=== PATIENT | female | born 1960 | race Caucasian/White ===

== ENCOUNTER 2019-03-21 10:07 | Inpatient (IN) ==
[2019-03-21] MEDS ORDERED: OPTIRAY 320 125ml IV PRN (10:22)
[2019-03-21] MEDS ORDERED: SODIUM CHLORIDE 0.9% 1000ML 1,000 ML IV SCH (10:30)
[2019-03-21 10:32] LABS: Basophils # (auto) 0.01 K/uL (0-0.2); Basophils % (auto) 0.1 %; Eosinophils # (auto) 0.02 K/uL (0-0.5); Eosinophils % (auto) 0.1 %; Hematocrit (blood only) 34.8 % (37-47); Immature Granulocytes % (auto) 0.7 %; Lymphocytes # (auto) 1.16 K/uL (1.2-3.4); Lymphocytes % (auto) 7.7 %; Mean Corpuscular Hemoglobin 28.9 pg (25-34); Mean Corpuscular Hgb Conc 31.6 g/dL (32-36); Mean Corpuscular Volume 91.6 fL (80-100); Mean Platelet Volume 9.3 fL (7.4-10.4); Monocytes # (auto) 0.78 K/uL (0.11-0.59); Monocytes % (auto) 5.2 %; Neutrophils # (auto) 12.95 K/uL (1.4-6.5); Neutrophils % (auto) 86.2 %; Platelet Count 521 K/uL (130-400); RDW Coefficient of Variation 17.8 % (11.5-14.5); White Blood Count 15.02 K/uL (4.8-10.8)
--- NOTE | 2019-03-21 10:39 | Emergency Department Note ---
Entered by Margareth Chandler acting as a scribe for Maykel Aden DO History of Present Illness General Chief complaint: Stroke/CVA Symptoms Stated complaint: NEW ONSET STROKE SYMPTOMS Time Seen by Provider: 03/21/19 10:14 Source: patient, family (brother in law) and EMS Limitations: altered mental status History of Present Illness Onset (ago): unknown Location: head Pain Consistency: + other (episode) Quality: + other (confusion) Associated symptoms: no headaches The patient is a 59 year old female, with past medical history of diabetes, bipolar depression, and hypertension, who presents to the Emergency Room with complaints of an episode of confusion that was first noticed at the patients fine grader, according to the RN. The RN states the patient was confused and not making sense at the pulmonary office. The RN states that it is unknown when symptoms began or when the patient was last known well, due to the patients leaving in the middle of the night at 0300 for [place] for work. The patient denies a headache or new medications. The patient states she has been eating and drinking fine recently. The brother in law of the patient reports the patient is a heavy smoker. The HPI and ROS are limited due to the patient's altered mental status. Home Medications Home Medications Medication Instructions Recorded Confirmed Type amlodipine 5 mg tablet 5 mg PO DAILY #90 tab 01/06/19 03/21/19 Rx baclofen 10 mg tablet 10 mg PO TID #270 tab 01/06/19 03/21/19 Rx bupropion HCl XL 300 mg 24 hr 300 mg PO QAM #90 tab 01/06/19 03/21/19 Rx tablet, extended release duloxetine 60 mg capsule,delayed 60 mg PO DAILY #90 cap 01/06/19 03/21/19 Rx release metformin ER 500 mg 1,000 mg PO DAILY #180 tab 01/06/19 03/21/19 Rx tablet,extended release 24 hr metoclopramide 5 mg tablet 5 mg PO DAILY #90 tab 01/06/19 03/21/19 Rx omeprazole 40 mg capsule,delayed 40 mg PO DAILY #90 cap 01/06/19 03/21/19 Rx release quetiapine 300 mg tablet 300 mg PO DAILY #90 tab 01/06/19 03/21/19 Rx ferrous sulfate 325 mg (65 mg 325 mg PO DAILY tab 01/08/19 03/21/19 History iron) tablet folic acid 1 mg tablet 1 mg PO DAILY #90 tab 01/08/19 03/21/19 Rx rosuvastatin 20 mg tablet 20 mg PO DAILY #90 tab 01/09/19 03/21/19 Rx oxycodone-acetaminophen 5 mg-325 1 tab PO TID PRN #90 tab 03/13/19 03/21/19 Rx mg tablet atorvastatin 40 mg PO DAILY 03/21/19 03/21/19 History benzonatate 100 mg PO TID 03/21/19 03/21/19 History doxycycline hyclate 100 mg PO BID 03/21/19 03/21/19 History levothyroxine [Synthroid] 75 mcg PO DAILY 03/21/19 03/21/19 History prednisone 0 mg PO .TAPER DOSE 03/21/19 03/21/19 History Allergies Allergy/AdvReac Type Severity Reaction Status Date / Time No Known Allergies Allergy Verified 03/21/19 08:59 Past Med/Surg History Medical History Pyloric stenosis (Resolved) Stomach ulcer (Resolved) Depression with anxiety (Resolved) Diabetes mellitus (Resolved) Surgical History History of repair of pyloric stenosis (Resolved) History of D&C Family History Mother Breast cancer Hypertension Anxiety Gallbladder disease Brother Cancer Hypertension Kidney disease Alcohol abuse Renal cell cancer Family/Other No problems noted. Father Heart disease Hypertension Lung disease Social History Preferred Language: Tongan Communication Ability: Effective Communication Ability Comment: s/s intermittent communication impairment. Telephone Worker Required: No Beliefs That Will Affect Care: None marital status: Current Living Situation: Spouse Current Living Situation Comment: Patient's mother also lives with them. current occupational status: retired Other Information That Helps Us Care for You: No Feels Safe at Home: Yes Safety Concerns: Feels Safe At This Time Smoking Status: Current every day smoker Tobacco Type: cigarettes ; Age Started Using Tobacco: 26 ; packs per day: 1 ; Cigarettes Per Day: 1PPD ; Do You Dip or Chew Tobacco: No ; Second Hand Exposure: Yes ; Tobacco Cessation Education Requ ested by Patient: No Hx Alcohol Use: Yes Alcohol type: other Hx Substance Use: No Dental Care, Regularly: Yes Physical Activity Frequency: 5-6 Times per Week Review of Systems See HPI for pertinent positives & negatives. Unobtainable due to cognitive status Physical Exam Vital Signs Vital Signs - 24 hr 03/21/19 10:16 03/21/19 10:20 03/21/19 10:35 Temperature 36.8 C Temperature Source Oral Sepsis Recent Fever Within 48 Hours No Sepsis New/Unexplained Change in Mental Status No Sepsis Action Taken by Nursing No Action Required Pulse Rate 92 H 91 H Pulse Rate [Apical] Pulse Rate from SpO2 Sensor 93 H 92 H Respiratory Rate 25 H 19 Respiratory Effort / Characteristics Respiratory Depth Blood Pressure 131/88 129/79 Blood Pressure [Right Arm] Blood Pressure Mean 102 95 Blood Pressure Mean [Right Arm] Pulse Oximetry 97 96 Oxygen Delivery Method Room Air Room Air 03/21/19 10:45 03/21/19 10:59 03/21/19 11:00 Temperature 37.2 C Temperature Source Oral Sepsis Recent Fever Within 48 Hours Sepsis New/Unexplained Change in Mental Status Sepsis Action Taken by Nursing Pulse Rate 91 H 92 H Pulse Rate [Apical] Pulse Rate from SpO2 Sensor 92 H 93 H Respiratory Rate 20 20 Respiratory Effort / Characteristics Respiratory Depth Blood Pressure 131/95 150/85 H Blood Pressure [Right Arm] Blood Pressure Mean 107 106 Blood Pressure Mean [Right Arm] Pulse Oximetry 96 95 Oxygen Delivery Method Room Air 03/21/19 11:36 03/21/19 12:57 03/21/19 13:00 Temperature Temperature Source Sepsis Recent Fever Within 48 Hours Sepsis New/Unexplained Change in Mental Status Sepsis Action Taken by Nursing Pulse Rate 88 Pulse Rate [Apical] 90 90 Pulse Rate from SpO2 Sensor 88 Respiratory Rate 16 20 22 Respiratory Effort / Characteristics Non-Labored Spontaneous Respiratory Depth Normal Blood Pressure 119/71 Blood Pressure [Right Arm] 144/95 H 112/66 Blood Pressure Mean 87 Blood Pressure Mean [Right Arm] 111 81 Pulse Oximetry 94 91 93 Oxygen Delivery Method Room Air Room Air GENERAL: The patient is awake and alert but very anxious appearing. She is slow to answer questions. EYES: The conjunctivae are clear. The pupils are round and reactive. EARS, NOSE, MOUTH AND THROAT: The nose is without any evidence of any deformity. Mucous membranes are moist tongue is midline NECK: The neck is nontender and supple. RESPIRATORY: Diminished breath sounds are noted throughout. There is scattered wheezing throughout. CARDIOVASCULAR: Regular rate and rhythm noted there no murmurs rubs or gallops normal S1 normal S2 GASTROINTESTINAL: The abdomen is soft. Abdomen is nontender. MUSCULOSKELETAL/EXTREMITIES: There is no evidence of gross deformity full range of motion is noted in the hips and shoulders SKIN: There is no obvious evidence of any rash. Trace pedal edema was noted bilaterally. NEUROLOGIC: Patient has expressive aphasia. Her words are inappropriate at times. There slurred but understandable. Strength is symmetric in both upper and lower examinee. No facial droop or drift was noted. Course 1014: Past medical records reviewed. The patient was evaluated in room B1. A complete history and physical exam was performed. 1030: I discussed the patient's case with Dr. Slater. 1115: I discussed the patient's case with Dr. Slater. 1120: I reviewed the patient's case with Dr. Smallwood [facility]. Dr. Conteh will evaluate the patient for further management. 1123: I discussed the patient's case with Pulmonary. Pulmonary wants an MRA stat to confirm if the patient needs to be admitted or not. 1200: I updated the patient's on the patient's case. 1302: I discussed the patient's case with Dr. Smallwood [facility]. Dr. Conteh is going to run some orders and further evaluate the patient. 1320: I discussed the imaging findings with Pulmonary. Consultations Consultation #1: I discussed the patient's case with Dr. Slater. Time: 10:30 Consultation #2: I discussed the patient's case with Dr. Slater. Time: 11:15 Consultation #3: I reviewed the patient's case with Dr. Smallwood [facility]. Dr. Conteh will evaluate the patient for further management. Time: 11:20 Additional Consultation(s): 1123: I discussed the patient's case with Pulmonary. Pulmonary wants an MRA stat to confirm if the patient needs to be admitted or not. 1302: I discussed the patient's case with Dr. Smallwood [facility]. Dr. Zoraida mendoza is going to run some orders and further evaluate the patient. 1320: I discussed the imaging findings with Pulmonary. Administered Medications Potassium Chloride (K Naman / Wtr) 10 meq in 100 mls @ 100 mls/hr IV Q1H KVNG Stop: 03/21/19 18:29 Last Admin: 03/21/19 16:03 Dose: 100 mls/hr Documented by: [id number] Discontinued Medications Gadobutrol (Gadavist 65ml) 6 ml IV ONCE PRN PRN Reason: Interaction Checking Stop: 03/25/19 12:41 Last Admin: 03/21/19 12:42 Dose: 6 ml Documented by: [id number] Sodium Chloride (Nss 1000ml) 1,000 mls @ 50 mls/hr IV .Q20H KVNG Stop: 04/20/19 10:29 Last Infusion: 03/21/19 14:21 Dose: 0 mls/hr Documented by: [id number] Admin: 03/21/19 10:34 Dose: 50 mls/hr Documented by: [id number] Potassium Chloride (K Naman / Wtr) 10 meq in 100 mls @ 100 mls/hr IV Q1H KVNG Stop: 03/21/19 13:29 Last Infusion: 03/21/19 14:00 Dose: 0 mls/hr Documented by: [id number] Admin: 03/21/19 12:59 Dose: 100 mls/hr Documented by: [id number] Infusion: 03/21/19 12:58 Dose: 0 mls/hr Documented by: [id number] Admin: 03/21/19 11:33 Dose: 100 mls/hr Documented by: [id number] Levetiracetam 1,000 mg/ (Dextrose) 110 mls @ 440 mls/hr IV NOW STA Stop: 03/21/19 11:30 Last Infusion: 03/21/19 12:01 Dose: 0 mls/hr Documented by: [id number] Admin: 03/21/19 11:45 Dose: 440 mls/hr Documented by: [id number] Piperacillin Sod/Tazobactam Sod (Zosyn) 4.5 gm in 120 mls @ 240 mls/hr IV NOW ONE Stop: 03/21/19 13:50 Last Infusion: 03/21/19 14:01 Dose: 0 mls/hr Documented by: [id number] Admin: 03/21/19 13:31 Dose: 240 mls/hr Documented by: [id number] Vancomycin HCl 1,250 mg/ (Sodium Chloride) 525 mls @ 200 mls/hr IV NOW ONE Stop: 03/21/19 15:58 Last Admin: 03/21/19 14:14 Dose: 200 mls/hr Documented by: [id number] Ioversol (Optiray 320 125ml) 120 ml IV ONCE PRN PRN Reason: Interaction Checking Stop: 03/25/19 10:21 Last Admin: 03/21/19 10:23 Dose: 120 ml Documented by: [id number] Medical Decision Making Differential Diagnosis Differential diagnosis: Etiologies such as metabolic, infection, hypoglycemia, electrolyte abnormalities, cardiac sources, intracerebral event, toxicologic, neurologic, as well as others were entertained. Medical Records Attestation: I reviewed the patient's medical records. Home Medications Current Medication List: was personally reviewed by me Laboratory Data Attestation: I reviewed the patient's lab results. Result diagrams: 03/21/19 10:16 03/21/19 15:10 Lab Results 03/21/19 03/21/19 03/21/19 Range/Units 10:15 10:16 10:16 WBC 15.02 H (4.8-10.8) K/uL RBC 3.80 L (4.2-5.4) M/uL Hgb 11.0 L (12.0-16.0) g/dL POC Hgb (12.0-16.0) g/dl Hct 34.8 L (37-47) % POC Hct (37-47) % MCV 91.6 (80-100) fL MCH 28.9 (25-34) pg MCHC 31.6 L (32-36) g/dL RDW Std Deviation 60.0 H (36.4-46.3) fL RDW Coeff of Liz 17.8 H (11.5-14.5) % Plt Count 521 H (130-400) K/uL MPV 9.3 (7.4-10.4) fL Immature Gran % (Auto) 0.7 % Neut % (Auto) 86.2 % Lymph % (Auto) 7.7 % [place] % (Auto) 5.2 % Eos % (Auto) 0.1 % Baso % (Auto) 0.1 % Immature Gran # (Auto) 0.10 H (0.00-0.02) K/uL Neut # (Auto) 12.95 H (1.4-6.5) K/uL Lymph # (Auto) 1.16 L (1.2-3.4) K/uL [place] # (Auto) 0.78 H (0.11-0.59) K/uL Eos # (Auto) 0.02 (0-0.5) K/uL Baso # (Auto) 0.01 (0-0.2) K/uL PT 10.8 (9.0-12.0) Seconds INR 1.1 (0.9-1.1) APTT 31.3 H (21.0-31.0) Seconds PTT Ratio 1.2 VBG pH (7.36-7.41) VBG pCO2 (38-50) mmHg VBG pO2 mmHg VBG HCO3 mmol/L VBG O2 Saturation % VBG Base Excess mEq/L Barometric Pressure mm/Hg POC Sodium (135-144) mEq/L Sodium (136-145) mmol/L POC Potassium (3.3-5.0) mEq/L Potassium (3.5-5.1) mmol/L POC Chloride (101-112) mEq/L Chloride (98-107) mmol/L Carbon Dioxide (21-32) mmol/L POC Total CO2 (24-31) mEq/l Anion Gap (3-11) POC Anion Gap (16-25) mmol/L POC BUN (7-18) mg/dl BUN (7-18) mg/dl Creatinine (0.6-1.2) mg/dl POC Creatinine (0.6-1.3) mg/dl Est Cr Clr Drug Dosing ml/min Est GFR ( Amer) Est GFR (Non-Af Amer) BUN/Creatinine Ratio (10-20) Glucose (70-99) mg/dl POC Glucose 97 (70-99) POC Glucose (other) (70-99) mg/dl Calcium (8.5-10.1) mg/dl POC Ioniz Calcium Kei (1.12-1.32) mmol/l Magnesium (1.8-2.4) mg/dl Total Bilirubin (0.2-1) mg/dl AST (15-37) U/L ALT (12-78) U/L Alkaline Phosphatase (45-117) U/L Troponin I (0-0.045) ng/ml Total Protein (6.4-8.2) gm/dl Albumin (3.4-5.0) gm/dl Globulin (2.5-4.0) gm/dl Albumin/Globulin Ratio (0.9-2) HCG, Qual (Negative) Urine Color Urine Appearance (Clear) Urine pH (4.5-7.5) Ur Specific [place] (1.000-1.030) Urine Protein (Negative) Urine Glucose (UA) (Negative) Urine Ketones (Negative) Urine Blood (Negative) Urine Nitrite (Negative) Urine Bilirubin (Negative) Urine Urobilinogen (Negative) Ur Leukocyte Esterase (Negative) Urine Opiates Screen (Neg) Ur Methadone, Qual (Neg) Urine Barbiturates (Neg) Ur Phencyclidine (PCP) (Neg) U Amphetamin/Meth Scrn (Neg) MDMA (Ecstasy) Screen (Neg) U Benzodiazepines Scrn (Neg) Ur Cocaine Metabolite (Neg) U Marijuana (THC) Screen (Neg) 03/21/19 03/21/19 03/21/19 Range/Units 10:16 10:16 10:31 WBC (4.8-10.8) K/uL RBC (4.2-5.4) M/uL Hgb (12.0-16.0) g/dL POC Hgb (12.0-16.0) g/dl Hct (37-47) % POC Hct (37-47) % MCV (80-100) fL MCH (25-34) pg MCHC (32-36) g/dL RDW Std Deviation (36.4-46.3) fL RDW Coeff of Liz (11.5-14.5) % Plt Count (130-400) K/uL MPV (7.4-10.4) fL Immature Gran % (Auto) % Neut % (Auto) % Lymph % (Auto) % [place] % (Auto) % Eos % (Auto) % Baso % (Auto) % Immature Gran # (Auto) (0.00-0.02) K/uL Neut # (Auto) (1.4-6.5) K/uL Lymph # (Auto) (1.2-3.4) K/uL [place] # (Auto) (0.11-0.59) K/uL Eos # (Auto) (0-0.5) K/uL Baso # (Auto) (0-0.2) K/uL PT (9.0-12.0) Seconds INR (0.9-1.1) APTT (21.0-31.0) Seconds PTT Ratio VBG pH 7.38 (7.36-7.41) VBG pCO2 45 (38-50) mmHg VBG pO2 39 mmHg VBG HCO3 26 mmol/L VBG O2 Saturation 75.0 % VBG Base Excess 0.8 mEq/L Barometric Pressure 737.2 mm/Hg POC Sodium (135-144) mEq/L Sodium 139 (136-145) mmol/L POC Potassium (3.3-5.0) mEq/L Potassium 3.0 L (3.5-5.1) mmol/L POC Chloride (101-112) mEq/L Chloride 101 (98-107) mmol/L Carbon Dioxide 28 (21-32) mmol/L POC Total CO2 (24-31) mEq/l Anion Gap 10.0 (3-11) POC Anion Gap (16-25) mmol/L POC BUN (7-18) mg/dl BUN 9 (7-18) mg/dl Creatinine 0.73 (0.6-1.2) mg/dl POC Creatinine (0.6-1.3) mg/dl Est Cr Clr Drug Dosing 71.7 ml/min Est GFR ( Amer) 104.5 Est GFR (Non-Af Amer) 90.1 BUN/Creatinine Ratio 11.7 (10-20) Glucose 95 (70-99) mg/dl POC Glucose (70-99) POC Glucose (other) (70-99) mg/dl Calcium 8.7 (8.5-10.1) mg/dl POC Ioniz Calcium Kei (1.12-1.32) mmol/l Magnesium 1.6 L (1.8-2.4) mg/dl Total Bilirubin 0.3 (0.2-1) mg/dl AST 9 L (15-37) U/L ALT 11 L (12-78) U/L Alkaline Phosphatase 223 H (45-117) U/L Troponin I < 0.015 (0-0.045) ng/ml Total Protein 7.0 (6.4-8.2) gm/dl Albumin 2.3 L (3.4-5.0) gm/dl Globulin 4.7 H (2.5-4.0) gm/dl Albumin/Globulin Ratio 0.5 L (0.9-2) HCG, Qual Negative (Negative) Urine Color Urine Appearance (Clear) Urine pH (4.5-7.5) Ur Specific [place] (1.000-1.030) Urine Protein (Negative) Urine Glucose (UA) (Negative) Urine Ketones (Negative) Urine Blood (Negative) Urine Nitrite (Negative) Urine Bilirubin (Negative) Urine Urobilinogen (Negative) Ur Leukocyte Esterase (Negative) Urine Opiates Screen (Neg) Ur Methadone, Qual (Neg) Urine Barbiturates (Neg) Ur Phencyclidine (PCP) (Neg) U Amphetamin/Meth Scrn (Neg) MDMA (Ecstasy) Screen (Neg) U Benzodiazepines Scrn (Neg) Ur Cocaine Metabolite (Neg) U Marijuana (THC) Screen (Neg) 03/21/19 03/21/19 03/21/19 Range/Units 10:43 13:25 13:25 WBC (4.8-10.8) K/uL RBC (4.2-5.4) M/uL Hgb (12.0-16.0) g/dL POC Hgb 9.9 L (12.0-16.0) g/dl Hct (37-47) % POC Hct 29 L (37-47) % MCV (80-100) fL MCH (25-34) pg MCHC (32-36) g/dL RDW Std Deviation (36.4-46.3) fL RDW Coeff of Liz (11.5-14.5) % Plt Count (130-400) K/uL MPV (7.4-10.4) fL Immature Gran % (Auto) % Neut % (Auto) % Lymph % (Auto) % [place] % (Auto) % Eos % (Auto) % Baso % (Auto) % Immature Gran # (Auto) (0.00-0.02) K/uL Neut # (Auto) (1.4-6.5) K/uL Lymph # (Auto) (1.2-3.4) K/uL [place] # (Auto) (0.11-0.59) K/uL Eos # (Auto) (0-0.5) K/uL Baso # (Auto) (0-0.2) K/uL PT (9.0-12.0) Seconds INR (0.9-1.1) APTT (21.0-31.0) Seconds PTT Ratio VBG pH (7.36-7.41) VBG pCO2 (38-50) mmHg VBG pO2 mmHg VBG HCO3 mmol/L VBG O2 Saturation % VBG Base Excess mEq/L Barometric Pressure mm/Hg POC Sodium 137 (135-144) mEq/L Sodium (136-145) mmol/L POC Potassium 2.6 L (3.3-5.0) mEq/L Potassium (3.5-5.1) mmol/L POC Chloride 95 L (101-112) mEq/L Chloride (98-107) mmol/L Carbon Dioxide (21-32) mmol/L POC Total CO2 29 (24-31) mEq/l Anion Gap (3-11) POC Anion Gap 17.0 (16-25) mmol/L POC BUN 6 L (7-18) mg/dl BUN (7-18) mg/dl Creatinine (0.6-1.2) mg/dl POC Creatinine 0.7 (0.6-1.3) mg/dl Est Cr Clr Drug Dosing ml/min Est GFR ( Amer) Est GFR (Non-Af Amer) BUN/Creatinine Ratio (10-20) Glucose (70-99) mg/dl POC Glucose (70-99) POC Glucose (other) 92 (70-99) mg/dl Calcium (8.5-10.1) mg/dl POC Ioniz Calcium Kei 1.03 L (1.12-1.32) mmol/l Magnesium (1.8-2.4) mg/dl Total Bilirubin (0.2-1) mg/dl AST (15-37) U/L ALT (12-78) U/L Alkaline Phosphatase (45-117) U/L Troponin I (0-0.045) ng/ml Total Protein (6.4-8.2) gm/dl Albumin (3.4-5.0) gm/dl Globulin (2.5-4.0) gm/dl Albumin/Globulin Ratio (0.9-2) HCG, Qual (Negative) Urine Color Yellow Urine Appearance Clear (Clear) Urine pH 7.5 (4.5-7.5) Ur Specific [place] > 1.045 H (1.000-1.030) Urine Protein Negative (Negative) Urine Glucose (UA) Negative (Negative) Urine Ketones Negative (Negative) Urine Blood Negative (Negative) Urine Nitrite Negative (Negative) Urine Bilirubin Negative (Negative) Urine Urobilinogen Negative (Negative) Ur Leukocyte Esterase Negative (Negative) Urine Opiates Screen Neg (Neg) Ur Methadone, Qual Neg (Neg) Urine Barbiturates Neg (Neg) Ur Phencyclidine (PCP) Neg (Neg) U Amphetamin/Meth Scrn Neg (Neg) MDMA (Ecstasy) Screen Pos H (Neg) U Benzodiazepines Scrn Neg (Neg) Ur Cocaine Metabolite Neg (Neg) U Marijuana (THC) Screen Neg (Neg) Imaging Data Radiologist's Impression: Radiology results as stated below per my review and the radiologist's interpretation: CT angio head w con HISTORY: Mental status change weak TECHNIQUE: Multiaxial CT angiography of the head was performed IV contrast: 100 cc Maximum intensity projection images were also obtained. A dose lowering technique was utilized adhering to the principles of ALARA. COMPARISON: None. FINDINGS: There is no mass, hematoma, midline shift, or acute infarct. Visualized intracranial internal carotid arteries, distal vertebral arteries, and basilar artery are widely patent. There is no significant stenosis, occlusion, or aneurysm seen within the bilateral ACAs, MCAs, or data processing clerk. IMPRESSION: No significant stenosis, occlusion, or aneurysm within the [place]. The above report was generated using voice recognition software. It may contain grammatical, syntax or spelling errors. Electronically signed by: Edgar Leahy M.D. 03/21/2019 10:[address] angio neck with con HISTORY: Mental status change weak TECHNIQUE: Multiaxial CT angiography of the neck was performed IV contrast: 100 cc All measurements were calculated based on NASCET criteria. Maximum intensity projection images were also obtained. A dose lowering technique was utilized adhering to the principles of ALARA. COMPARISON STUDY: None. FINDINGS: The aortic arch and proximal great vessels are widely patent. There is no significant stenosis, occlusion, or dissection identified within the bilateral common carotid, internal carotid, or vertebral arteries. Mild plaque formation is noted at the carotid bifurcations bilaterally IMPRESSION: No significant stenosis, occlusion, or dissection identified within the carotid or vertebral arteries. Mild scattered plaque formation The above report was generated using voice recognition software. It may contain grammatical, syntax or spelling errors. Electronically signed by: Edgar Leahy M.D. 03/21/2019 10:[address] head/brain wo con CLINICAL HISTORY: 59 years-old Female with Stroke evaluation . Acute strokelike symptoms TECHNIQUE: Multiple axial CT images of the head were obtained without contrast. A dose lowering technique was utilized adhering to the principles of ALARA. COMPARISON: CTA head neck of same day. FINDINGS: No acute intracranial hemorrhage, midline shift, intracranial mass, hydrocephalus, or abnormal extra-axial collection. Ill-defined decreased attenuation with blurring of the graves-white interface involves the left frontal lobe, insula and operculum (for example please see images 13 through 16 of series 2). The calvarium is intact. The paranasal sinuses, mastoid air cells, and middle ear cavities are clear. IMPRESSION: 1. No acute intracranial hemorrhage, midline shift or abnormal extra-axial collection. 2. Ill-defined decreased attenuation with blurring of the graves-white interface within the left frontal lobe, insula and operculum is suspicious for cytotoxic edema related to acute ischemic infarct. Correlate clinically. The above report was generated using voice recognition software. It may contain grammatical, syntax or spelling errors. Electronically signed by: Eric Garcia M.D. 03/21/2019 10:37 AM XR chest 1V portable CLINICAL HISTORY: cva stroke COMPARISON STUDY: Chest CT 03/18/2019 FINDINGS: Several left sided parenchymal masses. Largest measures 3.8 cm peripheral aspect left mid lung. Left perihilar and left basilar interstitial changes. Right lung remains clear. IMPRESSION: 1. Several left lung masses which have been described previously. 2. Potential superimposed interstitial left perihilar and left basilar infiltrative change. The above report was generated using voice recognition software. It may contain grammatical, syntax or spelling errors. Electronically signed by: Edgar Leahy M.D. 03/21/2019 10:46 AM MRI OF THE BRAIN WITHOUT AND WITH IV CONTRAST CLINICAL HISTORY: Altered mental status, memory loss. Confusion. Pulmonary masses. COMPARISON STUDY: Noncontrast head CT dated 03/21/2019 TECHNIQUE: MRI of the brain was performed from the vertex to the skull base utilizing various T1 and T2 weighted sequences. Following the IV administration of 6 mL of Gadavist contrast, additional enhanced images were obtained. FINDINGS: Sagittal T1, axial diffusion, proton density and T2 weighted axial, coronal FLAIR, and pre and post axial T1-weighted images were acquired. These were supplemented with post gadolinium coronal T1 weighted images. No intra or extra-axial mass lesions are visualized. There is a 3 cm focus of restricted water diffusion within the left posterior fr ontal lobe consistent with an acute infarct. There is no evidence of ventricular dilatation. Proton density T2-weighted and FLAIR images reveal scattered foci of increased T2 signal within the white matter, likely on a small vessel basis. There are no abnormal flow voids. There is no evidence of pathologic enhancement. IMPRESSION: 1. 3 cm focus of restricted water diffusion within the left posterior frontal lobe, indicative of an acute infarct. Electronically signed by: Robert Hayward M.D. 03/21/2019 12:49 PM ECG Data Attestation: I personally reviewed and interpreted this ECG as follows: Indication: + altered mental status Rate (beats per minute): 93 Rhythm: + normal sinus ECG ST segments: no Normal ST segments (diffused ST and T wave abnormalities ) ECG Findings: no PACs and no PVCs Comparison ECG Date: no prior available Blood Pressure Blood Pressure Findings: Elevated blood pressure Blood Pressure Disposition: further management by hospitalist BUBBA Radford The patient is a 59-year-old female who presented to the emergency department with altered mental status. I received a call prior to the patient's arrival because she was recently diagnosed with an abnormal chest x-ray which was followed up with an abnormal chest CT. She was at an appointment with her fine grader when she was noticed to have significant changes in her mental status. I was called by the fine grader. At this time they were unsure if this finding on chest CT represented a neoplastic process. There was significant concern that her change in mental status could be the result of metastatic disease. The patient was made a stroke alert immediately upon ar rival. The patient arrived with her [id number]. We were unable to establish the patient's last known well time. The patient's did come to the emergency department. He works out of town and last saw his significant other at 3:00 this morning. He does feel that at that time she was at her baseline however he did not have an extensive conversation with her. The patient does have a significant expressive aphasia. She does follow commands but slowly. I discussed the patient's laboratory and radiographic studies with her. I also discussed her case with the [facility] stroke neurologist. She was not given TPA at this time because of the last known well time being unclear. She did not appear to have any large vessel occlusion. The admitting team as well as the pulmonary group recommended an MRI prior to admission to ensure the patient's presentation was not due to a metastatic lesion. MRI showed instead an area of diffusion which was consistent more with an acute ischemic stroke. The patient was reevaluated multiple times. I discussed the patient's laboratory and radiographic studies with her as well as her significant other. I also discussed her case with the on-call [facility] hospitalist group as well as the pulmonary group. Likely the patient will require further work-up to ensure there is no embolic phenomena as well as further work-up on the CT findin gs of the chest. She was given IV antibiotics. Impression & Plan Stroke, AMS (altered mental status), Expressive aphasia, Acute hypokalemia, Lung mass Critical Care Time Critical Care Time: Yes Total Critical Care Time: 65 I have personally spent greater than 65 minutes of critical care time in the direct management of this patient. This includes bedside care, interpretation of diagnostic studies, and testing, discussion with consultants, patient, and family members, and other required patient management activities. This 65 minutes is in excess of all separately billable procedures. Discharge Plan Visit Data *Final* Discharge Date/Time: 03/21/19 14:11 Chief Complaint: Stroke/CVA Symptoms Stated Complaint: NEW ONSET STROKE SYMPTOMS ED Provider: Maykel Aden Discharge Problem: Stroke, AMS (altered mental status), Expressive aphasia, Acute hypokalemia, Lung mass Patient Disposition: Being Evaluated by Hospitalist Discharge Instructions Interventions: ED Discharge Assessment Last Done: 03/21/19 14:11 Discharge Problem: Stroke Qualifiers: CVA mechanism: unspecified Qualified Code(s): I63.9 - Cerebral infarction, unspecified AMS (altered mental status) Qualifiers: Altered mental status type: unspecified Qualified Code(s): R41.82 - Altered mental status, unspecified The scribe's documentation has been prepared under my direction and personally reviewed by me in its entirety. I confirm that the note above accurately reflects all work, treatment, procedures, and medical decision making performed by me.
--- NOTE | 2019-03-21 10:39 | CT Scan Report ---
CT head/brain wo con CLINICAL HISTORY: 59 years-old Female with Stroke evaluation . Acute strokelike symptoms TECHNIQUE: Multiple axial CT images of the head were obtained without contrast. A dose lowering tech nique was utilized adhering to the principles of ALARA. COMPARISON: CTA head neck of same day. FINDINGS: No acute intracranial hemorrhage, midline shift, intracranial mass, hydrocephalus, or abnormal extra- axial collection. Ill-defined decreased attenuation with blurring of the graves-white interface involve s the left frontal lobe, insula and operculum (for example please see images 13 through 16 of series 2). The calvarium is intact. The paranasal sinuses, mastoid air cells, and middle ear cavities are clear . IMPRESSION: 1. No acute intracranial hemorrhage, midline shift or abnormal extra-axial collection. 2. Ill-defined decreased attenuation with blurring of the graves-white interface within the left fronta l lobe, insula and operculum is suspicious for cytotoxic edema related to acute ischemic infarct. Cor relate clinically. The above report was generated using voice recognition software. It may contain grammatical, syntax o r spelling errors. Electronically signed by: Eric Garcia M.D. 03/21/2019 10:37 AM
[2019-03-21 10:41] LABS: INR 1.1 (0.9-1.1); Partial Thromboplastin Ratio 1.2; Partial Thromboplastin Time 31.3 Seconds (21.0-31.0); Prothrombin Time 10.8 Seconds (9.0-12.0)
--- NOTE | 2019-03-21 10:41 | CT Scan Report ---
CT angio head w con HISTORY: Mental status change weak TECHNIQUE: Multiaxial CT angiography of the head was performed IV contrast: 100 cc Maximum intensi ty projection images were also obtained. A dose lowering technique was utilized adhering to the prin ciples of [place]. COMPARISON: None. FINDINGS: There is no mass, hematoma, midline shift, or acute infarct. Visualized intracranial chemist internship al carotid arteries, distal vertebral arteries, and basilar artery are widely patent. There is no sig nificant stenosis, occlusion, or aneurysm seen within the bilateral ACAs, MCAs, or ventilating engineer. IMPRESSION: No significant stenosis, occlusion, or aneurysm within the [place]. The above report was generated using voice recognition software. It may contain grammatical, syntax or spelling errors. Electronically signed by: Edgar Leahy M.D. 03/21/2019 10:39 AM
[2019-03-21 10:47] LABS: Alanine Aminotransferase 11 U/L (12-78); Albumin Level 2.3 gm/dl (3.4-5.0); Aspartate Aminotransferase 9 U/L (15-37); BUN Creatinine Ratio 11.7 (10-20); Blood Urea Nitrogen 9 mg/dl (7-18); Calcium 8.7 mg/dl (8.5-10.1); Carbon Dioxide 28 mmol/L (21-32); Chloride 101 mmol/L (98-107); Creatinine Clr Calc Pharmacy 71.7 ml/min; Est GFR (African American) 104.5; Est GFR (Non-African American) 90.1; Glucose 95 mg/dl (70-99); Magnesium 1.6 mg/dl (1.8-2.4); Sodium 139 mmol/L (136-145)
--- NOTE | 2019-03-21 10:48 | XRay Report ---
XR chest 1V portable CLINICAL HISTORY: cva stroke COMPARISON STUDY: Chest CT 03/18/2019 FINDINGS: Several left sided parenchymal masses. Largest measures 3.8 cm peripheral aspect left mid l gucci. Left perihilar and left basilar interstitial changes. Right lung remains clear. IMPRESSION: 1. Several left lung masses which have been described previously. 2. Potential superimposed interstitial left perihilar and left basilar infiltrative change. The above report was generated using voice recognition software. It may contain grammatical, syntax or spelling errors. Electronically signed by: Edgar Leahy M.D. 03/21/2019 10:46 AM
[2019-03-21 10:50] LABS: Base Excess VBG 0.8 mEq/L; pH VBG 7.38 (7.36-7.41)
[2019-03-21 10:52] LABS: Albumin Globulin Ratio 0.5 (0.9-2); Alkaline Phosphatase 223 U/L (45-117); Bilirubin,Total 0.3 mg/dl (0.2-1); Globulin 4.7 gm/dl (2.5-4.0); Troponin I < 0.015 ng/ml (0-0.045)
--- NOTE | 2019-03-21 10:53 | CT Scan Report ---
CT angio neck with con HISTORY: Mental status change weak TECHNIQUE: Multiaxial CT angiography of the neck was performed IV contrast: 100 cc All measurements were calculated based on NASCET criteria. Maximum intensity projection images were also obtained. A dose lowering technique was utilized adhering to the principles of ALARA. COMPARISON STUDY: None. FINDINGS: The aortic arch and proximal great vessels are widely patent. There is no significant sten osis, occlusion, or dissection identified within the bilateral common carotid, internal carotid, or v ertebral arteries. Mild plaque formation is noted at the carotid bifurcations bilaterally IMPRESSION: No significant stenosis, occlusion, or dissection identified within the carotid or vertebral arteries . Mild scattered plaque formation The above report was generated using voice recognition software. It may contain grammatical, syntax or spelling errors. Electronically signed by: Edgar Leahy M.D. 03/21/2019 10:52 AM
[2019-03-21 11:04] LABS: Pregnancy Test, Serum Negative (Negative)
--- NOTE | 2019-03-21 11:21 | History & Physical Report ---
Date of Service March 21, 2019 Assessment & Plan (1) Stroke: - Admit to PCU - Neuro consult while here for aphasia and difficulty word finding. It was considered that the pt may have needed higher care in the ER for neurosurgery, however MRI showed acute stroke which is consistent with sx and no abnormal flow voids, or pathologic enhancement. Discussed with ER attending, Dr. Aden and with Dr. Conteh that the pt is stable for admission here presently. Discussed with family these results. - Stroke order set completed - Speech consult for swallow eval - Keep NPO until eval - Allow permissive HTN - Check A1C and lipids with am labs (2) Dysarthria: Secondary to acute stroke- neuro as above (3) Cavitating mass in left lower lung lobe: (4) Cavitating mass in left upper lung lobe: - CT angio head and neck reviewed as above - WBC elevated at 15.02, much increased compared to baseline. Noted that she has been on prednisone for recent pneumonia and tapering off. Also note that was on doxycycline 100 mg BID, will hold for now and start IV zosyn and vanc. - Sputum culture if expectorate produced - Consider consulting Pulmonology for continuation of care and possibly biopsy vs bronch, or close outpt follow up (5) Type II diabetes mellitus: - Hold metformin with contrast given - ISS with accuchecks achs - Unknown last A1C, check morning labs (6) Anemia: - Hgb stable, trend with am labs - Cont ferrous sulfate supplementation daily (7) Bipolar depression: - Stable on Cymbalta 60 mg daily, Wellbutrin XL 300 mg daily, Seroquel 300 mg tab (8) Hypertension: - Allow permissive htn - HOLD amlodipine (9) Hyperlipemia: - Cont atorvastatin 40 mg daily (10) Hypothyroidism: - Cont levothyroxine 75 mcg daily (11) Congenital esophageal stenosis: - Noted (12) Pyloric stenosis: - Cont metoclopramide 5 mg tab daily (13) Hypokalemia: - Replace with IV, on admission was 2.6, replaced with 20 meq x 2 in ER, continue with start with another 20 meq IV Q12H x 2 doses. Hold on PO until speech (14) Elevated alkaline phosphatase level: - Noted elevation of alk phos, follow up with am LFTs to ensure improves - Possibly medication induced? -- was previously 92 in end of December. (15) Sarcopenia: - Albumin 2.3 on admission, likely decreased secondary to potential neoplastic involvement - Consider initiation of boost Code: FULL - discussed with pt and family at bedside Dispo: From home, likely to remain in the hospital x 2 days History of Present Illness Primary Care Provider: MALINI Parisi This is a 59-year-old female with PMHx of HTN, HLD, DM type II, congenital esophageal stenosis, anemia, bipolar depression, who presents from the pulmonary office for acute onset of dysphasia. Pt and her are present at bedside. She reports being fine yesterday. Her travels to and from work, he notes that he had gone home last evening and every seen everything seemed normal. He notes that she awoke at approximately 3:30 AM and walked out to the couch to go to sleep, he reports this is typical for the patient. He left for work at that point in time and they exchange goodbyes, where everything seemed normal. She drove herself to the pulmonary office this morning without difficulty. She does not remember walking into the office or how she got to the ER. She has difficulty articulating what she wants to say however when she does speak her words are clear. She follows all commands without difficulty. No focal points of weakness. CT chest reveals LLL pulm mass measuring 7.4 cm with areas of cavitation, CRISTÓBLA pulmonary mass, measuring 3.9 cm with tiny areas of cavitation, scattered groundglass opacities within the upper lobes and evidence of pulmonary emphysema. CT of the head and neck are negative for acute ischemic event. Discussion was held with the ER attending, Dr. Aden and we will obtain a stat MR of the brain w/wo contrast and determine if the patient is requiring higher level of care. Allergies Allergy/AdvReac Type Severity Reaction Status Date / Time No Known Allergies Allergy Verified 03/21/19 08:59 Home Medications Home Medications Medication Instructions Recorded Confirmed Type amlodipine 5 mg tablet 5 mg PO DAILY #90 tab 01/06/19 03/21/19 Rx baclofen 10 mg tablet 10 mg PO TID #270 tab 01/06/19 03/21/19 Rx bupropion HCl XL 300 mg 24 hr 300 mg PO QAM #90 tab 01/06/19 03/21/19 Rx tablet, extended release duloxetine 60 mg capsule,delayed 60 mg PO DAILY #90 cap 01/06/19 03/21/19 Rx release metformin ER 500 mg 1,000 mg PO DAILY #180 tab 01/06/19 03/21/19 Rx tablet,extended release 24 hr metoclopramide 5 mg tablet 5 mg PO DAILY #90 tab 01/06/19 03/21/19 Rx omeprazole 40 mg capsule,delayed 40 mg PO DAILY #90 cap 01/06/19 03/21/19 Rx release quetiapine 300 mg tablet 300 mg PO DAILY #90 tab 01/06/19 03/21/19 Rx ferrous sulfate 325 mg (65 mg 325 mg PO DAILY tab 01/08/19 03/21/19 History iron) tablet folic acid 1 mg tablet 1 mg PO DAILY #90 tab 01/08/19 03/21/19 Rx rosuvastatin 20 mg tablet 20 mg PO DAILY #90 tab 01/09/19 03/21/19 Rx oxycodone-acetaminophen 5 mg-325 1 tab PO TID PRN #90 tab 03/13/19 03/21/19 Rx mg tablet atorvastatin 40 mg PO DAILY 03/21/19 03/21/19 History benzonatate 100 mg PO TID 03/21/19 03/21/19 History doxycycline hyclate 100 mg PO BID 03/21/19 03/21/19 History levothyroxine [Synthroid] 75 mcg PO DAILY 03/21/19 03/21/19 History prednisone 0 mg PO .TAPER DOSE 03/21/19 03/21/19 History Past Med/Surg History Medical History Pyloric stenosis (Resolved) Stomach ulcer (Resolved) Depression with anxiety (Resolved) Diabetes mellitus (Resolved) Surgical History History of repair of pyloric stenosis (Resolved) History of D&C Family History Mother Breast cancer Hypertension Anxiety Gallbladder disease Brother Cancer Hypertension Kidney disease Alcohol abuse Renal cell cancer Family/Other No problems noted. Father Heart disease Hypertension Lung disease Social History Preferred Language: Sudanese Communication Ability: Effective Communication Ability Comment: s/s intermittent communication impairment. 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 current occupational status: retired Other Information That Helps Us Care for You: No Feels Safe at Home: Yes Safety Concerns: Feels Safe At This Time Smoking Status: Current every day smoker Tobacco Type: cigarettes ; Age Started Using Tobacco: 26 ; packs per day: 1 ; Cigarettes Per Day: 1PPD ; Do You Dip or Chew Tobacco: No ; Second Hand Exposure: Yes ; Tobacco Cessation Education Requested by Patient: No Hx Alcohol Use: Yes Alcohol type: other Hx Substance Use: No Dental Care, Regularly: Yes Physical Activity Frequency: 5-6 Times per Week Review of Systems Review of Systems: Constitutional: No fever, sweats or chills Eyes: No diplopia, no worsening or blurred vision ENT: normal hearing, no trouble swallowing Respiratory: No cough, sputum, dyspnea at rest or on exertion Cardiovascular: No chest pain, tightness or palpitations Abdomen: No pain, nausea, vomiting, diarrhea or constipation Musculoskeletal: No joint pain, calf pain, swelling Neurologic:+ difficulty articulating what she wants to say, No weakness, numbness/tingling, or balance problems Psychiatric: No anxiety or depression Skin: No rash or itch Physical Exam Physical Exam: General: awake, alert, no apparent distress Head: Normocephalic, atraumatic ENT: PERRL, EOMI, no pharyngeal exudate, mucous membranes moist Chest: Clear to auscultation, on room air, no adventitious breath sounds Cardiac: Regular rate and rhythm, no murmur, no JVD, normal peripheral pulses, good capillary refill Abdominal: NABS x 4 quadrants, soft, nontender to palpation, no rebound, guarding or tenderness Extremities: Normal inspection, no peripheral edema or erythema, calfs nontender to palpation Psych: Normal mood and affect Neuro: AAO x 3, strength intact bilaterally and related 5/5, no motor deficits, + difficulty with free flowing speech and conversation, she can answer one word questions, speech is clear, no peripheral sensory deficits Constitutional: WD/WN, vitals as above Eyes: normal visual espinoza by confrontation and + anicteric sclerae Neck: normal visual inspection and trachea midline Respiratory: normal respiratory effort, lungs clear to auscultation Cardiovascular: Rate/Rhythm: regular rate and regular rhythm Gastrointestinal (Abdomen): Inspection/Auscultation: abdomen not distended Percussion/Palpation: abdomen soft; abdomen nontender Musculoskeletal: Head/Neck/Chest: normocephalic and head atraumatic Neg for peripheral LE edema, + pedal pulses Skin: no rashes, warm and dry Neurologic: CN's II-XI intact bilaterally, moves all extremities and awake; not confused Speech / Cognition: + abnormal speech and + expressive aphasia Pt is able to understand what is said to her and can shake her head yes/no a ppropriately, but attempts to speak are not successful. She is now able to get out a few words like "ok, yes, no" but she cannot say the word hospital when asked where she is or tell me how she is feeling in her own words. She has mild slurring to the words she does get out. states that she is much better than prior, but still not herself. Psychiatric: A+Ox3, euthymic affect Lymphatic: Exam as done by Kristen Conteh DO Results & Data Vital Signs (Past 12 Hours) Vital Signs Temp Pulse Resp BP Pulse Ox 03/21/19 11:00 92 H 20 150/85 H 95 03/21/19 10:59 37.2 C 03/21/19 10:45 91 H 20 131/95 96 03/21/19 10:35 91 H 19 129/79 96 03/21/19 10:20 36.8 C 03/21/19 10:16 92 H 25 H 131/[address] head/brain wo con CLINICAL HISTORY: 59 years-old Female with Stroke evaluation . Acute strokelike symptoms TECHNIQUE: Multiple axial CT images of the head were obtained without contrast. A dose lowering technique was utilized adhering to the principles of ALARA. COMPARISON: CTA head neck of same day. FINDINGS: No acute intracranial hemorrhage, midline shift, intracranial mass, hydrocephalus, or abnormal extra-axial collection. Ill-defined decreased attenuation with blurring of the graves-white interface involves the left frontal lobe, insula and operculum (for example please see images 13 through 16 of series 2). The calvarium is intact. The paranasal sinuses, mastoid air cells, and middle ear cavities are clear. IMPRESSION: 1. No acute intracranial hemorrhage, midline shift or abnormal extra-axial collection. 2. Ill-defined decreased attenuation with blurring of the graves-white interface within the left frontal lobe, insula and operculum is suspicious for cytotoxic edema related to acute ischemic infarct. Correlate clinically. The above report was generated using voice recognition software. It may contain grammatical, syntax or spelling errors. CT chest wo con CLINICAL HISTORY: Pulmonary mass COMPARISON STUDY: None CT DOSE: 306.75 mGycm TECHNIQUE: CT of the thorax was performed from the thoracic inlet to the lung bases. Images are reviewed in the axial, sagittal, and coronal planes. IV contrast was not administered for this examination. A dose lowering technique was utilized adhering to the principles of ALARA. FINDINGS: Thyroid: Imaged portions of the thyroid gland are normal in appearance. Thoracic aorta: The thoracic aorta is normal in course and caliber, noting standard 3 vessel arch anatomy. Heart: The heart is normal in size and configuration, without pericardial effusion. Lungs and pleural spaces: There is a 7.4 cm pleural-based left lower lobe pulmonary mass with areas of cavitation. There is surrounding airspace opacities. There is a 3.9 cm pleural-based left upper lobe pulmonary mass with tiny areas of cavitation. There is a 38 mm paramediastinal left upper lobe pulmonary mass. There are scattered groundglass opacities within the upper lobes. There is evidence for pulmonary emphysema. There are no pleural effusions. Mediastinum: There is no evidence of pathologic mediastinal lymphadenopathy by size criteria. Rissa: There is no evidence of pathologic hilar adenopathy given the limitations of a noncontrast study Axilla: There is no evidence of pathologic axillary lymphadenopathy Upper abdomen: Unremarkable Skeletal structures: There are no lytic or blastic osseous lesions. IMPRESSION: 1. There are 3 dominant left lung pulmonary masses tube which demonstrate areas of cavitation. In addition there are scattered upper lobe groundglass opacities, and evidence for underlying pulmonary emphysema. There is no evidence of pathologic adenopathy. 2. The etiology of the left lung lesions is unclear. These could be infe ctious/inflammatory, related to embolic phenomena, or be neoplastic. Clinical correlation and follow-up will be necessary. Each of the lesions demonstrates a bronchus sign and would be amenable to bronchoscopic sampling. CT angio neck with con HISTORY: Mental status change weak TECHNIQUE: Multiaxial CT angiography of the neck was performed IV contrast: 100 cc All measurements were calculated based on NASCET criteria. Maximum intensity projection images were also obtained. A dose lowering technique was utilized adhering to the principles of ALARA. COMPARISON STUDY: None. FINDINGS: The aortic arch and proximal great vessels are widely patent. There is no significant stenosis, occlusion, or dissection identified within the bilateral common carotid, internal carotid, or vertebral arteries. Mild plaque formation is noted at the carotid bifurcations bilaterally IMPRESSION: No significant stenosis, occlusion, or dissection identified within the carotid or vertebral arteries. Mild scattered plaque formation CT angio head w con HISTORY: Mental status change weak TECHNIQUE: Multiaxial CT angiography of the head was performed IV contrast: 100 cc Maximum intensity projection images were also obtained. A dose lowering technique was utilized adhering to the principles of ALARA. COMPARISON: None. FINDINGS: There is no mass, hematoma, midline shift, or acute infarct. Visualized intracranial internal carotid arteries, distal vertebral arteries, and basilar artery are widely patent. There is no significant stenosis, occlusion, or aneurysm seen within the bilateral ACAs, MCAs, or barrel rifler. IMPRESSION: No significant stenosis, occlusion, or aneurysm within the s[place]ogon of Garcia. XR chest 1V portable CLINICAL HISTORY: cva stroke COMPARISON STUDY: Chest CT 03/18/2019 FINDINGS: Several left sided parenchymal masses. Largest measures 3.8 cm peripheral aspect left mid lung. Left perihilar and left basilar interstitial changes. Right lung remains clear. IMPRESSION: 1. Several left lung masses which have been described previously. 2. Potential superimposed interstitial left perihilar and left basilar infiltrative change. MRI OF THE BRAIN WITHOUT AND WITH IV CONTRAST CLINICAL HISTORY: Altered mental status, memory loss. Confusion. Pulmonary masses. COMPARISON STUDY: Noncontrast head CT dated 03/21/2019 TECHNIQUE: MRI of the brain was performed from the vertex to the skull base utilizing various T1 and T2 weighted sequences. Following the IV administration of 6 mL of Gadavist contrast, additional enhanced images were obtained. FINDINGS: Sagittal T1, axial diffusion, proton density and T2 weighted axial, coronal FLAIR, and pre and post axial T1-weighted images were acquired. These were supplemented with post gadolinium coronal T1 weighted images. No intra or extra-axial mass lesions are visualized. There is a 3 cm focus of restricted water diffusion within the left posterior frontal lobe consistent with an acute infarct. There is no evidence of ventricular dilatation. Proton density T2-weighted and FLAIR images reveal scattered foci of increased T2 signal within the white matter, likely on a small vessel basis. There are no abnormal flow voids. There is no evidence of pathologic enhancement. IMPRESSION: 1. 3 cm focus of restricted water diffusion within the left posterior frontal lobe, indicative of an acute infarct. ECG Additional Comments: 21-MAR-2019 10:14:14 [facility]-EDSTAT ROUTINE RETRIEVAL Normal sinus rhythm Possible Inferior infarct , age undetermined ST & T wave abnormality, consider anterolateral ischemia Abnormal ECG No previous ECGs available 25mm/s 10mm/mV 150Hz 9.0.9 12SL 241 BILL: 10 Referred by: REFERRED SELF Unconfirmed Vent. rate 93 BPM WV interval 170 ms QRS duration 102 ms QT/QTc 358/445 ms P-R-T axes 61 39 -38 Code Status & VTE Plan Code Status Full code- discussed with pt and family at bedside Critical Care Time Prolonged Care Time Prolonged Care Time: Yes Total Prolonged Care Time: 30 Supervising Physician Co-Signing Physician Notes Pt seen and examined by me. Denies chest pain or SOB. Tolerating PO without issue prior to this. states that she is much better than prior, but still not herself. No prior hx of same. Was fine when he left their home around 3a for work. Pt is very clear that she understands what is being said to her but cannot form words to respond outside of basic answers. Agree with HPI/ROS as noted by PA See above for my exam in PE section Agree with plan as outlined above MRI noted for CVA, I did personally discuss these results with pt and Neuro c/s Stroke work up Pt was being seen today by pulcandy as a new pt for new findings on CT chest Advised that this will need addressed, but will likely not occur until CVA issues are resolved or stable PG Care Time/CCT Total # of Minutes Spent Total Time Spent with Patient: Total time spent is greater than 50% in coordination of care (as documented) at patient's floor/unit and/or counseling patient: Prolonged Care Time Prolonged Care Time: Yes Total Prolonged Care Time: 30
[2019-03-21 11:29] LABS: iSTAT Creatinine 0.7 mg/dl (0.6-1.3); iSTAT Hemoglobin 9.9 g/dl (12.0-16.0); iSTAT Ionized Calcium 1.03 mmol/l (1.12-1.32); iSTAT Potassium 2.6 mEq/L (3.3-5.0)
[2019-03-21] MEDS: POTASSIUM CHLORIDE / WTR 10 MEQ/100 ML PLCT IV SCH ×6 (11:33→19:14)
[2019-03-21] MEDS ORDERED: GADOBUTROL 65ML VIAL IV PRN (12:42)
--- NOTE | 2019-03-21 12:50 | Magnetic Resonance Report ---
MRI OF THE BRAIN WITHOUT AND WITH IV CONTRAST CLINICAL HISTORY: Altered mental status, memory loss. Confusion. Pulmonary masses. COMPARISON STUDY: Noncontrast head CT dated 03/21/2019 TECHNIQUE: MRI of the brain was performed from the vertex to the skull base utilizing various T1 and T2 weighted sequences. Following the IV administration of 6 mL of Gadavist contrast, additional enhan johanna images were obtained. FINDINGS: Sagittal T1, axial diffusion, proton density and T2 weighted axial, coronal FLAIR, and pre and post a xial T1-weighted images were acquired. These were supplemented with post gadolinium coronal T1 weight ed images. No intra or extra-axial mass lesions are visualized. There is a 3 cm focus of restricted water diffusion within the left posterior frontal lobe consistent with an acute infarct. There is no evidence of ventricular dilatation. Proton density T2-weighted and FLAIR images reveal scattered foci of increased T2 signal within the w sandy matter, likely on a small vessel basis. There are no abnormal flow voids. There is no evidence of pathologic enhancement. IMPRESSION: 1. 3 cm focus of restricted water diffusion within the left posterior frontal lobe, indicative of an acute infarct. Electronically signed by: Robert Hayward M.D. 03/21/2019 12:49 PM
[2019-03-21] MEDS ORDERED: VANCOMYCIN HCL 1,250 MG in SODIUM CHLORIDE 0.9% 500 ML IV ONE (13:21)
[2019-03-21] MEDS ORDERED: VANCOMYCIN CONSULT ACTIVE PRN ×2 (13:21→15:24)
[2019-03-21] MEDS ORDERED: PIPERACILL/TAZOBAC CONSULT ACTIVE PRN ×2 (13:21→15:24)
[2019-03-21] MEDS ORDERED: PIPERACILLIN/TAZOBACTAM 4.5 GM/120 ML BAG IV ONE (13:21)
[2019-03-21 13:39] LABS: Appearance Urine Clear (Clear); Bilirubin Urine Negative (Negative); Blood Urine Negative (Negative); Color Urine Yellow; Glucose Urine UA Negative (Negative); Ketones Urine Negative (Negative); Leukocyte Esterase Urine Negative (Negative); Nitrite Urine Negative (Negative); Protein Urine Negative (Negative); Specific Gravity Urine > 1.045 (1.000-1.030); Urobilinogen Urine Negative (Negative); pH Urine 7.5 (4.5-7.5)
[2019-03-21] MEDS ORDERED: POTASSIUM ACETATE 20 MEQ in 0.9 % SODIUM CHLORIDE 100 ML IV ONE (13:50)
[2019-03-21 14:19] LABS: Amphetamines+Metham, Urine Neg (Neg); Barbiturates, Urine Neg (Neg); Benzodiazepine, Urine Neg (Neg); Cocaine, Urine Neg (Neg); MDMA (Ecstacy), Urine Pos (Neg); Methadone, Urine Neg (Neg); Opiate, Urine Neg (Neg); Phencyclidine, Urine Neg (Neg)
[2019-03-21] MEDS ORDERED: PHARMACIST DISCHARGE MED REC CONSULT PRN (14:45)
[2019-03-21 15:42] LABS: INR 1.1 (0.9-1.1); Prothrombin Time 11.1 Seconds (9.0-12.0)
[2019-03-21 15:46] LABS: Albumin Level 1.9 gm/dl (3.4-5.0); BUN Creatinine Ratio 9.3 (10-20); Creatinine Clr Calc Pharmacy 80.4 ml/min; Est GFR (African American) 111.5; Est GFR (Non-African American) 96.2; Potassium 2.9 mmol/L (3.5-5.1)
[2019-03-21 15:49] LABS: Albumin Globulin Ratio 0.5 (0.9-2); Bilirubin,Total 0.3 mg/dl (0.2-1); Globulin 4.2 gm/dl (2.5-4.0); Total Protein 6.1 gm/dl (6.4-8.2)
--- NOTE | 2019-03-21 15:57 | CT Scan Report ---
CT head/brain wo con CLINICAL HISTORY: Aphasia. Suspected acute stroke. COMPARISON STUDY: Earlier in the day. TECHNIQUE: Axial CT of the brain is performed from the vertex to the skull base. IV contrast was not administered for this examination. A dose lowering technique was utilized adhering to the principles of ALARA. CT DOSE: 537.48 mGy.cm FINDINGS: No intra or extra-axial mass lesions are visualized. There is a subtle left posterior frontal hypoden sity with loss of graves-white differentiation. The findings are consistent with acute/subacute infarct . There is no midline shift. There is no acute hemorrhage. There are patchy white matter hypodensities likely on a small vessel basis. There is no evidence of pathologic ventricular dilatation. There is no evidence of acute sinusitis IMPRESSION: Acute/subacute left posterior frontal lobe infarct Electronically signed by: Robert Hayward M.D. 03/21/2019 3:56 PM
[2019-03-21] MEDS: BENZONATATE 100 MG CAPSULE PO SCH ×2 (16:56→20:19)
--- NOTE | 2019-03-21 17:55 | Neurology Consultation ---
Date of Consultation March 21, 2019 Assessment & Plan (1) Stroke: Charmaine Tompkins is a 59 yo woman with past medical history of diabetes, hypertension, hyperlipidemia, pyloric stenosis status post repair, bipolar recently diagnosed cavitary lesions in the upper and lower left lung who presents to [facility] after being noted to be confused and not speaking correctly in pulmonary clinic. Symptom localization: left frontal lobe Stroke mechanism: most likely hypercoagulable, less likely cardioembolic Stroke WorkUp: - CT head: no hemorrhage and loss of graves-white differentiation in the left frontal lobe per my read - CTA head/neck:no large vessel occlusion, high-grade stenosis or aneurysm - MRI brain: acute infarct in the left frontal lobe - TTE: pending, will consider JAQUI - Telemetry: pending - A1c: pending - FLP: pending - UDS: Positive for ecstasy - Troponin, TSH: negative, pending Stroke Management: - Acute treatment: Out of window for TPA - Continuous cardiac monitoring, will consider Holter monitor as outpatient if telemetry here unrevealing - Vitals, Neurochecks, NIHSS per unit routine - BP parameters: SBP CAP 220, IV Labetalol/Hydralazine PRN - Complete ischemic stroke workup with TTE without bubble, A1c, fasting lipid panel, TSH, Tn - Consult speech, PT, OT for supportive management - Will veterans rehabilitation counselor concerning stroke education, smoking cessation, healthy diet, physical activity, weight loss - Follow up with PCP for assistance with outpatient goals (BP <135/85, LDL <70, A1c <7) - Follow up in neurology clinic in 6-8 weeks - Recommend confirming if lung masses infection versus malignancy as this would change the potential treatment of her stroke Secondary Stroke Prevention: - Antiplatelet: ASA 81mg po daily/plavix 75mg daily - Anticoagulation: If cancer confirmed, would change from aspirin/plavix to therapeutic dose lovenox for likely hypercoagulability 2/2 malignancy - Statin: Atorvastatin 80mg daily HTN: - BP parameters, as above FEN/GI: - Diet: NPO until cleared by Speech evaluation - Monitor lytes and replete PRN Glucose Control: - Sliding scale insulin and accuchecks per primary team to avoid hyperglycemia Thank you for this interesting consult. Please call or text with any questions. Present on Admission?: Yes (2) Expressive aphasia: (3) Lung mass: History of Present Illness Attending Physician: Kristen Conteh DO Charmaine Tompkins is a 59 yo woman with past medical history of diabetes, hypertension, hyperlipidemia, pyloric stenosis status post repair, bipolar recently diagnosed cavitary lesions in the upper and lower left lung who presents to [facility] after being noted to be confused and not speaking correctly in pulmonary clinic. She was last seen well around 330 this morning by her . History is notable for recently identified cavitating mass in the upper and lower lobes of the left long concerning for either infection versus malignancy. In the ED, CT head obtained which showed no hemorrhage and loss of graves-white differentiation in the left frontal lobe per my read. CTA showed no large vessel occlusion, high-grade stenosis or aneurysm. MRI brain showed an acute infarct in the left frontal lobe. Vitals notable for BP 145/84, patient is afebrile. Labs notable for white count of 15.02, hemoglobin 11, platelets 521, INR 1.1, potassium 2.9, creatinine 0.67, glucose 83, calcium 8.0, magnesium 1.6, elevated alkaline phosphatase 195, troponin negative, UA no infection, and UDS positive for ecstasy (could be secondary to her Seroquel). On examination this afternoon, she was unable to give any history and was aphasic with retained comprehension and partial ability to repeat. She did have a cough but otherwise was unable to answer review of systems secondary to her stroke. Allergies Allergy/AdvReac Type Severity Reaction Status Date / Time No Known Allergies Allergy Verified 03/21/19 08:59 Home Medications Home Medications Medication Instructions Recorded Confirmed Type amlodipine 5 mg tablet 5 mg PO DAILY #90 tab 01/06/19 03/21/19 Rx baclofen 10 mg tablet 10 mg PO TID #270 tab 01/06/19 03/21/19 Rx bupropion HCl XL 300 mg 24 hr 300 mg PO QAM #90 tab 01/06/19 03/21/19 Rx tablet, extended release duloxetine 60 mg capsule,delayed 60 mg PO DAILY #90 cap 01/06/19 03/21/19 Rx release metformin ER 500 mg 1,000 mg PO DAILY #180 tab 01/06/19 03/21/19 Rx tablet,extended release 24 hr metoclopramide 5 mg tablet 5 mg PO DAILY #90 tab 01/06/19 03/21/19 Rx omeprazole 40 mg capsule,delayed 40 mg PO DAILY #90 cap 01/06/19 03/21/19 Rx release quetiapine 300 mg tablet 300 mg PO DAILY #90 tab 01/06/19 03/21/19 Rx ferrous sulfate 325 mg (65 mg 325 mg PO DAILY tab 01/08/19 03/21/19 History iron) tablet folic acid 1 mg tablet 1 mg PO DAILY #90 tab 01/08/19 03/21/19 Rx rosuvastatin 20 mg tablet 20 mg PO DAILY #90 tab 01/09/19 03/21/19 Rx oxycodone-acetaminophen 5 mg-325 1 tab PO TID PRN #90 tab 03/13/19 03/21/19 Rx mg tablet atorvastatin 40 mg PO DAILY 03/21/19 03/21/19 History benzonatate 100 mg PO TID 03/21/19 03/21/19 History doxycycline hyclate 100 mg PO BID 03/21/19 03/21/19 History levothyroxine [Synthroid] 75 mcg PO DAILY 03/21/19 03/21/19 History prednisone 0 mg PO .TAPER DOSE 03/21/19 03/21/19 History Patient History Medical History Pyloric stenosis (Resolved) Stomach ulcer (Resolved) Depression with anxiety (Resolved) Diabetes mellitus (Resolved) Surgical History History of repair of pyloric stenosis (Resolved) History of D&C Family History Mother Breast cancer Hypertension Anxiety Gallbladder disease Brother Cancer Hypertension Kidney disease Alcohol abuse Renal cell cancer Family/Other No problems noted. Father Heart disease Hypertension Lung disease Social History Preferred Language: Nauruan Communication Ability: Effective Communication Ability Comment: s/s intermittent communication impairment. Physical Education Department Chair Required: No Beliefs That Will Affect Care: None marital status: Current Living Situation: Spouse Current Living Situation Comment: Patient's mother also lives with them. current occupational status: retired Other Information That Helps Us Care for You: No Feels Safe at Home: Yes Safety Concerns: Feels Safe At This Time Smoking Status: Current every day smoker Tobacco Type: cigarettes ; Age Started Using Tobacco: 26 ; packs per day: 1 ; Cigarettes Per Day: 1PPD ; Do You Dip or Chew Tobacco: No ; Second Hand Exposure: Yes ; Tobacco Cessation Education Requested by Patient: No Hx Alcohol Use: Yes Alcohol type: other Hx Substance Use: No Dental Care, Regularly: Yes Physical Activity Frequency: 5-6 Times per Week Review of Systems Review of Systems: Unable to obtain secondary to aphasia Physical Exam Physical Exam: General Exam: GEN: NAD, lying down in examination bed. HEENT: No conjunctival injection, no rhinorrhea. CV: RRR on monitor, no significant edema. PULM: Nonlabored respirations on room air. Neuro Exam: MS: Awake and Alert. Unable to answer orientation questions or assess memory/cognition secondary to aphasia. She says a few brief sentences and yes/no, but otherwise cannot answer questions further. Comprehension is intact mild difficulty on repetition. No neglect. CN: + blink to threat bilaterally. No clear extinction to double simultaneous stimuli. Normal fundoscopic exam. PERRLA OU. EOMI without nystagmus. Facial sensation intact to LT. Facial muscles full and symmetric. Hearing intact to conversation. Uvula midline with symmetric palatal elevation. Shoulder shrug normal. Tongue midline. MOTOR: Normal bulk and tone. Slight pronator drift in the right upper extremity. BUE strength 5/5 at deltoids, biceps, triceps, and hand grasp. BLE strength 5/5 at iliopsoas, hamstrings, quadriceps, tibialis anterior, and gastrocnemius bilaterally. REFLEXES: 1+ at biceps, triceps, brachioradialis, patella, and absent Achilles bilaterally. Flexor plantar responses bilaterally. SENSORY: Intact to LT throughout, no extinction to double simultaneous stimuli. Reported that she could feel both vibration and temperature equally. COORDINATION: No dysmetria or ataxia on [id number] bilaterally. Normal Fawad bilaterally. GAIT: Deferred due to physical status. NIH STROKE SCALE 1A. Level of Consciousness (0-3) = 0 1B. LOC Questions (0-2) = 2 1C. LOC Commands (0-2) = 0 2. Best Horizontal Gaze (0-2) = 0 3. Visual Gore (0-3) = 0 4. Facial Palsy (0-3) = 0 5. Motor Arm Right (0-4) = 0 Left (0-4) = 0 6. Motor Leg Right (0-4) = 0 Left (0-4) = 0 7. Limb Ataxia (0-2) = 0 8. Sensory (0-2) = 0 9. Best Language (0-3) = 2 10. Dysarthria (0-2) = 1 11. Extinction and Inattention (0-2) = 0 NIHSS TOTAL = 5 Results & Data Vital Signs (Past 12 Hours) Vital Signs Temp Pulse Pulse Resp BP BP Pulse Ox 03/21/19 14:35 36.8 C 87 19 145/84 H 94 03/21/19 14:00 87 18 105/65 97 03/21/19 13:31 88 26 H 90 03/21/19 13:30 88 29 H 123/80 90 03/21/19 13:00 88 22 119/71 93 03/21/19 12:57 90 20 112/66 91 03/21/19 11:36 90 16 144/95 H 94 03/21/19 11:00 92 H 20 150/85 H 95 03/21/19 10:59 37.2 C 03/21/19 10:45 91 H 20 131/95 96 03/21/19 10:35 91 H 19 129/79 96 03/21/19 10:20 36.8 C 03/21/19 10:16 92 H 25 H 131/88 97 PG Care Time/CCT Total # of Minutes Spent Total Time Spent with Patient: Total time spent is greater than 50% in coordination of care (as documented) at patient's floor/unit and/or counseling patient: (1) Stroke CVA mechanism: unspecified Qualified Code(s): I63.9 - Cerebral infarction, unspecified
[2019-03-21] MEDS: PIPERACILLIN/TAZOBACTAM 3.375 GM in DEXTROSE 5% 100 ML IV SCH (18:15)
[2019-03-21] MEDS: DOXYCYCLINE HYCLATE 100 MG in DEXTROSE 5% 100 ML IV SCH (20:18)
[2019-03-22] MEDS: VANCOMYCIN HCL 1,000 MG in SODIUM CHLORIDE 0.9% 250 ML IV SCH ×2 (00:57→14:27)
[2019-03-22] MEDS: PIPERACILLIN/TAZOBACTAM 3.375 GM in DEXTROSE 5% 100 ML IV SCH ×3 (00:58→17:17)
[2019-03-22] MEDS: LEVOTHYROXINE SODIUM 75 MCG TABLET PO SCH (05:06)
[2019-03-22 06:38] LABS: Estimated Average Glucose 163 mg/dl; Hemoglobin A1C 7.3 % (4.5-5.6)
[2019-03-22 06:53] LABS: Basophils # (auto) 0.01 K/uL (0-0.2); Basophils % (auto) 0.1 %; Eosinophils # (auto) 0.04 K/uL (0-0.5); Eosinophils % (auto) 0.4 %; Hematocrit (blood only) 31.5 % (37-47); Immature Granulocytes # (auto) 0.09 K/uL (0.00-0.02); Immature Granulocytes % (auto) 0.9 %; Lymphocytes # (auto) 1.27 K/uL (1.2-3.4); Lymphocytes % (auto) 12.6 %; Mean Corpuscular Hemoglobin 29.2 pg (25-34); Mean Corpuscular Hgb Conc 31.7 g/dL (32-36); Mean Corpuscular Volume 91.8 fL (80-100); Monocytes # (auto) 0.63 K/uL (0.11-0.59); Monocytes % (auto) 6.2 %; Neutrophils # (auto) 8.07 K/uL (1.4-6.5); Neutrophils % (auto) 79.8 %; Platelet Count 439 K/uL (130-400); RDW Coefficient of Variation 17.5 % (11.5-14.5); RDW Standard Deviation 58.7 fL (36.4-46.3); Red Blood Count 3.43 M/uL (4.2-5.4); White Blood Count 10.11 K/uL (4.8-10.8)
[2019-03-22 07:24] LABS: Calcium 8.7 mg/dl (8.5-10.1); Creatinine Clr Calc Pharmacy 72.6 ml/min; Est GFR (African American) 112.1; Est GFR (Non-African American) 96.7; Potassium 2.9 mmol/L (3.5-5.1)
[2019-03-22] MEDS: METOCLOPRAMIDE HCL 5 MG TABLET PO SCH (08:59)
[2019-03-22] MEDS: ASPIRIN 81 MG ECTAB PO SCH (09:00)
[2019-03-22] MEDS ORDERED: ROSUVASTATIN CALCIUM 20 MG TAB PO SCH (09:00)
[2019-03-22] MEDS: QUETIAPINE FUMARATE 300 MG TABLET PO SCH (09:00)
[2019-03-22] MEDS: ATORVASTATIN 40 MG TAB PO SCH (09:01)
[2019-03-22] MEDS: FOLIC ACID 1 MG TAB PO SCH (09:01)
[2019-03-22] MEDS: BuPROPion XL 300 MG TABCR PO SCH (09:01)
[2019-03-22] MEDS: PANTOprazole 40 MG TAB PO SCH (09:02)
[2019-03-22] MEDS: BENZONATATE 100 MG CAPSULE PO SCH ×3 (09:02→19:59)
[2019-03-22] MEDS: FERROUS SULFATE 325 MG TAB PO SCH (09:02)
[2019-03-22] MEDS: DULOXETINE HCL 60 MG CAP PO SCH (09:02)
[2019-03-22] MEDS: DOXYCYCLINE HYCLATE 100 MG in DEXTROSE 5% 100 ML IV SCH ×2 (09:05→20:01)
--- NOTE | 2019-03-22 10:09 | Neurology Progress Note ---
Date of Service March 22, 2019 Assessment & Plan (1) Stroke: Charmaine Tompkins is a 59 yo woman with past medical history of diabetes, hypertension, hyperlipidemia, pyloric stenosis status post repair, bipolar recently diagnosed cavitary lesions in the upper and lower left lung who presents to [facility] after being noted to be confused and not speaking correctly in pulmonary clinic. Symptom localization: left frontal lobe Stroke mechanism: most likely hypercoagulable, less likely cardioembolic Stroke WorkUp: - CT head: no hemorrhage and loss of graves-white differentiation in the left frontal lobe per my read - CTA head/neck: no large vessel occlusion, high-grade stenosis or aneurysm - MRI brain: acute infarct in the left frontal lobe - TTE: pending, will consider JAQUI (if PFO noted on TTE, would obtain LE Dopplers ) - Telemetry: pending - A1c: 7.3 - FLP: 27 - UDS: Positive for ecstasy (2/2 seroquel?) - Troponin, TSH: negative, pending Stroke Management: - Continuous cardiac monitoring, will consider Holter monitor as outpatient if telemetry here unrevealing - Vitals, Neurochecks, NIHSS per unit routine - BP parameters: SBP CAP 180, ok to restart home BP meds with goal to achieve normotension slowly over next 3-4 days - Complete ischemic stroke workup with TTE with bubble, TSH - Consult speech, PT, OT for supportive management - Will certified credit counselor concerning stroke education, smoking cessation, healthy diet, physical activity, weight loss - Follow up with PCP for assistance with outpatient goals (BP <135/85, LDL <70, A1c <7) - Follow up in neurology clinic in 6-8 weeks - Recommend confirming if lung masses are infection versus malignancy as this would change the potential treatment of her stroke Secondary Stroke Prevention: - Antiplatelet: ASA 81mg po daily/plavix 75mg daily - Anticoagulation: If cancer confirmed, would change from aspirin/plavix to therapeutic dose lovenox for likely hypercoagulability 2/2 malignancy. Would plan to start lovenox 7 days post-stroke (03/27/19) - Statin: Atorvastatin 80mg daily HTN: - BP parameters, as above FEN/GI: - Diet: NPO until cleared by Speech evaluation - Monitor lytes and replete PRN Glucose Control: - Sliding scale insulin and accuchecks per primary team to avoid hyperglycemia Thank you for this interesting consult. We will follow peripherally until pathology of lung lesions determined. My colleague, Dr Dunn, will be taking over the service on Sunday, 03/24. Please call or text with any questions in the interim. Subjective NAEs overnight. Still having difficulty speaking this morning but slightly improved over yesterday afternoon. Family at bedside; discussed that she is able to repeat and can sing as that area should not have been affected by this stroke. She denied any other complaints at this time, though has an ongoing cough. Review of Systems Review of Systems: Unable to obtain full review secondary to aphasia Physical Exam Physical Exam: General Exam: GEN: NAD, lying down in examination bed. HEENT: No conjunctival injection, no rhinorrhea. CV: RRR on monitor, no significant edema. PULM: Nonlabored respirations on room air. Frequent coughing. Neuro Exam: MS: Awake and Alert. Unable to answer orientation questions or assess memory/cognition secondary to aphasia. She says a few brief words and yes/no, but otherwise cannot answer questions further. Comprehension is intact, mild difficulty on repetition. She can sing with examiner. No neglect. CN: + blink to threat bilaterally. No clear extinction to double simultaneous stimuli. Normal fundoscopic exam. PERRLA OU. EOMI without nystagmus. Facial sensation intact to LT. Facial muscles full and symmetric. Hearing intact to conversation. Uvula midline with symmetric palatal elevation. Shoulder shrug normal. Tongue midline. MOTOR: Normal bulk and tone. Slight pronator drift in the right upper extremity. BUE strength 5/5 at deltoids, biceps, triceps, and hand grasp. BLE strength 5/5 at iliopsoas, hamstrings, quadriceps, tibialis anterior, and gastrocnemius bilaterally. REFLEXES: 1+ at biceps, triceps, brachioradialis, trace patella, and absent Ach illes bilaterally. Flexor plantar responses bilaterally. SENSORY: Intact to LT throughout, no extinction to double simultaneous stimuli. Reported that she could feel both vibration and temperature equally. COORDINATION: No dysmetria or ataxia on [id number] bilaterally. Normal Fawad bilaterally. GAIT: Deferred due to physical status. NIH STROKE SCALE 1A. Level of Consciousness (0-3) = 0 1B. LOC Questions (0-2) = 2 1C. LOC Commands (0-2) = 1 2. Best Horizontal Gaze (0-2) = 0 3. Visual Gore (0-3) = 0 4. Facial Palsy (0-3) = 0 5. Motor Arm Right (0-4) = 0 Left (0-4) = 0 6. Motor Leg Right (0-4) = 0 Left (0-4) = 0 7. Limb Ataxia (0-2) = 0 8. Sensory (0-2) = 0 9. Best Language (0-3) = 2 10. Dysarthria (0-2) = 1 11. Extinction and Inattention (0-2) = 0 NIHSS TOTAL = 6 Results & Data Vital Signs (Past 12 Hours) Vital Signs Temp Pulse Pulse Resp BP Pulse Ox Pulse Ox 03/22/19 09:36 94 03/22/19 07:40 37.2 C 87 18 134/72 94 03/22/19 03:46 37.6 C H 94 H 19 129/73 93 03/22/19 02:14 92 H 03/21/19 23:28 36.8 C 95 H 18 127/78 92 Laboratory Results 03/22/19 03/22/19 03/21/19 Range/Units 06:40 06:40 17:00 WBC 10.11 (4.8-10.8) K/uL RBC 3.43 L (4.2-5.4) M/uL Hgb 10.0 L (12.0-16.0) g/dL POC Hgb (12.0-16.0) g/dl Hct 31.5 L (37-47) % POC Hct (37-47) % MCV 91.8 (80-100) fL MCH 29.2 (25-34) pg MCHC 31.7 L (32-36) g/dL RDW Std Deviation 58.7 H (36.4-46.3) fL RDW Coeff of Liz 17.5 H (11.5-14.5) % Plt Count 439 H (130-400) K/uL MPV 9.0 (7.4-10.4) fL Immature Gran % (Auto) 0.9 % Neut % (Auto) 79.8 % Lymph % (Auto) 12.6 % Coos % (Auto) 6.2 % Eos % (Auto) 0.4 % Baso % (Auto) 0.1 % Immature Gran # (Auto) 0.09 H (0.00-0.02) K/uL Neut # (Auto) 8.07 H (1.4-6.5) K/uL Lymph # (Auto) 1.27 (1.2-3.4) K/uL Coos # (Auto) 0.63 H (0.11-0.59) K/uL Eos # (Auto) 0.04 (0-0.5) K/uL Baso # (Auto) 0.01 (0-0.2) K/uL PT (9.0-12.0) Seconds INR (0.9-1.1) APTT (21.0-31.0) Seconds PTT Ratio VBG pH (7.36-7.41) VBG pCO2 (38-50) mmHg VBG pO2 mmHg VBG HCO3 mmol/L VBG O2 Saturation % VBG Base Excess mEq/L Barometric Pressure mm/Hg POC Sodium (135-144) mEq/L Sodium 139 (136-145) mmol/L POC Potassium (3.3-5.0) mEq/L Potassium 2.9 L (3.5-5.1) mmol/L POC Chloride (101-112) mEq/L Chloride 104 (98-107) mmol/L Carbon Dioxide 26 (21-32) mmol/L POC Total CO2 (24-31) mEq/l Anion Gap 8.0 (3-11) POC Anion Gap (16-25) mmol/L POC BUN (7-18) mg/dl BUN 5 L (7-18) mg/dl Creatinine 0.66 (0.6-1.2) mg/dl POC Creatinine (0.6-1.3) mg/dl Est Cr Clr Drug Dosing 72.6 ml/min Est GFR ( Amer) 112.1 Est GFR (Non-Af Amer) 96.7 BUN/Creatinine Ratio 7.0 L (10-20) Glucose 82 (70-99) mg/dl POC Glucose (70-99) POC Glucose (other) (70-99) mg/dl Estimat Average Glucose mg/dl Hemoglobin A1c (4.5-5.6) % Calcium 8.7 (8.5-10.1) mg/dl POC Ioniz Calcium Kei (1.12-1.32) mmol/l Magnesium (1.8-2.4) mg/dl Total Bilirubin (0.2-1) mg/dl AST (15-37) U/L ALT (12-78) U/L Alkaline Phosphatase (45-117) U/L Troponin I (0-0.045) ng/ml Total Protein (6.4-8.2) gm/dl Albumin (3.4-5.0) gm/dl Globulin (2.5-4.0) gm/dl Albumin/Globulin Ratio (0.9-2) Triglycerides 78 (0-150) mg/dl Cholesterol 89 (0-200) mg/dl LDL Cholesterol, Calc 27 mg/dl VLDL Cholesterol, Calc 16 mg/dl HDL Cholesterol 46 mg/dl Cholesterol/HDL Ratio 2 HCG, Qual (Negative) Urine Color Urine Appearance (Clear) Urine pH (4.5-7.5) Ur Specific Jackson (1.000-1.030) Urine Protein (Negative) Urine Glucose (UA) (Negative) Urine Ketones (Negative) Urine Blood (Negative) Urine Nitrite (Negative) Urine Bilirubin (Negative) Urine Urobilinogen (Negative) Ur Leukocyte Esterase (Negative) Nasal Screen MRSA (PCR) Negative (Negative) Urine Opiates Screen (Neg) Ur Methadone, Qual (Neg) Urine Barbiturates (Neg) Ur Phencyclidine (PCP) (Neg) U Amphetamin/Meth Scrn (Neg) MDMA (Ecstasy) Screen (Neg) U MDMA (Ecstasy), Quant U Benzodiazepines Scrn (Neg) Ur Cocaine Metabolite (Neg) U Marijuana (THC) Screen (Neg) 03/21/19 03/21/19 03/21/19 Range/Units 15:10 15:10 15:10 WBC (4.8-10.8) K/uL RBC (4.2-5.4) M/uL Hgb (12.0-16.0) g/dL POC Hgb (12.0-16.0) g/dl Hct (37-47) % POC Hct (37-47) % MCV (80-100) fL MCH (25-34) pg MCHC (32-36) g/dL RDW Std Deviation (36.4-46.3) fL RDW Coeff of Liz (11.5-14.5) % Plt Count (130-400) K/uL MPV (7.4-10.4) fL Immature Gran % (Auto) % Neut % (Auto) % Lymph % (Auto) % Coos % (Auto) % Eos % (Auto) % Baso % (Auto) % Immature Gran # (Auto) (0.00-0.02) K/uL Neut # (Auto) (1.4-6.5) K/uL Lymph # (Auto) (1.2-3.4) K/uL Coos # (Auto) (0.11-0.59) K/uL Eos # (Auto) (0-0.5) K/uL Baso # (Auto) (0-0.2) K/uL PT 11.1 (9.0-12.0) Seconds INR 1.1 (0.9-1.1) APTT (21.0-31.0) Seconds PTT Ratio VBG pH (7.36-7.41) VBG pCO2 (38-50) mmHg VBG pO2 mmHg VBG HCO3 mmol/L VBG O2 Saturation % VBG Base Excess mEq/L Barometric Pressure mm/Hg POC Sodium (135-144) mEq/L Sodium 139 (136-145) mmol/L POC Potassium (3.3-5.0) mEq/L Potassium 2.9 L (3.5-5.1) mmol/L POC Chloride (101-112) mEq/L Chloride 103 (98-107) mmol/L Carbon Dioxide 28 (21-32) mmol/L POC Total CO2 (24-31) mEq/l Anion Gap 8.0 (3-11) POC Anion Gap (16-25) mmol/L POC BUN (7-18) mg/dl BUN 6 L (7-18) mg/dl Creatinine 0.67 (0.6-1.2) mg/dl POC Creatinine (0.6-1.3) mg/dl Est Cr Clr Drug Dosing 80.4 ml/min Est GFR ( Amer) 111.5 Est GFR (Non-Af Amer) 96.2 BUN/Creatinine Ratio 9.3 L (10-20) Glucose 83 (70-99) mg/dl POC Glucose (70-99) POC Glucose (other) (70-99) mg/dl Estimat Average Glucose 163 mg/dl Hemoglobin A1c 7.3 H (4.5-5.6) % Calcium 8.0 L (8.5-10.1) mg/dl POC Ioniz Calcium Kei (1.12-1.32) mmol/l Magnesium (1.8-2.4) mg/dl Total Bilirubin 0.3 (0.2-1) mg/dl AST 8 L (15-37) U/L ALT 8 L (12-78) U/L Alkaline Phosphatase 195 H (45-117) U/L Troponin I (0-0.045) ng/ml Total Protein 6.1 L (6.4-8.2) gm/dl Albumin 1.9 L (3.4-5.0) gm/dl Globulin 4.2 H (2.5-4.0) gm/dl Albumin/Globulin Ratio 0.5 L (0.9-2) Triglycerides (0-150) mg/dl Cholesterol (0-200) mg/dl LDL Cholesterol, Calc mg/dl VLDL Cholesterol, Calc mg/dl HDL Cholesterol mg/dl Cholesterol/HDL Ratio HCG, Qual (Negative) Urine Color Urine Appearance (Clear) Urine pH (4.5-7.5) Ur Specific Jackson (1.000-1.030) Urine Protein (Negative) Urine Glucose (UA) (Negative) Urine Ketones (Negative) Urine Blood (Negative) Urine Nitrite (Negative) Urine Bilirubin (Negative) Urine Urobilinogen (Negative) Ur Leukocyte Esterase (Negative) Nasal Screen MRSA (PCR) (Negative) Urine Opiates Screen (Neg) Ur Methadone, Qual (Neg) Urine Barbiturates (Neg) Ur Phencyclidine (PCP) (Neg) U Amphetamin/Meth Scrn (Neg) MDMA (Ecstasy) Screen (Neg) U MDMA (Ecstasy), Quant U Benzodiazepines Scrn (Neg) Ur Cocaine Metabolite (Neg) U Marijuana (THC) Screen (Neg) 03/21/19 03/21/19 03/21/19 Range/Units 13:25 13:25 13:25 WBC (4.8-10.8) K/uL RBC (4.2-5.4) M/uL Hgb (12.0-16.0) g/dL POC Hgb (12.0-16.0) g/dl Hct (37-47) % POC Hct (37-47) % MCV (80-100) fL MCH (25-34) pg MCHC (32-36) g/dL RDW Std Deviation (36.4-46.3) fL RDW Coeff of Liz (11.5-14.5) % Plt Count (130-400) K/uL MPV (7.4-10.4) fL Immature Gran % (Auto) % Neut % (Auto) % Lymph % (Auto) % Coos % (Auto) % Eos % (Auto) % Baso % (Auto) % Immature Gran # (Auto) (0.00-0.02) K/uL Neut # (Auto) (1.4-6.5) K/uL Lymph # (Auto) (1.2-3.4) K/uL Coos # (Auto) (0.11-0.59) K/uL Eos # (Auto) (0-0.5) K/uL Baso # (Auto) (0-0.2) K/uL PT (9.0-12.0) Seconds INR (0.9-1.1) APTT (21.0-31.0) Seconds PTT Ratio VBG pH (7.36-7.41) VBG pCO2 (38-50) mmHg VBG pO2 mmHg VBG HCO3 mmol/L VBG O2 Saturation % VBG Base Excess mEq/L Barometric Pressure mm/Hg POC Sodium (135-144) mEq/L Sodium (136-145) mmol/L POC Potassium (3.3-5.0) mEq/L Potassium (3.5-5.1) mmol/L POC Chloride (101-112) mEq/L Chloride (98-107) mmol/L Carbon Dioxide (21-32) mmol/L POC Total CO2 (24-31) mEq/l Anion Gap (3-11) POC Anion Gap (16-25) mmol/L POC BUN (7-18) mg/dl BUN (7-18) mg/dl Creatinine (0.6-1.2) mg/dl POC Creatinine (0.6-1.3) mg/dl Est Cr Clr Drug Dosing ml/min Est GFR ( Amer) Est GFR (Non-Af Amer) BUN/Creatinine Ratio (10-20) Glucose (70-99) mg/dl POC Glucose (70-99) POC Glucose (other) (70-99) mg/dl Estimat Average Glucose mg/dl Hemoglobin A1c (4.5-5.6) % Calcium (8.5-10.1) mg/dl POC Ioniz Calcium Kei (1.12-1.32) mmol/l Magnesium (1.8-2.4) mg/dl Total Bilirubin (0.2-1) mg/dl AST (15-37) U/L ALT (12-78) U/L Alkaline Phosphatase (45-117) U/L Troponin I (0-0.045) ng/ml Total Protein (6.4-8.2) gm/dl Albumin (3.4-5.0) gm/dl Globulin (2.5-4.0) gm/dl Albumin/Globulin Ratio (0.9-2) Triglycerides (0-150) mg/dl Cholesterol (0-200) mg/dl LDL Cholesterol, Calc mg/dl VLDL Cholesterol, Calc mg/dl HDL Cholesterol mg/dl Cholesterol/HDL Ratio HCG, Qual (Negative) Urine Color Yellow Urine Appearance Clear (Clear) Urine pH 7.5 (4.5-7.5) Ur Specific Jackson > 1.045 H (1.000-1.030) Urine Protein Negative (Negative) Urine Glucose (UA) Negative (Negative) Urine Ketones Negative (Negative) Urine Blood Negative (Negative) Urine Nitrite Negative (Negative) Urine Bilirubin Negative (Negative) Urine Urobilinogen Negative (Negative) Ur Leukocyte Esterase Negative (Negative) Nasal Screen MRSA (PCR) (Negative) Urine Opiates Screen Neg (Neg) Ur Methadone, Qual Neg (Neg) Urine Barbiturates Neg (Neg) Ur Phencyclidine (PCP) Neg (Neg) U Amphetamin/Meth Scrn Neg (Neg) MDMA (Ecstasy) Screen Pos H (Neg) U MDMA (Ecstasy), Quant Pending U Benzodiazepines Scrn Neg (Neg) Ur Cocaine Metabolite Neg (Neg) U Marijuana (THC) Screen Neg (Neg) 03/21/19 03/21/19 03/21/19 Range/Units 10:43 10:31 10:16 WBC (4.8-10.8) K/uL RBC (4.2-5.4) M/uL Hgb (12.0-16.0) g/dL POC Hgb 9.9 L (12.0-16.0) g/dl Hct (37-47) % POC Hct 29 L (37-47) % MCV (80-100) fL MCH (25-34) pg MCHC (32-36) g/dL RDW Std Deviation (36.4-46.3) fL RDW Coeff of Liz (11.5-14.5) % Plt Count (130-400) K/uL MPV (7.4-10.4) fL Immature Gran % (Auto) % Neut % (Auto) % Lymph % (Auto) % Coos % (Auto) % Eos % (Auto) % Baso % (Auto) % Immature Gran # (Auto) (0.00-0.02) K/uL Neut # (Auto) (1.4-6.5) K/uL Lymph # (Auto) (1.2-3.4) K/uL Coos # (Auto) (0.11-0.59) K/uL Eos # (Auto) (0-0.5) K/uL Baso # (Auto) (0-0.2) K/uL PT (9.0-12.0) Seconds INR (0.9-1.1) APTT (21.0-31.0) Seconds PTT Ratio VBG pH 7.38 (7.36-7.41) VBG pCO2 45 (38-50) mmHg VBG pO2 39 mmHg VBG HCO3 26 mmol/L VBG O2 Saturation 75.0 % VBG Base Excess 0.8 mEq/L Barometric Pressure 737.2 mm/Hg POC Sodium 137 (135-144) mEq/L Sodium (136-145) mmol/L POC Potassium 2.6 L (3.3-5.0) mEq/L Potassium (3.5-5.1) mmol/L POC Chloride 95 L (101-112) mEq/L Chloride (98-107) mmol/L Carbon Dioxide (21-32) mmol/L POC Total CO2 29 (24-31) mEq/l Anion Gap (3-11) POC Anion Gap 17.0 (16-25) mmol/L POC BUN 6 L (7-18) mg/dl BUN (7-18) mg/dl Creatinine (0.6-1.2) mg/dl POC Creatinine 0.7 (0.6-1.3) mg/dl Est Cr Clr Drug Dosing ml/min Est GFR ( Amer) Est GFR (Non-Af Amer) BUN/Creatinine Ratio (10-20) Glucose (70-99) mg/dl POC Glucose (70-99) POC Glucose (other) 92 (70-99) mg/dl Estimat Average Glucose mg/dl Hemoglobin A1c (4.5-5.6) % Calcium (8.5-10.1) mg/dl POC Ioniz Calcium Kei 1.03 L (1.12-1.32) mmol/l Magnesium (1.8-2.4) mg/dl Total Bilirubin (0.2-1) mg/dl AST (15-37) U/L ALT (12-78) U/L Alkaline Phosphatase (45-117) U/L Troponin I (0-0.045) ng/ml Total Protein (6.4-8.2) gm/dl Albumin (3.4-5.0) gm/dl Globulin (2.5-4.0) gm/dl Albumin/Globulin Ratio (0.9-2) Triglycerides (0-150) mg/dl Cholesterol (0-200) mg/dl LDL Cholesterol, Calc mg/dl VLDL Cholesterol, Calc mg/dl HDL Cholesterol mg/dl Cholesterol/HDL Ratio HCG, Qual Negative (Negative) Urine Color Urine Appearance (Clear) Urine pH (4.5-7.5) Ur Specific Jackson (1.000-1.030) Urine Protein (Negative) Urine Glucose (UA) (Negative) Urine Ketones (Negative) Urine Blood (Negative) Urine Nitrite (Negative) Urine Bilirubin (Negative) Urine Urobilinogen (Negative) Ur Leukocyte Esterase (Negative) Nasal Screen MRSA (PCR) (Negative) Urine Opiates Screen (Neg) Ur Methadone, Qual (Neg) Urine Barbiturates (Neg) Ur Phencyclidine (PCP) (Neg) U Amphetamin/Meth Scrn (Neg) MDMA (Ecstasy) Screen (Neg) U MDMA (Ecstasy), Quant U Benzodiazepines Scrn (Neg) Ur Cocaine Metabolite (Neg) U Marijuana (THC) Screen (Neg) 03/21/19 03/21/19 03/21/19 Range/Units 10:16 10:16 10:16 WBC 15.02 H (4.8-10.8) K/uL RBC 3.80 L (4.2-5.4) M/uL Hgb 11.0 L (12.0-16.0) g/dL POC Hgb (12.0-16.0) g/dl Hct 34.8 L (37-47) % POC Hct (37-47) % MCV 91.6 (80-100) fL MCH 28.9 (25-34) pg MCHC 31.6 L (32-36) g/dL RDW Std Deviation 60.0 H (36.4-46.3) fL RDW Coeff of Liz 17.8 H (11.5-14.5) % Plt Count 521 H (130-400) K/uL MPV 9.3 (7.4-10.4) fL Immature Gran % (Auto) 0.7 % Neut % (Auto) 86.2 % Lymph % (Auto) 7.7 % Coos % (Auto) 5.2 % Eos % (Auto) 0.1 % Baso % (Auto) 0.1 % Immature Gran # (Auto) 0.10 H (0.00-0.02) K/uL Neut # (Auto) 12.95 H (1.4-6.5) K/uL Lymph # (Auto) 1.16 L (1.2-3.4) K/uL Coos # (Auto) 0.78 H (0.11-0.59) K/uL Eos # (Auto) 0.02 (0-0.5) K/uL Baso # (Auto) 0.01 (0-0.2) K/uL PT 10.8 (9.0-12.0) Seconds INR 1.1 (0.9-1.1) APTT 31.3 H (21.0-31.0) Seconds PTT Ratio 1.2 VBG pH (7.36-7.41) VBG pCO2 (38-50) mmHg VBG pO2 mmHg VBG HCO3 mmol/L VBG O2 Saturation % VBG Base Excess mEq/L Barometric Pressure mm/Hg POC Sodium (135-144) mEq/L Sodium 139 (136-145) mmol/L POC Potassium (3.3-5.0) mEq/L Potassium 3.0 L (3.5-5.1) mmol/L POC Chloride (101-112) mEq/L Chloride 101 (98-107) mmol/L Carbon Dioxide 28 (21-32) mmol/L POC Total CO2 (24-31) mEq/l Anion Gap 10.0 (3-11) POC Anion Gap (16-25) mmol/L POC BUN (7-18) mg/dl BUN 9 (7-18) mg/dl Creatinine 0.73 (0.6-1.2) mg/dl POC Creatinine (0.6-1.3) mg/dl Est Cr Clr Drug Dosing 71.7 ml/min Est GFR ( Amer) 104.5 Est GFR (Non-Af Amer) 90.1 BUN/Creatinine Ratio 11.7 (10-20) Glucose 95 (70-99) mg/dl POC Glucose (70-99) POC Glucose (other) (70-99) mg/dl Estimat Average Glucose mg/dl Hemoglobin A1c (4.5-5.6) % Calcium 8.7 (8.5-10.1) mg/dl POC Ioniz Calcium Kei (1.12-1.32) mmol/l Magnesium 1.6 L (1.8-2.4) mg/dl Total Bilirubin 0.3 (0.2-1) mg/dl AST 9 L (15-37) U/L ALT 11 L (12-78) U/L Alkaline Phosphatase 223 H (45-117) U/L Troponin I < 0.015 (0-0.045) ng/ml Total Protein 7.0 (6.4-8.2) gm/dl Albumin 2.3 L (3.4-5.0) gm/dl Globulin 4.7 H (2.5-4.0) gm/dl Albumin/Globulin Ratio 0.5 L (0.9-2) Triglycerides (0-150) mg/dl Cholesterol (0-200) mg/dl LDL Cholesterol, Calc mg/dl VLDL Cholesterol, Calc mg/dl HDL Cholesterol mg/dl Cholesterol/HDL Ratio HCG, Qual (Negative) Urine Color Urine Appearance (Clear) Urine pH (4.5-7.5) Ur Specific Jackson (1.000-1.030) Urine Protein (Negative) Urine Glucose (UA) (Negative) Urine Ketones (Negative) Urine Blood (Negative) Urine Nitrite (Negative) Urine Bilirubin (Negative) Urine Urobilinogen (Negative) Ur Leukocyte Esterase (Negative) Nasal Screen MRSA (PCR) (Negative) Urine Opiates Screen (Neg) Ur Methadone, Qual (Neg) Urine Barbiturates (Neg) Ur Phencyclidine (PCP) (Neg) U Amphetamin/Meth Scrn (Neg) MDMA (Ecstasy) Screen (Neg) U MDMA (Ecstasy), Quant U Benzodiazepines Scrn (Neg) Ur Cocaine Metabolite (Neg) U Marijuana (THC) Screen (Neg) 03/21/19 Range/Units 10:15 WBC (4.8-10.8) K/uL RBC (4.2-5.4) M/uL Hgb (12.0-16.0) g/dL POC Hgb (12.0-16.0) g/dl Hct (37-47) % POC Hct (37-47) % MCV (80-100) fL MCH (25-34) pg MCHC (32-36) g/dL RDW Std Deviation (36.4-46.3) fL RDW Coeff of Liz (11.5-14.5) % Plt Count (130-400) K/uL MPV (7.4-10.4) fL Immature Gran % (Auto) % Neut % (Auto) % Lymph % (Auto) % Coos % (Auto) % Eos % (Auto) % Baso % (Auto) % Immature Gran # (Auto) (0.00-0.02) K/uL Neut # (Auto) (1.4-6.5) K/uL Lymph # (Auto) (1.2-3.4) K/uL Coos # (Auto) (0.11-0.59) K/uL Eos # (Auto) (0-0.5) K/uL Baso # (Auto) (0-0.2) K/uL PT (9.0-12.0) Seconds INR (0.9-1.1) APTT (21.0-31.0) Seconds PTT Ratio VBG pH (7.36-7.41) VBG pCO2 (38-50) mmHg VBG pO2 mmHg VBG HCO3 mmol/L VBG O2 Saturation % VBG Base Excess mEq/L Barometric Pressure mm/Hg POC Sodium (135-144) mEq/L Sodium (136-145) mmol/L POC Potassium (3.3-5.0) mEq/L Potassium (3.5-5.1) mmol/L POC Chloride (101-112) mEq/L Chloride (98-107) mmol/L Carbon Dioxide (21-32) mmol/L POC Total CO2 (24-31) mEq/l Anion Gap (3-11) POC Anion Gap (16-25) mmol/L POC BUN (7-18) mg/dl BUN (7-18) mg/dl Creatinine (0.6-1.2) mg/dl POC Creatinine (0.6-1.3) mg/dl Est Cr Clr Drug Dosing ml/min Est GFR ( Amer) Est GFR (Non-Af Amer) BUN/Creatinine Ratio (10-20) Glucose (70-99) mg/dl POC Glucose 97 (70-99) POC Glucose (other) (70-99) mg/dl Estimat Average Glucose mg/dl Hemoglobin A1c (4.5-5.6) % Calcium (8.5-10.1) mg/dl POC Ioniz Calcium Kei (1.12-1.32) mmol/l Magnesium (1.8-2.4) mg/dl Total Bilirubin (0.2-1) mg/dl AST (15-37) U/L ALT (12-78) U/L Alkaline Phosphatase (45-117) U/L Troponin I (0-0.045) ng/ml Total Protein (6.4-8.2) gm/dl Albumin (3.4-5.0) gm/dl Globulin (2.5-4.0) gm/dl Albumin/Globulin Ratio (0.9-2) Triglycerides (0-150) mg/dl Cholesterol (0-200) mg/dl LDL Cholesterol, Calc mg/dl VLDL Cholesterol, Calc mg/dl HDL Cholesterol mg/dl Cholesterol/HDL Ratio HCG, Qual (Negative) Urine Color Urine Appearance (Clear) Urine pH (4.5-7.5) Ur Specific Jackson (1.000-1.030) Urine Protein (Negative) Urine Glucose (UA) (Negative) Urine Ketones (Negative) Urine Blood (Negative) Urine Nitrite (Negative) Urine Bilirubin (Negative) Urine Urobilinogen (Negative) Ur Leukocyte Esterase (Negative) Nasal Screen MRSA (PCR) (Negative) Urine Opiates Screen (Neg) Ur Methadone, Qual (Neg) Urine Barbiturates (Neg) Ur Phencyclidine (PCP) (Neg) U Amphetamin/Meth Scrn (Neg) MDMA (Ecstasy) Screen (Neg) U MDMA (Ecstasy), Quant U Benzodiazepines Scrn (Neg) Ur Cocaine Metabolite (Neg) U Marijuana (THC) Screen (Neg) PG Care Time/CCT Total # of Minutes Spent Total Time Spent with Patient: Total time spent is greater than 50% in coordination of care (as documented) at patient's floor/unit and/or counseling patient: (1) Stroke CVA mechanism: unspecified Qualified Code(s): I63.9 - Cerebral infarction, unspecified
--- NOTE | 2019-03-22 11:22 | Pulmonary Consultation ---
Date of Consultation March 22, 2019 Assessment & Plan (1) Cavitating mass in left upper lung lobe: (2) Cavitating mass in left lower lung lobe: The patient is currently on broad-spectrum antibiotics including doxycycline, Zosyn, and vancomycin. Would continue these for now. Sputum cultures should be ordered if not done already. Unfortunately she is not expectorating any phlegm at present. Blood culture should be obtained if she has any fevers. She may need as needed albuterol either by inhaler or nebulizer as she takes at home. If there is not rapid improvement in the x-ray findings she likely would need bronchoscopy. Complicating this factor however is she is had an acute stroke. Dr. Ramirez has seen the patient as an outpatient and he will be in to see her on 03/24/2019. He can make further suggestions at that time. (3) Pulmonary emphysema: (4) Stroke: CVA mechanism: unspecified Qualified Code(s): I63.9 - Cerebral infarction, unspecified History of Present Illness Attending Physician: Domenico Corbett History of Present Illness The patient is being seen for a pulmonary evaluation. She is a 59-year-old female who is being seen because of an abnormal CAT scan of the chest. The patient herself is a very poor historian. Her mother and her were both present during this evaluation. She has had a cough for several weeks. She went to [facility] in late February with cough and shortness of breath. She was prescribed prednisone, Z-Herminio, and benzonatate. It was thought that she had pneumonia. She was seen again on follow-up peer ultimately she was ordered for a CAT scan of the chest and referred to pulmonology. Her cough was nonproductive. Reportedly she would feel like she had sputum but with swallow it. There is no report of hemoptysis at any time. She denies chest pains. Reportedly there is been no chills fevers or sweats. Her family has not noticed any change in her appetite. They are not aware of her losing weight. Reportedly she does not have shortness of breath. However her mother tells me the patient does use nebulizer treatments. The patient has only lived in this area for about 4 months. Review of outpatient records from her family physician does not show evidence of being on either nebulizers or inhalers but the patient apparently does have both. Presumably she has a history of COPD. The patient has been a long-term smoker of 1 pack/day for approximately 33 years. 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 The patient saw Dr. Nic Ramirez in his office yesterday. She was overtly confused and disoriented. She was unable to give significant history even though she actually drove herself to the office. She was then referred over to the ER for evaluation and admission. Evaluation has suggested that she has had a stroke. On the states she is still confused and has some degree of expressive a aphasia. She seems to nod her head appropriately. Her past medical history does include having pyloric stenosis as an and undergoing surgery for that she also has hypothyroidism, hypertension, hyperlipidemia, reflux, prior peptic ulcer disease, and she has recurring dilatation for her esophagus and pyloric valve every 3 months at [facility]. She also is diabetic peer Allergies Allergy/AdvReac Type Severity Reaction Status Date / Time No Known Allergies Allergy Verified 03/21/19 08:59 Home Medications Home Medications Medication Instructions Recorded Confirmed Type amlodipine 5 mg tablet 5 mg PO DAILY #90 tab 01/06/19 03/21/19 Rx baclofen 10 mg tablet 10 mg PO TID #270 tab 01/06/19 03/21/19 Rx bupropion HCl XL 300 mg 24 hr 300 mg PO QAM #90 tab 01/06/19 03/21/19 Rx tablet, extended release duloxetine 60 mg capsule,delayed 60 mg PO DAILY #90 cap 01/06/19 03/21/19 Rx release metformin ER 500 mg 1,000 mg PO DAILY #180 tab 01/06/19 03/21/19 Rx tablet,extended release 24 hr metoclopramide 5 mg tablet 5 mg PO DAILY #90 tab 01/06/19 03/21/19 Rx omeprazole 40 mg capsule,delayed 40 mg PO DAILY #90 cap 01/06/19 03/21/19 Rx release quetiapine 300 mg tablet 300 mg PO DAILY #90 tab 01/06/19 03/21/19 Rx ferrous sulfate 325 mg (65 mg 325 mg PO DAILY tab 01/08/19 03/21/19 History iron) tablet folic acid 1 mg tablet 1 mg PO DAILY #90 tab 01/08/19 03/21/19 Rx rosuvastatin 20 mg tablet 20 mg PO DAILY #90 tab 01/09/19 03/21/19 Rx oxycodone-acetaminophen 5 mg-325 1 tab PO TID PRN #90 tab 03/13/19 03/21/19 Rx mg tablet atorvastatin 40 mg PO DAILY 03/21/19 03/21/19 History benzonatate 100 mg PO TID 03/21/19 03/21/19 History doxycycline hyclate 100 mg PO BID 03/21/19 03/21/19 History levothyroxine [Synthroid] 75 mcg PO DAILY 03/21/19 03/21/19 History prednisone 0 mg PO .TAPER DOSE 03/21/19 03/21/19 History Patient History Medical History Pyloric stenosis (Resolved) Stomach ulcer (Resolved) Depression with anxiety (Resolved) Diabetes mellitus (Resolved) Surgical History History of repair of pyloric stenosis (Resolved) History of D&C Family History Mother Breast cancer Hypertension Anxiety Gallbladder disease Brother Cancer Hypertension Kidney disease Alcohol abuse Renal cell cancer Family/Other No problems noted. Father Heart disease Hypertension Lung disease Social History Preferred Language: Romanian Communication Ability: Effective Communication Ability Comment: s/s intermittent communication impairment. Rigging Up Man Required: No Beliefs That Will Affect Care: None marital status: Current Living Situation: Spouse Current Living Situation Comment: Patient's mother also lives with them. current occupational status: retired Other Information That Helps Us Care for You: No Feels Safe at Home: Yes Safety Concerns: Feels Safe At This Time Smoking Status: Current every day smoker Tobacco Type: cigarettes ; Age Started Using Tobacco: 26 ; packs per day: 1 ; Cigarettes Per Day: 1PPD ; Do You Dip or Chew Tobacco: No ; Second Hand Exposure: Yes ; Tobacco Cessation Education Requested by Patient: No Hx Alcohol Use: Yes Alcohol type: other Hx Substance Use: No Dental Care, Regularly: Yes Physical Activity Frequency: 5-6 Times per Week Review of Systems Review of Systems: Unobtainable due to cognitive status Physical Exam Physical Exam: The patient is a 59-year-old female who was cooperative. She was slightly lethargic but readily arousable. She had difficulty saying what she wanted to say. She verbalized somewhat. She did not know the month or the year. Pupils were reactive and equal. Nares clear. Mouth exam unremarkable. No erythema or exudate noted. No lymph nodes palpable. Cardiac rate 67/min. Rhythm regular. Blood pressure 134/72. Lung espinoza revealed mild rales on the left chest posteriorly inferiorly. Respiratory rate 18. Saturation 94% on room air at rest. Aeration was overall good. No wheezes heard. Abdomen to exam showed scars from prior surgeries. Bowel sounds normal. There was no tenderness to palpation or definite mass. No organomegaly noted. Extremities showed no cyanosis clubbing or edema. Results & Data Vital Signs (Past 12 Hours) Vital Signs Temp Pulse Pulse Resp BP Pulse Ox Pulse Ox 03/22/19 09:36 94 03/22/19 08:00 67 03/22/19 07:40 37.2 C 87 18 134/72 94 03/22/19 03:46 37.6 C H 94 H 19 129/73 93 03/22/19 02:14 92 H 03/21/19 23:28 36.8 C 95 H 18 127/78 92 Laboratory Results White count yesterday was 15.02. Today it is 10.11. Hemoglobin yesterday 11 and today is 10. Platelet count today 439,000. Differential today shows 79.8 neutrophils 12.6 lymphs 6.2 monos. Electrolytes today show sodium 139 potassium 2.9 chloride 104 bicarb 26. BUN 5 with creatinine 0.66. Blood sugar 82. Hemoglobin A1c was 7.3. Calcium 8.7. Liver functions show AST and ALT both low at 8. Alk phos elevated 195. Albumin decreased 1.9 and total protein 6.1. Urinalysis negative. Drug screen positive for ecstasy. Diagnostic Findings CT chest wo con 03/18/2019 CLINICAL HISTORY: Pulmonary mass COMPARISON STUDY: None CT DOSE: 306.75 mGycm TECHNIQUE: CT of the thorax was performed from the thoracic inlet to the lung bases. Images are reviewed in the axial, sagittal, and coronal planes. IV contrast was not administered for this examination. A dose lowering technique was utilized adhering to the principles of ALARA. FINDINGS: Thyroid: Imaged portions of the thyroid gland are normal in appearance. Thoracic aorta: The thoracic aorta is normal in course and caliber, noting standard 3 vessel arch anatomy. Heart: The heart is normal in size and configuration, without pericardial effusion. Lungs and pleural spaces: There is a 7.4 cm pleural-based left lower lobe pulmonary mass with areas of cavitation. There is surrounding airspace opacities. There is a 3.9 cm pleural-based left upper lobe pulmonary mass with tiny areas of cavitation. There is a 38 mm paramediastinal left upper lobe pulmonary mass. There are scattered groundglass opacities within the upper lobes. There is evidence for pulmonary emphysema. There are no pleural effusions. Mediastinum: There is no evidence of pathologic mediastinal lymphadenopathy by size criteria. Rissa: There is no evidence of pathologic hilar adenopathy given the limitations of a noncontrast study Axilla: There is no evidence of pathologic axillary lymphadenopathy Upper abdomen: Unremarkable Skeletal structures: There are no lytic or blastic osseous lesions. IMPRESSION: 1. There are 3 dominant left lung pulmonary masses tube which demonstrate areas of cavitation. In addition there are scattered upper lobe groundglass opacities, and evidence for underlying pulmonary emphysema. There is no evidence of pathologic adenopathy. 2. The etiology of the left lung lesions is unclear. These could be infectious/inflammatory, related to embolic phenomena, or be neoplastic. Clinical correlation and follow-up will be necessary. Each of the lesions demon strates a bronchus sign and would be amenable to bronchoscopic sampling. MRI OF THE BRAIN WITHOUT AND WITH IV CONTRAST 03/21/19 CLINICAL HISTORY: Altered mental status, memory loss. Confusion. Pulmonary masses. COMPARISON STUDY: Noncontrast head CT dated 03/21/2019 TECHNIQUE: MRI of the brain was performed from the vertex to the skull base utilizing various T1 and T2 weighted sequences. Following the IV administration of 6 mL of Gadavist contrast, additional enhanced images were obtained. FINDINGS: Sagittal T1, axial diffusion, proton density and T2 weighted axial, coronal FLAIR, and pre and post axial T1-weighted images were acquired. These were supplemented with post gadolinium coronal T1 weighted images. No intra or extra-axial mass lesions are visualized. There is a 3 cm focus of restricted water diffusion within the left posterior frontal lobe consistent with an acute infarct. There is no evidence of ventricular dilatation. Proton density T2-weighted and FLAIR images reveal scattered foci of increased T2 signal within the white matter, likely on a small vessel basis. There are no abnormal flow voids. There is no evidence of pathologic enhancement. IMPRESSION: 1. 3 cm focus of restricted water diffusion within the left posterior frontal lobe, indicative of an acute infarct. Electronically signed by: Robert Hayward M.D. 03/21/2019 12:49 PM EKG done 03/21/2019 showed a normal sinus rhythm rate 93/min. Q waves were noted in the inferior leads and cannot exclude inferior infarct age indeterminate. ST and T wave changes were noted anterolaterally, cannot exclude ischemia. PG Care Time/CCT Total # of Minutes Spent Total Time Spent with Patient: Total time spent is greater than 50% in coordination of care (as documented) at patient's floor/unit and/or counseling patient:
[2019-03-22] MEDS ORDERED: POTASSIUM CHLORIDE 20 MEQ TABCR PO STA (18:16)
[2019-03-22] MEDS ORDERED: ENOXAPARIN INJ 40 MG/0.4 ML SYR SQ ONE (18:17)
[2019-03-22] MEDS: POTASSIUM CHLORIDE 20 MEQ TABCR PO SCH (19:59)
[2019-03-22] MEDS ORDERED: COUGH DROP (SUGAR FREE) LOZ 24 LOZ/1 BOX BUCCAL ONE (22:45)
--- NOTE | 2019-03-22 23:01 | Hospitalist Progress Note ---
Date of Service March 22, 2019 Assessment & Plan (1) Stroke: - Admit to PCU - Neuro consult while here for aphasia and difficulty word finding. -Appreciate input from neuro -Will continue secondary stroke: -Antiplatelet: ASA 81mg po daily/plavix 75mg daily -If cancer confirmed, would change from aspirin/plavix to therapeutic dose lovenox for likely hypercoagulability 2/2 malignancy with plan to start lovenox 7 days post-stroke (03/27/19) - Atorvastatin 80mg daily (2) Dysarthria: Secondary to acute stroke- neuro as above (3) Cavitating mass in left lower lung lobe: (4) Cavitating mass in left upper lung lobe: - CT angio head and neck reviewed as above - WBC elevated at 15.02, much increased compared to baseline. Noted that she has been on prednisone for recent pneumonia and tapering off. Also note that was on doxycycline 100 mg BID, will hold for now and start IV zosyn and vanc. - Sputum culture if expectorate produced - Consulted pulmonary PLan is to have Dr. 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 (14) Elevated alkaline phosphatase level: - Noted elevation of alk phos, follow up with am LFTs to ensure improves - Possibly medication induced? -- was previously 92 in end of December. (15) Sarcopenia: - Albumin 2.3 on admission, likely decreased secondary to potential neoplastic involvement - Consider initiation of boost Code: FULL - discussed with pt and family at bedside Dispo: From home, likely to remain in the hospital until Sunday. Ultimately depends on plan with bronchoscopy. Subjective Patient reports no changes from yesterday and no new symptoms. Review of Systems Review of Systems: All systems reviewed & are unremarkable except as noted in HPI & below Physical Exam Physical Exam: Constitutional: No fever, sweats or chills Eyes: No diplopia, no worsening or blurred vision ENT: normal hearing, no trouble swallowing Respiratory: No cough, sputum, dyspnea at rest or on exertion Cardiovascular: No chest pain, tightness or palpitations Abdomen: No pain, nausea, vomiting, diarrhea or constipation Musculoskeletal: No joint pain, calf pain, swelling Neurologic:+ difficulty articulating what she wants to say, No weakness, numbness/tingling, or balance problems Psychiatric: No anxiety or depression Skin: No rash or itch Results & Data Vital Signs (Past 12 Hours) Vital Signs Temp Pulse Resp BP Pulse Ox 03/22/19 19:53 37.1 C 93 H 18 114/67 92 03/22/19 15:41 37.0 C 90 18 125/74 93 03/22/19 11:29 36.7 C 90 18 123/72 94 PG Care Time/CCT Total # of Minutes Spent Total Time Spent with Patient: Total time spent is greater than 50% in coordination of care (as documented) at patient's floor/unit and/or counseling patient:
[2019-03-23] MEDS ORDERED: ALBUT/IPRATROP 3MG/0.5MG NEB 3 ML VIAL NEB PRN (00:01)
[2019-03-23] MEDS: VANCOMYCIN HCL 1,000 MG in SODIUM CHLORIDE 0.9% 250 ML IV SCH (00:46)
[2019-03-23] MEDS: PIPERACILLIN/TAZOBACTAM 3.375 GM in DEXTROSE 5% 100 ML IV SCH ×3 (00:47→17:28)
[2019-03-23] MEDS ORDERED: VANCOMYCIN TROUGH ONE ×2 (01:30→13:30)
[2019-03-23] MEDS: LEVOTHYROXINE SODIUM 75 MCG TABLET PO SCH (05:27)
[2019-03-23 06:46] LABS: Basophils # (auto) 0.01 K/uL (0-0.2); Basophils % (auto) 0.1 %; Eosinophils # (auto) 0.09 K/uL (0-0.5); Eosinophils % (auto) 1.3 %; Hematocrit (blood only) 31.6 % (37-47); Immature Granulocytes # (auto) 0.11 K/uL (0.00-0.02); Immature Granulocytes % (auto) 1.6 %; Lymphocytes % (auto) 18.4 %; Mean Corpuscular Hgb Conc 31.6 g/dL (32-36); Mean Corpuscular Volume 91.6 fL (80-100); Mean Platelet Volume 8.9 fL (7.4-10.4); Monocytes # (auto) 0.47 K/uL (0.11-0.59); Monocytes % (auto) 6.7 %; Neutrophils # (auto) 5.07 K/uL (1.4-6.5); Neutrophils % (auto) 71.9 %; Platelet Count 500 K/uL (130-400); RDW Coefficient of Variation 17.6 % (11.5-14.5); Red Blood Count 3.45 M/uL (4.2-5.4); White Blood Count 7.05 K/uL (4.8-10.8)
[2019-03-23 07:25] LABS: BUN Creatinine Ratio 14.5 (10-20); Calcium 8.7 mg/dl (8.5-10.1); Creatinine Clr Calc Pharmacy 66.5 ml/min; Est GFR (African American) 106.2; Est GFR (Non-African American) 91.7; Potassium 3.2 mmol/L (3.5-5.1)
[2019-03-23] MEDS: QUETIAPINE FUMARATE 300 MG TABLET PO SCH (08:50)
[2019-03-23] MEDS: POTASSIUM CHLORIDE 20 MEQ TABCR PO SCH ×3 (08:50→20:14)
[2019-03-23] MEDS: FERROUS SULFATE 325 MG TAB PO SCH (08:50)
[2019-03-23] MEDS: ATORVASTATIN 40 MG TAB PO SCH (08:51)
[2019-03-23] MEDS: DULOXETINE HCL 60 MG CAP PO SCH (08:51)
[2019-03-23] MEDS: BuPROPion XL 300 MG TABCR PO SCH (08:51)
[2019-03-23] MEDS: METOCLOPRAMIDE HCL 5 MG TABLET PO SCH (08:52)
[2019-03-23] MEDS: FOLIC ACID 1 MG TAB PO SCH (08:52)
[2019-03-23] MEDS: PANTOprazole 40 MG TAB PO SCH (08:52)
[2019-03-23] MEDS: BENZONATATE 100 MG CAPSULE PO SCH ×3 (08:52→20:14)
[2019-03-23] MEDS: ASPIRIN 81 MG ECTAB PO SCH (08:52)
[2019-03-23] MEDS: DOXYCYCLINE HYCLATE 100 MG in DEXTROSE 5% 100 ML IV SCH ×2 (08:58→21:38)
[2019-03-23] MEDS: NICOTINE 14 MG/24 HR PATCH TD SCH (17:45)
[2019-03-23] MEDS: ENOXAPARIN INJ 40 MG/0.4 ML SYR SQ SCH (20:13)
--- NOTE | 2019-03-23 23:39 | Hospitalist Progress Note ---
Date of Service March 23, 2019 Assessment & Plan (1) Stroke: - Admit to PCU - Neuro consult while here for aphasia and difficulty word finding. -Appreciate input from neuro -Will continue secondary stroke: -Antiplatelet: ASA 81mg po daily/plavix 75mg daily -If cancer confirmed, would change from aspirin/plavix to therapeutic dose lovenox for likely hypercoagulability 2/2 malignancy with plan to start lovenox 7 days post-stroke (03/27/19) - Atorvastatin 80mg daily (2) Dysarthria: Secondary to acute stroke- neuro as above (3) Cavitating mass in left lower lung lobe: (4) Cavitating mass in left upper lung lobe: - CT angio head and neck reviewed as above - WBC elevated at 15.02, much increased compared to baseline. Noted that she has been on prednisone for recent pneumonia and tapering off. Also note that was on doxycycline 100 mg BID, will hold for now and start IV zosyn and vanc. - Sputum culture if expectorate produced - Consulted pulmonary PLan is to have Dr. 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 (14) Elevated alkaline phosphatase level: - Noted elevation of alk phos, follow up with am LFTs to ensure improves - Possibly medication induced? -- was previously 92 in end of December. (15) Smoker: placed on 14 mg nicotine patch. if not helping with cravings, can increase to 21 mg. (16) Sarcopenia: - Albumin 2.3 on admission, likely decreased secondary to potential neoplastic involvement - Consider initiation of boost Code: FULL - discussed with pt and family at bedside Dispo: From home, likely to remain in the hospital until Sunday. Ultimately depends on plan with bronchoscopy. Subjective Patient reports no new symptoms today. She feels she is able to communicate better than yesterday. She is requesting a nicotine patch. She states she has her first cigarette about 1 hour after waking up. Review of Systems Review of Systems: All systems reviewed & are unremarkable except as noted in HPI & below Physical Exam Physical Exam: Constitutional: No fever, sweats or chills Eyes: No diplopia, no worsening or blurred vision ENT: normal hearing, no trouble swallowing Respiratory: No cough, sputum, dyspnea at rest or on exertion Cardiovascular: No chest pain, tightness or palpitations Abdomen: No pain, nausea, vomiting, diarrhea or constipation Musculoskeletal: No joint pain, calf pain, swelling Neurologic:+ difficulty articulating what she wants to say, No weakness, numbness/tingling, or balance problems Psychiatric: No anxiety or depression Skin: No rash or itch Results & Data Vital Signs (Past 12 Hours) Vital Signs Temp Pulse Resp BP Pulse Ox 03/23/19 20:58 84 16 96 03/23/19 19:37 36.8 C 80 18 137/81 93 03/23/19 15:28 36.8 C 85 18 126/72 92 03/23/19 11:43 36.8 C 90 18 131/71 93 PG Care Time/CCT Total # of Minutes Spent Total Time Spent with Patient: Total time spent is greater than 50% in coordination of care (as documented) at patient's floor/unit and/or counseling patient:
[2019-03-24] MEDS: PIPERACILLIN/TAZOBACTAM 3.375 GM in DEXTROSE 5% 100 ML IV SCH ×3 (01:48→18:00)
[2019-03-24] MEDS: LEVOTHYROXINE SODIUM 75 MCG TABLET PO SCH (05:33)
[2019-03-24 06:45] LABS: Basophils # (auto) 0.01 K/uL (0-0.2); Basophils % (auto) 0.2 %; Eosinophils # (auto) 0.12 K/uL (0-0.5); Eosinophils % (auto) 1.9 %; Hematocrit (blood only) 32.4 % (37-47); Hemoglobin 10.1 g/dL (12.0-16.0); Immature Granulocytes # (auto) 0.12 K/uL (0.00-0.02); Immature Granulocytes % (auto) 1.9 %; Lymphocytes # (auto) 1.19 K/uL (1.2-3.4); Lymphocytes % (auto) 18.8 %; Mean Corpuscular Hemoglobin 28.5 pg (25-34); Mean Corpuscular Hgb Conc 31.2 g/dL (32-36); Mean Corpuscular Volume 91.5 fL (80-100); Mean Platelet Volume 9.1 fL (7.4-10.4); Monocytes # (auto) 0.51 K/uL (0.11-0.59); Monocytes % (auto) 8.1 %; Neutrophils # (auto) 4.37 K/uL (1.4-6.5); Neutrophils % (auto) 69.1 %; Platelet Count 445 K/uL (130-400); RDW Coefficient of Variation 17.5 % (11.5-14.5); Red Blood Count 3.54 M/uL (4.2-5.4); White Blood Count 6.32 K/uL (4.8-10.8)
[2019-03-24 07:16] LABS: BUN Creatinine Ratio 10.4 (10-20); Calcium 8.8 mg/dl (8.5-10.1); Creatinine Clr Calc Pharmacy 70.5 ml/min; Est GFR (Non-African American) 95.7; Potassium 3.5 mmol/L (3.5-5.1)
[2019-03-24] MEDS: BENZONATATE 100 MG CAPSULE PO SCH ×3 (08:07→20:45)
[2019-03-24] MEDS: POTASSIUM CHLORIDE 20 MEQ TABCR PO SCH ×3 (08:07→20:45)
[2019-03-24] MEDS: ATORVASTATIN 40 MG TAB PO SCH (08:07)
[2019-03-24] MEDS: DOXYCYCLINE HYCLATE 100 MG in DEXTROSE 5% 100 ML IV SCH (08:07)
[2019-03-24] MEDS: METOCLOPRAMIDE HCL 5 MG TABLET PO SCH (08:08)
[2019-03-24] MEDS: DULOXETINE HCL 60 MG CAP PO SCH (08:08)
[2019-03-24] MEDS: QUETIAPINE FUMARATE 300 MG TABLET PO SCH (08:08)
[2019-03-24] MEDS: FERROUS SULFATE 325 MG TAB PO SCH (08:08)
[2019-03-24] MEDS: PANTOprazole 40 MG TAB PO SCH (08:08)
[2019-03-24] MEDS: FOLIC ACID 1 MG TAB PO SCH (08:08)
[2019-03-24] MEDS: ASPIRIN 81 MG ECTAB PO SCH (08:09)
[2019-03-24] MEDS: BuPROPion XL 300 MG TABCR PO SCH (08:09)
--- NOTE | 2019-03-24 09:09 | Pulmonology Progress Note ---
Date of Service March 24, 2019 Assessment & Plan (1) Cough: Impression: 59-year-old female with history of tobacco abuse presenting with multiple lung lesions and new acute stroke. Recommendations: 1. Abnormal CT scan of the chest: Discussed with patient the differential of the lung masses to include infectious or neoplastic etiologies. Recommend bronchoscopy with sampling. The patient is agreeable to proceed. We will schedule for this morning. Continue current antimicrobial regimen with Zosyn, day #3. Will discontinue doxycycline at this point time pending culture results. Her white blood cell count has normalized. 2. Stroke: Unclear if this is related to her pulmonary pathology or not. Some pulmonary infections do have a predilection for causing [employer] issues including nocardia and actinomyces. The lesions identified on the MRI or not entirely consistent with this etiology but will need to be excluded. Appreciate neurology input and management per neurology and the hospitalist service. 3. COPD: Appears relatively stable currently. Continue bronchodilators. No indication for steroids currently. 4. Tobacco abuse: Smoking cessation recommended. No signs of nicotine withdrawal. 5. Mild anemia: No evidence of acute blood loss. Work-up and evaluation per primary service. Additional recommendations pending results of bronchoscopy. (2) COPD (chronic obstructive pulmonary disease): (3) Abnormal CT scan of lung: Subjective No acute events overnight. The patient feels that she is improving but remains somewhat confused. She is coughing and states she is expectorating phlegm. She denies any other new neurological symptoms overnight. Review of Systems Review of Systems: Unobtainable due to cognitive status Physical Exam Constitutional: WD/WN, vitals as above Neck: trachea midline, no thyromegaly Cardiovascular: RRR, no murmur, no edema Gastrointestinal (Abdomen): normal bowel sounds, soft, nontender, no hepatosplenomegaly Musculoskeletal: Extremities: extremities normal to inspection Skin: no rashes, warm and dry Neurologic: Nonfocal exam Lymphatic: no cervical lymphadenopathy Results & Data Vital Signs (Past 12 Hours) Vital Signs Temp Pulse Pulse Resp BP Pulse Ox 03/24/19 08:55 82 03/24/19 07:41 36.7 C 84 18 152/73 H 94 03/24/19 03:43 36.7 C 83 18 136/78 93 03/24/19 00:15 89 03/24/19 00:07 36.8 C 86 16 152/88 H 93 Laboratory Results 03/24/19 06:28 03/24/19 06:28 Diagnostic Findings Images independently reviewed. No new imaging PG Care Time/CCT Total # of Minutes Spent Total Time Spent with Patient: Total time spent is greater than 50% in coordination of care (as documented) at patient's floor/unit and/or counseling patient:
--- NOTE | 2019-03-24 09:57 | Pre Anesthesia Assessment ---
Date of Service March 24, 2019 Pre Sedation Assessment Vital Signs Temp Pulse Pulse Resp BP Pulse Ox 03/24/19 09:50 83 16 137/81 100 03/24/19 08:55 82 03/24/19 07:41 36.7 C 84 18 152/73 H 94 03/24/19 03:43 36.7 C 83 18 136/78 93 03/24/19 00:15 89 03/24/19 00:07 36.8 C 86 16 152/88 H 93 03/23/19 20:58 84 16 96 03/23/19 19:37 36.8 C 80 18 137/81 93 03/23/19 15:28 36.8 C 85 18 126/72 92 03/23/19 11:43 36.8 C 90 18 131/71 93 Pre-Sedation Airway Assessment Smoking Status: Current every day smoker Hx Sleep Apnea: No Short, Thick Neck: Yes Thyromental Distance: > or= 3.5 Finger Breadths Oral Cavity: + WNL Mallampati Class: II ASA: ASA3 NPO Status Date of Last Intake of Fluids: 03/23/19 Time of Last Intake of Fluids: 21:00 Date of Last Intake of Solid Food: 03/23/19 Time of Last Intake of Solid Foods: 18:00 Notes The planned sedation has been discussed with the patient. Informed Consent was obtained. I have identified the patient, determined the appropriateness of sedation and have assessed the patient immediately prior to the procedure. All medicine(s) and interventions are by my order.
[2019-03-24] MEDS ORDERED: LEVALBUTEROL HCL 1.25 MG/3 ML NEB NEB STA (10:17)
[2019-03-24] MEDS ORDERED: LIDOCAINE HCL VISCOUS SOLN 2% 15 ML UDC TOP ONE (10:17)
[2019-03-24] MEDS ORDERED: LIDOCAINE 4% INH SOLN 4 ML BTL NAE ONE (10:17)
[2019-03-24] MEDS ORDERED: LIDOCAINE HCL 2% (LOCAL) INJ 50 ML VIAL INFIL STA (10:17)
[2019-03-24] MEDS ORDERED: OXYMETAZOLINE 0.05% 30 ML BTL ONE (10:17)
[2019-03-24] MEDS ORDERED: MIDAZOLAM HCL 1 MG/ML 2ML VIAL IV STA (10:17)
[2019-03-24] MEDS ORDERED: fentaNYL citrate 100 MCG/2 ML VIAL IV ONE (10:17)
--- NOTE | 2019-03-24 10:22 | Procedure Note ---
Procedure Note Date of Service March 24, 2019 Procedure: Fiberoptic bronchoscopy Therapeutic aspiration of secretions, initial Endobronchial brushing, single segment Conscious sedation Provider: Angel Ramirez MD Consent: Signed by patient and timeout verified prior to procedure. Sedation start: 958 Sedation end: 1016 Conscious sedation: 125 mcg fentanyl, 5 mg Versed, and topical lidocaine per RT protocol Procedure: Patient was brought to the bronchoscopy suite. Consent was verified. Appropriate radiographic studies had been reviewed prior to the procedure. Standard monitoring was applied. Oxygen was administered. After topical anesthesia of the airways per respiratory therapy protocol, the fiberoptic scope was advanced through the left nares. Oropharynx was unremarkable. Vocal cords were visualized and were normal in function and appearance. Topical anesthesia of the cords was achieved with instillation of lidocaine through the scope. Scope was then passed through the vocal cords. The trachea was mildly tortuous. Main izabela was sharp. There were significant mucopurulent secretions emanating from the left side line extending up into the trachea which were collected and sent for microbiologic analysis. Anesthesia of the lower airways was achieved with instillation of lidocaine through the scope. A sequential and systematic examination of the lower airways was conducted. The right-sided airways were patent and the mucosa appeared mildly inflamed. Left-sided airways were patent and the mucosa appeared significantly inflamed. There was copious mucopurulent secretions emanating from the left lower lobe, lingula, and left upper lobe. These were aspirated free with saline lavage and collected for microbiologic analysis. After the airways were cleared, the scope was advanced to the takeoff of the superior segment of the left lower lobe. Under direct visualization, a brush was passed into the left lower lobe segment on 2 separate occasions. Brushings were taken without the use of fluoroscopy. Specimens were collected. Hemostasis was confirmed and the scope was withdrawn. Due to the presence of significant mucopurulence within the airways, I did not proceed with biopsies at this point time. I feel this is more consistent with an infectious etiology and a prolonged course of antibiotics is warranted with outpatient close follow-up imaging.. The patient tolerated the procedure well without obvious complication. Patient was returned to the recovery room. Impression: 1. Patent airways with mild to moderate airway inflammation and significant mucopurulence emanating from the left-sided airways. Highly suspicious for an infectious etiology. Await cultures. Continue broad-spectrum antibiotics. Will need close radiographic follow-up in the outpatient setting. Coding CPT Codes Sedation/Anesthesia - Sedation/Anesthesia: Mod Sedation by the same physician;Init15 Min Child Age 5 & Up ([id number]) Pulmonary/Thoracic - Pulmonary and Thoracic: Bronchoscopy, clear airways ([id number]) Pulmonary/Thoracic - Pulmonary and Thoracic: Dx bronchoscopy/brush ([id number])
[2019-03-24] MEDS: NICOTINE 14 MG/24 HR PATCH TD SCH (10:56)
--- NOTE | 2019-03-24 11:32 | Post Anesthesia Assessment ---
Date of Service March 24, 2019 Post Sedation Assessment Vital Signs Temp Pulse Pulse Resp BP Pulse Ox 03/24/19 11:13 78 18 135/79 98 03/24/19 11:07 80 16 97 03/24/19 10:43 36.7 C 86 18 135/82 97 03/24/19 10:35 96 H 16 121/77 98 03/24/19 10:30 107 H 16 125/73 96 03/24/19 10:25 108 H 16 116/70 96 03/24/19 10:20 96 H 16 136/84 96 03/24/19 10:15 92 H 16 99/79 L 95 03/24/19 10:10 100 H 18 122/99 93 03/24/19 10:05 90 16 125/76 90 03/24/19 10:00 85 20 134/74 95 03/24/19 09:55 88 20 155/98 H 96 03/24/19 09:50 83 16 137/81 100 03/24/19 08:55 82 03/24/19 07:41 36.7 C 84 18 152/73 H 94 03/24/19 03:43 36.7 C 83 18 136/78 93 03/24/19 00:15 89 03/24/19 00:07 36.8 C 86 16 152/88 H 93 03/23/19 20:58 84 16 96 03/23/19 19:37 36.8 C 80 18 137/81 93 03/23/19 15:28 36.8 C 85 18 126/72 92 03/23/19 11:43 36.8 C 90 18 131/71 93 Recovery Score Activity: Moves 4 extremities Respiration: Deep Breath/Cough Circulation: +/-20-49% PreAnes Value Consciousness: Fully Awake Oxygen Saturation: O2 needed for >90% Post Anesthesia Score: 8 Discharge Sedation Level of Care: Fast Track Phase II Post Sedation Plan On clinical assessment, the patient appears to have tolerated the sedation without complications. Patient is recovering as anticipated. Patient will continue to be monitored by nursing and may be discharged when sedation discharge criteria are met per below protocol. Upon Completions of procedure and additional 15 minutes continue every 5 minute vital signs and the P.A.R. score; then discharge to a Phase I or Fast Track to Phase II per the following guidelines: * Discharge Patient to appropriate Phase II area if PAR is 8 or greater or return to pre- procedure baseline. The post - procedure orders will be as directed. * If PAR score is less than 8 or not return to pre-procedure baseline then p atient will follow Phase I monitoring till PAR is reached for Phase II. The Phase I may be done in procedure room or may call to secure a Phase I area. * If naloxone or flumazenil are used for reversal, hold in Phase I for continued monitoring from when last reversal dose was given for a minimum of 60 minutes or longer pending the nurse and/or physician discretion of patient condition before discharge to Phase II. Please call the Sedation Physician to re-evaluate and complete post-note for discharge to Phase II area. Do NOT discharge from procedure sedation or Phase 1 until post- sedation evaluation note is complete by procedure /sedation MD Sedation Discharge Instructions to be given to the patient at discharge to home.
[2019-03-24 12:42] LABS: Eosinophil Body Fluid Man 0 %
[2019-03-24 12:43] LABS: Fluid Mono/Macrophage 4 %; Lymphocyte Body Fluid Man 2 %; Neutrophil Body Fluid Man 94 %
--- NOTE | 2019-03-24 17:44 | Hospitalist Progress Note ---
Date of Service March 24, 2019 Assessment & Plan (1) Stroke: - Admit to PCU Neuro recs for ASA 81mg po daily/plavix 75mg daily -If cancer confirmed, would change from aspirin/plavix to therapeutic dose lovenox for likely hypercoagulability 2/2 malignancy with plan to start lovenox 7 days post-stroke (03/27/19)--does not appear this will be needed, see below - Atorvastatin 80mg daily ST as outpt (2) Dysarthria: Secondary to acute stroke and improving (3) Cavitating mass in left lower lung lobe: (4) Cavitating mass in left upper lung lobe: - CT angio head and neck reviewed as above - WBC elevated at 15.02, much increased compared to baseline. Noted that she has been on prednisone for recent pneumonia and tapering off. Also note that was on doxycycline 100 mg BID, will hold for now and start IV zosyn and vanc. Bronch 03/24: highly suspicious for infectious cause, no biopsies taken, planning for 6-8 weeks of abx once cx available (5) Type II diabetes mellitus: - Hold metformin with contrast given - ISS with accuchecks achs - Unknown last A1C: 7.3 (6) Anemia: - Hgb stable, trend with am labs - Cont ferrous sulfate supplementation daily (7) Bipolar depression: - Stable on Cymbalta 60 mg daily, Wellbutrin XL 300 mg daily, Seroquel 300 mg tab (8) Hypertension: - Allow permissive htn - HOLD amlodipine (9) Hyperlipemia: - Cont atorvastatin 80 mg daily (10) Hypothyroidism: - Cont levothyroxine 75 mcg daily (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 -- was previously 92 in end of December. (15) Smoker: placed on 14 mg nicotine patch. if not helping with cravings, can increase to 21 mg. Pt and are committed to her cessation, would like patch to go home with Already on wellbutrin Cautious regarding chantix given bipolar hx (16) Sarcopenia: - Albumin 2.3 on admission, likely decreased secondary to potential neoplastic involvement - Consider initiation of boost Code: FULL - discussed with pt and family at bedside Dispo: From home, likely to remain in the hospital until cx give clear picture of abx options, possible PICC Subjective Pt feeling much improved. Her ability to express her thoughts is much better. Speech is clear. Can verbalize entire sentences now. Pt denies fever, SOB, chest pain, abd pain, n/v/c/d, LE pain or swelling. Tolerating PO without issue s/p bronch. Review of Systems Review of Systems: Pertinent positives and negatives reviewed in HPI--all others negative Physical Exam Constitutional: WD/WN, vitals as above Eyes: normal visual espinoza by confrontation and + anicteric sclerae Neck: normal visual inspection and trachea midline Respiratory: normal respiratory effort, lungs clear to auscultation Cardiovascular: Rate/Rhythm: regular rate and regular rhythm Gastrointestinal (Abdomen): Inspection/Auscultation: abdomen not distended Percussion/Palpation: abdomen soft; abdomen nontender Musculoskeletal: Head/Neck/Chest: normocephalic and head atraumatic Skin: no rashes, warm and dry Neurologic: CN's II-XI intact bilaterally, moves all extremities and awake; not confused Speech / Cognition: + abnormal speech (much improved) and + expressive aphasia (occasionally struggling to get a word out but verbalization makes sense) Full sentences now Psychiatric: A+Ox3, euthymic affect Results & Data Vital Signs (Past 12 Hours) Vital Signs Temp Pulse Pulse Resp BP Pulse Ox 03/24/19 16:35 36.6 C 77 18 147/86 H 95 03/24/19 12:00 36.9 C 79 16 149/81 H 92 03/24/19 11:41 36.5 C 78 18 134/81 94 03/24/19 11:13 78 18 135/79 98 03/24/19 11:07 80 16 97 03/24/19 10:43 36.7 C 86 18 135/82 97 03/24/19 10:35 96 H 16 121/77 98 03/24/19 10:30 107 H 16 125/73 96 03/24/19 10:25 108 H 16 116/70 96 03/24/19 10:20 96 H 16 136/84 96 03/24/19 10:15 92 H 16 99/79 L 95 03/24/19 10:10 100 H 18 122/99 93 03/24/19 10:05 90 16 125/76 90 03/24/19 10:00 85 20 134/74 95 03/24/19 09:55 88 20 155/98 H 96 03/24/19 09:50 83 16 137/81 100 03/24/19 08:55 82 03/24/19 07:41 36.7 C 84 18 152/73 H 94 PG Care Time/CCT Total # of Minutes Spent Total Time Spent with Patient: Total time spent is greater than 50% in coordination of care (as documented) at patient's floor/unit and/or counseling patient:
[2019-03-24] MEDS: ENOXAPARIN INJ 40 MG/0.4 ML SYR SQ SCH (20:45)
[2019-03-25] MEDS: PIPERACILLIN/TAZOBACTAM 3.375 GM in DEXTROSE 5% 100 ML IV SCH (00:54)
[2019-03-25] MEDS: LEVOTHYROXINE SODIUM 75 MCG TABLET PO SCH (05:44)
[2019-03-25 07:04] LABS: Creatinine Clr Calc Pharmacy 61.4 ml/min; Est GFR (African American) 96.4; Est GFR (Non-African American) 83.2
[2019-03-25] MEDS: FERROUS SULFATE 325 MG TAB PO SCH (08:47)
[2019-03-25] MEDS: DULOXETINE HCL 60 MG CAP PO SCH (08:47)
[2019-03-25] MEDS: FOLIC ACID 1 MG TAB PO SCH (08:49)
[2019-03-25] MEDS: ASPIRIN 81 MG ECTAB PO SCH (08:49)
[2019-03-25] MEDS: POTASSIUM CHLORIDE 20 MEQ TABCR PO SCH (08:49)
[2019-03-25] MEDS: ATORVASTATIN 40 MG TAB PO SCH (08:50)
[2019-03-25] MEDS: NICOTINE 14 MG/24 HR PATCH TD SCH (08:50)
[2019-03-25] MEDS: PANTOprazole 40 MG TAB PO SCH (08:51)
[2019-03-25] MEDS: BENZONATATE 100 MG CAPSULE PO SCH (08:52)
[2019-03-25] MEDS: METOCLOPRAMIDE HCL 5 MG TABLET PO SCH (08:52)
[2019-03-25] MEDS: QUETIAPINE FUMARATE 300 MG TABLET PO SCH (08:52)
[2019-03-25] MEDS: BuPROPion XL 300 MG TABCR PO SCH (08:52)
--- NOTE | 2019-03-25 08:59 | Pulmonology Progress Note ---
Date of Service March 25, 2019 Assessment & Plan (1) Cough: Impression: 59-year-old female with history of tobacco abuse presenting with multiple lung lesions and new acute stroke. Recommendations: 1. Abnormal CT scan of the chest: At this point time would favor lung abscess although cannot exclude malignancy. Cytology is currently pending. Given her clinical response, it seems reasonable to complete an extended course of antimicrobial therapy. As we did not identified any growth to date, we will transition her to oral Augmentin and have her continue this until follow-up imaging is performed in 4 weeks. I would like to see her back in pulmonary clinic with a repeat CT scan in 4 weeks. If the lesions demonstrate improvement, we may continue antimicrobial therapy and serial imaging. Should her path results change, I will contact her to arrange for appropriate follow- up. 2. Stroke: Unclear if this is related to her pulmonary pathology or not. Some pulmonary infections do have a predilection for causing TROUBLE LINEMAN issues including nocardia and actinomyces. The lesions identified on the MRI or not entirely consistent with this etiology but will need to be excluded. Appreciate neurology input and management per neurology and the hospitalist service. 3. COPD: Appears relatively stable currently. Continue bronchodilators. No indication for steroids currently. Will need outpatient pulmonary function tests at follow-up 4. Tobacco abuse: Smoking cessation recommended. No signs of nicotine withdrawal. 5. Mild anemia: No evidence of acute blood loss. Work-up and evaluation per primary service. From a pulmonary perspective, I think it is reasonable to discharge the patient on oral Augmentin with follow-up in [address] scan and PFTs in the pulmonary clinic. (2) COPD (chronic obstructive pulmonary disease): (3) Abnormal CT scan of lung: Subjective Patient seen and examined. She is post bronchoscopy from yesterday. She feels better today. Her mental status appears to be clearing. She can tell me the name of her [id number]-ual and her home address which she was unable to do previously. Her speech is occasionally confused but appears to be showing slow and steady improvement. She is coughing and expectorating more phlegm. She has not had any hemoptysis. She denies fevers chills or night sweats overnight. No chest pain palpitations or significant lower extremity edema. Physical Exam Constitutional: WD/WN, vitals as above ENMT: Mallampati Class: II Neck: trachea midline, no thyromegaly Respiratory: Bilateral rhonchi Cardiovascular: RRR, no murmur, no edema Gastrointestinal (Abdomen): normal bowel sounds, soft, nontender, no hepatosplenomegaly Musculoskeletal: Extremities: extremities normal to inspection Skin: no rashes, warm and dry Lymphatic: no cervical lymphadenopathy Results & Data Vital Signs (Past 12 Hours) Vital Signs Temp Pulse Pulse Resp BP Pulse Ox 03/25/19 07:51 36.7 C 82 16 146/82 H 93 03/25/19 07:48 81 03/25/19 03:54 36.7 C 83 17 146/83 H 93 03/25/19 00:14 82 03/25/19 00:00 36.7 C 81 18 135/84 94 Laboratory Results 03/24/19 06:28 03/25/19 06:10 Microbiology 03/24/19 10:10 Bronch Wash,Left Lower Lobe Fungal Smear - Final 03/24/19 10:10 Bronch Wash,Left Lower Lobe Gram Stain - Final Reviewed plates with microbiology. Appears to be normal evangelina at this point Diagnostic Findings No new films PG Care Time/CCT Total # of Minutes Spent Total Time Spent with Patient: Total time spent is greater than 50% in coordination of care (as documented) at patient's floor/unit and/or counseling patient:
[2019-03-25] MEDS ORDERED: STROKE PATIENT DISCHARGE STA (11:23)
--- NOTE | 2019-03-25 14:40 | Pharmacy Report ---
Pharmacist Stroke Counseling - Date of Service March 25, 2019 - Scope: Pharmacy has been consulted to provide medication discharge counseling for this patient admitted with ischemic stroke as per the Pharmacist Discharge Counseling for Stroke Patients Protocol. - Medications on Discharge: Home Medications Medication Instructions Recorded Confirmed ferrous sulfate 325 mg (65 mg 325 mg PO DAILY tab 01/08/19 03/21/19 iron) tablet atorvastatin 40 mg PO DAILY 03/21/19 03/21/19 benzonatate 100 mg PO TID 03/21/19 03/21/19 levothyroxine [Synthroid] 75 mcg PO DAILY 03/21/19 03/21/19 prednisone 0 mg PO .TAPER DOSE 03/21/19 03/21/19 New Rx's Medication Instructions Recorded amlodipine 5 mg tablet 5 mg PO DAILY #90 tab 01/06/19 baclofen 10 mg tablet 10 mg PO TID #270 tab 01/06/19 bupropion HCl 300 mg 24 hr tablet, 300 mg PO QAM #90 tab 01/06/19 extended release duloxetine 60 mg capsule,delayed 60 mg PO DAILY #90 cap 01/06/19 release metformin 500 mg tablet,extended 1,000 mg PO DAILY #180 tab 01/06/19 release 24 hr metoclopramide HCl 5 mg tablet 5 mg PO DAILY #90 tab 01/06/19 quetiapine 300 mg tablet 300 mg PO DAILY #90 tab 01/06/19 folic acid 1 mg tablet 1 mg PO DAILY #90 tab 01/08/19 oxycodone-acetaminophen 5 mg-325 1 tab PO TID PRN #90 tab 03/13/19 mg tablet amoxicillin-pot clavulanate 1 tab PO BIDM #56 tab 03/25/19 aspirin [Ecotrin Low Strength] 81 mg PO QAM #81 tab 03/25/19 clopidogrel 75 mg PO DAILY #30 tab 03/25/19 pantoprazole 40 mg PO DAILY #30 tab 03/25/19 potassium chloride 20 meq PO DAILY #60 cap 03/25/19 - Action: The above medications, specifically ones for stroke treatment/prophylaxis, have been reviewed in detail with the patient and/or patient advertising sales representative(s) prior to discharge. This includes indication, common adverse reactions, drug interactions, and medication administration. Medication counseling has been employed using the teach-back method to ensure understanding. - Outcome: The patient and/or patient advertising sales representative(s) have demonstrated understanding of the medications. Please note, they are aware that the pharmacist will call them within 72 hours post-discharge to confirm that the appropriate medications are being taken and answer any further medication related questions the patient might have at that time. Contact information Individual to be contacted: Patient Relationship to patient (if applicable): N/A Phone number: [phone] Best time to call: Anytime Additional comments: Counseled patient and her regarding all of patient's meds. She is prescribed both ASA and Plavix and I addressed increased risk of bleeding/ bruising being on 2 blood thinners. Patient was already familiar with Atorvasta tin and said that she has had no problems with it. Patient's asked about her antibiotic and how she should be taking it. Explained this and answered other questions about how she should take her meds. Also instructed patient to stop taking the omeprazole d/t drug interaction with Plavix and start taking the pantoprazole which is a new prescription. Thank you for allowing pharmacy to be involved in the care of this patient. Please call [phone] or [phone] with any additional questions
--- NOTE | 2019-03-25 15:29 | Discharge Summary ---
Date of Service March 25, 2019 Admission HPI Per Admitting Provider This is a 59-year-old female with PMHx of HTN, HLD, DM type II, congenital esophageal stenosis, anemia, bipolar depression, who presents from the pulmonary office for acute onset of dysphasia. Pt and her are present at bedside. She reports being fine yesterday. Her travels to and from work, he notes that he had gone home last evening and every seen everything seemed normal. He notes that she awoke at approximately 3:30 AM and walked out to the couch to go to sleep, he reports this is typical for the patient. He left for work at that point in time and they exchange goodbyes, where everything seemed normal. She drove herself to the pulmonary office this morning without difficulty. She does not remember walking into the office or how she got to the ER. She has difficulty articulating what she wants to say however when she does speak her words are clear. She follows all commands without difficulty. No focal points of weakness. CT chest reveals LLL pulm mass measuring 7.4 cm with areas of cavitation, CRISTÓBAL pulmonary mass, measuring 3.9 cm with tiny areas of cavitation, scattered groundglass opacities within the upper lobes and evidence of pulmonary emphysema. CT of the head and neck are negative for acute ischemic event. Discussion was held with the ER attending, Dr. Aden and we will obtain a stat MR of the brain w/wo contrast and determine if the patient is requiring higher level of care. Principal Diagnosis Stroke Cavitary lesions of lungs Discharge Exam Constitutional WD/WN, vitals as above Eyes EOM intact bilaterally; no conjunctival abnormality ENMT external ear and nose normal, oropharynx normal Neck trachea midline, no thyromegaly normal visual inspection Respiratory normal respiratory effort, lungs clear to auscultation no respiratory distress Cardiovascular RRR, no murmur, no edema Gastrointestinal (Abdomen) Inspection/Auscultation: abdomen normal to inspection; abdomen not distended Musculoskeletal no cyanosis or clubbing, extremities motor strength 5/5 Skin no rashes, warm and dry Neurologic moves all extremities and awake Speech / Cognition: + expressive aphasia Psychiatric Orientation: alert, oriented to person and cooperative Discharge Data Allergies Allergy/AdvReac Type Severity Reaction Status Date / Time No Known Allergies Allergy Verified 03/21/19 08:59 Consultations 03/21/19 11:16 ED Decision to Admit Stat 03/21/19 14:45 Consult Case Management - Discharge Planning Routine Consult Neurology Routine 03/22/19 08:17 Consult Pulmonology Routine Procedures Performed Operation Date: 03/24/19 10:00 Actual Procedures p Bronchoscopy Radiology(Bilateral) - Maykel Henry MD Ordered Studies 03/21/19 10:18 CT head/brain wo con Stat 03/21/19 10:19 CT angio head w con Stat CT angio neck with con Stat 03/21/19 11:31 MR brain wo/w con Stat 03/21/19 14:45 CT head/brain wo con Stat Hospital Course (1) Stroke: MRI brain showed 3 cm focus of restricted water diffusion within the left posterior frontal lobe, indicative of an acute infarct. - ST as outpt - ASA/Plavix prescribed - Needs a Holter monitor as an outpatient. No atrial fibrillation on telemetry; however, this would be a concern given her large, acute infarct. - Patient needs a TTE somewhat urgently. (2) Dysarthria: Secondary to acute stroke and improving - Outpatient speech therapy (3) Cavitating mass in left lower lung lobe: Cavitating lesions noted on CT chest from 03/18 that were ordered by an urgent care center after an abnormal CXR. - Underwent bronchoscopy with Dr. Ramirez on 03/24 with an infectious appearance to the lungs. - Discharged on Augmentin BID x 4 weeks. Will follow up with Dr. Ramirez in clinic for repeat CT chest (4) Cavitating mass in left upper lung lobe: - As above (5) Type II diabetes mellitus: A1c was 7.3% this admission. - ISS with celestino malloy - PCP to manage diabetes (6) Bipolar depression: Stable on Cymbalta 60 mg daily, Wellbutrin XL 300 mg daily, Seroquel 300 mg tab - Patient desirous of going home. (7) Hypertension: Allowed permissive HTN, though BP was normal while inpatient. - No changes on discharge (8) Hyperlipemia: - Cont atorvastatin 40 mg daily (9) Hypothyroidism: - Cont levothyroxine 75 mcg daily (10) Congenital esophageal stenosis: - Noted (11) Pyloric stenosis: - Cont metoclopramide 5 mg tab daily (12) Hypokalemia: Needed replacement inpatient - Check BMP in 1-2 weeks. (13) Elevated alkaline phosphatase level: - Noted elevation of alk phos, follow up with am LFTs to ensure improves - Possibly medication induced? -- was previously 92 in end of December. (14) Smoker: Discharged on nicotine patch. (15) Sarcopenia: Albumin 2.3 on admission. - Consider initiation of Boost as outpatient Total Time Total Time Spent Total Time Spent (In Minutes): 45 Discharge Plan Discharge Items Patient Disposition: Home - Self-Care Reason For Visit: NEW ONSET STROKE SYMPTOMS Discharge Diagnosis: Stroke & cavitary lung lesion Activity: Resume your previous activity Non-emergency contact: Primary Care Provider, Neurologist and Filler Sifter Helper Call non-emergency contact if: you have any medication questions and your symptoms worsen Follow-up/Referrals: Jimena Cuellar CRNP [Nurse Practitioner] - 04/01/19 2:00 pm (Please, follow up with Jimena NAYAK on SundayApril 01 at 2:00 pm. *If you need to change this appointment, call her office at [phone].) Angel Ramirez MD [Physician] - 04/14/19 11:15 am (Please, follow up at [facility] Physician [facility] Pulmonology Office with Dr. Ramirez on SundayApril 14 at 11:15 am. *If you need to change this appointment, call the office at [phone].) Magalys Avery MD [Physician] - 04/29/19 9:45 am (Please, follow up at [facility] Neurology Office with Dr. Avery on SundayApril 29 at 10:00 am (arrive 9:45 am). *The office is located at [facility] in [place]. If you need to change this appointment, call the office at [phone].) Diet: Heart Healthy Add Attending Provider Instructions: Ms. Tompkins, You were admitted to the hospital for trouble speaking caused by a stroke. We are starting you on medications to help reduce the risk of future strokes that will help keep your platelets from forming clots in the blood vessels. Additionally, we are starting you on a fairly long course of antibiotics to treat the pulmonary lesions that were seen on the CT scan on March 18. Dr. Ramirez did a procedure that seems to indicate these lesions were caused by an infection. There is concern this could also be cancer; however, it seems less likely. We will have to do another CT scan in about 1 month to see if these areas go away with antibiotics. Please take the antibiotics 2 times per day until you see Dr. Ramirez again. Please call his office if you have any shortness of breath, cough, or other issues. Please see your PCP to check your potassium in 1-2 weeks. Please have them help with your blood pressure, cholesterol, and diabetes. (BP <135/85, LDL <70, A1c <7) Pending Studies at Discharge: Yes (Cytology of lung) Stand-Alone Forms: Medications to Prevent Stroke, [facility] Shoot it!, Smoking Cessation Medications and DC Order Prescriptions: New aspirin [Ecotrin Low Strength] 81 mg Tablet,Delayed Release (Dr/Ec) 81 mg PO QAM Qty: 81 RF: 0 amoxicillin-pot clavulanate 875-125 mg Tablet 1 tab PO BIDM Qty: 56 RF: 0 clopidogrel 75 mg tablet 75 mg PO DAILY Qty: 30 RF: 1 pantoprazole 40 mg Tablet,Delayed Release (Dr/Ec) 40 mg PO DAILY Qty: 30 RF: 0 potassium chloride 10 mEq capsule, extended release 20 meq PO DAILY Qty: 60 RF: 0 Continued oxycodone-acetaminophen 5-325 mg tablet 1 tab PO TID PRN (Reason: pain) Qty: 90 RF: 0 ferrous sulfate 325 mg (65 mg iron) tablet 325 mg PO DAILY RF: 0 folic acid 1 mg tablet 1 mg PO DAILY Qty: 90 RF: 3 metformin 500 mg tablet extended release 24 hr 1,000 mg PO DAILY Qty: 180 RF: 3 amlodipine 5 mg tablet 5 mg PO DAILY Qty: 90 RF: 5 baclofen 10 mg tablet 10 mg PO TID Qty: 270 RF: 3 bupropion HCl [Wellbutrin XL] 300 mg tablet extended release 24 hr 300 mg PO QAM Qty: 90 RF: 3 duloxetine 60 mg capsule,delayed release(DR/EC) 60 mg PO DAILY Qty: 90 RF: 3 metoclopramide HCl [Reglan] 5 mg tablet 5 mg PO DAILY Qty: 90 RF: 3 quetiapine [Seroquel] 300 mg tablet 300 mg PO DAILY Qty: 90 RF: 3 atorvastatin 40 mg tablet 40 mg PO DAILY RF: 0 levothyroxine [Synthroid] 75 mcg tablet 75 mcg PO DAILY RF: 0 prednisone 10 mg tablets,dose pack 0 mg PO .TAPER DOSE RF: 0 benzonatate 100 mg capsule 100 mg PO TID RF: 0 Discontinued rosuvastatin 20 mg tablet 20 mg PO DAILY Qty: 90 RF: 3 omeprazole 40 mg capsule,delayed release(DR/EC) 40 mg PO DAILY Qty: 90 RF: 3 doxycycline hyclate 100 mg capsule 100 mg PO BID RF: 0 Discharge Orders: Discharge Order (Routine); Ordered 03/25/19 Ordered By: Nilson Ramsay/Other Patient Handouts: Quit Smoking Get Support, Stroke Dc, Stroke Prevent Recurrent, Potassium Oral tablet extended-release, Pantoprazole Sodium Gastro-resistant tablet, Clopidogrel Bisulfate Oral tablet, Aspirin Oral tablet Admission Data Admit Date/Time: 03/21/19 13:28 Attending Provider: Nilson Taylor Admit Provider: Felicia La Primary Care Provider: PCP,NO Other Providers: Magalys Avery ; Isma Couch ; Nilson Taylor Other Interventions: Discharge Summary Assessment (RN) Last Done: 03/25/19 11:27 DC Date/Time DO NOT enter until pt leaves facility: 03/25/19 12:56
[2019-03-25] MEDS ORDERED: AMOXICILLIN/CLAVULANATE 875 MG TAB PO SCH (17:00)
--- NOTE | 2019-03-28 12:23 | Pharmacy Report ---
Pharmacist Post D/C Phone Note - Phone Note: Date of phone call: March 28, 2019. Individual with whom pharmacist spoke to: FRANCY ORTEGA The following questions were reviewed during the phone call with responses listed below each: Can you tell me the medications that you are currently taking as well as when and how you take each medication? -See Table Below When have you missed any doses of your medications? -no What side effects are you having from your medications, specifically, the new medications you were started on? - none reported What questions do you have about your medications? - none What problems are you having obtaining your medications? - none When is your next appointment with your primary care doctor? - 02 of april Additional comments: -Patient friendly to talk with today - was not home so could not tell me all of the names of her medications, however did run through the list and she thought it was accurate. Emphasized how protonix replaces omprazole and patient already aware. Stated that she was not experiencing any side effects from augmentin. Recommended taking with food if stomach issues develop and also eating yogurt to help with replenishing good bacteria. Had recommended patient brings updated medication list with her to her next PCP visit so that everything is updated in their system. Patient agreed. No other pertinent positives on interview. No other concerns As per the Pharmacist Discharge Counseling for Stroke Patients Protocol, this phone call has been completed within 72 hours of discharge. Thank you for allowing us to be involved in the care of this patient. - Home Medications: Home Medications Medication Instructions Recorded Confirmed ferrous sulfate 325 mg (65 mg 325 mg PO DAILY tab 01/08/19 03/21/19 iron) tablet atorvastatin 40 mg PO DAILY 03/21/19 03/21/19 benzonatate 100 mg PO TID 03/21/19 03/21/19 levothyroxine [Synthroid] 75 mcg PO DAILY 03/21/19 03/21/19 prednisone 0 mg PO .TAPER DOSE 03/21/19 03/21/19 New Rx's Medication Instructions Recorded amlodipine 5 mg tablet 5 mg PO DAILY #90 tab 01/06/19 baclofen 10 mg tablet 10 mg PO TID #270 tab 01/06/19 bupropion HCl 300 mg 24 hr tablet, 300 mg PO QAM #90 tab 01/06/19 extended release duloxetine 60 mg capsule,delayed 60 mg PO DAILY #90 cap 01/06/19 release metformin 500 mg tablet,extended 1,000 mg PO DAILY #180 tab 01/06/19 release 24 hr metoclopramide HCl 5 mg tablet 5 mg PO DAILY #90 tab 01/06/19 quetiapine 300 mg tablet 300 mg PO DAILY #90 tab 01/06/19 folic acid 1 mg tablet 1 mg PO DAILY #90 tab 01/08/19 oxycodone-acetaminophen 5 mg-325 1 tab PO TID PRN #90 tab 03/13/19 mg tablet amoxicillin-pot clavulanate 1 tab PO BIDM #56 tab 03/25/19 aspirin [Ecotrin Low Strength] 81 mg PO QAM #81 tab 03/25/19 clopidogrel 75 mg PO DAILY #30 tab 03/25/19 pantoprazole 40 mg PO DAILY #30 tab 03/25/19 potassium chloride 20 meq PO DAILY #60 cap 03/25/19
== END 2019-03-25 12:56 | disposition home or self-care (01) | DRG 987 ==
LOC: ED 10:07 → SUATTDRO 13:28 → 2S 13:28

== ENCOUNTER 2022-06-07 16:26 | Observation (INO) ==
--- NOTE | 2022-06-07 16:44 | Emergency Department Note ---
ED Provider Note History of Present Illness Chief Complaint: Fall Stated Complaint: SLIIPED FELL OUT OFF BATHTUB,SHOULDER PAIN Time Seen by Provider: 06/07/22 16:34 This is a [id number] 62-year-old female with a history of COPD, stroke on aspirin, diabetes, neuropathy, pyloric stenosis, on chronic opiate medications who presents to the emergency department with a chief complaint of left shoulder pain. She also notes bruising to the left side of her head as well as a small cut above her left eyelid. This is all secondary to a fall that occurred about 36 hours ago. She had been taking a bath at 4:00 in the morning and stood up to get out of the tub, was attempting to step out of the tub when she slipped and fell onto the left side landing directly on the shoulder and hitting her head. There was no loss of consciousness and she remembers everything. Her pain has continued to worsen so she presents to the emergency department. She endorses chronic nausea and vomiting but states she has not had any of that since the fall. She does not have any headache. Denies any neck pain, change in vision, double vision, blurry vision, back pain, chest pain, shortness of breath, abdominal pain, difficulty walking or pain in her lower extremities. She takes aspirin, no other blood thinners. States that she has not wanted to eat or drink very much today due to the pain. States that this is her "bad" shoulder from when she was in her 20s on the shoulde but she has not had any surgeries on the shoulder. Tetanus shot was updated in 2018. Home Medications Medication Instructions Recorded Confirmed Type ferrous sulfate 325 mg (65 mg 325 mg PO QAM 01/08/19 06/07/22 History iron) tablet aspirin 81 mg tablet,delayed 81 mg PO QAM #81 tabs 03/25/19 06/07/22 Rx release (Ecotrin Low Strength) ipratropium 0.5 mg-albuterol 3 mg 3 ml inhalation QID PRN wheezing 02/18/20 06/07/22 Rx (2.5 mg base)/3 mL nebulization #90 mL soln nebulizers (AeroEclipse II #1 ea 02/18/20 06/07/22 Rx Nebulizer) albuterol sulfate 90 mcg/actuation 1 inh inhalation QID PRN shortness 02/26/20 06/07/22 Rx breath activated powder inhaler of breath or wheezing #1 ea fluticasone furoate 100 1 inh inhalation QAM 01/25/21 06/07/22 History mcg-vilanterol 25 mcg/dose inhalation powder (Breo Ellipta) fluticasone propionate 50 2 spray intranasal QAM 01/25/21 06/07/22 History mcg/actuation nasal spray,suspension (Flonase Allergy Relief) potassium chloride 20 mEq 20 meq PO QAM 01/25/21 06/07/22 History tablet,extended release folic acid 1 mg tablet 1 mg PO QAM #90 tabs 02/09/21 06/07/22 Rx estradiol 0.01% (0.1 mg/gram) 1 g vaginal 2XWK 06/22/21 06/07/22 History vaginal cream lisinopril 2.5 mg tablet 2.5 mg PO QAM #90 tabs 07/29/21 06/07/22 Rx atorvastatin 40 mg tablet 40 mg PO HS #90 tabs 10/03/21 06/07/22 Rx metformin 500 mg tablet,extended 500 mg PO BID #180 tabs 10/03/21 06/07/22 Rx release 24 hr gabapentin 300 mg capsule 300 mg PO TID 90 days #270 caps 10/25/21 06/07/22 Rx duloxetine 60 mg capsule,delayed 60 mg PO BID #180 caps 11/25/21 06/07/22 Rx release levothyroxine 150 mcg tablet 150 mcg PO DAILY #90 tabs 01/23/22 06/07/22 Rx bupropion HCl 300 mg 24 hr tablet, 300 mg PO QAM #90 tabs 03/20/22 06/07/22 Rx extended release (Wellbutrin XL) quetiapine 300 mg tablet (Seroquel) 300 mg PO HS #90 tabs 03/20/22 06/07/22 Rx clonazepam 1 mg tablet 1 mg PO HS #30 tabs 03/22/22 06/07/22 Rx esomeprazole magnesium 40 mg 40 mg PO QAM #90 caps 05/04/22 06/07/22 Rx capsule,delayed release oxycodone-acetaminophen 5 mg-325 1 tab PO TID PRN pain #90 tabs 05/18/22 06/07/22 Rx mg tablet amlodipine 5 mg tablet 5 mg PO QAM #90 tabs 05/30/22 06/07/22 Rx ondansetron 4 mg disintegrating 4 mg PO Q6H PRN nausea and 06/06/22 06/07/22 Rx tablet vomiting #60 tabs dulaglutide 0.75 mg/0.5 mL 0.75 mg subcut WK 06/07/22 06/07/22 History subcutaneous pen injector (Trulicity) famotidine 20 mg tablet 20 mg PO HS 06/07/22 06/07/22 History mecobalamin (vitamin B12) 5,000 5,000 mcg PO DAILY 06/07/22 06/07/22 History mcg chewable tablet Allergies Allergy/AdvReac Type Severity Reaction Status Date / Time No Known Allergies Allergy Verified 06/07/22 17:06 Past Med/Surg History Medical History Bipolar depression Cavitating mass in left lower lung lobe Cavitating mass in left upper lung lobe COPD (chronic obstructive pulmonary disease) Depression with anxiety Diabetes mellitus NIDDM Dysphagia History of esophageal dilatation multiple times Hyperlipemia Hypertension Hypothyroidism Mild acid reflux Neuropathy of foot Pyloric stenosis Stomach ulcer Stroke (~03/2019) had a speech deficit, but pt states it has improved--unknown cause, follows with Dr. Brown Tobacco abuse currently smokes 10-15 cigarettes a day Surgical History H/O colposcopy with cervical biopsy 2020, neg, low grade pap History of benign breast biopsy History of bronchoscopy History of colonoscopy History of D&C x2 History of esophagogastroduodenoscopy (EGD) multiple--last 01/31/21 @ [facility] History of repair of pyloric stenosis multiple for pyloric stenosis--started in infancy through 2019 History of wisdom tooth extraction Family History Mother Anxiety Breast cancer Hypertension Gallbladder disease Brother Alcohol abuse Renal cell cancer Kidney disease Cancer Hypertension Family/Other No problems noted. Father Heart disease Lung disease Hypertension Myocardial infarction Other No family history of adverse response to anesthesia Denies family history of Ovarian cancer Prostate cancer Crohn's disease Lung cancer Colorectal cancer Ulcerative colitis Social History Smoking Status: Current every day smoker Tobacco Type: Cigarettes Age Started Using Tobacco: 26; packs per day: 0.5; Cigarettes Per Day: 10-15 a day; Second Hand Exposure: No; Hx Alcohol Use: No Hx Substance Use: No Preferred Language: Pry[place]in[place] Communication Ability: Effective Applications Administrator Required: No Beliefs That Will Affect Care: None marital status: Current Living Situation: Spouse and Family Current Living Situation Comment: Lives with , mother and daughter current occupational status: retired Feels Safe at Home: Yes Childhood Exposure to Second-Hand Smoke: Yes caffeine: Yes Dental Care, Regularly: Yes Physical Activity Frequency: 5-6 Times per Week Seatbelt Use: always Sunscreen Use: Yes Assistive Devices: Glasses and Nebulizer Physical Exam Vital Signs Vital Signs - 24 hr 06/07/22 16:28 06/07/22 17:24 06/07/22 18:53 Temperature 98.2 F Temperature Source Temporal Artery Scan Pulse Rate 95 H Pulse Rate [Left] 77 76 Pulse Rhythm Pulse Rhythm [Left] Regular Pulse Strength [Left] Normal Respiratory Rate 18 16 18 Respiratory Effort / Characteristics Non-Labored Spontaneous Non-Labored Spontaneous Respiratory Depth Normal Normal Respiratory Pattern Regular Blood Pressure 119/74 Blood Pressure [Right Arm] 103/58 L Blood Pressure Mean 89 Blood Pressure Mean [Right Arm] 73 Blood Pressure Position [Right Arm] Pulse Oximetry 97 99 97 Oxygen Delivery Method Room Air Room Air Room Air Sepsis Recent Fever Within 48 Hours No Sepsis New/Unexplained Change in Mental Status No Sepsis Action Taken by Nursing No Action Required End Tidal CO2 (18-54mmHg) 06/07/22 21:44 06/07/22 21:50 06/07/22 22:01 Temperature Temperature Source Pulse Rate 78 84 92 H Pulse Rate [Left] Pulse Rhythm Pulse Rhythm [Left] Pulse Strength [Left] Respiratory Rate 22 24 17 Respiratory Effort / Characteristics Respiratory Depth Respiratory Pattern Blood Pressure Blood Pressure [Right Arm] 112/77 137/104 H Blood Pressure Mean Blood Pressure Mean [Right Arm] Blood Pressure Position [Right Arm] Pulse Oximetry 100 100 98 Oxygen Delivery Method Non-rebreather Room Air Room Air Sepsis Recent Fever Within 48 Hours Sepsis New/Unexplained Change in Mental Status Sepsis Action Taken by Nursing End Tidal CO2 (18-54mmHg) 19 21 19 06/07/22 22:10 06/07/22 23:04 06/07/22 23:05 Temperature Temperature Source Pulse Rate 92 H 77 Pulse Rate [Left] 77 Pulse Rhythm Regular Pulse Rhythm [Left] Regular Pulse Strength [Left] Normal Respiratory Rate 19 18 18 Respiratory Effort / Characteristics Non-Labored Spontaneous Respiratory Depth Normal Respiratory Pattern Regular Blood Pressure Blood Pressure [Right Arm] 118/94 127/72 Blood Pressure Mean Blood Pressure Mean [Right Arm] 90 Blood Pressure Position [Right Arm] Semi-fowlers Pulse Oximetry 98 97 97 Oxygen Delivery Method Room Air Room Air Room Air Sepsis Recent Fever Within 48 Hours Sepsis New/Unexplained Change in Mental Status Sepsis Action Taken by Nursing End Tidal CO2 (18-54mmHg) 28 CONSTITUTIONAL: Well developed, well nourished, appears to be in mild pain, guarding the left shoulder. Otherwise pleasant HEAD: There is a contusion/hematoma over the left temporal scalp, this is significantly tender to palpation. There is some mild tenderness over the superior left orbit. There is a 1 cm superficial abrasion just under the left eyebrow. This is intact with no surrounding skin erythema. Scabbed. No jimenez sign or raccoon eyes. EYES: Pupils are dilated but reactive bilaterally. Conjunctiva is normal, extraocular muscles intact. No evidence of entrapment. EARS/NOSE/MOUTH/THROAT: External ears no injury, no hemotympanum, no drainage. Nose with no injury or epistaxis. No dental abnormalities. No oral injuries. NECK: There is some left trapezius tenderness. Patient able to rotate bilaterally. RESPIRATORY: Breathing unlabored and symmetric. Lungs clear to auscultation bilaterally. CARDIOVASCULAR: Regular rate and rhythm. No murmurs, rubs, or gallops. Radial pulses 2+ bilaterally. CHEST: Nontender, no crepitus or ecchymosis. ABDOMEN: Normal bowel sounds. Soft, nontender. No masses or ecchymosis. No rigidity. MUSCULOSKELETAL: Overall very thin appearing. There is ecchymosis over the superior left shoulder with exquisite tenderness in this area. There is decreased range of motion globally. No clavicle or AC tenderness. There is some mild scapular tenderness. There is no additional decreased range of motion or tenderness in extremities, pelvis stable, nontender. Back: no thoracic, lumbar, or sacral midline tenderness noted, no step-off deformities. SKIN: [place], warm, dry. NEUROLOGIC: Alert and oriented x 3. GCS 15. Gaze is conjugate, speech is normal. Strength 5+ in bilateral upper and lower extremities including axillary nerve distribution. PSYCHIATRIC: Appropriate. Normal affect. Course Administered Medications Discontinued Medications Fentanyl Citrate (Fentanyl Citrate 100 Mcg/2 Ml Vial) Confirm Administered Dose 100 mcg .ROUTE .STK-MED ONE Stop: 06/07/22 18:50 Last Increment: 06/07/22 19:02 Dose: 50 mcg Documented By: PATTI Sodium Chloride (Nss) 500 mls @ 999 mls/hr IV .Q31M ONE Stop: 06/07/22 17:33 Last Infusion: 06/07/22 18:01 Dose: 0 mls/hr Documented By: Admin: 06/07/22 17:24 Dose: 999 mls/hr Documented By: TANVIR Ketamine HCl (Ketamine Hcl Inj 50 Mg/Ml 10 Ml Vial) Confirm Administered Dose 500 mg .ROUTE .STK-MED ONE Stop: 06/07/22 21:57 Last Admin: 06/07/22 22:38 Dose: Not Given Documented By: RICHARD Ketamine HCl (Ketamine Hcl Inj 50 Mg/Ml 10 Ml Vial) 100 mg IV NOW STA Stop: 06/07/22 22:34 Last Admin: 06/07/22 22:37 Dose: 100 mg Documented By: RICHARD Lidocaine HCl (Xylocaine 1%/Sod Bicarb 20 Ml Vial) 20 ml INFIL NOW ONE Stop: 06/07/22 20:32 Last Admin: 06/07/22 20:41 Dose: 20 ml Documented By: RICHARD Morphine Sulfate (Morphine Sulfate 4 Mg/Ml 1 Ml Carp\\Vial) 4 mg IV NOW STA Stop: 06/07/22 17:04 Last Admin: 06/07/22 17:25 Dose: 4 mg Documented By: TANVIR Morphine Sulfate (Morphine Sulfate 4 Mg/Ml 1 Ml Carp\\Vial) 4 mg IV NOW STA Stop: 06/07/22 23:18 Last Admin: 06/07/22 23:30 Dose: 4 mg Documented By: FINN Propofol (Propofol Iv Emulsion 10 Mg/Ml 20 Ml Vial) 80 mg IV NOW STA Stop: 06/07/22 21:39 Last Admin: 06/07/22 22:33 Dose: 60 mg Documented By: RICHARD Co-signed By: RSJose J Medical Decision Making Differential Diagnosis Fracture, dislocation, subluxation, contusion, hematoma, intracranial hemorrhage, disc herniation, retrobulbar hematoma, entrapment, neurovascular injury, laceration, abrasion, among other pathology Medical Records Attestation: I reviewed the patient's medical records. Laboratory Data 06/07/22 17:20 06/07/22 17:20 Lab Results 06/07/22 06/07/22 06/07/22 Range/Units 17:20 17:20 22:41 WBC 9.32 (4.8-10.8) K/ul RBC 4.25 (4.20-5.40) M/uL Hgb 13.8 (12.0-16.0) g/dl Hct 40.4 (37.0-47.0) % MCV 95.1 (80.0-100.0) fL MCH 32.5 (25.0-34.0) pg MCHC 34.2 (32.0-36.0) g/dL RDW Std Deviation 48.0 H (36.4-46.3) fL RDW Coeff of Liz 13.6 (11.5-14.5) % Plt Count 278 (130-400) K/uL MPV 10.1 (9.4-12.4) fL Immature Gran % (Auto) 0.6 % Neut % (Auto) 66.8 % Lymph % (Auto) 23.3 % Barton % (Auto) 7.5 % Eos % (Auto) 1.6 % Baso % (Auto) 0.2 % Neut # (Auto) 6.22 (1.40-6.50) K/uL Lymph # (Auto) 2.17 (1.2-3.4) K/uL Barton # (Auto) 0.70 H (0.11-0.59) K/uL Eos # (Auto) 0.15 (0-0.50) K/uL Baso # (Auto) 0.02 (0-0.2) K/uL Immature Gran # (Auto) 0.06 (0.01-0.20) K/uL Sodium 142 (136-145) mmol/L Potassium 3.5 (3.5-5.1) mmol/L Chloride 108 H (98-107) mmol/L Carbon Dioxide 25 (21-32) mmol/L Anion Gap 9 (3-11) BUN 21 (6-23) mg/dl Creatinine 1.01 (0.6-1.2) mg/dl Est Cr Clr Drug Dosing 37.5 ml/min Est GFR ( Amer) 69.1 ml/min Est GFR (Non-Af Amer) 59.6 ml/min BUN/Creatinine Ratio 20.8 H (10-20) Glucose 91 (70-99(Fasting)) mg/dl Calcium 9.5 (8.5-10.1) mg/dl Total Bilirubin 0.3 (0.2-1.0) mg/dl AST 17 (13-39) U/L ALT 13 (7-52) U/L Alkaline Phosphatase 83 (34-104) U/L Total Protein 6.5 (6.0-8.3) gm/dl Albumin 4.3 (3.4-5.0) gm/dl Globulin 2.2 L (2.5-4.0) gm/dl Albumin/Globulin Ratio 1.9 (0.9-2) SARS-CoV-2, RNA, NAAT NEGATIVE (NEGATIVE) Imaging Data Radiologist's Impression: Cervical Spine CT 06/07/22 17:03 CT cervical spine wo con CT DOSE: 857.53 mGy.cm CLINICAL HISTORY: 62 years-old Female with recent fall, L sided lower neck. Acute neck pain status post fall COMPARISON: CTA neck 03/21/2019 TECHNIQUE: Multiple axial CT images of the cervical spine were obtained without contrast. A dose lowering technique was utilized adhering to the principles of ALARA. FINDINGS: Straightening of the normal cervical lordosis. 2 mm anterolisthesis C3 on C4 and C4 on C5, likely secondary to chronic facet arthrosis. Mild multilevel uncovertebral hypertrophy with moderate to severe facet arthrosis. No acute fracture or subluxation identified. Multilevel neural foraminal narrowing. Minimal levoscoliosis. The cervical soft tissues appear unremarkable. No pneumothorax. Mild biapical pleural-parenchymal scarring. IMPRESSION: No acute cervical spine fracture or subluxation identified. ACT 112: Negative or not required by law. The above report was generated using voice recognition software. It may contain grammatical, syntax or spelling errors. Electronically signed by: Darnell Garcia M.D. 06/07/2022 6:[address] 06/07/22 17:03 CT facial bones wo con CLINICAL HISTORY: 62 years-old Female presenting with Fall, L superior orbital region. Acute facial pain status post fall COMPARISON STUDY: CT head and cervical spine studies of same day TECHNIQUE: High-resolution CT scan of the facial bones is performed. Images are reviewed in the axial, sagittal, and coronal planes. IV contrast was not administered for this examination. A dose lowering technique was utilized adhering to the principles of ALARA. FINDINGS: There is no evidence of facial bone fracture. The bony orbits are intact and the orbital contents are within normal limits. The zygomatic arches, nasal bones, and pterygoid plates are preserved. The maxilla and mandible are intact. Small left temporal scalp/left periorbital contusions. The paranasal sinuses and mastoid air cells are clear. Multilevel degenerative changes of the cervical spine. Partially imaged brain parenchyma is within normal limits with a chronic left frontal lobe infarct. IMPRESSION: No acute facial bone fracture. ACT 112: Negative or not required by law. The above report was generated using voice recognition software. It may contain grammatical, syntax or spelling errors. Electronically signed by: Darnell Garcia M.D. 06/07/2022 6:[address] 06/07/22 17:03 CT head/brain wo con CLINICAL HISTORY: 62 years-old Female with recent fall, L temporal hematoma. Acute head trauma status post fall TECHNIQUE: Multiple axial CT images of the head were obtained without contrast. A dose lowering technique was utilized adhering to the principles of ALARA. COMPARISON: Head CT 03/21/2019 FINDINGS: No acute intracranial hemorrhage, midline shift, intracranial mass, hydrocephalus, territorial ischemia or abnormal extra-axial collection. Involutional changes with chronic microvascular ischemic disease. Encephalomalacia from chronic left frontal lobe infarct. The calvarium is intact. Mild left temporal scalp contusion. The paranasal sinuses, mastoid air cells, and middle ear cavities are clear. IMPRESSION: 1. Small left temporal scalp contusion without acute intracranial abnormality or calvarial fracture. 2. Involutional changes with chronic microvascular ischemic disease. 3. Old left frontal lobe infarct. ACT 112: Negative or not required by law. The above report was generated using voice recognition software. It may contain grammatical, syntax or spelling errors. Electronically signed by: Darnell Garcia M.D. 06/07/2022 6:13 PM Shoulder X-Ray 06/07/22 17:03 XR shoulder LT min 2V routine CLINICAL HISTORY: fall, superior/lateral/scapular tender TECHNIQUE: 3 views of the left shoulder were obtained. Comparison: None available at the time of this dictation. FINDINGS: Anterior dislocation of the shoulder is seen. No fracture is definitely visualized. Soft tissue swelling is seen about the shoulder. The visualized portions of the lungs are clear. IMPRESSION: Anterior shoulder dislocation with associated soft tissue swelling. ACT 112: Negative or not required by law. Electronically signed by: Chapin Morrow M.D. 06/07/2022 5:57 PM Shoulder X-Ray 06/07/22 19:49 XR shoulder LT 1V HISTORY: 62 years-old Female reduction attempt acute left shoulder pain COMPARISON: Shoulder radiographs June 07, 2022 TECHNIQUE: Scapular Y view of the left shoulder was attempted FINDINGS: Limited exam secondary to positioning. There is apparent persistent anteroinferior dislocation of the glenohumeral joint. The questioned fracture of the acromium seen on the prior study is not well visualized on this limited exam. IMPRESSION: Limited exam secondary to positioning. Apparent persistent anteroinferior dislocation of the glenohumeral joint. ACT 112: Negative or not required by law. The above report was generated using voice recognition software. It may contain grammatical, syntax or spelling errors. Electronically signed by: Darnell Garcia M.D. 06/07/2022 8:09 PM Preliminary Findings Only See Final Report For Complete Findings CT LEFT SHOULDER: Subluxation of the left humeral head in the left glenoid fossa No evidence for humeral or glenoid fracture Fracture of the acromion is noted chest inferior and lateral to the AC joint Small calcific densities are present within the joint space compatible with loose bodies likely related to the severe shoulder osteoarthritis Radiologist: Chapin Arellano MD Study ready at 22:56 and initial results transmitted at 22:59 MDM Narrative 62-year-old female with a complex medical history presents with a chief compla int of left shoulder pain and ecchymosis and a small superficial abrasion/laceration just under the left eyebrow secondary to a fall that occurred 36 hours ago. On exam she does appear to be in a fair amount of pain and guarding the left shoulder and it is significantly tender with tenderness superiorly and over the acromion with associated ecchymosis. She is largely unable to move the shoulder much. Additional injuries as described above to the head, left superior orbit. There is a superficial wound that appears to be well-healing, well approximated, and as this is 36 hours old, no indication to open this at this time. Patient is on chronic opiate medication. She was given a dose of IV morphine as she did appear to be in a fair amount of pain associated with the left shoulder. Labs were obtained demonstrating no leukocytosis or anemia. There are no significant electrolyte disturbances. Renal function slightly decreased from prior labs with a GFR of 59.6 compared to 70.9. Patient received IV fluids. X-ray of the left shoulder was obtained demonstrating an anterior dislocation. I am suspicious for possible acromion fracture based on her history and the appearance of the x-ray. This was not initially read as an acromion fracture though after discussing this with the reading radiologist was considered a possibility. See their addendum. CT of the head, neck, and face were also obtained demonstrating a scalp contusion, no orbital fracture, no neck pathology. After obtaining verbal consent from the patient, reduction of the shoulder was attempted by myself using IV fentanyl and Grace technique with scapular manipulation. This was unsuccessful at reduction after a repeat x-ray was obtained. I discussed the case with ED attending Dr. Muniz and we attempted reduction together after obtaining verbal consent again utilizing lidocaine 1% injected into the subacromial space and external rotation, unfortunately without success. I then spoke with Dr. Osorio (orthopedics on-call) regarding the case due to the persistent nature of the dislocation as well as the fragile nature of the patient and he evaluated the patient at bedside. It was recommended to attempt reduction under conscious sedation rather than discharging the patient home for outpatient follow-up. Conscious sedation was performed by Dr. Muniz and another attempt was made at reduction by Dr. Osorio with my assistance, and unfortunately this was not successful. This is likely a combination of the duration the shoulder has been dislocated as well as the patient not fully relaxing during conscious sedation despite high-dose medication. Dr. Osorio requested the patient be admitted under the hospitalist service and she will be booked for the OR tomorrow for definitive management. CT of the shoulder was obtained demonstrating subluxation of the left humeral head and the glenoid fossa with an associated acromion fracture. Patient received additional pain medication for her discomfort and rested comfortably in a sling. I discussed the case with Dr. Chavez (hospitalist) who agrees to admit the patient. Impression Anterior dislocation of left shoulder, Acromial fracture, Abrasion of left eyebrow, Contusion of left temporofrontal scalp, Fall from slip, trip, or stumble Discharge Plan Visit Data Chief Complaint: Fall Stated Complaint: SLIIPED FELL OUT OFF BATHTUB,SHOULDER PAIN ED Provider: Edgar Muniz ED Midlevel Provider: Montana Sanchez Discharge Problem: Anterior dislocation of left shoulder, Acromial fracture, Abrasion of left e yebrow, Contusion of left temporofrontal scalp, Fall from slip, trip, or stumble Patient Disposition: Admitted As Inpatient Condition: Fair Prescriptions Prescriptions: No Action folic acid 1 mg tablet 1 mg PO QAM Qty: 90 3RF lisinopril 2.5 mg tablet 2.5 mg PO QAM Qty: 90 3RF metformin 500 mg tablet extended release 24 hr 500 mg PO BID Qty: 180 3RF atorvastatin 40 mg tablet 40 mg PO HS Qty: 90 3RF duloxetine 60 mg capsule,delayed release(DR/EC) 60 mg PO BID Qty: 180 1RF levothyroxine 150 mcg tablet 150 mcg PO DAILY Qty: 90 3RF bupropion HCl [Wellbutrin XL] 300 mg tablet extended release 24 hr 300 mg PO QAM Qty: 90 3RF quetiapine [Seroquel] 300 mg tablet 300 mg PO HS Qty: 90 3RF clonazepam 1 mg tablet 1 mg PO HS Qty: 30 2RF esomeprazole magnesium 40 mg capsule,delayed release(DR/EC) 40 mg PO QAM Qty: 90 3RF oxycodone-acetaminophen 5-325 mg tablet 1 tab PO TID PRN (Reason: pain) Qty: 90 0RF amlodipine 5 mg tablet 5 mg PO QAM Qty: 90 3RF gabapentin 300 mg capsule 300 mg PO TID 90 Days Qty: 270 3RF ondansetron 4 mg tablet,disintegrating 4 mg PO Q6H PRN (Reason: nausea and vomiting) Qty: 60 1RF albuterol sulfate 90 mcg/actuation aerosol powdr breath activated 1 inh inhalation QID PRN (Reason: shortness of breath or wheezing) Qty: 1 2RF ferrous sulfate 325 mg (65 mg iron) tablet 325 mg PO QAM ipratropium-albuterol 0.5 mg-3 mg(2.5 mg base)/3 mL solution for nebulization 3 ml inhalation QID PRN (Reason: wheezing) Qty: 90 3RF (DME) AeroEclipse II Nebulizer Misc See Rx Instructions .ROUTE .MEDSUPPLY Qty: 1 0RF Rx Instructions: As directed aspirin [Ecotrin Low Strength] 81 mg Tablet,Delayed Release (Dr/Ec) 81 mg PO QAM Qty: 81 0RF estradiol 0.01 % (0.1 mg/gram) cream 1 g vaginal 2XWK Rx Instructions: 1 g vaginal twice weekly; 2 days per week vaginally. mecobalamin (vitamin B12) 5,000 mcg Tablet,Chewable 5,000 mcg PO DAILY famotidine 20 mg tablet 20 mg PO HS Trulicity 0.75 mg/0.5 mL pen injector 0.75 mg SQ WK Label Comments: on fluticasone propionate [Flonase Allergy Relief] 50 mcg/actuation spray,suspension 2 spray intranasal QAM Rx Instructions: administer into each nostril fluticasone furoate-vilanterol [Breo Ellipta] 100-25 mcg/dose blister with device 1 inh inhalation QAM potassium chloride 20 mEq tablet extended release 20 meq PO QAM Referrals Referrals: Jimena Cobos CRNP [Primary Care Provider] - : Anterior dislocation of left shoulder Qualifiers: Encounter type: initial encounter Qualified Code(s): S43.015A - Anterior dislocation of left humerus, initial encounter Acromial fracture Qualifiers: Encounter type: initial encounter Fracture type: closed Fracture alignment: displaced Laterality: left Qualified Code(s): S42.122A - Displaced fracture of acromial process, left shoulder, initial encounter for closed fracture Abrasion of left eyebrow Qualifiers: Encounter type: initial encounter Qualified Code(s): S00.212A - Abrasion of left eyelid and periocular area, initial encounter Contusion of left temporofrontal scalp Qualifiers: Encounter type: initial encounter Qualified Code(s): S00.03XA - Contusion of scalp, initial encounter Fall from slip, trip, or stumble Qualifiers: Encounter type: initial encounter Qualified Code(s): W01.0XXA - Fall on same level from slipping, tripping and stumbling without subsequent striking against object, initial encounter
[2022-06-07] MEDS ORDERED: SODIUM CHLORIDE 0.9% 500 ML IV ONE (17:03)
[2022-06-07] MEDS ORDERED: MoRPHine SULFATE 4 MG/ML 1 ML CARP\\VIAL IV STA ×2 (17:03→23:17)
[2022-06-07 17:38] LABS: Basophils # (auto) 0.02 K/uL (0-0.2); Basophils % (auto) 0.2 %; Eosinophils # (auto) 0.15 K/uL (0-0.50); Eosinophils % (auto) 1.6 %; Hematocrit (blood only) 40.4 % (37.0-47.0); Hemoglobin 13.8 g/dl (12.0-16.0); Immature Granulocytes # (auto) 0.06 K/uL (0.01-0.20); Immature Granulocytes % (auto) 0.6 %; Lymphocytes # (auto) 2.17 K/uL (1.2-3.4); Lymphocytes % (auto) 23.3 %; Mean Corpuscular Hemoglobin 32.5 pg (25.0-34.0); Mean Corpuscular Hgb Conc 34.2 g/dL (32.0-36.0); Mean Corpuscular Volume 95.1 fL (80.0-100.0); Mean Platelet Volume 10.1 fL (9.4-12.4); Monocytes % (auto) 7.5 %; Neutrophils # (auto) 6.22 K/uL (1.40-6.50); Neutrophils % (auto) 66.8 %; Platelet Count 278 K/uL (130-400); RDW Coefficient of Variation 13.6 % (11.5-14.5); Red Blood Count 4.25 M/uL (4.20-5.40); White Blood Count 9.32 K/ul (4.8-10.8)
--- NOTE | 2022-06-07 17:58 | XRay Report ---
XR shoulder LT min 2V routine CLINICAL HISTORY: fall, superior/lateral/scapular tender TECHNIQUE: 3 views of the left shoulder were obtained. Comparison: None available at the time of this dictation. FINDINGS: Anterior dislocation of the shoulder is seen. No fracture is definitely visualized. Soft tissue swell ing is seen about the shoulder. The visualized portions of the lungs are clear. IMPRESSION: Anterior shoulder dislocation with associated soft tissue swelling. ACT 112: Negative or not required by law. Electronically signed by: Chapin Morrow M.D. 06/07/2022 5:57 PM
--- NOTE | 2022-06-07 18:15 | CT Scan Report ---
CT head/brain wo con CLINICAL HISTORY: 62 years-old Female with recent fall, L temporal hematoma. Acute head trauma statu s post fall TECHNIQUE: Multiple axial CT images of the head were obtained without contrast. A dose lowering tech nique was utilized adhering to the principles of ALARA. COMPARISON: Head CT 03/21/2019 FINDINGS: No acute intracranial hemorrhage, midline shift, intracranial mass, hydrocephalus, territorial ischem ia or abnormal extra-axial collection. Involutional changes with chronic microvascular ischemic disea se. Encephalomalacia from chronic left frontal lobe infarct. The calvarium is intact. Mild left temporal scalp contusion. The paranasal sinuses, mastoid air cell s, and middle ear cavities are clear. IMPRESSION: 1. Small left temporal scalp contusion without acute intracranial abnormality or calvarial fracture. 2. Involutional changes with chronic microvascular ischemic disease. 3. Old left frontal lobe infarct. ACT 112: Negative or not required by law. The above report was generated using voice recognition software. It may contain grammatical, syntax o r spelling errors. Electronically signed by: Darnell Garcia M.D. 06/07/2022 6:13 PM
--- NOTE | 2022-06-07 18:18 | CT Scan Report ---
CT cervical spine wo con CT DOSE: 857.53 mGy.cm CLINICAL HISTORY: 62 years-old Female with recent fall, L sided lower neck. Acute neck pain status p ost fall COMPARISON: CTA neck 03/21/2019 TECHNIQUE: Multiple axial CT images of the cervical spine were obtained without contrast. A dose low ering technique was utilized adhering to the principles of ALARA. FINDINGS: Straightening of the normal cervical lordosis. 2 mm anterolisthesis C3 on C4 and C4 on C5, likely secondary to chronic facet arthrosis. Mild multilevel uncovertebral hypertrophy with moderate to severe facet arthrosis. No acute fracture or subluxation identified. Multilevel neural foraminal n arrowing. Minimal levoscoliosis. The cervical soft tissues appear unremarkable. No pneumothorax. Mild biapical pleural-parenchymal sc arring. IMPRESSION: No acute cervical spine fracture or subluxation identified. ACT 112: Negative or not required by law. The above report was generated using voice recognition software. It may contain grammatical, syntax o r spelling errors. Electronically signed by: Darnell Garcia M.D. 06/07/2022 6:17 PM
--- NOTE | 2022-06-07 18:22 | CT Scan Report ---
CT facial bones wo con CLINICAL HISTORY: 62 years-old Female presenting with Fall, L superior orbital region. Acute facial p ain status post fall COMPARISON STUDY: CT head and cervical spine studies of same day TECHNIQUE: High-resolution CT scan of the facial bones is performed. Images are reviewed in the axia l, sagittal, and coronal planes. IV contrast was not administered for this examination. A dose lower ing technique was utilized adhering to the principles of ALARA. FINDINGS: There is no evidence of facial bone fracture. The bony orbits are intact and the orbital contents are within normal limits. The zygomatic arches, nasal bones, and pterygoid plates are preserved. The max illa and mandible are intact. Small left temporal scalp/left periorbital contusions. The paranasal sinuses and mastoid air cells are clear. Multilevel degenerative changes of the cervica l spine. Partially imaged brain parenchyma is within normal limits with a chronic left frontal lobe i nfarct. IMPRESSION: No acute facial bone fracture. ACT 112: Negative or not required by law. The above report was generated using voice recognition software. It may contain grammatical, syntax o r spelling errors. Electronically signed by: Darnell Garcia M.D. 06/07/2022 6:21 PM
[2022-06-07] MEDS: fentaNYL citrate 100 MCG/2 ML VIAL ONE ×2 (18:50→19:02)
[2022-06-07 19:04] LABS: Bilirubin,Total 0.3 mg/dl (0.2-1.0); Calcium 9.5 mg/dl (8.5-10.1); Creatinine Clr Calc Pharmacy 37.5 ml/min; Est GFR (African American) 69.1 ml/min; Est GFR (Non-African American) 59.6 ml/min; Potassium 3.5 mmol/L (3.5-5.1); Total Protein 6.5 gm/dl (6.0-8.3)
[2022-06-07 19:05] LABS: Albumin Level 4.3 gm/dl (3.4-5.0)
[2022-06-07 19:19] LABS: Albumin Globulin Ratio 1.9 (0.9-2); BUN Creatinine Ratio 20.8 (10-20); Globulin 2.2 gm/dl (2.5-4.0)
--- NOTE | 2022-06-07 20:11 | XRay Report ---
XR shoulder LT 1V HISTORY: 62 years-old Female reduction attempt acute left shoulder pain COMPARISON: Shoulder radiographs June 07, 2022 TECHNIQUE: Scapular Y view of the left shoulder was attempted FINDINGS: Limited exam secondary to positioning. There is apparent persistent anteroinferior dislocation of the glenohumeral joint. The questioned fracture of the acromium seen on the prior study is not well visu alized on this limited exam. IMPRESSION: Limited exam secondary to positioning. Apparent persistent anteroinferior dislocation of the glenohum eral joint. ACT 112: Negative or not required by law. The above report was generated using voice recognition software. It may contain grammatical, syntax o r spelling errors. Electronically signed by: Darnell Garcia M.D. 06/07/2022 8:09 PM
[2022-06-07] MEDS ORDERED: XYLOCAINE 1%/SOD BICARB 20 ML VIAL INFIL ONE (20:31)
[2022-06-07] MEDS ORDERED: PROPOFOL IV EMULSION 10 MG/ML 20 ML VIAL IV STA (21:38)
[2022-06-07] MEDS ORDERED: KETAMINE HCL INJ 50 MG/ML 10 ML VIAL ONE (21:56)
[2022-06-07] MEDS ORDERED: KETAMINE HCL INJ 50 MG/ML 10 ML VIAL IV STA (22:33)
--- NOTE | 2022-06-07 22:46 | History & Physical Report ---
Date of Service June 07, 2022 Assessment & Plan (1) Shoulder dislocation: Plan: 62yo female presenting with anterior dislocation of the left shoulder following a ground level fall 06/06/22 AM. Reduction attempted in the ER with Orthopedics and conscious sedation - unsuccessful, patient unable to tolerate. Plan for OR reduction in AM. -Observation to medical -Keep NPO -Tylenol as needed for pain -Acute pain management with Morphine PRN -Zofran as needed for nausea -Bowel regimen as needed -Keep arm in sling for comfort -Orthopedic Surgery consultation appreciated -Hold ASA and Lisinopril for OR in AM -Gentle IVF - LR at 80mL/hr x 1 liter (2) Type II diabetes mellitus: Plan: Overall well controlled. Last [id number] on 01/19/22. Patient is on Metformin and Trulicity at home. -Hold Metformin -ISS for now while NPO -Continue Gabapentin (3) Stroke: Plan: Patient with prior CVA. -Hold ASA for now -Continue Atorvastatin (4) Hyperlipemia: Plan: Chronic. Stable on medications -Continue Atorvastatin 40mg po qHS (5) Hypertension: Plan: Blood pressure well controlled. -Continue Amlodipine 5mg po qAM -Hold Lisinopril for now (6) Hypothyroidism: Plan: Chronic. Last TSH from 01/19/22 low at 0.2 -Check TSH with AM labs -Continue Synthroid 150mcg po daily (7) Bipolar depression: Plan: Chronic. -Continue Wellbutrin -Continue Seroquel -Continue Duloxetine -Continue Clonazepam (8) COPD (chronic obstructive pulmonary disease): Plan: No cough, SOB or wheeze -Continue Breo Ellipta daily -Continue Duoneb PRN -Albuterol PRN (9) Pyloric stenosis: Plan: Patient follows with [facility]. She takes Percocet TID for chronic abdominal pain as well as esomeprazole -continue Percocet -Protonix History of Present Illness Chief Complaint: LEFT anterior shoulder dislocation Primary Care Provider: MALINI Becker is a 62yo female with history of DM, HTN, HLP, Hypothyroidism, prior CVA, COPD and Bipolar disorder presenting with anterior dislocation of left shoulder following a fall at home. Patient's fall occurred on 06/06/22 at approximately 0400. She was getting out of the bath and slipped, falling onto her left shoulder and hitting the left side of her head. She did not lose consciousness. She reports persistent and progressively worsening pain in the left shoulder as well as extensive bruising. Patient has been taking Percocet 5/325mg TID at home which she is prescribed for management of chronic abdominal pain. She reports minimal improvement in her shoulder pain with this. Pain has been 7-8 out of 10. No additional complaints at this time. Patient denies chest pain, cough, SOB, abdominal pain, nausea, vomiting, diarrhea or constipation. No headache, visual changes or focal neurological deficits. In the ER she is afebrile, HD stable, NAD. ER Course: Morphine 4mg IV x 2 doses Ketamine 100mg IV Propofol 80mg IV Lidocaine 20mL Fentanyl 100mcg NSS x 500mL Allergies Allergy/AdvReac Type Severity Reaction Status Date / Time No Known Allergies Allergy Verified 06/07/22 17:06 Home Medications Medication Instructions Recorded Confirmed Type ferrous sulfate 325 mg (65 mg 325 mg PO QAM 01/08/19 06/07/22 History iron) tablet aspirin 81 mg tablet,delayed 81 mg PO QAM #81 tabs 03/25/19 06/07/22 Rx release (Ecotrin Low Strength) ipratropium 0.5 mg-albuterol 3 mg 3 ml inhalation QID PRN wheezing 02/18/20 06/07/22 Rx (2.5 mg base)/3 mL nebulization #90 mL soln nebulizers (AeroEclipse II #1 ea 02/18/20 06/07/22 Rx Nebulizer) albuterol sulfate 90 mcg/actuation 1 inh inhalation QID PRN shortness 02/26/20 06/07/22 Rx breath activated powder inhaler of breath or wheezing #1 ea fluticasone furoate 100 1 inh inhalation QAM 01/25/21 06/07/22 History mcg-vilanterol 25 mcg/dose inhalation powder (Breo Ellipta) fluticasone propionate 50 2 spray intranasal QAM 01/25/21 06/07/22 History mcg/actuation nasal spray,suspension (Flonase Allergy Relief) potassium chloride 20 mEq 20 meq PO QAM 01/25/21 06/07/22 History tablet,extended release folic acid 1 mg tablet 1 mg PO QAM #90 tabs 02/09/21 06/07/22 Rx estradiol 0.01% (0.1 mg/gram) 1 g vaginal 2XWK 06/22/21 06/07/22 History vaginal cream lisinopril 2.5 mg tablet 2.5 mg PO QAM #90 tabs 07/29/21 06/07/22 Rx atorvastatin 40 mg tablet 40 mg PO HS #90 tabs 10/03/21 06/07/22 Rx metformin 500 mg tablet,extended 500 mg PO BID #180 tabs 10/03/21 06/07/22 Rx release 24 hr gabapentin 300 mg capsule 300 mg PO TID 90 days #270 caps 10/25/21 06/07/22 Rx duloxetine 60 mg capsule,delayed 60 mg PO BID #180 caps 11/25/21 06/07/22 Rx release levothyroxine 150 mcg tablet 150 mcg PO DAILY #90 tabs 01/23/22 06/07/22 Rx bupropion HCl 300 mg 24 hr tablet, 300 mg PO QAM #90 tabs 03/20/22 06/07/22 Rx extended release (Wellbutrin XL) quetiapine 300 mg tablet (Seroquel) 300 mg PO HS #90 tabs 03/20/22 06/07/22 Rx clonazepam 1 mg tablet 1 mg PO HS #30 tabs 03/22/22 06/07/22 Rx esomeprazole magnesium 40 mg 40 mg PO QAM #90 caps 05/04/22 06/07/22 Rx capsule,delayed release oxycodone-acetaminophen 5 mg-325 1 tab PO TID PRN pain #90 tabs 05/18/22 06/07/22 Rx mg tablet amlodipine 5 mg tablet 5 mg PO QAM #90 tabs 05/30/22 06/07/22 Rx ondansetron 4 mg disintegrating 4 mg PO Q6H PRN nausea and 06/06/22 06/07/22 Rx tablet vomiting #60 tabs dulaglutide 0.75 mg/0.5 mL 0.75 mg subcut WK 06/07/22 06/07/22 History subcutaneous pen injector (Trulicity) famotidine 20 mg tablet 20 mg PO HS 06/07/22 06/07/22 History mecobalamin (vitamin B12) 5,000 5,000 mcg PO DAILY 06/07/22 06/07/22 History mcg chewable tablet Past Med/Surg History Medical History Bipolar depression Cavitating mass in left lower lung lobe Cavitating mass in left upper lung lobe COPD (chronic obstructive pulmonary disease) Depression with anxiety Diabetes mellitus NIDDM Dysphagia History of esophageal dilatation multiple times Hyperlipemia Hypertension Hypothyroidism Mild acid reflux Neuropathy of foot Pyloric stenosis Stomach ulcer Stroke (~03/2019) had a speech deficit, but pt states it has improved--unknown cause, follows with Dr. Brown Tobacco abuse currently smokes 10-15 cigarettes a day Surgical History H/O colposcopy with cervical biopsy 2019, neg, low grade pap History of benign breast biopsy History of bronchoscopy History of colonoscopy History of D&C x2 History of esophagogastroduodenoscopy (EGD) multiple--last 01/31/21 @ [facility] History of repair of pyloric stenosis multiple for pyloric stenosis--started in infancy through 2019 History of wisdom tooth extraction Family History Mother Anxiety Breast cancer Hypertension Gallbladder disease Brother Alcohol abuse Renal cell cancer Kidney disease Cancer Hypertension Family/Other No problems noted. Father Heart disease Lung disease Hypertension Myocardial infarction Other No family history of adverse response to anesthesia Denies family history of Ovarian cancer Prostate cancer Crohn's disease Lung cancer Colorectal cancer Ulcerative colitis Social History Smoking Status: Current every day smoker Tobacco Type: Cigarettes Age Started Using Tobacco: 26; packs per day: 0.5; Cigarettes Per Day: 10-15 a day; Second Hand Exposure: No; Hx Alcohol Use: No Hx Substance Use: No Preferred Language: Danish Communication Ability: Effective Mortgage Protection Sales Required: No Beliefs That Will Affect Care: None marital status: Current Living Situation: Spouse and Family Current Living Situation Comment: Lives with , mother and daughter current occupational status: retired Feels Safe at Home: Yes Childhood Exposure to Second-Hand Smoke: Yes caffeine: Yes Dental Care, Regularly: Yes Physical Activity Frequency: 5-6 Times per Week Seatbelt Use: always Sunscreen Use: Yes Assistive Devices: Glasses and Nebulizer Review of Systems Review of Systems: All systems reviewed & are unremarkable except as noted in HPI & below Physical Exam Physical Exam: General: patient resting comfortably, NAD, non-toxic in appearance, AA&O x 4 Skin: warm, dry, intact, bruising on left side HEENT: Small contusion over left eye, no active bleeding, PERRL, EOMI, anicteric sclera, conjunctiva without injection, external ear normal to inspection and nontender, nares patent, moist mucus membranes, dentition intact, no oropharyngeal lesions, neck supple, trachea midline, no LAD, no thyromegaly, no JVD Heart: +S1/S2, regular, no m/r/g Lungs: equal air entry bilaterally, no rales/rhonchi/wheezes Abd: +BS, soft, NT/ND, no masses/organomegaly/ascites Ext: warm, 2+ pulses in UE/LE bilaterally, no clubbing/cyanosis or edema, LUE in sling Neuro: nonfocal, patient AA&O x 4, speech intact, no facial droop, moving all extremities on command with equal strength 5/5 Results & Data Results & Data ([facility]) Vital Signs (Past 12 Hours) Vital Signs Temp Pulse Pulse Resp BP BP Pulse Ox 06/07/22 22:10 92 H 19 118/94 98 06/07/22 22:01 92 H 17 98 06/07/22 21:50 84 24 137/104 H 100 06/07/22 21:44 78 22 112/77 100 06/07/22 18:53 76 18 97 06/07/22 17:24 77 16 103/58 L 99 06/07/22 16:28 36.8 C 95 H 18 119/74 97 O2 Del Method 06/07/22 22:10 Room Air 06/07/22 22:01 Room Air 06/07/22 21:50 Room Air 06/07/22 21:44 Non-rebreather 06/07/22 18:53 Room Air 06/07/22 17:24 Room Air 06/07/22 16:28 Room Air Laboratory Results Laboratory Results WBC 9.32 K/ul (4.8-10.8) 06/07/22 17:20 RBC 4.25 M/uL (4.20-5.40) 06/07/22 17:20 Hgb 13.8 g/dl (12.0-16.0) 06/07/22 17:20 Hct 40.4 % (37.0-47.0) 06/07/22 17:20 MCV 95.1 fL (80.0-100.0) 06/07/22 17:20 MCH 32.5 pg (25.0-34.0) 06/07/22 17:20 MCHC 34.2 g/dL (32.0-36.0) 06/07/22 17:20 RDW Std Deviation 48.0 fL (36.4-46.3) H 06/07/22 17:20 RDW Coeff of Liz 13.6 % (11.5-14.5) 06/07/22 17:20 Plt Count 278 K/uL (130-400) 06/07/22 17:20 MPV 10.1 fL (9.4-12.4) 06/07/22 17:20 Immature Gran % (Auto) 0.6 % 06/07/22 17:20 Neut % (Auto) 66.8 % 06/07/22 17:20 Lymph % (Auto) 23.3 % 06/07/22 17:20 [place] % (Auto) 7.5 % 06/07/22 17:20 Eos % (Auto) 1.6 % 06/07/22 17:20 Baso % (Auto) 0.2 % 06/07/22 17:20 Neut # (Auto) 6.22 K/uL (1.40-6.50) 06/07/22 17:20 Lymph # (Auto) 2.17 K/uL (1.2-3.4) 06/07/22 17:20 [place] # (Auto) 0.70 K/uL (0.11-0.59) H 06/07/22 17:20 Eos # (Auto) 0.15 K/uL (0-0.50) 06/07/22 17:20 Baso # (Auto) 0.02 K/uL (0-0.2) 06/07/22 17:20 Immature Gran # (Auto) 0.06 K/uL (0.01-0.20) 06/07/22 17:20 Sodium 142 mmol/L (136-145) 06/07/22 17:20 Potassium 3.5 mmol/L (3.5-5.1) 06/07/22 17:20 Chloride 108 mmol/L (98-107) H 06/07/22 17:20 Carbon Dioxide 25 mmol/L (21-32) 06/07/22 17:20 Anion Gap 9 (3-11) 06/07/22 17:20 BUN 21 mg/dl (6-23) 06/07/22 17:20 Creatinine 1.01 mg/dl (0.6-1.2) 06/07/22 17:20 Est Cr Clr Drug Dosing 37.5 ml/min 06/07/22 17:20 Est GFR ( Amer) 69.1 ml/min 06/07/22 17:20 Est GFR (Non-Af Amer) 59.6 ml/min 06/07/22 17:20 BUN/Creatinine Ratio 20.8 (10-20) H 06/07/22 17:20 Glucose 91 mg/dl (70-99(Fasting)) 06/07/22 17:20 Calcium 9.5 mg/dl (8.5-10.1) 06/07/22 17:20 Total Bilirubin 0.3 mg/dl (0.2-1.0) 06/07/22 17:20 AST 17 U/L (13-39) 06/07/22 17:20 ALT 13 U/L (7-52) 06/07/22 17:20 Alkaline Phosphatase 83 U/L (34-104) 06/07/22 17:20 Total Protein 6.5 gm/dl (6.0-8.3) 06/07/22 17:20 Albumin 4.3 gm/dl (3.4-5.0) 06/07/22 17:20 Globulin 2.2 gm/dl (2.5-4.0) L 06/07/22 17:20 Albumin/Globulin Ratio 1.9 (0.9-2) 06/07/22 17:[address] 06/07/22 17:03 CT cervical spine wo con CT DOSE: 857.53 mGy.cm CLINICAL HISTORY: 62 years-old Female with recent fall, L sided lower neck. Acute neck pain status post fall COMPARISON: CTA neck 03/21/2019 TECHNIQUE: Multiple axial CT images of the cervical spine were obtained without contrast. A dose lowering technique was utilized adhering to the principles of ALARA. FINDINGS: Straightening of the normal cervical lordosis. 2 mm anterolisthesis C3 on C4 and C4 on C5, likely secondary to chronic facet arthrosis. Mild multilevel uncovertebral hypertrophy with moderate to severe facet arthrosis. No acute fracture or subluxation identified. Multilevel neural foraminal narrowing. Minimal levoscoliosis. The cervical soft tissues appear unremarkable. No pneumothorax. Mild biapical pleural-parenchymal scarring. IMPRESSION: No acute cervical spine fracture or subluxation identified. ACT 112: Negative or not required by law. The above report was generated using voice recognition software. It may contain grammatical, syntax or spelling errors. Electronically signed by: Darnell Garcia M.D. 06/07/2022 6:[address] 06/07/22 17:03 CT facial bones wo con CLINICAL HISTORY: 62 years-old Female presenting with Fall, L superior orbital region. Acute facial pain status post fall COMPARISON STUDY: CT head and cervical spine studies of same day TECHNIQUE: High-resolution CT scan of the facial bones is performed. Images are reviewed in the axial, sagittal, and coronal planes. IV contrast was not administered for this examination. A dose lowering technique was utilized adhering to the principles of ALARA. FINDINGS: There is no evidence of facial bone fracture. The bony orbits are intact and the orbital contents are within normal limits. The zygomatic arches, nasal bones, and pterygoid plates are preserved. The maxilla and mandible are intact. Small left temporal scalp/left periorbital contusions. The paranasal sinuses and mastoid air cells are clear. Multilevel degenerative changes of the cervical spine. Partially imaged brain parenchyma is within normal limits with a chronic left frontal lobe infarct. IMPRESSION: No acute facial bone fracture. ACT 112: Negative or not required by law. The above report was generated using voice recognition software. It may contain grammatical, syntax or spelling errors. Electronically signed by: Darnell Garcai M.D. 06/07/2022 6:[address] 06/07/22 17:03 CT head/brain wo con CLINICAL HISTORY: 62 years-old Female with recent fall, L temporal hematoma. Acute head trauma status post fall TECHNIQUE: Multiple axial CT images of the head were obtained without contrast. A dose lowering technique was utilized adhering to the principles of ALARA. COMPARISON: Head CT 03/21/2019 FINDINGS: No acute intracranial hemorrhage, midline shift, intracranial mass, hydrocephalus, territorial ischemia or abnormal extra-axial collection. Involutional changes with chronic microvascular ischemic disease. Encephalomalacia from chronic left frontal lobe infarct. The calvarium is intact. Mild left temporal scalp contusion. The paranasal sinuses, mastoid air cells, and middle ear cavities are clear. IMPRESSION: 1. Small left temporal scalp contusion without acute intracranial abnormality or calvarial fracture. 2. Involutional changes with chronic microvascular ischemic disease. 3. Old left frontal lobe infarct. ACT 112: Negative or not required by law. The above report was generated using voice recognition software. It may contain grammatical, syntax or spelling errors. Electronically signed by: Darnell Garcia M.D. 06/07/2022 6:13 PM Shoulder X-Ray 06/07/22 19:49 XR shoulder LT 1V HISTORY: 62 years-old Female reduction attempt acute left shoulder pain COMPARISON: Shoulder radiographs June 07, 2022 TECHNIQUE: Scapular Y view of the left shoulder was attempted FINDINGS: Limited exam secondary to positioning. There is apparent persistent ante roinferior dislocation of the glenohumeral joint. The questioned fracture of the acromium seen on the prior study is not well visualized on this limited exam. IMPRESSION: Limited exam secondary to positioning. Apparent persistent anteroinferior dislocation of the glenohumeral joint. ACT 112: Negative or not required by law. The above report was generated using voice recognition software. It may contain grammatical, syntax or spelling errors. Electronically signed by: Darnell Garcia M.D. 06/07/2022 8:09 PM Diagnostic Findings Shoulder CT - per STAT rad - Subluxation of the left humeral head in the left glenoid fossa. No evidence for humeral or glenoid fracture. Fracture of the acromion is noted chest inferior and lateral to the AC joint. Small calcific densities are present within the joint space compatible with loose bodies likely related to the severe shoulder osteoarthritis. Code Status & VTE Plan VTE Prophylaxis Plan VTE Prophylaxis will be ordered: Yes PG Care Time/CCT Total # of Minutes Spent Total Time Spent with Patient: Total time spent is greater than 50% in coordination of care (as documented) at patient's floor/unit and/or counseling patient: Coding Level of Care Code 39977 INT INP/OBS CARE MIN Diagnoses Shoulder dislocation S43.006A Type II diabetes mellitus E11.9 Stroke I63.9 CVA mechanism: unspecified Hyperlipemia E78.5 Hypertension I10 Hypothyroidism E03.9 Bipolar depression F31.9 COPD (chronic obstructive pulmonary disease) J44.9 Pyloric stenosis K31.1 (1) Stroke CVA mechanism: unspecified Qualified Code(s): I63.9 - Cerebral infarction, unspecified
--- NOTE | 2022-06-07 23:23 | Pre Anesthesia Assessment ---
Date of Service June 07, 2022 Pre Sedation Assessment Vital Signs Temp Pulse Pulse Resp BP BP Pulse Ox 06/07/22 23:05 77 18 127/72 97 06/07/22 23:04 77 18 97 06/07/22 22:10 92 H 19 118/94 98 06/07/22 22:01 92 H 17 98 06/07/22 21:50 84 24 137/104 H 100 06/07/22 21:44 78 22 112/77 100 06/07/22 18:53 76 18 97 06/07/22 17:24 77 16 103/58 L 99 06/07/22 16:28 36.8 C 95 H 18 119/74 97 O2 Del Method 06/07/22 23:05 Room Air 06/07/22 23:04 Room Air 06/07/22 22:10 Room Air 06/07/22 22:01 Room Air 06/07/22 21:50 Room Air 06/07/22 21:44 Non-rebreather 06/07/22 18:53 Room Air 06/07/22 17:24 Room Air 06/07/22 16:28 Room Air Cardiovascular RRR, no murmur, no edema + regular rate Respiratory normal respiratory effort, lungs clear to auscultation Pre-Sedation Airway Assessment Smoking Status: Current every day smoker Hx Sleep Apnea: No Short, Thick Neck: No Thyromental Distance: > or= 3.5 Finger Breadths Oral Cavity: + WNL Mallampati Class: I ASA: ASA1 Class II NPO Status Date of Last Intake of Fluids: 06/07/22 Time of Last Intake of Fluids: 15:00 Notes The planned sedation has been discussed with the patient. Informed Consent was obtained. I have identified the patient, determined the appropriateness of sedation and have assessed the patient immediately prior to the procedure. All medicine(s) and interventions are by my order. [facility] Procedure Codes (Charges) Indication for Procedure Indication for procedure: Left-sided shoulder dislocation reduction
--- NOTE | 2022-06-07 23:29 | Emergency Department Note ---
ED Visit Note Physician Evaluation Note: Patient was seen in conjunction with the midlevel provider. Please see the midlevel provider note for full details of the patient's visit. I have personally evaluated and examined this patient. I was asked to assist with disposition of this patient by the midlevel provider, patient presented to the emergency department with some left shoulder discomfort, noted to have anterior shoulder dislocation on x-ray imaging, physician nursing assistant was unable to reduce the dislocation and asked for my assistance. On my initial evaluation patient tells me that she believes her shoulder is now been dislocated for greater than 36 hours after a fall. Motor and sensory function is intact distally in the left hand. Initial dislocation reduction was attempted with local injection of lidocaine, this was unsuccessful secondary to immobility of the dislocated humeral head. Patient was also experiencing some pain with the reduction attempt therefore orthopedics on-call was contacted, case was discussed with on-call orthopedics by the midlevel provider, Dr. Osorio, on-call orthopedics was in agreement to assist and came to the emergency department to evaluate the patient. Subsequent attempt was made by Dr. Osorio to reduce the patient's left-sided shoulder dislocation under sedation with propofol and eventually ketamine, this was ultimately unsuccessful as well. Decision was then made to admit the patient for operating room reduction attempt in the morning. Patient was in agreement to this plan. CT imaging of the left shoulder without contrast was ordered at the request of orthopedics. Patient was placed for admission to the hospitalist service in stable condition with plan for orthopedic intervention in the morning in the operating room to reduce the patient's dislocation. Patient is in agreement to the above plan and she was admitted in stable condition. Dislocation reduction left shoulder: Verbal consent was obtained from the patient at the bedside Patient underwent direct anesthesia to the left shoulder joint with 6 cc of 1% lidocaine without epinephrine following aspiration of a small amount of synovial fluid to the left shoulder bursa Utilizing external rotation with Adduction of the left upper extremity, gentle external rotation was applied to the left upper extremity without significant movement in the humeral head Dislocation reduction attempt was aborted secondary to patient experiencing pain with reduction attempt SEDATION NOTE: Consent was obtained and both verbal and written forms from the patient. Patient was placed on monitoring manager with end-tidal capnography and continuous pulse ox. -Indication for sedation: Left-sided shoulder dislocation/reduction -Timeout was performed at: 21:43 -Medications administered: Propofol 80mg total, Ketamine 100mg total -Sedation start time: 21:44 -Sedation end time: 22:10 -Complications encountered: None On reexamination following and sedation time, patient is alert, following commands, airway is intact and patient is saturating well on room air. I agree with assessment and plan of TARAS Ventura DO . : Anterior dislocation of left shoulder Qualifiers: Encounter type: initial encounter Qualified Code(s): S43.015A - Anterior dislocation of left humerus, initial encounter Acromial fracture Qualifiers: Encounter type: initial encounter Fracture type: closed Fracture alignment: displaced Laterality: left Qualified Code(s): S42.122A - Displaced fracture of acromial process, left shoulder, initial encounter for closed fracture Abrasion of left eyebrow Qualifiers: Encounter type: initial encounter Qualified Code(s): S00.212A - Abrasion of left eyelid and periocular area, initial encounter Contusion of left temporofrontal scalp Qualifiers: Encounter type: initial encounter Qualified Code(s): S00.03XA - Contusion of scalp, initial encounter Fall from slip, trip, or stumble Qualifiers: Encounter type: initial encounter Qualified Code(s): W01.0XXA - Fall on same level from slipping, tripping and stumbling without subsequent striking against object, initial encounter
--- NOTE | 2022-06-07 23:31 | Post Anesthesia Assessment ---
Date of Service June 07, 2022 Post Sedation Assessment Vital Signs Temp Pulse Pulse Resp BP BP Pulse Ox 06/07/22 23:05 77 18 127/72 97 06/07/22 23:04 77 18 97 06/07/22 22:10 92 H 19 118/94 98 06/07/22 22:01 92 H 17 98 06/07/22 21:50 84 24 137/104 H 100 06/07/22 21:44 78 22 112/77 100 06/07/22 18:53 76 18 97 06/07/22 17:24 77 16 103/58 L 99 06/07/22 16:28 36.8 C 95 H 18 119/74 97 O2 Del Method 06/07/22 23:05 Room Air 06/07/22 23:04 Room Air 06/07/22 22:10 Room Air 06/07/22 22:01 Room Air 06/07/22 21:50 Room Air 06/07/22 21:44 Non-rebreather 06/07/22 18:53 Room Air 06/07/22 17:24 Room Air 06/07/22 16:28 Room Air Recovery Score Activity: Moves 4 extremities Circulation: +/-20% PreAnes Value Consciousness: Arouseable (by name) Post Anesthesia Score: 5 Discharge Sedation Level of Care: Phase I Post Sedation Plan On clinical assessment, the patient appears to have tolerated the sedation without complications. Patient is recovering as anticipated. Patient will continue to be monitored by nursing and may be discharged when sedation discharge criteria are met per below protocol. Upon Completions of procedure up to 15 minutes continue every 5 minute vital signs and the P.A.R. score; then discharge to a Phase I or Fast Track to Phase II per the following guidelines: * Discharge Patient to appropriate Phase II area if PAR is 8 or greater or return to pre- procedure baseline. The post - procedure orders will be as directed. * If PAR score is less than 8 or not return to pre-procedure baseline then patient will follow Phase I monitoring till PAR is reached for Phase II. The Phase I may be done in procedure room or may call to secure a Phase I area. * If naloxone or flumazenil are used for reversal, hold in Phase I for continued monitoring from when last reversal dose was given for a minimum of 60 minutes or longer pending the nurse and/or physician discretion of patient condition before discharge to Phase II. Please call the Sedation Physician to re-evaluate and complete post-note for discharge to Phase II area. Do NOT discharge from procedure sedation or Phase 1 until post- sedation evaluation note is complete by procedure /sedation MD Sedation Discharge Instructions to be given to the patient at discharge to home.
[2022-06-08] MEDS ORDERED: bisacodyL 5 MG TABEC PO PRN (00:29)
[2022-06-08] MEDS ORDERED: POLYETHYLENE (MIRALAX) 17 GM PACK PO PRN (00:29)
[2022-06-08] MEDS ORDERED: ALBUT/IPRATROP 3MG/0.5MG NEB 3 ML VIAL INH PRN (00:29)
[2022-06-08] MEDS ORDERED: ACETAMINOPHEN 325 MG TAB PO PRN (00:29)
[2022-06-08] MEDS ORDERED: CARBOHYDRATES FOR HYPOGLYCEMIA PO PRN (00:29)
[2022-06-08] MEDS ORDERED: ONDANSETRON INJ 2 MG/ML 2 ML VIAL IV PRN (00:29)
[2022-06-08] MEDS ORDERED: GLUCOSE 40% GEL 15 GM TUBE PO PRN (00:29)
[2022-06-08] MEDS ORDERED: LACTATED RINGER'S 1,000 ML IV SCH (00:29)
[2022-06-08] MEDS ORDERED: GLUCOSE 10 TAB/TUBE PO PRN (00:29)
[2022-06-08] MEDS ORDERED: DEXTROSE 50% 50 ML SYRINGE IV PRN (00:29)
[2022-06-08] MEDS ORDERED: ALBUTEROL HFA 8 GM INHALER INH PRN (00:29)
[2022-06-08] MEDS ORDERED: GLUCAGON FOR INJ 1 MG VIAL SQ PRN (00:29)
[2022-06-08] MEDS: LEVOTHYROXINE SODIUM 150 MCG TABLET PO SCH (05:51)
[2022-06-08] MEDS: MoRPHine SULFATE 4 MG/ML 1 ML CARP\\VIAL IV PRN ×4 (06:09→20:54)
[2022-06-08] MEDS: INSULIN ASPART PER UNIT SC SCH ×4 (08:00→21:01)
[2022-06-08 08:36] LABS: Calcium 8.6 mg/dl (8.5-10.1); Creatinine Clr Calc Pharmacy 55.4 ml/min; Est GFR (African American) 107.6 ml/min; Est GFR (Non-African American) 92.9 ml/min; Potassium 2.9 mmol/L (3.5-5.1)
[2022-06-08 09:29] LABS: Hematocrit (blood only) 37.8 % (37.0-47.0); Hemoglobin 12.6 g/dl (12.0-16.0); Mean Corpuscular Hemoglobin 31.7 pg (25.0-34.0); Mean Corpuscular Hgb Conc 33.3 g/dL (32.0-36.0); Mean Platelet Volume 10.2 fL (9.4-12.4); Platelet Count 228 K/uL (130-400); RDW Coefficient of Variation 13.5 % (11.5-14.5); RDW Standard Deviation 47.5 fL (36.4-46.3); Red Blood Count 3.98 M/uL (4.20-5.40); White Blood Count 5.71 K/ul (4.8-10.8)
[2022-06-08] MEDS: MoRPHine SULFATE 2 MG/ML CARP IV PRN (09:59)
--- NOTE | 2022-06-08 09:59 | CT Scan Report ---
CT shoulder LT wo con CLINICAL HISTORY: d/l, eval for fractures TECHNIQUE: Multidetector row helical CT of the left shoulder was performed without intravenous contra st. Coronal and sagittal reformations were obtained. Automated dose lowering techniques and/or adjust ment according to patient size were utilized for this examination. CT DOSE: 240.75 mGy.cm Comparison: None available at the time of this dictation. FINDINGS: There is anterior inferior subluxation of the humeral head in the left glenoid fossa. No evidence of fracture of the humerus or glenoid. Extensive degenerative changes are seen in the joint with loose b odies, [id number] morphology, and osteophyte formation. There is an age-indeterminate fracture of the acromion. The soft tissues are unremarkable. IMPRESSION: 1. Extensive degenerative changes with subluxation of the left humeral head. 2. Age-indeterminate acromial fracture. ACT 112: Negative or not required by law. Electronically signed by: Chapin Morrow M.D. 06/08/2022 7:47 AM
--- NOTE | 2022-06-08 10:14 | Orthopedic Progress Note ---
Date of Service June 08, 2022 Assessment & Plan (1) Anterior dislocation of left shoulder: Plan: Patient was evaluated in her room this morning. I did speak with the hospitalist who is managing her care. Her CT scan of the shoulder does confirm that her glenohumeral joint is reduced. The head is sitting anterior and this is likely chronic, given her arthritic changes within the shoulder. She does not require operative intervention at this point. Patient may be discharged home from an orthopedic standpoint. She may leave today if her medical status is stable. She was shown the finger, wrist, and elbow exercises that are safe for her to do. She should use the sling at all times. Follow-up in the office on June 15 at 8 AM for reexamination and to start physical therapy. This was notated in her discharge instructions. Continue with her usual baseline pain medication. Call the office with any new concerns. Admission and Anticipated Discharge Date Admission Date: June 07, 2022 Supervising Physician Co-Signing Physician Notes I, Dr. Osorio, saw and examined the patient and discussed the management with my PA. I reviewed my PAs note and agree with the documented findings and the plan of care I developed. I performed 100% of the medical decision making to develop the assessment and plan. Subjective Patient is seen in her room this morning. She states her left shoulder continues to hurt. She denies any numbness or tingling. Her discomfort has been improved with IV pain medication. No new complaints from last night. Physical Exam Physical Exam: General: Thin, middle-aged female, in no acute distress. Laying in bed. Alert and oriented. Skin: Warm and dry with good turgor. No rashes. Patient has no ecchymosis at the shoulder. No edema. Healing laceration present on her left upper eyelid. Musculoskeletal: Left shoulder continues to have an anterior fullness, though it is not inferior into the pectoral tail. Range of motion of the left shoulder was not attempted secondary to patient's recent injury and current pain. She was able to do active supination and pronation of the wrist as well as circumduction of the wrist without difficulty. She has full range of motion of her digits. She was able to fully flex the elbow and straighten without difficulty. She lacks about 30 degrees of terminal extension secondary to discomfort. Neurologic: Gross sensation is intact across the left arm by soft touch. Peripheral pulses are 2+. Results & Data ([facility]) Vital Signs (Past 12 Hours) Vital Signs Temp Pulse Pulse Resp BP BP Pulse Ox 06/08/22 08:05 36.6 C 68 16 125/73 95 06/08/22 00:41 06/08/22 00:41 36.8 C 77 15 127/77 94 06/08/22 00:11 77 16 126/75 94 06/07/22 23:05 77 18 127/72 97 06/07/22 23:04 77 18 97 06/07/22 22:10 92 H 19 118/94 98 O2 Del Method 06/08/22 08:05 Room Air 06/08/22 00:41 Room Air 06/08/22 00:41 Room Air 06/08/22 00:11 Room Air 06/07/22 23:05 Room Air 06/07/22 23:04 Room Air 06/07/22 22:10 Room Air (1) Anterior dislocation of left shoulder Encounter type: initial encounter Qualified Code(s): S43.015A - Anterior dislocation of left humerus, initial encounter
--- NOTE | 2022-06-08 11:01 | Orthopedic Consultation ---
Date of Consultation June 08, 2022 Assessment & Plan (1) Anterior dislocation of left shoulder: Plan Attempted closed reduction with ER staff, utilizing conscious sedation. Post- reduction CT scan showed anterior subluxation with DJD and anterior escape. I asked the hospitalist to admit in order to review images and plan with my Ortho partners. After consultation this morning, plan is to discharge patient with sling for comfort and f/u with shoulder surgery at [facility]. This is a late entry note. Note was written for consult performed on 06/07/2021; EMR was inoperable last evening. History of Present Illness Attending Physician: Lana Chavez DO History of Present Illness This is a 62yo female with history of DM, HTN, HLP, Hypothyroidism, prior CVA, COPD and Bipolar disorder presenting with anterior dislocation of left shoulder following a fall at home. Patient's fall occurred on 06/06/22 at approximately 0400. She was getting out of the bath and slipped, falling onto her left shoulder and hitting the left side of her head. She did not lose consciousness. She reports persistent and progressively worsening pain in the left shoulder as well as extensive bruising. Allergies Allergy/AdvReac Type Severity Reaction Status Date / Time No Known Allergies Allergy Verified 06/07/22 17:06 Home Medications Medication Instructions Recorded Confirmed Type ferrous sulfate 325 mg (65 mg 325 mg PO QAM 01/08/19 06/07/22 History iron) tablet aspirin 81 mg tablet,delayed 81 mg PO QAM #81 tabs 03/25/19 06/07/22 Rx release (Ecotrin Low Strength) ipratropium 0.5 mg-albuterol 3 mg 3 ml inhalation QID PRN wheezing 02/18/20 06/07/22 Rx (2.5 mg base)/3 mL nebulization #90 mL soln nebulizers (AeroEclipse II #1 ea 02/18/20 06/07/22 Rx Nebulizer) albuterol sulfate 90 mcg/actuation 1 inh inhalation QID PRN shortness 02/26/20 06/07/22 Rx breath activated powder inhaler of breath or wheezing #1 ea fluticasone furoate 100 1 inh inhalation QAM 01/25/21 06/07/22 History mcg-vilanterol 25 mcg/dose inhalation powder (Breo Ellipta) fluticasone propionate 50 2 spray intranasal QAM 01/25/21 06/07/22 History mcg/actuation nasal spray,suspension (Flonase Allergy Relief) potassium chloride 20 mEq 20 meq PO QAM 01/25/21 06/07/22 History tablet,extended release folic acid 1 mg tablet 1 mg PO QAM #90 tabs 02/09/21 06/07/22 Rx estradiol 0.01% (0.1 mg/gram) 1 g vaginal 2XWK 06/22/21 06/07/22 History vaginal cream lisinopril 2.5 mg tablet 2.5 mg PO QAM #90 tabs 07/29/21 06/07/22 Rx atorvastatin 40 mg tablet 40 mg PO HS #90 tabs 10/03/21 06/07/22 Rx metformin 500 mg tablet,extended 500 mg PO BID #180 tabs 10/03/21 06/07/22 Rx release 24 hr gabapentin 300 mg capsule 300 mg PO TID 90 days #270 caps 10/25/21 06/07/22 Rx duloxetine 60 mg capsule,delayed 60 mg PO BID #180 caps 11/25/21 06/07/22 Rx release levothyroxine 150 mcg tablet 150 mcg PO DAILY #90 tabs 01/23/22 06/07/22 Rx bupropion HCl 300 mg 24 hr tablet, 300 mg PO QAM #90 tabs 03/20/22 06/07/22 Rx extended release (Wellbutrin XL) quetiapine 300 mg tablet (Seroquel) 300 mg PO HS #90 tabs 03/20/22 06/07/22 Rx clonazepam 1 mg tablet 1 mg PO HS #30 tabs 03/22/22 06/07/22 Rx esomeprazole magnesium 40 mg 40 mg PO QAM #90 caps 05/04/22 06/07/22 Rx capsule,delayed release oxycodone-acetaminophen 5 mg-325 1 tab PO TID PRN pain #90 tabs 05/18/22 06/07/22 Rx mg tablet amlodipine 5 mg tablet 5 mg PO QAM #90 tabs 05/30/22 06/07/22 Rx ondansetron 4 mg disintegrating 4 mg PO Q6H PRN nausea and 06/06/22 06/07/22 Rx tablet vomiting #60 tabs dulaglutide 0.75 mg/0.5 mL 0.75 mg subcut WK 06/07/22 06/07/22 History subcutaneous pen injector (Trulicity) famotidine 20 mg tablet 20 mg PO HS 06/07/22 06/07/22 History mecobalamin (vitamin B12) 5,000 5,000 mcg PO DAILY 06/07/22 06/07/22 History mcg chewable tablet Patient History Medical History Bipolar depression Cavitating mass in left lower lung lobe Cavitating mass in left upper lung lobe COPD (chronic obstructive pulmonary disease) Depression with anxiety Diabetes mellitus NIDDM Dysphagia History of esophageal dilatation multiple times Hyperlipemia Hypertension Hypothyroidism Mild acid reflux Neuropathy of foot Pyloric stenosis Stomach ulcer Stroke (~03/2019) had a speech deficit, but pt states it has improved--unknown cause, follows with Dr. Brown Tobacco abuse currently smokes 10-15 cigarettes a day Surgical History H/O colposcopy with cervical biopsy 2019, neg, low grade pap History of benign breast biopsy History of bronchoscopy History of colonoscopy History of D&C x2 History of esophagogastroduodenoscopy (EGD) multiple--last 01/31/21 @ [facility] History of repair of pyloric stenosis multiple for pyloric stenosis--started in infancy through 2019 History of wisdom tooth extraction Family History Mother Anxiety Breast cancer Hypertension Gallbladder disease Brother Alcohol abuse Renal cell cancer Kidney disease Cancer Hypertension Family/Other No problems noted. Father Heart disease Lung disease Hypertension Myocardial infarction Other No family history of adverse response to anesthesia Denies family history of Ovarian cancer Prostate cancer Crohn's disease Lung cancer Colorectal cancer Ulcerative colitis Social History Smoking Status: Current every day smoker Tobacco Type: Cigarettes Age Started Using Tobacco: 26; packs per day: 0.5; Cigarettes Per Day: 10-15 a day; Second Hand Exposure: No; Hx Alcohol Use: No Hx Substance Use: No Preferred Language: Maltese Communication Ability: Effective Etiquette Coach Required: No Beliefs That Will Affect Care: None marital status: Current Living Situation: Spouse and Family Current Living Situation Comment: Lives with , mother and daughter current occupational status: retired Feels Safe at Home: Yes Childhood Exposure to Second-Hand Smoke: Yes caffeine: Yes Dental Care, Regularly: Yes Physical Activity Frequency: 5-6 Times per Week Seatbelt Use: always Sunscreen Use: Yes Physical Exam Physical Exam: Exam of left shoulder: NVID to AIN/PIN/U distribution, axillary nerve - intact to light touch over deltoid, musculocutaneous nerve exam intact with resisted biceps flexion; ROM: able to FF, ABD, ADD, IR, with limted ER with arm at O degrees Results & Data ([facility]) Vital Signs (Past 12 Hours) Vital Signs Temp Pulse Pulse Resp BP BP Pulse Ox 06/08/22 08:05 36.6 C 68 16 125/73 95 06/08/22 00:41 06/08/22 00:41 36.8 C 77 15 127/77 94 06/08/22 00:11 77 16 126/75 94 06/07/22 23:05 77 18 127/72 97 06/07/22 23:04 77 18 97 O2 Del Method 06/08/22 08:05 Room Air 06/08/22 00:41 Room Air 06/08/22 00:41 Room Air 06/08/22 00:11 Room Air 06/07/22 23:05 Room Air 06/07/22 23:04 Room Air Diagnostic Findings Laboratory Results WBC 5.71 K/ul (4.8-10.8) 06/08/22 07:34 RBC 3.98 M/uL (4.20-5.40) L 06/08/22 07:34 Hgb 12.6 g/dl (12.0-16.0) 06/08/22 07:34 Hct 37.8 % (37.0-47.0) 06/08/22 07:34 MCV 95.0 fL (80.0-100.0) 06/08/22 07:34 MCH 31.7 pg (25.0-34.0) 06/08/22 07:34 MCHC 33.3 g/dL (32.0-36.0) 06/08/22 07:34 RDW Std Deviation 47.5 fL (36.4-46.3) H 06/08/22 07:34 RDW Coeff of Liz 13.5 % (11.5-14.5) 06/08/22 07:34 Plt Count 228 K/uL (130-400) 06/08/22 07:34 MPV 10.2 fL (9.4-12.4) 06/08/22 07:34 Immature Gran % (Auto) 0.6 % 06/07/22 17:20 Neut % (Auto) 66.8 % 06/07/22 17:20 Lymph % (Auto) 23.3 % 06/07/22 17:20 Piute % (Auto) 7.5 % 06/07/22 17:20 Eos % (Auto) 1.6 % 06/07/22 17:20 Baso % (Auto) 0.2 % 06/07/22 17:20 Neut # (Auto) 6.22 K/uL (1.40-6.50) 06/07/22 17:20 Lymph # (Auto) 2.17 K/uL (1.2-3.4) 06/07/22 17:20 Piute # (Auto) 0.70 K/uL (0.11-0.59) H 06/07/22 17:20 Eos # (Auto) 0.15 K/uL (0-0.50) 06/07/22 17:20 Baso # (Auto) 0.02 K/uL (0-0.2) 06/07/22 17:20 Immature Gran # (Auto) 0.06 K/uL (0.01-0.20) 06/07/22 17:20 Sodium 143 mmol/L (136-145) 06/08/22 07:34 Potassium 2.9 mmol/L (3.5-5.1) L 06/08/22 07:34 Chloride 111 mmol/L (98-107) H 06/08/22 07:34 Carbon Dioxide 25 mmol/L (21-32) 06/08/22 07:34 Anion Gap 7 (3-11) 06/08/22 07:34 BUN 14 mg/dl (6-23) 06/08/22 07:34 Creatinine 0.70 mg/dl (0.6-1.2) D 06/08/22 07:34 Est Cr Clr Drug Dosing 55.4 ml/min 06/08/22 07:34 Est GFR ( Amer) 107.6 ml/min 06/08/22 07:34 Est GFR (Non-Af Amer) 92.9 ml/min 06/08/22 07:34 BUN/Creatinine Ratio 20.0 (10-20) 06/08/22 07:34 Glucose 79 mg/dl (70-99(Fasting)) 06/08/22 07:34 POC Glucose 86 mg/dl (70-99) 06/08/22 08:57 Calcium 8.6 mg/dl (8.5-10.1) 06/08/22 07:34 Total Bilirubin 0.3 mg/dl (0.2-1.0) 06/07/22 17:20 AST 17 U/L (13-39) 06/07/22 17:20 ALT 13 U/L (7-52) 06/07/22 17:20 Alkaline Phosphatase 83 U/L (34-104) 06/07/22 17:20 Total Protein 6.5 gm/dl (6.0-8.3) 06/07/22 17:20 Albumin 4.3 gm/dl (3.4-5.0) 06/07/22 17:20 Globulin 2.2 gm/dl (2.5-4.0) L 06/07/22 17:20 Albumin/Globulin Ratio 1.9 (0.9-2) 06/07/22 17:20 TSH 0.952 uIu/ml (0.300-4.500) 06/08/22 07:34 SARS-CoV-2, RNA, NAAT NEGATIVE (NEGATIVE) 06/07/22 22:[address] 06/07/22 17:03 CT cervical spine wo con CT DOSE: 857.53 mGy.cm CLINICAL HISTORY: 62 years-old Female with recent fall, L sided lower neck. Acute neck pain status post fall COMPARISON: CTA neck 03/21/2019 TECHNIQUE: Multiple axial CT images of the cervical spine were obtained without contrast. A dose lowering technique was utilized adhering to the principles of ALARA. FINDINGS: Straightening of the normal cervical lordosis. 2 mm anterolisthesis C3 on C4 and C4 on C5, likely secondary to chronic facet arthrosis. Mild multilevel uncovertebral hypertrophy with moderate to severe facet arthrosis. No acute fracture or subluxation identified. Multilevel neural foraminal narrowing. Mini mal levoscoliosis. The cervical soft tissues appear unremarkable. No pneumothorax. Mild biapical pleural-parenchymal scarring. IMPRESSION: No acute cervical spine fracture or subluxation identified. ACT 112: Negative or not required by law. The above report was generated using voice recognition software. It may contain grammatical, syntax or spelling errors. Electronically signed by: Darnell Garcia M.D. 06/07/2022 6:[address] 06/07/22 17:03 CT facial bones wo con CLINICAL HISTORY: 62 years-old Female presenting with Fall, L superior orbital region. Acute facial pain status post fall COMPARISON STUDY: CT head and cervical spine studies of same day TECHNIQUE: High-resolution CT scan of the facial bones is performed. Images are reviewed in the axial, sagittal, and coronal planes. IV contrast was not administered for this examination. A dose lowering technique was utilized adhering to the principles of ALARA. FINDINGS: There is no evidence of facial bone fracture. The bony orbits are intact and the orbital contents are within normal limits. The zygomatic arches, nasal bones, and pterygoid plates are preserved. The maxilla and mandible are intact. Small left temporal scalp/left periorbital contusions. The paranasal sinuses and mastoid air cells are clear. Multilevel degenerative changes of the cervical spine. Partially imaged brain parenchyma is within normal limits with a chronic left frontal lobe infarct. IMPRESSION: No acute facial bone fracture. ACT 112: Negative or not required by law. The above report was generated using voice recognition software. It may contain grammatical, syntax or spelling errors. Electronically signed by: Darnell Garcia M.D. 06/07/2022 6:[address] 06/07/22 17:03 CT head/brain wo con CLINICAL HISTORY: 62 years-old Female with recent fall, L temporal hematoma. Acute head trauma status post fall TECHNIQUE: Multiple axial CT images of the head were obtained without contrast. A dose lowering technique was utilized adhering to the principles of ALARA. COMPARISON: Head CT 03/21/2019 FINDINGS: No acute intracranial hemorrhage, midline shift, intracranial mass, hydrocephalus, territorial ischemia or abnormal extra-axial collection. Involutional changes with chronic microvascular ischemic disease. Ence phalomalacia from chronic left frontal lobe infarct. The calvarium is intact. Mild left temporal scalp contusion. The paranasal sinuses, mastoid air cells, and middle ear cavities are clear. IMPRESSION: 1. Small left temporal scalp contusion without acute intracranial abnormality or calvarial fracture. 2. Involutional changes with chronic microvascular ischemic disease. 3. Old left frontal lobe infarct. ACT 112: Negative or not required by law. The above report was generated using voice recognition software. It may contain grammatical, syntax or spelling errors. Electronically signed by: Darnell Garcia M.D. 06/07/2022 6:13 PM Shoulder X-Ray 06/07/22 19:49 XR shoulder LT 1V HISTORY: 62 years-old Female reduction attempt acute left shoulder pain COMPARISON: Shoulder radiographs June 07, 2022 TECHNIQUE: Scapular Y view of the left shoulder was attempted FINDINGS: Limited exam secondary to positioning. There is apparent persistent anteroinferior dislocation of the glenohumeral joint. The questioned fracture of the acromium seen on the prior study is not well visualized on this limited exam. IMPRESSION: Limited exam secondary to positioning. Apparent persistent anteroinferior dislocation of the glenohumeral joint. ACT 112: Negative or not required by law. The above report was generated using voice recognition software. It may contain grammatical, syntax or spelling errors. Electronically signed by: Darnell Garcia M.D. 06/07/2022 8:[address] 06/07/22 22:10 CT shoulder LT wo con CLINICAL HISTORY: d/l, eval for fractures TECHNIQUE: Multidetector row helical CT of the left shoulder was performed without intravenous contrast. Coronal and sagittal reformations were obtained. Automated dose lowering techniques and/or adjustment according to patient size were utilized for this examination. CT DOSE: 240.75 mGy.cm Comparison: None available at the time of this dictation. FINDINGS: There is anterior inferior subluxation of the humeral head in the left glenoid fossa. No evidence of fracture of the humerus or glenoid. Extensive degenerative changes are seen in the joint with loose bodies, [id number] morphology, and osteophyte formation. There is an age-indeterminate fracture of the acromion. The soft tissues are unremarkable. IMPRESSION: 1. Extensive degenerative changes with subluxation of the left humeral head. 2. Age-indeterminate acromial fracture. ACT 112: Negative or not required by law. Electronically signed by: Chapin Morrow M.D. 06/08/2022 7:47 AM (1) Anterior dislocation of left shoulder Encounter type: initial encounter Qualified Code(s): S43.015A - Anterior dislocation of left humerus, initial encounter
[2022-06-08] MEDS: buPROPion XL 300 MG TABCR PO SCH (12:00)
[2022-06-08] MEDS: amLODIPine BESYLATE 5 MG TAB PO SCH (12:00)
[2022-06-08] MEDS: FLUTICASONE PROPIONATE NA SPR 16 GM BTL SCH (12:01)
[2022-06-08] MEDS: DULoxetine HCL 60 MG CAP PO SCH ×2 (12:01→20:03)
[2022-06-08] MEDS: GABAPENTIN 300 MG CAP PO SCH ×3 (12:02→20:04)
[2022-06-08] MEDS: FLUTICASONE/VILANTEROL 100/25MCG 14 PUFFS/INHALER INH SCH (12:02)
[2022-06-08] MEDS: NICOTINE 21 MG/24 HR TDSY TD SCH (12:03)
[2022-06-08] MEDS: PANTOprazole 40 MG TAB PO SCH (12:03)
[2022-06-08] MEDS: oxyCODONE/ACETAMINOPHEN 5mg/325mg TAB PO PRN ×2 (16:39→22:44)
--- NOTE | 2022-06-08 19:12 | Hospitalist Progress Note ---
Date of Service June 08, 2022 Assessment & Plan (1) Shoulder dislocation: Plan: 62yo female presenting with anterior dislocation of the left shoulder following a ground level fall 06/06/22 AM. Reduction attempted in the ER with Orthopedics and conscious sedation - unsuccessful, patient unable to tolerate. Plan for OR reduction in AM. -Observation to medical -Keep NPO -Tylenol as needed for pain -Acute pain management with Morphine PRN -Zofran as needed for nausea -Bowel regimen as needed -Keep arm in sling for comfort -Orthopedic Surgery consultation appreciated -Hold ASA and Lisinopril for OR in AM -Gentle IVF - LR at 80mL/hr x 1 liter (2) Type II diabetes mellitus: Plan: Overall well controlled. Last [id number]=7.4 on 01/19/22. Patient is on Metformin and Trulicity at home. -Hold Metformin -ISS for now while NPO -Continue Gabapentin (3) Stroke: Plan: Patient with prior CVA. -Hold ASA for now -Continue Atorvastatin (4) Hyperlipemia: Plan: Chronic. Stable on medications -Continue Atorvastatin 40mg po qHS (5) Hypertension: Plan: Blood pressure well controlled. -Continue Amlodipine 5mg po qAM -Hold Lisinopril for now (6) Hypothyroidism: Plan: Chronic. Last TSH from 01/19/22 low at 0.2 -Check TSH with AM labs -Continue Synthroid 150mcg po daily (7) Bipolar depression: Plan: Chronic. -Continue Wellbutrin -Continue Seroquel -Continue Duloxetine -Continue Clonazepam (8) COPD (chronic obstructive pulmonary disease): Plan: No cough, SOB or wheeze -Continue Breo Ellipta daily -Continue Duoneb PRN -Albuterol PRN (9) Pyloric stenosis: Plan: Patient follows with [facility]. She takes Percocet TID for chronic abdominal pain as well as esomeprazole -continue Percocet -Protonix Admission and Anticipated Discharge Date Admission Date: June 07, 2022 Subjective Patient reports left shoulder continues to hurt and requires morphine for pain control . She denies any numbness or tingling. Physical Exam Physical Exam: Head and ENT no thyroid enlargement trachea midline Cardiovascular S1-S2 are normal no S3 Lungs bilateral air entry fair no wheezing Abdomen soft nondistended positive bowel sounds no rebound tenderness Extremity shows trace edema shoulder pain Neurologically no focal deficits Skin shows no rash no cyanosis Results & Data Results & Data ([facility]) Vital Signs (Past 12 Hours) Vital Signs Temp Pulse Resp BP Pulse Ox O2 Del Method 06/08/22 15:36 37.1 C 74 16 121/67 98 Room Air 06/08/22 08:05 36.6 C 68 16 125/73 95 Room Air Laboratory Results Shoulder X-Ray 06/07/22 19:49 XR shoulder LT 1V HISTORY: 62 years-old Female reduction attempt acute left shoulder pain COMPARISON: Shoulder radiographs June 07, 2022 TECHNIQUE: Scapular Y view of the left shoulder was attempted FINDINGS: Limited exam secondary to positioning. There is apparent persistent anteroinferior dislocation of the glenohumeral joint. The questioned fracture of the acromium seen on the prior study is not well visualized on this limited exam. IMPRESSION: Limited exam secondary to positioning. Apparent persistent anteroinferior dislocation of the glenohumeral joint. ACT 112: Negative or not required by law. The above report was generated using voice recognition software. It may contain grammatical, syntax or spelling errors. Electronically signed by: Darnell Garcia M.D. 06/07/2022 8:[address] 06/07/22 22:10 CT shoulder LT wo con CLINICAL HISTORY: d/l, eval for fractures TECHNIQUE: Multidetector row helical CT of the left shoulder was performed without intravenous contrast. Coronal and sagittal reformations were obtained. Automated dose lowering techniques and/or adjustment according to patient size were utilized for this examination. CT DOSE: 240.75 mGy.cm Comparison: None available at the time of this dictation. FINDINGS: There is anterior inferior subluxation of the humeral head in the left glenoid fossa. No evidence of fracture of the humerus or glenoid. Extensive degenerative changes are seen in the joint with loose bodies, [id number] morphology, and osteophyte formation. There is an age-indeterminate fracture of the acromion. The soft tissues are unremarkable. IMPRESSION: 1. Extensive degenerative changes with subluxation of the left humeral head. 2. Age-indeterminate acromial fracture. ACT 112: Negative or not required by law. Electronically signed by: Chapin Morrow M.D. 06/08/2022 7:47 AM PG Care Time/CCT Total # of Minutes Spent Total Time Spent with Patient: Total time spent is greater than 50% in coordination of care (as documented) at patient's floor/unit and/or counseling patient: Coding Level of Care Code 39812 SUB INP/OBS CARE MIN Diagnoses Shoulder dislocation S43.006A Type II diabetes mellitus E11.9 Stroke I63.9 CVA mechanism: unspecified Hyperlipemia E78.5 Hypertension I10 Hypothyroidism E03.9 Bipolar depression F31.9 COPD (chronic obstructive pulmonary disease) J44.9 Pyloric stenosis K31.1 (1) Stroke CVA mechanism: unspecified Qualified Code(s): I63.9 - Cerebral infarction, unspecified
[2022-06-08] MEDS ORDERED: clonazePAM 1 MG TAB PO SCH (21:00)
[2022-06-08] MEDS ORDERED: ATORVASTATIN 40 MG TAB PO SCH (21:00)
[2022-06-08] MEDS ORDERED: FAMOTIDINE 20 MG TAB PO SCH (21:00)
[2022-06-08] MEDS: ACETAMINOPHEN 500 MG TAB PO SCH (21:00)
[2022-06-08] MEDS ORDERED: QUEtiapine FUMARATE 300 MG TABLET PO SCH (21:00)
[2022-06-09] MEDS: LEVOTHYROXINE SODIUM 150 MCG TABLET PO SCH (05:27)
[2022-06-09] MEDS: ACETAMINOPHEN 500 MG TAB PO SCH ×2 (05:27→13:11)
[2022-06-09] MEDS: MoRPHine SULFATE 4 MG/ML 1 ML CARP\\VIAL IV PRN (05:27)
[2022-06-09] MEDS: INSULIN ASPART PER UNIT SC SCH ×2 (09:27→13:09)
[2022-06-09] MEDS: amLODIPine BESYLATE 5 MG TAB PO SCH (09:31)
[2022-06-09] MEDS: FLUTICASONE PROPIONATE NA SPR 16 GM BTL SCH (09:32)
[2022-06-09] MEDS: DULoxetine HCL 60 MG CAP PO SCH (09:32)
[2022-06-09] MEDS: buPROPion XL 300 MG TABCR PO SCH (09:32)
[2022-06-09] MEDS: GABAPENTIN 300 MG CAP PO SCH ×2 (09:33→13:13)
[2022-06-09] MEDS: FLUTICASONE/VILANTEROL 100/25MCG 14 PUFFS/INHALER INH SCH (09:33)
[2022-06-09] MEDS: NICOTINE 21 MG/24 HR TDSY TD SCH (09:34)
[2022-06-09] MEDS: PANTOprazole 40 MG TAB PO SCH (09:35)
[2022-06-09] MEDS: MoRPHine SULFATE 2 MG/ML CARP IV PRN (11:25)
[2022-06-09] MEDS: oxyCODONE/ACETAMINOPHEN 5mg/325mg TAB PO PRN (15:43)
--- NOTE | 2022-06-09 23:20 | Discharge Summary ---
Date of Service June 09, 2022 Admission HPI Per Admitting Provider Charmaine Tompkins is a 62yo female with history of DM, HTN, HLP, Hypothyroidism, prior CVA, COPD and Bipolar disorder presenting with anterior dislocation of left shoulder following a fall at home. Patient's fall occurred on 06/06/22 at approximately 0400. She was getting out of the bath and slipped, falling onto her left shoulder and hitting the left side of her head. She did not lose consciousness. She reports persistent and progressively worsening pain in the left shoulder as well as extensive bruising. Patient has been taking Percocet 5/325mg TID at home which she is prescribed for management of chronic abdominal pain. She reports minimal improvement in her shoulder pain with this. Pain has been 7-8 out of 10. No additional complaints at this time. Patient denies chest pain, cough, SOB, a bdominal pain, nausea, vomiting, diarrhea or constipation. No headache, visual changes or focal neurological deficits. In the ER she is afebrile, HD stable, NAD. ER Course: Morphine 4mg IV x 2 doses Ketamine 100mg IV Propofol 80mg IV Lidocaine 20mL Fentanyl 100mcg NSS x 500mL Principal Diagnosis Anterior shoulder dislocation Discharge Exam Head and ENT no thyroid enlargement Cardiovascular S1-S2 are normal no S3 Lungs bilateral air entry fair no wheezing Abdomen soft nondistended positive bowel sounds no rebound tenderness Extremity shows trace edema shoulder pain shows slight improvement Neurologically no focal deficits Skin shows no rash no cyanosis Discharge Data Allergies Allergy/AdvReac Type Severity Reaction Status Date / Time No Known Allergies Allergy Verified 06/08/22 12:31 Consultations 06/07/22 23:22 ED Decision to Admit Stat 06/08/22 00:29 Consult Orthopedic Surgery Routine Ordered Studies 06/07/22 17:03 CT face [CT facial bones wo con] Stat CT head/brain wo con Stat CT neck [CT cervical spine wo con] Stat 06/07/22 22:10 CT shoulder LT wo con Urgent Hospital Course (1) Shoulder dislocation: 62yo female presenting with anterior dislocation of the left shoulder following a ground level fall 06/06/22 AM. Reduction attempted in the ER with Orthopedics and conscious sedation - unsuccessful, patient unable to tolerate. Plan for OR reduction in AM. -Observation to medical -Keep NPO -Tylenol as needed for pain -Acute pain management with Morphine PRN -Zofran as needed for nausea -Bowel regimen as needed -Keep arm in sling for comfort -Orthopedic Surgery consultation appreciated -Hold ASA and Lisinopril for OR in AM -Gentle IVF - LR at 80mL/hr x 1 liter 06/09-patient seen by Ortho yesterday and was advised to be discharged once pain controlled Patient takes oxycodone at home 5 mg every 8 hours and that will be continued along with Tylenol 650 every 6 for pain control Patient advised strongly to follow-up with her PCP in 3 days and follow-up with Ortho next week Patient also advised strongly to take narcotics only on as-needed basis and advised to follow with the PCP [facility] to address pain Pain management consultation was also arranged with case management to assist with patient's pain control (2) Type II diabetes mellitus: Overall well controlled. Last [id number]=9.4 on 01/19/22. Patient is on Metformin and Trulicity at home. -Hold Metformin -ISS for now while NPO -Continue Gabapentin (3) Stroke: Patient with prior CVA. -Hold ASA for now -Continue Atorvastatin (4) Hyperlipemia: Chronic. Stable on medications -Continue Atorvastatin 40mg po qHS (5) Hypertension: Blood pressure well controlled. -Continue Amlodipine 5mg po qAM -Hold Lisinopril for now (6) Hypothyroidism: Chronic. Last TSH from 01/19/22 low at 0.2 -Check TSH with AM labs -Continue Synthroid 150mcg po daily (7) Bipolar depression: Chronic. -Continue Wellbutrin -Continue Seroquel -Continue Duloxetine -Continue Clonazepam (8) COPD (chronic obstructive pulmonary disease): No cough, SOB or wheeze -Continue Breo Ellipta daily -Continue Duoneb PRN -Albuterol PRN (9) Pyloric stenosis: Patient follows with [facility]. She takes Percocet TID for chronic abdominal pain as well as esomeprazole -continue Percocet -Protonix Total Time Total Time Spent Total Time Spent (In Minutes): 25 Discharge Plan Discharge Items Patient Disposition: Home - Self-Care Reason For Visit: ANTERIOR SHOULDER DISLOCATION, FOR OR REDUCTION Discharge Diagnosis: Anterior shoulder dislocation Condition on Discharge: Fair Activity: Per Instructions section Non-emergency contact: Primary Care Provider and Pain Management Call non-emergency contact if: your symptoms worsen and your pain is not controlled Follow-up/Referrals: Fantasma Cleaning MD [Physician] - 06/15/22 8:00 am Bryan Steinberg MD [Hospitalist] - Diet: Heart Healthy Addtl Attending Provider Instructions: f/u pcp 3 days ortho -1 week Addtl Production Control Technologist Provider Instructions: Perform gentle motion of the fingers/wrist/elbow as shown in the hospital. Avoid moving your shoulder until seen in the office. Use your sling for support at all times other than bathing. Call [facility] if you have a change in shoulder appearance or symptoms before your appointment. Pending Studies at Discharge: No Stand-Alone Forms: My [facility] [employer], Smoking Cessation Medications and DC Order Prescriptions: Continued folic acid 1 mg tablet 1 mg PO QAM Qty: 90 3RF lisinopril 2.5 mg tablet 2.5 mg PO QAM Qty: 90 3RF metformin 500 mg tablet extended release 24 hr 500 mg PO BID Qty: 180 3RF atorvastatin 40 mg tablet 40 mg PO HS Qty: 90 3RF duloxetine 60 mg capsule,delayed release(DR/EC) 60 mg PO BID Qty: 180 1RF bupropion HCl [Wellbutrin XL] 300 mg tablet extended release 24 hr 300 mg PO QAM Qty: 90 3RF quetiapine [Seroquel] 300 mg tablet 300 mg PO HS Qty: 90 3RF clonazepam 1 mg tablet 1 mg PO HS Qty: 30 2RF esomeprazole magnesium 40 mg capsule,delayed release(DR/EC) 40 mg PO QAM Qty: 90 3RF oxycodone-acetaminophen 5-325 mg tablet 1 tab PO TID PRN (Reason: pain) Qty: 90 0RF amlodipine 5 mg tablet 5 mg PO QAM Qty: 90 3RF levothyroxine 150 mcg tablet 150 mcg PO QAM gabapentin 300 mg capsule 300 mg PO TID 90 Days Qty: 270 3RF ondansetron 4 mg tablet,disintegrating 4 mg PO Q6H PRN (Reason: nausea and vomiting) Qty: 60 1RF albuterol sulfate 90 mcg/actuation aerosol powdr breath activated 1 inh inhalation QID PRN (Reason: shortness of breath or wheezing) Qty: 1 2RF ferrous sulfate 325 mg (65 mg iron) tablet 325 mg PO QAM ipratropium-albuterol 0.5 mg-3 mg(2.5 mg base)/3 mL solution for nebulization 3 ml inhalation QID PRN (Reason: wheezing) Qty: 90 3RF (DME) AeroEclipse II Nebulizer Misc See Rx Instructions .ROUTE .MEDSUPPLY Qty: 1 0RF Rx Instructions: As directed aspirin [Ecotrin Low Strength] 81 mg Tablet,Delayed Release (Dr/Ec) 81 mg PO QAM Qty: 81 0RF estradiol 0.01 % (0.1 mg/gram) cream 1 g vaginal 2XWK Rx Instructions: 1 g vaginal twice weekly; 2 days per week vaginally. mecobalamin (vitamin B12) 5,000 mcg Tablet,Chewable 5,000 mcg PO QAM famotidine 20 mg tablet 20 mg PO HS Trulicity 0.75 mg/0.5 mL pen injector 0.75 mg SQ WK Label Comments: on fluticasone propionate [Flonase Allergy Relief] 50 mcg/actuation spray,suspension 2 spray intranasal QAM Rx Instructions: administer into each nostril fluticasone furoate-vilanterol [Breo Ellipta] 100-25 mcg/dose blister with device 1 inh inhalation QAM Discontinued potassium chloride 20 mEq tablet extended release 20 meq PO QAM Discharge Orders: Discharge Order (Routine); Ordered 06/09/22 Ordered By: Bryan Ramsay/Other Patient Handouts: Treatment for Shoulder Separation Admission Data Admit Date/Time: 06/07/22 22:29 Attending Provider: Bryan Steinberg Admit Provider: Lana Chavez Primary Care Provider: Jimena Cobos Other Providers: Ishan Osorio ; Lana Chavez Other Interventions: Discharge Summary Assessment (RN) Last Done: 06/09/22 16:34 Coding Level of Care Code HOSP INP/OBS DISCH 30 MIN/LESS Diagnoses Shoulder dislocation S43.006A Type II diabetes mellitus E11.9 Stroke I63.9 CVA mechanism: unspecified Hyperlipemia E78.5 Hypertension I10 Hypothyroidism E03.9 Bipolar depression F31.9 COPD (chronic obstructive pulmonary disease) J44.9 Pyloric stenosis K31.1
== END 2022-06-09 17:11 | disposition home or self-care (01) ==
LOC: 3W 16:26 → ED 16:26 → SUPCPDRO 22:29 → SUATTDRO 22:29 → 3W 06-08 00:11
DX: I10 Essential (primary) hypertension; Z79.890 Hormone replacement therapy; E78.5 Hyperlipidemia, unspecified; S00.03XA Contusion of scalp, initial encounter; E11.40 Type 2 diabetes mellitus with diabetic neuropathy, unspecified; F17.210 Nicotine dependence, cigarettes, uncomplicated; S43.015A Anterior dislocation of left humerus, initial encounter; K31.1 Adult hypertrophic pyloric stenosis; Z79.84 Long term (current) use of oral hypoglycemic drugs; W01.0XXA Fall on same level from slipping, tripping and stumbling without subsequent striking against object, initial encounter; J44.9 Chronic obstructive pulmonary disease, unspecified; Z79.899 Other long term (current) drug therapy; S42.122A Displaced fracture of acromial process, left shoulder, initial encounter for closed fracture; Z86.73 Personal history of transient ischemic attack (TIA), and cerebral infarction without residual deficits; S00.212A Abrasion of left eyelid and periocular area, initial encounter; Z79.82 Long term (current) use of aspirin; E03.9 Hypothyroidism, unspecified

== ENCOUNTER 2022-07-07 16:12 | Inpatient (IN) ==
--- NOTE | 2022-07-07 16:38 | ED Triage Note ---
Date of Service July 07, 2022 History of Present Illness This patient was briefly evaluated while in triage. An abbreviated physical exam was performed. This patient is a 62-year-old Female with abdominal pain s/p endoscopy. The scope was performed by Dr. Fish. Abd pain in the upper quadrants/epigastric region. She notes similar pain before the scope and now the pain is worse. She notes alot of weight loss. Pain 10/10. Physical Exam GENERAL: 62 year old female. In no acute distress. SKIN: No lesions or rashes. HEART: Regular rate and rhythm. LUNGS: Clear to auscultation. ABDOMEN: Bowel sounds normoactive. No guarding or rigidity. ABD TTP noted.. NEURO: Alert and oriented. No deficits. MUSCULOSKELETAL: No deformities to inspection of the extremities. PSYCH: Patient is pleasant and answers all questions appropriately. Initial orders for labs and / or imaging were placed and patient was placed in the waiting area until a bed is available. Please see further documentation for the full ED course.
[2022-07-07 17:22] LABS: Basophils # (auto) 0.03 K/uL (0-0.2); Basophils % (auto) 0.4 %; Eosinophils # (auto) 0.05 K/uL (0-0.50); Eosinophils % (auto) 0.7 %; Hematocrit (blood only) 40.1 % (37.0-47.0); Hemoglobin 13.9 g/dl (12.0-16.0); Immature Granulocytes # (auto) 0.09 K/uL (0.01-0.20); Immature Granulocytes % (auto) 1.2 %; Lymphocytes # (auto) 1.75 K/uL (1.2-3.4); Lymphocytes % (auto) 22.8 %; Mean Corpuscular Hemoglobin 32.6 pg (25.0-34.0); Mean Corpuscular Hgb Conc 34.7 g/dL (32.0-36.0); Mean Corpuscular Volume 93.9 fL (80.0-100.0); Mean Platelet Volume 10.5 fL (9.4-12.4); Monocytes # (auto) 0.32 K/uL (0.11-0.59); Monocytes % (auto) 4.2 %; Neutrophils # (auto) 5.43 K/uL (1.40-6.50); Neutrophils % (auto) 70.7 %; Platelet Count 299 K/uL (130-400); RDW Coefficient of Variation 12.5 % (11.5-14.5); RDW Standard Deviation 43.1 fL (36.4-46.3); Red Blood Count 4.27 M/uL (4.20-5.40); White Blood Count 7.67 K/ul (4.8-10.8)
[2022-07-07 17:38] LABS: Albumin Globulin Ratio 1.9 (0.9-2); Albumin Level 4.5 gm/dl (3.4-5.0); BUN Creatinine Ratio 13.1 (10-20); Bilirubin,Total 0.4 mg/dl (0.2-1.0); Calcium 9.9 mg/dl (8.5-10.1); Creatinine Clr Calc Pharmacy 39.1 ml/min; Est GFR (African American) 70.8 ml/min; Est GFR (Non-African American) 61.1 ml/min; Globulin 2.4 gm/dl (2.5-4.0); Potassium 3.8 mmol/L (3.5-5.1); Total Protein 6.9 gm/dl (6.0-8.3)
[2022-07-07] MEDS ORDERED: SODIUM CHLORIDE 0.9% 1000ML 500 ML IV ONE ×2 (17:59→18:38)
[2022-07-07] MEDS ORDERED: ONDANSETRON INJ 2 MG/ML 2 ML VIAL IV STA (17:59)
[2022-07-07] MEDS ORDERED: MoRPHine SULFATE 2 MG/ML CARP IV STA (17:59)
--- NOTE | 2022-07-07 18:25 | Emergency Department Note ---
Impression & Plan Abdominal pain, Nausea & vomiting ED Provider Note NAME: FRANCY ORTEGA AGE: 62 SEX: F : 1960 ARRIVES VIA: Walk-In INFORMANT: Patient, ED PROVIDER(S): Lavelle Lee MD CHIEF COMPLAINT: Abdominal pain, nausea vomiting MEDICAL DECISION MAKING: Patient presents for abdominal pain associated nausea vomiting in setting of recent endoscopy. Blood work was obtained and IV was established and the patient was ordered IV fluids IV morphine and IV Zofran.CT abdomen pelvis also ordered. IV Patient's blood work is fairly unremarkable with a normal white count H&H and platelet count. Kidney function is unremarkable as well. The patient was still having some pain and nausea and the patient was ordered additional IV pain medication and IV nausea medication. Patient CT showed the possibility of ulceration/polyp and even possible extravasation from an ulceration. Given these findings I did speak with on-call clinical resource director Dr. Delvalle did review this in addition to the patient's most recent endoscopy report. Given these concerns he does agree that the patient may benefit from admission repeat blood work and consultation. I did speak the on-call hospitalist service Dr. Chavez and the patient was admitted to medicine service. Prior /Outside records reviewed: I did review the patient's most recent and Dr. Kendrick completed by Dr. Fish yesterday. Differential diagnosis: Perforation, ulcer, gastritis, appendicitis, ovarian cyst, ovarian torsion, ectopic , TOA, PID, infections, diverticulitis, UTI, obstruction, mesenteric ischemia, aortic pathology, inflammatory bowel disease, renal colic, PUD, pancreatitis, biliary pathology, hernia, volvulus, constipation, as well as other pathologies. Diagnostics, as interpreted by me: ECG: None Cardiac monitoring: An order was placed for continuous cardiac monitoring. The monitor [id number] a rate of 72 with sinus rhythm. Patient was placed on pulse oximetry Medical decision rules: None Imaging studies: See below HPI: Patient presents due to concern for worsening abdominal pain which she noted this morning with associated nausea and vomiting. The patient did not noted any blood in the vomit. The patient does have a prior history of pyloric stenosis status post repair when she was much younger. The patient has a prior history of esophageal narrowing and the patient did have an EGD yesterday with Dr. Fish for an esophageal dilatation. Patient denies any chest pains or shortness of breath. The patient denies any tobacco or drug use. Patient did have bowel movement yesterday does not understand blood in the stools. The patient does not take anything for symptoms at home. Patient denies any falls or trauma. PAST MEDICAL HISTORY: See Below PAST SURGICAL HISTORY: See Below SOCIAL HISTORY: See Below HOME MEDICATIONS: See Below ALLERGIES: See Below VITALS: See Below PHYSICAL EXAMINATION: GENERAL: Thin in appearance, mildly uncomfortable in appearance. EYE EXAM: Normal conjunctiva. PERRL, no anisocoria and EOM's grossly intact w/o pain. NECK: Supple, no nuchal rigidity, no adenopathy, non-tender. No signs of meningismus. FROM of the neck with good chin to chest and neck extension. No st ridor. LUNGS: Clear to auscultation. Normal chest wall mechanics. HEART: NSR, no MRG. ABDOMEN: Abdomen soft, moderate diffuse discomfort most prominent in the epigastrium, normo-active bowel sounds, no masses, no rebound or guarding. BACK: No CVA TTP. SKIN: No rashes and no bruising. UPPER EXTREMITIES: Upper extremities are grossly normal. LOWER EXTREMITIES: Grossly normal, no edema. NEURO EXAM: A&O x3, cranial nerves II-XII grossly intact, normal speech, moves all 4 extremities. Past Med/Surg History Medical History Acromial fracture Anterior dislocation of left shoulder Bipolar depression COPD (chronic obstructive pulmonary disease) Depression with anxiety Diabetes mellitus NIDDM Dysphagia Fall from slip, trip, or stumble History of esophageal dilatation multiple times History of recent fall inpatient 06/07/22 [facility]-dislocated shoulder lt. History of reduction of closed dislocation [place] 06/07/22 - left shoulder (admitted to [facility] for ortho consult) Hyperlipemia Hypertension Hypothyroidism Mild acid reflux Neuropathy of foot Pyloric stenosis Stomach ulcer Stroke (~03/2019) had a speech deficit, but pt states it has improved--unknown cause, follows with Dr. Brown Tobacco abuse currently smokes 10-15 cigarettes a day Unintended weight loss per pt, lost > 30 lbs x 1 year Surgical History H/O colposcopy with cervical biopsy 2019, neg, low grade pap History of benign breast biopsy History of bronchoscopy History of colonoscopy History of D&C x2 History of esophagogastroduodenoscopy (EGD) multiple--last 01/31/21 @ [facility] History of repair of pyloric stenosis multiple for pyloric stenosis--started in infancy through 2019 History of wisdom tooth extraction Family History Mother Anxiety Breast cancer Hypertension Gallbladder disease Brother Alcohol abuse Renal cell cancer Kidney disease Cancer Hypertension Family/Other No problems noted. Father Heart disease Lung disease Hypertension Myocardial infarction Other No family history of adverse response to anesthesia Denies family history of Ovarian cancer Prostate cancer Crohn's disease Lung cancer Colorectal cancer Ulcerative colitis Social History Smoking Status: Current every day smoker Tobacco Type: Cigarettes Age Started Using Tobacco: 26; packs per day: 0.5; Cigarettes Per Day: half pack; Second Hand Exposure: No; Hx Alcohol Use: No Hx Substance Use: No Preferred Language: Citizen Of [place] Communication Ability: Effective Planer Feeder Required: No Beliefs That Will Affect Care: None marital status: Current Living Situation: Spouse and Parent Current Living Situation Comment: / Mother current occupational status: retired Feels Safe at Home: Yes Childhood Exposure to Second-Hand Smoke: Yes caffeine: Yes Dental Care, Regularly: Yes Physical Activity Frequency: 5-6 Times per Week Seatbelt Use: always Sunscreen Use: Yes Assistive Devices: None Allergies Allergies Allergy/AdvReac Type Severity Reaction Status Date / Time No Known Allergies Allergy Verified 07/07/22 17:49 Home Meds Home Medications Medication Instructions Recorded Confirmed ferrous sulfate 325 mg (65 mg 325 mg PO QAM 01/08/19 07/07/22 iron) tablet fluticasone furoate 100 1 inh inhalation QAM 01/25/21 07/07/22 mcg-vilanterol 25 mcg/dose inhalation powder (Breo Ellipta) fluticasone propionate 50 2 spray intranasal QAM 01/25/21 07/07/22 mcg/actuation nasal spray,suspension (Flonase Allergy Relief) estradiol 0.01% (0.1 mg/gram) 1 g vaginal UD 06/22/21 07/07/22 vaginal cream famotidine 20 mg tablet 20 mg PO BID 06/07/22 07/07/22 mecobalamin (vitamin B12) 5,000 5,000 mcg PO QAM 06/07/22 07/07/22 mcg chewable tablet levothyroxine 150 mcg tablet 150 mcg PO QAM 06/08/22 07/07/22 Previous Rx's Medication Instructions Recorded aspirin 81 mg tablet,delayed 81 mg PO QAM #81 tabs 03/25/19 release (Ecotrin Low Strength) ipratropium 0.5 mg-albuterol 3 mg 3 ml inhalation QID PRN wheezing 02/18/20 (2.5 mg base)/3 mL nebulization #90 mL soln nebulizers (AeroEclipse II #1 ea 02/18/20 Nebulizer) albuterol sulfate 90 mcg/actuation 1 inh inhalation QID PRN shortness 02/26/20 breath activated powder inhaler of breath or wheezing #1 ea folic acid 1 mg tablet 1 mg PO QAM #90 tabs 02/09/21 lisinopril 2.5 mg tablet 2.5 mg PO QAM #90 tabs 07/29/21 atorvastatin 40 mg tablet 40 mg PO HS #90 tabs 10/03/21 metformin 500 mg tablet,extended 500 mg PO BID #180 tabs 10/03/21 release 24 hr gabapentin 300 mg capsule 300 mg PO TID 90 days #270 caps 10/25/21 duloxetine 60 mg capsule,delayed 60 mg PO BID #180 caps 11/25/21 release bupropion HCl 300 mg 24 hr tablet, 300 mg PO QAM #90 tabs 03/20/22 extended release (Wellbutrin XL) quetiapine 300 mg tablet (Seroquel) 300 mg PO HS #90 tabs 03/20/22 clonazepam 1 mg tablet 1 mg PO HS #30 tabs 03/22/22 esomeprazole magnesium 40 mg 40 mg PO QAM #90 caps 05/04/22 capsule,delayed release amlodipine 5 mg tablet 5 mg PO QAM #90 tabs 05/30/22 ondansetron 4 mg disintegrating 4 mg PO Q6H PRN nausea and 06/06/22 tablet vomiting #60 tabs oxycodone-acetaminophen 5 mg-325 1 tab PO TID PRN pain #90 tabs 06/16/22 mg tablet promethazine 25 mg tablet 25 mg PO Q6H PRN nausea and 07/04/22 vomiting #20 tabs Results & Data (ED) Vital Signs Vital Signs - 24 hr 07/07/22 16:34 07/07/22 18:25 07/07/22 19:00 Temperature 36.4 C L Temperature Source Temporal Artery Scan Pulse Rate 66 Pulse Rate [Right Finger] 72 63 Respiratory Rate 20 20 14 Respiratory Effort / Characteristics Non-Labored Spontaneous Non-Labored Non-Labored Spontaneous Respiratory Depth Normal Normal Normal Blood Pressure 127/69 Blood Pressure [Right Arm] 115/87 165/69 H Blood Pressure Mean 88 Blood Pressure Mean [Right Arm] 96 101 Pulse Oximetry 100 100 100 Oxygen Delivery Method Room Air Room Air Room Air Sepsis New/Unexplained Change in Mental Status N/A Sepsis Action Taken by Nursing No Action Required Home Medications Current Medication List: was personally reviewed by me Laboratory Data Attestation: I reviewed the patient's lab results. 07/07/22 16:43 07/07/22 16:43 Lab Results 07/07/22 07/07/22 07/07/22 Range/Units 16:43 16:43 20:11 WBC 7.67 (4.8-10.8) K/ul RBC 4.27 (4.20-5.40) M/uL Hgb 13.9 (12.0-16.0) g/dl Hct 40.1 (37.0-47.0) % MCV 93.9 (80.0-100.0) fL MCH 32.6 (25.0-34.0) pg MCHC 34.7 (32.0-36.0) g/dL RDW Std Deviation 43.1 (36.4-46.3) fL RDW Coeff of Liz 12.5 (11.5-14.5) % Plt Count 299 (130-400) K/uL MPV 10.5 (9.4-12.4) fL Immature Gran % (Auto) 1.2 % Neut % (Auto) 70.7 % Lymph % (Auto) 22.8 % [place] % (Auto) 4.2 % Eos % (Auto) 0.7 % Baso % (Auto) 0.4 % Neut # (Auto) 5.43 (1.40-6.50) K/uL Lymph # (Auto) 1.75 (1.2-3.4) K/uL [place] # (Auto) 0.32 (0.11-0.59) K/uL Eos # (Auto) 0.05 (0-0.50) K/uL Baso # (Auto) 0.03 (0-0.2) K/uL Immature Gran # (Auto) 0.09 (0.01-0.20) K/uL Sodium 139 (136-145) mmol/L Potassium 3.8 (3.5-5.1) mmol/L Chloride 105 (98-107) mmol/L Carbon Dioxide 26 (21-32) mmol/L Anion Gap 8 (3-11) BUN 13 (6-23) mg/dl Creatinine 0.99 (0.6-1.2) mg/dl Est Cr Clr Drug Dosing 39.1 ml/min Est GFR ( Amer) 70.8 ml/min Est GFR (Non-Af Amer) 61.1 ml/min BUN/Creatinine Ratio 13.1 (10-20) Glucose 107 H (70-99(Fasting)) mg/dl Calcium 9.9 (8.5-10.1) mg/dl Magnesium 2.0 (1.7-2.4) mg/dl Total Bilirubin 0.4 (0.2-1.0) mg/dl AST 16 (13-39) U/L ALT 27 (7-52) U/L Alkaline Phosphatase 78 (34-104) U/L Total Protein 6.9 (6.0-8.3) gm/dl Albumin 4.5 (3.4-5.0) gm/dl Globulin 2.4 L (2.5-4.0) gm/dl Albumin/Globulin Ratio 1.9 (0.9-2) Lipase 7 L (11-82) U/L SARS-CoV-2, RNA, NAAT NEGATIVE (NEGATIVE) Administered Medications Amlodipine Besylate (Amlodipine Besylate 5 Mg Tab) 5 mg PO QAM [facility] Stop: 08/07/22 08:59 Last Admin: 07/08/22 08:46 Dose: 5 mg Documented By: [facility] Atorvastatin Calcium (Atorvastatin 40 Mg Tab) 40 mg PO HS KVNG Stop: 08/06/22 23:23 Last Admin: 07/08/22 01:10 Dose: Not Given Documented By: [facility] Bupropion HCl (Bupropion Xl 300 Mg Tabcr) [facility] Stop: 08/07/22 08:59 Last Admin: 07/08/22 08:45 Dose: 300 mg Documented By: [facility] [place] Clonazepam (Clonazepam 1 Mg Tab) 1 mg PO HS [facility] Stop: 08/06/22 23:23 Last Admin: 07/08/22 01:10 Dose: Not Given Documented By: [facility] Duloxetine HCl (Duloxetine Hcl 60 Mg Cap) 60 mg PO BID [facility] Stop: 08/06/22 23:23 Last Admin: 07/08/22 08:45 Dose: 60 mg Documented By: [facility] [place] [place] Admin: 07/08/22 01:10 Dose: Not Given Documented By: [facility] Fluticasone Propionate (Fluticasone Propionate Na Spr 16 Gm Btl) 2 sprays NA [facility] Stop: 08/07/22 08:59 Last Admin: 07/08/22 08:47 Dose: 2 sprays Documented By: [facility] [place] Fluticasone/Vilanterol (Fluticasone/Vilanterol 100/25mcg 14 Puffs/Inhaler) 1 puffs INH [facility] Stop: 08/07/22 08:59 Last Admin: 07/08/22 08:48 Dose: 1 puffs Documented By: [facility] Gabapentin (Gabapentin 300 Mg Cap) 300 mg PO TID [facility] Stop: 08/06/22 23:23 Last Admin: 07/08/22 13:04 Dose: 300 mg Documented By: [facility] [place] [place] Admin: 07/08/22 08:44 Dose: 300 mg Documented By: [facility] Admin: 07/08/22 01:10 Dose: Not Given Documented By: MILO Pantoprazole Sodium 40 mg/ (Syringe) 10 mls @ 5 mls/min IV BID [facility] Stop: 08/07/22 08:59 Last Admin: 07/08/22 08:36 Dose: 5 mls/min Documented By: [facility] [place] Prochlorperazine 10 mg/ (Syringe) 10 mls @ 5 mls/min IV Q6H PRN PRN Reason: Nausea And Vomiting Stop: 08/07/22 08:10 Last Admin: 07/08/22 15:21 Dose: 5 mls/min Documented By: [facility] [place] Admin: 07/08/22 08:38 Dose: 5 mls/min Documented By: [facility] [place] Levothyroxine Sodium (Levothyroxine Sodium 150 Mcg Tablet) 150 mcg PO DAILYBB [facility] Stop: 08/07/22 06:29 Last Admin: 07/08/22 05:56 Dose: 150 mcg Documented By: Admin: 07/08/22 05:55 Dose: 150 mcg Documented By: MILO Lisinopril (Lisinopril 2.5 Mg Tab) 2.5 mg PO QAM [facility] Stop: 08/07/22 08:59 Last Admin: 07/08/22 08:46 Dose: 2.5 mg Documented By: CAPO Miscellaneous (Remove Nicoderm Patch) 1 each N/A DAILY@0859 [facility] Stop: 08/07/22 08:58 Last Admin: 07/08/22 08:36 Dose: 1 each Documented By: CAPO Morphine Sulfate (Morphine Sulfate 4 Mg/Ml 1 Ml Carp\Vial) 4 mg IV Q3H PRN PRN Reason: Pain (6,7,8,9,10) Stop: 07/21/22 23:23 Last Admin: 07/08/22 14:51 Dose: 4 mg Documented By: Admin: 07/08/22 08:37 Dose: 4 mg Documented By: Admin: 07/07/22 23:54 Dose: 4 mg Documented By: MILO Morphine Sulfate (Morphine Sulfate 2 Mg/Ml Carp) 2 mg IV Q3H PRN PRN Reason: Pain (1,2,3,4,5) & Pre PT Stop: 07/21/22 23:23 Last Admin: 07/08/22 04:23 Dose: 2 mg Documented By: MILO Nicotine (Nicotine 14 Mg/24 Hr Patch) 14 mg TD [facility] Stop: 08/07/22 08:59 Last Admin: 07/08/22 08:48 Dose: 14 mg Documented By: CAPO Quetiapine Fumarate (Quetiapine Fumarate 300 Mg Tablet) 300 mg PO HS [facility] Stop: 08/06/22 23:23 Last Admin: 07/08/22 01:11 Dose: Not Given Documented By: MILO Discontinued Medications Fentanyl Citrate (Fentanyl Citrate 100 Mcg/2 Ml Vial) 25 mcg IV NOW STA Stop: 07/07/22 19:13 Last Admin: 07/07/22 19:22 Dose: 25 mcg Documented By: JACK Sodium Chloride (Nss 1000ml) 500 mls @ 999 mls/hr IV .Q31M ONE Stop: 07/07/22 18:29 Last Infusion: 07/07/22 19:08 Dose: 0 mls/hr Documented By: Admin: 07/07/22 18:26 Dose: 999 mls/hr Documented By: NIECY Sodium Chloride (Nss 1000ml) 500 mls @ 999 mls/hr IV .Q31M ONE Stop: 07/07/22 19:08 Last Infusion: 07/07/22 19:30 Dose: 0 mls/hr Documented By: Admin: 07/07/22 18:57 Dose: 999 mls/hr Documented By: JASON Prochlorperazine (Compazine) 1 mls @ 1 mls/min IV ONE ONE Stop: 07/07/22 19:13 Last Admin: 07/07/22 19:25 Dose: 1 mls/min Documented By: JACK Pantoprazole Sodium 40 mg/ (Syringe) 10 mls @ 5 mls/min IV BID STA Stop: 07/07/22 19:59 Last Admin: 07/07/22 20:33 Dose: 5 mls/min Documented By: JACK Lactated Ringer's (Lr) 1,000 mls @ 75 mls/hr IV .[id number] [facility] Stop: 07/08/22 12:43 Last Infusion: 07/08/22 12:50 Dose: 0 mls/hr Documented By: Admin: 07/07/22 23:54 Dose: 75 mls/hr Documented By: MILO Ioversol (Optiray 350 100ml) 87 ml IV ONCE ONE Stop: 07/07/22 18:43 Last Admin: 07/07/22 18:42 Dose: 87 ml Documented By: BROWN Morphine Sulfate (Morphine Sulfate 2 Mg/Ml Carp) 4 mg IV NOW STA Stop: 07/07/22 18:00 Last Admin: 07/07/22 18:26 Dose: 4 mg Documented By: NIECY Ondansetron HCl (Ondansetron Inj 2 Mg/Ml 2 Ml Vial) 4 mg IV NOW STA Stop: 07/07/22 18:00 Last Admin: 07/07/22 18:26 Dose: 4 mg Documented By: NIECY Imaging Data Radiologist's Impression: Abdomen/Pelvis CT 07/07/22 16:[address] WITH IV CONTRAST CT DOSE: 254.89 mGy.cm HISTORY: ABD pain following endoscopy TECHNIQUE: Multiaxial CT images of the abdomen and pelvis were performed following the use of intravenous contrast. A dose lowering technique was utilized adhering to the principles of ALARA. COMPARISON STUDY: None. FINDINGS: Mild emphysema at the lung bases. There is a punctate calcified granuloma within the left lower lobe. No pneumoperitoneum. No pneumatosis. No acute fractures identified. Mild circumferential thickening of the distal esophagus. There is a small hiatus hernia. A few small subcentimeter hypodense lesions within the liver and kidneys. These are too small to catheterize but statistically represent cysts. No hydronephrosis. The main portal vein is patent. The gallbladder, spleen, and adrenal glands unremarkable. There is 9 mm cystic lesion within the tail the pancreas on image 114. No retroperitoneal lymphadenopathy. Moderate calcified plaque within the normal caliber abdominal aorta. The bladder is unremarkable. There is a 2.5 cm cystic focus within the uterus. This may reside within the endometrium. The ovaries are unremarkable. No significant free fluid. Evidence for intestinal malrotation. Questionable thickening of the descending colon is likely due to underdistention. No per icolonic inflammatory change to suggest an acute process at this time. Moderate fecal retention. No bowel wall thickening or obstruction. Normal appendix in the left lower quadrant. Focal outpouching seen extending superiorly from the expected location of the duodenal bulb. This is best seen on images 95 through 112 and measures approximately 4.6 x 1.2 cm. This could represent a diverticulum or focal ulceration. Small linear focus of contrast seen along the posterior wall of this area on image 106. This could represent active arterial extravasation from the possible ulceration. IMPRESSION: 1. Focal outpouching seen extending superiorly from the expected location of the duodenal bulb as described above which measures approximately 4.6 x 1.2 cm. This could represent a diverticulum or focal ulceration. Small linear focus of contrast seen along the posterior wall could represent active arterial extravasation from the possible ulceration. Correlation with recent endoscopy recommended. 2. Mild circumferential thickening of the distal esophagus consistent with a nonspecific esophagitis. 3. Intestinal malrotation. No evidence for volvulus or obstruction. 4. A 2.5 cm cystic focus within the endometrium. This could represent a degenerating fibroid. Follow-up gynecologic consultation recommended to exclude an endometrial lesion. 5. 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 Nonemergent GI consultation and/or one year MRI follow-up recommended to ensure stability. ACT 112: Positive. There are findings on this exam that require communication between the performing entity and the patient following Patient Test Result Information Act ([place] Act 112) guidelines. Electronically signed by: Zelalem Jeter M.D. 07/07/2022 7:03 PM Discharge Plan Visit Data Chief Complaint: Abdominal Pain Stated Complaint: SCOPE YESTERDAY,VOMIT,ABDOMINAL PAIN, ED Provider: Lavelle Lee Discharge Problem: Abdominal pain, Nausea & vomiting Patient Disposition: Admitted As Inpatient Discharge Instructions Interventions: ED Discharge Assessment Last Done: 07/07/22 23:47
[2022-07-07] MEDS ORDERED: OPTIRAY 350 100ml IV ONE (18:42)
--- NOTE | 2022-07-07 19:05 | CT Scan Report ---
ABDOMEN AND PELVIS CT WITH IV CONTRAST CT DOSE: 254.89 mGy.cm HISTORY: ABD pain following endoscopy TECHNIQUE: Multiaxial CT images of the abdomen and pelvis were performed following the use of intrave nous contrast. A dose lowering technique was utilized adhering to the principles of ALARA. COMPARISON STUDY: None. FINDINGS: Mild emphysema at the lung bases. There is a punctate calcified granuloma within the left l ower lobe. No pneumoperitoneum. No pneumatosis. No acute fractures identified. Mild circumferential t hickening of the distal esophagus. There is a small hiatus hernia. A few small subcentimeter hypodens e lesions within the liver and kidneys. These are too small to catheterize but statistically represen t cysts. No hydronephrosis. The main portal vein is patent. The gallbladder, spleen, and adrenal glan ds unremarkable. There is 9 mm cystic lesion within the tail the pancreas on image 114. No retroperit cooley lymphadenopathy. Moderate calcified plaque within the normal caliber abdominal aorta. The bladd er is unremarkable. There is a 2.5 cm cystic focus within the uterus. This may reside within the endo metrium. The ovaries are unremarkable. No significant free fluid. Evidence for intestinal malrotation . Questionable thickening of the descending colon is likely due to underdistention. No pericolonic in flammatory change to suggest an acute process at this time. Moderate fecal retention. No bowel wall t hickening or obstruction. Normal appendix in the left lower quadrant. Focal outpouching seen extendin g superiorly from the expected location of the duodenal bulb. This is best seen on images 95 through 112 and measures approximately 4.6 x 1.2 cm. This could represent a diverticulum or focal ulceration. Small linear focus of contrast seen along the posterior wall of this area on image 106. This could r epresent active arterial extravasation from the possible ulceration. IMPRESSION: 1. Focal outpouching seen extending superiorly from the expected location of the duodenal bulb as paul cribed above which measures approximately 4.6 x 1.2 cm. This could represent a diverticulum or focal ulceration. Small linear focus of contrast seen along the posterior wall could represent active arter ial extravasation from the possible ulceration. Correlation with recent endoscopy recommended. 2. Mild circumferential thickening of the distal esophagus consistent with a nonspecific esophagitis. 3. Intestinal malrotation. No evidence for volvulus or obstruction. 4. A 2.5 cm cystic focus within the endometrium. This could represent a degenerating fibroid. Follow- up gynecologic consultation recommended to exclude an endometrial lesion. 5. A 9 mm cystic lesion within the pancreas which favors a small side branch intraductal papillary mu cinous neoplasm. Nonemergent GI consultation and/or one year MRI follow-up recommended to ensure stab ility. ACT 112: Positive. There are findings on this exam that require communication between the performing entity and the patient following Patient Test Result Information Act ([place] Act 112) guidelines. Electronically signed by: Zelalem Jeter M.D. 07/07/2022 7:03 PM
[2022-07-07] MEDS ORDERED: PROCHLORPERAZINE 1 ML IV ONE (19:12)
[2022-07-07] MEDS ORDERED: fentaNYL citrate PF 100 MCG/2 ML VIAL IV STA (19:12)
[2022-07-07] MEDS ORDERED: PANTOprazole 40 MG in SYRINGE 0 ML IV STA (19:58)
--- NOTE | 2022-07-07 20:47 | History & Physical Report ---
Date of Service July 07, 2022 Assessment & Plan (1) Abdominal pain: Plan: 62-year-old female with diabetes, hypertension, hyperlipidemia, COPD, bipolar and congenital esophageal stricture/pyloric stenosis presenting with acute on chronic abdominal pain. Patient is status post EGD with esophageal dilation and biopsies performed yesterday 07/06/2022. CT as above with focal outpouching from the expected location of the duodenal bulb which measures 4.6 x 1.2 cm. Could represent a diverticulum or focal ulceration. Small linear focus of contrast seen along the posterior wall could represent active arterial extravasation from the possible ulceration. Patient d enies hematemesis, melena, hematochezia. She is hemodynamically stable. Hemoglobin = 13.9 and hematocrit = 40.1. Do not strongly suspect active bleed at this point but will continue to monitor closely. No free air, no peritonitis on exam. Abdomen is relatively benign. Admit to medical with telemetry Maintain 2 large-bore peripheral IVs Keep patient n.p.o. Protonix 40 mg IV twice daily GI consultation appreciated Zofran as needed for nausea Morphine as needed for pain Colace and MiraLAX as needed for bowel regimen (2) Dysphagia: Plan: Chronic issue. Patient follows with GI. Had esophageal dilation performed yesterday 07/06/2022 Protonix 40 mg IV twice daily GI consultation appreciated Maintain aspiration precautions Maintain n.p.o. status (3) Diabetes mellitus: Plan: Well-controlled. Last hemoglobin A1c on 01/19/2022 = 6.4. Patient is on metformin 500 mg p.o. twice daily. She reports she has not been eating over the last several days. Monitor fingerstick No insulin coverage at this time (4) Depression with anxiety: Plan: Patient admits to anxiety regarding her current health situation and ongoing weight loss. Continue bupropion 300 mg p.o. every morning Continue clonazepam 1 mg p.o. nightly Continue duloxetine 60 mg p.o. twice daily Continue Seroquel 300 mg p.o. nightly (5) Stroke: Plan: Prior CVA. No residual deficits Hold aspirin for now Continue atorvastatin 40 mg p.o. nightly (6) Hypertension: Plan: Chronic. Mildly elevated blood pressure presently. Pain control with morphine as needed Continue lisinopril 2.5 mg p.o. every morning Continue amlodipine 5 mg p.o. every morning Continue to monitor blood pressure (7) Hyperlipemia: Plan: Chronic. Stable. Continue atorvastatin 40 mg p.o. nightly (8) Hypothyroidism: Plan: Chronic. Stable. Last TSH = 0.952 on 06/08/2022 Continue Synthroid 150 mcg p.o. daily F/E/NLR at 75 mL/h x 1 L, electrolytes within normal limits, n.p.o. for now ProphylaxisSCDs to bilateral lower extremities [place] per discussion with patient Dispositionadmit to medical telemetry History of Present Illness Chief Complaint: Abdominal pain, nausea Primary Care Provider: MALINI Beck Charmaine Tompkins is a pleasant 62-year-old female with history of diabetes, hypertension, hyperlipidemia, COPD bipolar disorder and pyloric stricture presenting with ongoing abdominal pain, nausea and vomiting. Patient with history of pyloric stricture. she has had multiple EGDs with esophageal dilation in the past. She previously followed with GI in [place] and more recently has been seeing Dr. Fish. She was to have an esophageal dilation in May 2022 however, this was postponed due to an acute shoulder dislocation requiring OR reduction. Patient complains of ongoing dysphagia to solids, nausea and epigastric abdominal pain. This is associated with significant unintentional weight losscurrent weight = 42 kg, BMI = 16.4. Her symptoms have acutely worsened over the last 8 to 9 days. Patient was seen by GI yesterday, 07/06/2022 and had an EGD performed which revealed no endoscopic abnormality to explain the patient's dysphagia. The esophagus was dilated with a Savary dilator. She did have mildly severe esophagitis as well as diffuse mild inflammation characterized by erosions and erythema in the stomach. Biopsies obtained, H. pylori testing ordered. Stomach biopsy revealed gastric mucosa with mild chronic inflammation. Negative for intestinal metaplasia, dysplasia or malignancy. Negative for Helicobacter pylori organisms Esophagus biopsy revealed squamous epithelium with no diagnostic abnormality. Negative for dysplasia or malignancy. No glandular epithelium identified. Patient presents to the ER [facility] with severe persistent epigastric abdominal pain as well as nausea. She reports ongoing dysphagia to solids. She has not eaten much in the last several days and is only able to tolerate soft foods such as mashed potatoes. She has been vomiting green fluid, no hematemesis. She has not had any bloody bowel movements, melena or hematochezia. No additional complaintspatient denies fever, chills, chest pain, cough, shortness of breath. In the ER she is afebrile, mildly hypertensive otherwise hemodynamically stable. No respiratory distress. Adequate oxygenation on room air. ER course: Protonix 40 mg IV Prochlorperazine Fentanyl 25 mcg IV Normal saline 500 mL x 2 Zofran 4 mg IV Morphine 4 mg IV Allergies Allergy/AdvReac Type Severity Reaction Status Date / Time No Known Allergies Allergy Verified 07/07/22 17:49 Home Medications Medication Instructions Recorded Confirmed Type ferrous sulfate 325 mg (65 mg 325 mg PO QAM 01/08/19 07/07/22 History iron) tablet aspirin 81 mg tablet,delayed 81 mg PO QAM #81 tabs 03/25/19 07/07/22 Rx release (Ecotrin Low Strength) ipratropium 0.5 mg-albuterol 3 mg 3 ml inhalation QID PRN wheezing 02/18/20 07/07/22 Rx (2.5 mg base)/3 mL nebulization #90 mL soln nebulizers (AeroEclipse II #1 ea 02/18/20 07/03/22 Rx Nebulizer) albuterol sulfate 90 mcg/actuation 1 inh inhalation QID PRN shortness 02/26/20 07/07/22 Rx breath activated powder inhaler of breath or wheezing #1 ea fluticasone furoate 100 1 inh inhalation QAM 01/25/21 07/07/22 History mcg-vilanterol 25 mcg/dose inhalation powder (Breo Ellipta) fluticasone propionate 50 2 spray intranasal QAM 01/25/21 07/07/22 History mcg/actuation nasal spray,suspension (Flonase Allergy Relief) folic acid 1 mg tablet 1 mg PO QAM #90 tabs 02/09/21 07/07/22 Rx estradiol 0.01% (0.1 mg/gram) 1 g vaginal UD 06/22/21 07/07/22 History vaginal cream lisinopril 2.5 mg tablet 2.5 mg PO QAM #90 tabs 07/29/21 07/07/22 Rx atorvastatin 40 mg tablet 40 mg PO HS #90 tabs 10/03/21 07/07/22 Rx metformin 500 mg tablet,extended 500 mg PO BID #180 tabs 10/03/21 07/07/22 Rx release 24 hr gabapentin 300 mg capsule 300 mg PO TID 90 days #270 caps 10/25/21 07/07/22 Rx duloxetine 60 mg capsule,delayed 60 mg PO BID #180 caps 11/25/21 07/07/22 Rx release bupropion HCl 300 mg 24 hr tablet, 300 mg PO QAM #90 tabs 03/20/22 07/07/22 Rx extended release (Wellbutrin XL) quetiapine 300 mg tablet (Seroquel) 300 mg PO HS #90 tabs 03/20/22 07/07/22 Rx clonazepam 1 mg tablet 1 mg PO HS #30 tabs 03/22/22 07/07/22 Rx esomeprazole magnesium 40 mg 40 mg PO QAM #90 caps 05/04/22 07/07/22 Rx capsule,delayed release amlodipine 5 mg tablet 5 mg PO QAM #90 tabs 05/30/22 07/07/22 Rx ondansetron 4 mg disintegrating 4 mg PO Q6H PRN nausea and 06/06/22 07/07/22 Rx tablet vomiting #60 tabs famotidine 20 mg tablet 20 mg PO BID 06/07/22 07/07/22 History mecobalamin (vitamin B12) 5,000 5,000 mcg PO QAM 06/07/22 07/07/22 History mcg chewable tablet levothyroxine 150 mcg tablet 150 mcg PO QAM 06/08/22 07/07/22 History oxycodone-acetaminophen 5 mg-325 1 tab PO TID PRN pain #90 tabs 06/16/22 07/07/22 Rx mg tablet promethazine 25 mg tablet 25 mg PO Q6H PRN nausea and 07/04/22 07/07/22 Rx vomiting #20 tabs Past Med/Surg History Medical History (Updated 07/07/22 @ 22:17 by Lana Chavez DO) Acromial fracture Anterior dislocation of left shoulder Bipolar depression COPD (chronic obstructive pulmonary disease) Depression with anxiety Diabetes mellitus NIDDM Dysphagia Fall from slip, trip, or stumble History of esophageal dilatation multiple times History of recent fall inpatient 06/07/22 [facility]-dislocated shoulder lt. History of reduction of closed dislocation [place] 06/07/22 - left shoulder (admitted to [facility] for ortho consult) Hyperlipemia Hypertension Hypothyroidism Mild acid reflux Neuropathy of foot Pyloric stenosis Stomach ulcer Stroke (~03/2019) had a speech deficit, but pt states it has improved--unknown cause, follows with Dr. Brown Tobacco abuse currently smokes 10-15 cigarettes a day Unintended weight loss per pt, lost > 30 lbs x 1 year Surgical History H/O colposcopy with cervical biopsy 2019, neg, low grade pap History of benign breast biopsy History of bronchoscopy History of colonoscopy History of D&C x2 History of esophagogastroduodenoscopy (EGD) multiple--last 01/31/21 @ [facility] History of repair of pyloric stenosis multiple for pyloric stenosis--started in infancy through 2019 History of wisdom tooth extraction Family History Mother Anxiety Breast cancer Hypertension Gallbladder disease Brother Alcohol abuse Renal cell cancer Kidney disease Cancer Hypertension Family/Other No problems noted. Father Heart disease Lung disease Hypertension Myocardial infarction Other No family history of adverse response to anesthesia Denies family history of Ovarian cancer Prostate cancer Crohn's disease Lung cancer Colorectal cancer Ulcerative colitis Social History Smoking Status: Current every day smoker Tobacco Type: Cigarettes Age Started Using Tobacco: 26; packs per day: 0.5; Cigarettes Per Day: 10; Second Hand Exposure: No; Hx Alcohol Use: No Hx Substance Use: No Preferred Language: Erit[place] Communication Ability: Effective Nursing Home Assistant Administrator Required: No Beliefs That Will Affect Care: None marital status: Current Living Situation: Spouse and Parent Current Living Situation Comment: Lives with , mother and daughter current occupational status: retired Feels Safe at Home: Yes Childhood Exposure to Second-Hand Smoke: Yes caffeine: Yes Dental Care, Regularly: Yes Physical Activity Frequency: 5-6 Times per Week Seatbelt Use: always Sunscreen Use: Yes Assistive Devices: Glasses and Nebulizer Review of Systems Review of Systems: All systems reviewed & are unremarkable except as noted in HPI & below Physical Exam Physical Exam: General: patient resting comfortably, NAD, non-toxic in appearance, AA&O x 4 Skin: warm, dry, intact, no rashes or lesions HEENT: NC/AT, PERRL, EOMI, anicteric sclera, conjunctiva without injection, external ear normal to inspection and nontender, nares patent, moist mucus membranes, dentition intact, no oropharyngeal lesions, neck supple, trachea midline, no LAD, no thyromegaly, no JVD Heart: +S1/S2, regular, no m/r/g Lungs: equal air entry bilaterally, no rales/rhonchi/wheezes Abd: +BS, soft, nondistended, tenderness in the epigastric area without rebound/guarding/peritonitis Ext: warm, 2+ pulses in UE/LE bilaterally, no clubbing/cyanosis or edema Neuro: nonfocal, patient AA&O x 4, speech intact, no facial droop, moving all extremities on command with equal strength 5/5 Results & Data Results & Data ([facility]) Vital Signs (Past 12 Hours) Vital Signs Temp Pulse Pulse Resp BP BP Pulse Ox 07/07/22 19:00 63 14 165/69 H 100 07/07/22 18:25 72 20 115/87 100 07/07/22 16:34 36.4 C L 66 20 127/69 100 O2 Del Method 07/07/22 19:00 Room Air 07/07/22 18:25 Room Air 07/07/22 16:34 Room Air Laboratory Results Laboratory Results WBC 7.67 K/ul (4.8-10.8) 07/07/22 16:43 RBC 4.27 M/uL (4.20-5.40) 07/07/22 16:43 Hgb 13.9 g/dl (12.0-16.0) 07/07/22 16:43 Hct 40.1 % (37.0-47.0) 07/07/22 16:43 MCV 93.9 fL (80.0-100.0) 07/07/22 16:43 MCH 32.6 pg (25.0-34.0) 07/07/22 16:43 MCHC 34.7 g/dL (32.0-36.0) 07/07/22 16:43 RDW Std Deviation 43.1 fL (36.4-46.3) 07/07/22 16:43 RDW Coeff of Liz 12.5 % (11.5-14.5) 07/07/22 16:43 Plt Count 299 K/uL (130-400) 07/07/22 16:43 MPV 10.5 fL (9.4-12.4) 07/07/22 16:43 Immature Gran % (Auto) 1.2 % 07/07/22 16:43 Neut % (Auto) 70.7 % 07/07/22 16:43 Lymph % (Auto) 22.8 % 07/07/22 16:43 [place] % (Auto) 4.2 % 07/07/22 16:43 Eos % (Auto) 0.7 % 07/07/22 16:43 Baso % (Auto) 0.4 % 07/07/22 16:43 Neut # (Auto) 5.43 K/uL (1.40-6.50) 07/07/22 16:43 Lymph # (Auto) 1.75 K/uL (1.2-3.4) 07/07/22 16:43 [place] # (Auto) 0.32 K/uL (0.11-0.59) 07/07/22 16:43 Eos # (Auto) 0.05 K/uL (0-0.50) 07/07/22 16:43 Baso # (Auto) 0.03 K/uL (0-0.2) 07/07/22 16:43 Immature Gran # (Auto) 0.09 K/uL (0.01-0.20) 07/07/22 16:43 Sodium 139 mmol/L (136-145) 07/07/22 16:43 Potassium 3.8 mmol/L (3.5-5.1) 07/07/22 16:43 Chloride 105 mmol/L (98-107) 07/07/22 16:43 Carbon Dioxide 26 mmol/L (21-32) 07/07/22 16:43 Anion Gap 8 (3-11) 07/07/22 16:43 BUN 13 mg/dl (6-23) 07/07/22 16:43 Creatinine 0.99 mg/dl (0.6-1.2) 07/07/22 16:43 Est Cr Clr Drug Dosing 39.1 ml/min 07/07/22 16:43 Est GFR ( Amer) 70.8 ml/min 07/07/22 16:43 Est GFR (Non-Af Amer) 61.1 ml/min 07/07/22 16:43 BUN/Creatinine Ratio 13.1 (10-20) 07/07/22 16:43 Glucose 107 mg/dl (70-99(Fasting)) H 07/07/22 16:43 Calcium 9.9 mg/dl (8.5-10.1) 07/07/22 16:43 Magnesium 2.0 mg/dl (1.7-2.4) 07/07/22 16:43 Total Bilirubin 0.4 mg/dl (0.2-1.0) 07/07/22 16:43 AST 16 U/L (13-39) 07/07/22 16:43 ALT 27 U/L (7-52) 07/07/22 16:43 Alkaline Phosphatase 78 U/L (34-104) 07/07/22 16:43 Total Protein 6.9 gm/dl (6.0-8.3) 07/07/22 16:43 Albumin 4.5 gm/dl (3.4-5.0) 07/07/22 16:43 Globulin 2.4 gm/dl (2.5-4.0) L 07/07/22 16:43 Albumin/Globulin Ratio 1.9 (0.9-2) 07/07/22 16:43 Lipase 7 U/L (11-82) L 07/07/22 16:43 SARS-CoV-2, RNA, NAAT NEGATIVE (NEGATIVE) 07/07/22 20:11 Impressions Abdomen/Pelvis CT 07/07/22 16:[address] WITH IV CONTRAST CT DOSE: 254.89 mGy.cm HISTORY: ABD pain following endoscopy TECHNIQUE: Multiaxial CT images of the abdomen and pelvis were performed following the use of intravenous contrast. A dose lowering technique was utilized adhering to the principles of ALARA. COMPARISON STUDY: None. FINDINGS: Mild emphysema at the lung bases. There is a punctate calcified granuloma within the left lower lobe. No pneumoperitoneum. No pneumatosis. No acute fractures identified. Mild circumferential thickening of the distal esophagus. There is a small hiatus hernia. A few small subcentimeter hypodense lesions within the liver and kidneys. These are too small to catheterize but statistically represent cysts. No hydronephrosis. The main portal vein is patent. The gallbladder, spleen, and adrenal glands unremarkable. There is 9 mm cystic lesion within the tail the pancreas on image 114. No retroperitoneal lymphadenopathy. Moderate calcified plaque within the normal caliber abdominal aorta. The bladder is unremarkable. There is a 2.5 cm cystic focus within the uterus. This may reside within the endometrium. The ovaries are unremarkable. No significant free fluid. Evidence for intestinal malrotation. Questionable thickening of the descending colon is likely due to underdistention. No pericolonic inflammatory change to suggest an acute process at this time. Moderate fecal retention. No bowel wall thickening or obstruction. Normal appendix in the left lower quadrant. Focal outpouching seen extending superiorly from the expected location of the duodenal bulb. This is best seen on images 95 through 112 and measures approximately 4.6 x 1.2 cm. This could represent a diverticulum or focal ulceration. Small linear focus of contrast seen along the posterior wall of this area on image 106. This could represent active arterial extravasation from the possible ulceration. IMPRESSION: 1. Focal outpouching seen extending superiorly from the expected location of the duodenal bulb as described above which measures approximately 4.6 x 1.2 cm. This could represent a diverticulum or focal ulceration. Small linear focus of contrast seen along the posterior wall could represent active arterial extravasation from the possible ulceration. Correlation with recent endoscopy recommended. 2. Mild circumferential thickening of the distal esophagus consistent with a nonspecific esophagitis. 3. Intestinal malrotation. No evidence for volvulus or obstruction. 4. A 2.5 cm cystic focus within the endometrium. This could represent a degenerating fibroid. Follow-up gynecologic consultation recommended to exclude an endometrial lesion. 5. 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 Nonemergent GI consultation and/or one year MRI follow-up recommended to ensure stability. ACT 112: Positive. There are findings on this exam that require communication between the performing entity and the patient following Patient Test Result Information Act ([place] Act 112) guidelines. Electronically signed by: Zelalem Jeter M.D. 07/07/2022 7:03 PM PG Care Time/CCT Total # of Minutes Spent Total Time Spent with Patient: Total time spent is greater than 50% in coordination of care (as documented) at patient's floor/unit and/or counseling patient: Coding Level of Care Code 51716 INT INP/OBS CARE 3/75MIN Diagnoses Abdominal pain R10.9 Dysphagia R13.10 Diabetes mellitus E11.9 Depression with anxiety F41.8 Stroke I63.9 Hypertension I10 Hyperlipemia E78.5 Hypothyroidism E03.9
[2022-07-07] MEDS ORDERED: GLUCAGON FOR INJ 1 MG VIAL SQ PRN (23:24)
[2022-07-07] MEDS ORDERED: LACTATED RINGER'S 1,000 ML IV SCH (23:24)
[2022-07-07] MEDS ORDERED: MoRPHine SULFATE 2 MG/ML CARP IV PRN (23:24)
[2022-07-07] MEDS ORDERED: CARBOHYDRATES FOR HYPOGLYCEMIA PO PRN (23:24)
[2022-07-07] MEDS ORDERED: ONDANSETRON INJ 2 MG/ML 2 ML VIAL IV PRN (23:24)
[2022-07-07] MEDS ORDERED: GLUCOSE 10 TAB/TUBE PO PRN (23:24)
[2022-07-07] MEDS ORDERED: GLUCOSE 40% GEL 15 GM TUBE PO PRN (23:24)
[2022-07-07] MEDS ORDERED: DEXTROSE 50% 50 ML SYRINGE IV PRN (23:24)
[2022-07-07] MEDS: MoRPHine SULFATE 4 MG/ML 1 ML CARP\\VIAL IV PRN (23:54)
[2022-07-08] MEDS: GABAPENTIN 300 MG CAP PO SCH ×4 (01:10→20:09)
[2022-07-08] MEDS: clonazePAM 1 MG TAB PO SCH ×2 (01:10→20:13)
[2022-07-08] MEDS: DULoxetine HCL 60 MG CAP PO SCH ×3 (01:10→20:10)
[2022-07-08] MEDS: ATORVASTATIN 40 MG TAB PO SCH ×2 (01:10→20:10)
[2022-07-08] MEDS: QUEtiapine FUMARATE 300 MG TABLET PO SCH ×2 (01:11→20:09)
[2022-07-08] MEDS: LEVOTHYROXINE SODIUM 150 MCG TABLET PO SCH ×2 (05:55→05:56)
[2022-07-08 06:51] LABS: Hematocrit (blood only) 33.4 % (37.0-47.0); Hemoglobin 11.4 g/dl (12.0-16.0); Mean Corpuscular Hemoglobin 32.3 pg (25.0-34.0); Mean Corpuscular Hgb Conc 34.1 g/dL (32.0-36.0); Mean Corpuscular Volume 94.6 fL (80.0-100.0); Mean Platelet Volume 10.1 fL (9.4-12.4); Platelet Count 220 K/uL (130-400); RDW Coefficient of Variation 12.6 % (11.5-14.5); RDW Standard Deviation 43.8 fL (36.4-46.3); Red Blood Count 3.53 M/uL (4.20-5.40); White Blood Count 5.72 K/ul (4.8-10.8)
[2022-07-08 07:16] LABS: BUN Creatinine Ratio 10.9 (10-20); Calcium 8.8 mg/dl (8.5-10.1); Creatinine Clr Calc Pharmacy 42.2 ml/min; Est GFR (African American) 77.3 ml/min; Est GFR (Non-African American) 66.7 ml/min; Potassium 3.7 mmol/L (3.5-5.1)
[2022-07-08] MEDS: PANTOprazole 40 MG in SYRINGE 0 ML IV SCH ×2 (08:36→20:08)
[2022-07-08] MEDS: MoRPHine SULFATE 4 MG/ML 1 ML CARP\\VIAL IV PRN ×2 (08:37→14:51)
[2022-07-08] MEDS: PROCHLORPERAZINE 10 MG in SYRINGE 8 ML IV PRN ×2 (08:38→15:21)
[2022-07-08] MEDS: buPROPion XL 300 MG TABCR PO SCH (08:45)
[2022-07-08] MEDS: FLUTICASONE PROPIONATE NA SPR 16 GM BTL SCH (08:47)
[2022-07-08] MEDS: FLUTICASONE/VILANTEROL 100/25MCG 14 PUFFS/INHALER INH SCH (08:48)
[2022-07-08] MEDS: NICOTINE 14 MG/24 HR PATCH TD SCH (08:48)
[2022-07-08] MEDS ORDERED: lisinopril 2.5 MG TAB PO SCH (09:00)
[2022-07-08] MEDS ORDERED: amLODIPine BESYLATE 5 MG TAB PO SCH (09:00)
--- NOTE | 2022-07-08 12:18 | Hospitalist Progress Note ---
Date of Service July 08, 2022 Assessment & Plan (1) Abdominal pain: Plan: Improved since admission. Will allow clear liquids for now. Continue IV fluids at a lower rate. GI consultation pending. Continue Protonix for now (2) Dysphagia: Plan: Chronic issue. Patient follows with GI. Had esophageal dilation performed on 07/06/2022. We will continue intravenous Protonix. GI consultation pending. (3) Diabetes mellitus: Plan: Well-controlled. Last hemoglobin A1c on 01/19/2022 = 6.4. Patient is on metformin 500 mg p.o. twice daily. Sliding scale coverage as needed (4) Depression with anxiety: Plan: Stable. Treated with bupropion , clonazepam, duloxetine, Seroquel (5) Stroke: Plan: Prior CVA. No residual deficits. Holding aspirin for now. Continue atorvastatin 40 mg p.o. nightly (6) Hypertension: Plan: Chronic. Controlled with lisinopril and amlodipine (7) Hyperlipemia: Plan: Chronic. Stable. Continue atorvastatin (8) Hypothyroidism: Plan: Chronic. Stable. Last TSH = 0.952 on 06/08/2022. Continue Synthroid Plan Anticipate eventual discharge to home, hopefully tomorrow, July 09 Admission and Anticipated Discharge Date Admission Date: July 07, 2022 Subjective Alert and oriented. She says she is feeling better. Clear liquids will be allowed for now. GI consultation is pending. We will repeat hemoglobin and hematocrit this afternoon. Continue intravenous Protonix for now. Review of Systems Review of Systems: Constitutional-no fever or chills ENT-no blurred vision, no double vision, no epistaxis, no sore throat Respiratory-no cough, no wheezing, no shortness of breath Cardiac-no palpitations, no chest pain, no syncope GI-no nausea, vomiting, diarrhea, melena, hematochezia -no urinary retention, no urinary incontinence, no dysuria, no hematuria Musculoskeletal-no joint pain, no muscle tenderness Skin-no bruising, no rashes, no pruritus Neuro-no isolated weakness, no paresthesia, no weakness Psych-no depression, no anxiety Physical Exam Physical Exam: General-alert and oriented x3, no fevers, no chills HEENT-head atraumatic and normocephalic, pupils equal and reactive to light, extraocular muscles intact Neck-no lymphadenopathy or thyromegaly, trachea midline Chest-clear to auscultation percussion. No rales wheezing or rhonchi Cardiac-regular rate and rhythm, normal S1 and S2 Abdomen-normal bowel sounds, nontender, no hepatosplenomegaly Extremities-no cyanosis, clubbing, or edema Neuro-cranial nerves II through XII intact, motor and sensory function within normal limits, strength symmetrical , no focal deficits Psych-normal affect, normal mood Results & Data Results & Data ([facility]) Vital Signs (Past 12 Hours) Vital Signs Temp Pulse Pulse Resp BP Pulse Ox O2 Del Method 07/08/22 11:58 36.5 C 63 18 92/54 L 95 Room Air 07/08/22 07:47 36.7 C 62 18 111/68 99 Room Air 07/08/22 02:56 36.7 C 58 L 18 123/66 97 Room Air 07/08/22 03:59 59 L Laboratory Results 07/08/22 06:25 07/08/22 06:25 PG Care Time/CCT Total # of Minutes Spent Total Time Spent with Patient: Total time spent is greater than 50% in coordination of care (as documented) at patient's floor/unit and/or counseling patient: Coding Level of Care Code 02575 SUB INP/OBS CARE 3/50MIN Diagnoses Abdominal pain R10.9 Dysphagia R13.10 Diabetes mellitus E11.9 Depression with anxiety F41.8 Stroke I63.9 Hypertension I10 Hyperlipemia E78.5 Hypothyroidism E03.9
--- NOTE | 2022-07-08 15:26 | Gastrointestinal Consultation ---
Date of Consultation July 08, 2022 Assessment & Plan (1) Nausea: (2) Abdominal pain: (3) Abnormal CT of the abdomen: Continue Pantoprazole 40 mg IV BID No plans for repeat EGD at this time Could consider UGI with SBFT for further evaluation of Ulcer versus Diverticulum in 2nd portion of the duodenum if symptoms persist Continue current therapy and supportive care History of Present Illness Reason for Consultation: Abdominal pain, N/V and abnormal CT imaging Attending Physician: Bishop Bowman MD History of Present Illness Charmaine Tompkins presented to the ER last evening with complaints of abdominal pain, nausea and vomiting. She had undergone an EGD with Dr. Fish on 07/06/2022, and was noted to have esophagitis and gastritis on endoscopic exam. She did undergo an empiric dilation to 17 mm for complaints of dysphagia, and biopsies of the stomach revealed mild gastritis, with normal esophageal biopsies. Upon arrival to the ER, she was noted to have normal lab studies, however, her CT abd/pelvis showed a questionable ulcer versus duodenal diverticulum in the 2nd portion of the duodenum, with questionable arterial extravasation. Decision to admit the patient was made and she subsequently was placed on Protonix 40 mg IV BID, IV fluids and narcotic analgesics. At the time I saw her today, she had eaten and tolerated lunch, and was feeling "much better." She states that she has not had any further vomiting, but does have intermittent nausea. She states that her pain in the mid epigastric/RUQ area is decreased, and she rates it at a 3/10 in intensity at this time. She denies any overt GI bleeding, and states that she has not moved her bowels today. She denies any fevers, chills, hematemesis, melena, hematochezia, jaundice, acholic stools, dark urine or pruritus. She has no further complaints. Allergies Allergy/AdvReac Type Severity Reaction Status Date / Time No Known Allergies Allergy Verified 07/07/22 17:49 Home Medications Medication Instructions Recorded Confirmed Type ferrous sulfate 325 mg (65 mg 325 mg PO QAM 01/08/19 07/07/22 History iron) tablet aspirin 81 mg tablet,delayed 81 mg PO QAM #81 tabs 03/25/19 07/07/22 Rx release (Ecotrin Low Strength) ipratropium 0.5 mg-albuterol 3 mg 3 ml inhalation QID PRN wheezing 02/18/20 07/07/22 Rx (2.5 mg base)/3 mL nebulization #90 mL soln nebulizers (AeroEclipse II #1 ea 02/18/20 07/03/22 Rx Nebulizer) albuterol sulfate 90 mcg/actuation 1 inh inhalation QID PRN shortness 02/26/20 07/07/22 Rx breath activated powder inhaler of breath or wheezing #1 ea fluticasone furoate 100 1 inh inhalation QAM 01/25/21 07/07/22 History mcg-vilanterol 25 mcg/dose inhalation powder (Breo Ellipta) fluticasone propionate 50 2 spray intranasal QAM 01/25/21 07/07/22 History mcg/actuation nasal spray,suspension (Flonase Allergy Relief) folic acid 1 mg tablet 1 mg PO QAM #90 tabs 02/09/21 07/07/22 Rx estradiol 0.01% (0.1 mg/gram) 1 g vaginal UD 06/22/21 07/07/22 History vaginal cream lisinopril 2.5 mg tablet 2.5 mg PO QAM #90 tabs 07/29/21 07/07/22 Rx atorvastatin 40 mg tablet 40 mg PO HS #90 tabs 10/03/21 07/07/22 Rx metformin 500 mg tablet,extended 500 mg PO BID #180 tabs 10/03/21 07/07/22 Rx release 24 hr gabapentin 300 mg capsule 300 mg PO TID 90 days #270 caps 10/25/21 07/07/22 Rx duloxetine 60 mg capsule,delayed 60 mg PO BID #180 caps 11/25/21 07/07/22 Rx release bupropion HCl 300 mg 24 hr tablet, 300 mg PO QAM #90 tabs 03/20/22 07/07/22 Rx extended release (Wellbutrin XL) quetiapine 300 mg tablet (Seroquel) 300 mg PO HS #90 tabs 03/20/22 07/07/22 Rx clonazepam 1 mg tablet 1 mg PO HS #30 tabs 03/22/22 07/07/22 Rx esomeprazole magnesium 40 mg 40 mg PO QAM #90 caps 05/04/22 07/07/22 Rx capsule,delayed release amlodipine 5 mg tablet 5 mg PO QAM #90 tabs 05/30/22 07/07/22 Rx ondansetron 4 mg disintegrating 4 mg PO Q6H PRN nausea and 06/06/22 07/07/22 Rx tablet vomiting #60 tabs famotidine 20 mg tablet 20 mg PO BID 06/07/22 07/07/22 History mecobalamin (vitamin B12) 5,000 5,000 mcg PO QAM 06/07/22 07/07/22 History mcg chewable tablet levothyroxine 150 mcg tablet 150 mcg PO QAM 06/08/22 07/07/22 History oxycodone-acetaminophen 5 mg-325 1 tab PO TID PRN pain #90 tabs 06/16/22 07/07/22 Rx mg tablet promethazine 25 mg tablet 25 mg PO Q6H PRN nausea and 07/04/22 07/07/22 Rx vomiting #20 tabs Patient History Medical History Acromial fracture Anterior dislocation of left shoulder Bipolar depression COPD (chronic obstructive pulmonary disease) Depression with anxiety Diabetes mellitus NIDDM Dysphagia Fall from slip, trip, or stumble History of esophageal dilatation multiple times History of recent fall inpatient 06/07/22 [facility]-dislocated shoulder lt. History of reduction of closed dislocation DC 06/07/22 - left shoulder (admitted to [facility] for ortho consult) Hyperlipemia Hypertension Hypothyroidism Mild acid reflux Neuropathy of foot Pyloric stenosis Stomach ulcer Stroke (~03/2019) had a speech deficit, but pt states it has improved--unknown cause, follows with Dr. Brown Tobacco abuse currently smokes 10-15 cigarettes a day Unintended weight loss per pt, lost > 30 lbs x 1 year Surgical History H/O colposcopy with cervical biopsy 2019, neg, low grade pap History of benign breast biopsy History of bronchoscopy History of colonoscopy History of D&C x2 History of esophagogastroduodenoscopy (EGD) multiple--last 01/31/21 @ [facility] History of repair of pyloric stenosis multiple for pyloric stenosis--started in infancy through 2019 History of wisdom tooth extraction Family History Mother Anxiety Breast cancer Hypertension Gallbladder disease Brother Alcohol abuse Renal cell cancer Kidney disease Cancer Hypertension Family/Other No problems noted. Father Heart disease Lung disease Hypertension Myocardial infarction Other No family history of adverse response to anesthesia Denies family history of Ovarian cancer Prostate cancer Crohn's disease Lung cancer Colorectal cancer Ulcerative colitis Social History Smoking Status: Current every day smoker Tobacco Type: Cigarettes Age Started Using Tobacco: 26; packs per day: 0.5; Cigarettes Per Day: half pack; Second Hand Exposure: No; Hx Alcohol Use: No Hx Substance Use: No Preferred Language: Yakut Communication Ability: Effective Perioperative Manager Required: No Beliefs That Will Affect Care: None marital status: Current Living Situation: Spouse and Parent Current Living Situation Comment: / Mother current occupational status: retired Feels Safe at Home: Yes Childhood Exposure to Second-Hand Smoke: Yes caffeine: Yes Dental Care, Regularly: Yes Physical Activity Frequency: 5-6 Times per Week Seatbelt Use: always Sunscreen Use: Yes Assistive Devices: None Physical Exam Constitutional: WD/WN, vitals as above Eyes: + anicteric sclerae ENMT: external ear and nose normal, oropharynx normal Neck: normal visual inspection Respiratory: normal respiratory effort, lungs clear to auscultation Cardiovascular: RRR, no murmur, no edema Gastrointestinal (Abdomen): Inspection/Auscultation: abdomen normal to inspection and normal bowel sounds; abdomen not distended Percussion/Palpation: + abdomen tender (Mild RUQ) and abdomen soft; no guarding, abdomen not rigid and no hepatosplenomegaly Skin: no rashes, warm and dry Psychiatric: A+Ox3, euthymic affect Results & Data ([facility]) Vital Signs (Past 12 Hours) Vital Signs Temp Pulse Pulse Resp BP Pulse Ox O2 Del Method 07/08/22 15:17 36.6 C 69 18 99/59 L 96 Room Air 07/08/22 07:15 59 L 07/08/22 11:58 36.5 C 63 18 92/54 L 95 Room Air 07/08/22 07:47 36.7 C 62 18 111/68 99 Room Air 07/08/22 03:59 59 L PG Care Time/CCT Total # of Minutes Spent Total Time Spent with Patient: Total time spent is greater than 50% in coordination of care (as documented) at patient's floor/unit and/or counseling patient: Coding Level of Care Code INP/OBS CONSULT LVL 3, 45 MIN Diagnoses Nausea R11.0 Abdominal pain R10.[address] of the abdomen R93.5
[2022-07-08 16:12] LABS: Hematocrit (blood only) 32.3 % (37.0-47.0); Hemoglobin 10.8 g/dl (12.0-16.0)
[2022-07-08] MEDS: LACTATED RINGER'S 1,000 ML IV SCH (23:16)
[2022-07-08] MEDS ORDERED: LACTATED RINGER'S 1,000 ML IV ONE (23:29)
[2022-07-09] MEDS ORDERED: SODIUM CHLORIDE 0.9% 250 ML IV PRN ×2 (00:30→01:14)
[2022-07-09] MEDS ORDERED: SODIUM CHLORIDE 0.9% 1000ML 1,000 ML IV ONE (00:30)
[2022-07-09] MEDS ORDERED: LACTATED RINGER'S 1,000 ML IV ONE (00:43)
[2022-07-09 01:00] LABS: Hematocrit (blood only) 29.8 % (37.0-47.0); Hemoglobin 9.8 g/dl (12.0-16.0); Mean Corpuscular Hemoglobin 32.3 pg (25.0-34.0); Mean Corpuscular Hgb Conc 32.9 g/dL (32.0-36.0); Mean Corpuscular Volume 98.3 fL (80.0-100.0); Platelet Count 165 K/uL (130-400); RDW Standard Deviation 46.4 fL (36.4-46.3); Red Blood Count 3.03 M/uL (4.20-5.40); White Blood Count 5.71 K/ul (4.8-10.8)
[2022-07-09 01:17] LABS: Calcium 8.1 mg/dl (8.5-10.1); Creatinine Clr Calc Pharmacy 51.8 ml/min; Est GFR (Non-African American) 85.4 ml/min; Potassium 3.2 mmol/L (3.5-5.1)
--- NOTE | 2022-07-09 02:28 | Communication Note ---
Date of Service: July 09, [address] Johnson and myself of hypotension. Patient was given her evening medications: Seroquel 300 mg p.o., clonazepam 1 mg p.o. at 2000. S ubsequently patient was difficult to arouse for vital signs. Somnolent and confused. Hypotensive with blood pressure 71/41, bradycardic with respiratory rate of 55 with low respiratory rate noted by nursing of 8 to 9 breaths/min. Adequate oxygenation on room air. Patient was examined at bedside. Somnolent but arousable arousable. Confused. Falling back to sleep easily. Blood pressure ranging 58-83/36-53 + S1, S2, regular, bradycardic, no murmur/rub/gallops Lungs CTA anteriorly Abdomensoft, tender in the right upper quadrant and epigastric area without rebound/guarding/peritonitis. No bruising No focal neurological deficits Stat labs ordered. WBC normal = 5.71, hemoglobin = 9.8 (down from 10.8), hematocrit = 29.8 (down from 32.3) Normal anion gap and bicarbonate. Normal renal function. Normal lactate. Procalcitonin less than 0.05. Random cortisol pending. EKG reveals sinus bradycardia at [address] = 192, QRS = 106, QTc = 426. No acute ischemic changes Was administered 2 L of lactated Ringer's bolus Patient reported that she takes the Seroquel every night 300 mg but does not take the clonazepam routinely. Clinically improving following 2 L LR. Blood pressure presently 102/65. Patient is more awake and alert. Suspect patient's hypotension, confusion secondary to medication effects. We will transfer to PCU We will hold evening Seroquel, clonazepam, amlodipine, lisinopril Decrease patient's morphine Will administer 1 dose of flumazenil 0.2 mg IV for clonazepam reversal Continue maintenance fluidsLR at 100 mL/h
[2022-07-09] MEDS ORDERED: FLUMAZENIL 0.1 MG/1 ML 10 ML VIAL IV STA (02:56)
[2022-07-09] MEDS ORDERED: NALOXONE HCL 0.4 MG/1 ML VIAL/CARP IV PRN (02:56)
[2022-07-09 05:28] LABS: Basophils # (auto) 0.02 K/uL (0-0.2); Basophils % (auto) 0.4 %; Eosinophils # (auto) 0.13 K/uL (0-0.50); Eosinophils % (auto) 2.8 %; Hematocrit (blood only) 28.3 % (37.0-47.0); Hemoglobin 9.3 g/dl (12.0-16.0); Immature Granulocytes # (auto) 0.03 K/uL (0.01-0.20); Immature Granulocytes % (auto) 0.7 %; Lymphocytes # (auto) 1.96 K/uL (1.2-3.4); Lymphocytes % (auto) 42.8 %; Mean Corpuscular Hemoglobin 32.6 pg (25.0-34.0); Mean Corpuscular Hgb Conc 32.9 g/dL (32.0-36.0); Mean Corpuscular Volume 99.3 fL (80.0-100.0); Mean Platelet Volume 9.8 fL (9.4-12.4); Monocytes # (auto) 0.29 K/uL (0.11-0.59); Monocytes % (auto) 6.3 %; Neutrophils # (auto) 2.15 K/uL (1.40-6.50); Platelet Count 154 K/uL (130-400); RDW Standard Deviation 47.2 fL (36.4-46.3); Red Blood Count 2.85 M/uL (4.20-5.40); White Blood Count 4.58 K/ul (4.8-10.8)
[2022-07-09 05:43] LABS: Calcium 7.8 mg/dl (8.5-10.1); Potassium 3.5 mmol/L (3.5-5.1)
[2022-07-09 05:49] LABS: BUN Creatinine Ratio 11.8 (10-20); Creatinine Clr Calc Pharmacy 57.1 ml/min; Est GFR (African American) 108.7 ml/min; Est GFR (Non-African American) 93.7 ml/min
[2022-07-09] MEDS: LACTATED RINGER'S 1,000 ML IV SCH (07:52)
[2022-07-09] MEDS: NICOTINE 14 MG/24 HR PATCH TD SCH (07:52)
[2022-07-09] MEDS: FLUTICASONE PROPIONATE NA SPR 16 GM BTL SCH (07:54)
[2022-07-09] MEDS: FLUTICASONE/VILANTEROL 100/25MCG 14 PUFFS/INHALER INH SCH (07:54)
[2022-07-09] MEDS: PANTOprazole 40 MG in SYRINGE 0 ML IV SCH ×2 (07:55→19:52)
[2022-07-09] MEDS: DULoxetine HCL 60 MG CAP PO SCH ×2 (07:55→19:52)
[2022-07-09] MEDS: buPROPion XL 300 MG TABCR PO SCH (07:55)
[2022-07-09] MEDS: GABAPENTIN 300 MG CAP PO SCH ×3 (07:55→19:51)
[2022-07-09] MEDS: MoRPHine SULFATE 2 MG/ML CARP IV PRN ×3 (09:24→19:47)
[2022-07-09] MEDS ORDERED: ONDANSETRON INJ 2 MG/ML 2 ML VIAL IV PRN (09:39)
[2022-07-09] MEDS ORDERED: ACETAMINOPHEN 1,000 MG/100 ML VIAL IV PRN (09:39)
--- NOTE | 2022-07-09 10:52 | Electrocardiogram Report ---
Test Reason : Blood Pressure : / mmHG Vent. Rate : 054 BPM Atrial Rate : 054 BPM P-R Int : 192 ms QRS Dur : 106 ms QT Int : 450 ms P-R-T Axes : 073 067 062 degrees QTc Int : 426 ms Sinus bradycardia Otherwise normal ECG When compared with ECG of 21-MAR-2019 10:14, Vent. rate has decreased BY [address] no longer depressed in Inferior leads T wave inversion no longer evident in Inferior leads T wave inversion no longer evident in Anterolateral leads Confirmed by Vineet Dominique ([id number]) on 07/09/2022 10:52:27 AM Referred By: REFERRED SELF Confirmed By:Vineet Dominique
--- NOTE | 2022-07-09 11:56 | Hospitalist Progress Note ---
Date of Service July 09, 2022 Assessment & Plan (1) Abdominal pain: Plan: Continued improvement. Diet has been advanced. IV fluids started last evening for transient hypotension have now been discontinued. She is requesting Compazine as needed for any recurrent nausea which should not be a problem. GI consultation appreciated. No EGD at this time. Continue Protonix for now (2) Dysphagia: Plan: Chronic issue. Patient follows with GI. Had esophageal dilation performed on 07/06/2022. Continue Protonix treatment. GI consultation appreciated. No repeat EGD at this time. (3) Diabetes mellitus: Plan: Well-controlled. Last hemoglobin A1c on 01/19/2022 = 6.4. Patient is on metformin 500 mg p.o. twice daily. Sliding scale coverage as needed (4) Depression with anxiety: Plan: Stable. Treated with bupropion , clonazepam, duloxetine, Seroquel (5) Stroke: Plan: Prior CVA. No residual deficits. Continue atorvastatin 40 mg p.o. nightly (6) Hypertension: Plan: Chronic. Controlled with lisinopril and amlodipine (7) Hyperlipemia: Plan: Chronic. Stable. Continue atorvastatin (8) Hypothyroidism: Plan: Chronic. Stable. Last TSH = 0.952 on 06/08/2022. Continue Synthroid Plan Hopeful discharge to home tomorrow, July 10 Admission and Anticipated Discharge Date Admission Date: July 07, 2022 Subjective Alert and oriented. No acute distress. She was moved to the ICU last evening because she had transient somnolence and hypotension related to oral medications which have been adjusted. Diet has been advanced. IV fluids will be discontinued. Hopefully she can go home tomorrow, July 10. GI consultation noted. No EGD at this time Review of Systems Review of Systems: Constitutional-no fever or chills ENT-no blurred vision, no double vision, no epistaxis, no sore throat Respiratory-no cough, no wheezing, no shortness of breath Cardiac-no palpitations, no chest pain, no syncope GI-no nausea, vomiting, diarrhea, melena, hematochezia -no urinary retention, no urinary incontinence, no dysuria, no hematuria Musculoskeletal-no joint pain, no muscle tenderness Skin-no bruising, no rashes, no pruritus Neuro-no isolated weakness, no paresthesia, no weakness Psych-no depression, no anxiety Physical Exam Physical Exam: General-alert and oriented x3, no fevers, no chills HEENT-head atraumatic and normocephalic, pupils equal and reactive to light, extraocular muscles intact Neck-no lymphadenopathy or thyromegaly, trachea midline Chest-clear to auscultation percussion. No rales wheezing or rhonchi Cardiac-regular rate and rhythm, normal S1 and S2 Abdomen-normal bowel sounds, nontender, no hepatosplenomegaly Extremities-no cyanosis, clubbing, or edema Neuro-cranial nerves II through XII intact, motor and sensory function within normal limits, strength symmetrical , no focal deficits Psych-normal affect, normal mood Results & Data Results & Data ([facility]) Vital Signs (Past 12 Hours) Vital Signs Temp Pulse Pulse Resp BP BP BP 07/09/22 11:27 37.4 C 64 16 115/91 07/09/22 08:00 07/09/22 07:00 36.4 C L 68 20 124/66 07/09/22 06:40 63 14 07/09/22 06:30 62 14 07/09/22 06:30 118/63 07/09/22 06:20 56 L 14 07/09/22 06:10 58 L 14 07/09/22 06:00 59 L 14 07/09/22 06:00 124/66 07/09/22 05:50 60 15 07/09/22 05:40 20 07/09/22 05:33 67 26 H 07/09/22 05:33 112/65 07/09/22 05:32 66 18 07/09/22 05:20 59 L 11 L 07/09/22 05:10 54 L 15 07/09/22 05:00 55 L 15 07/09/22 05:00 94/56 L 07/09/22 04:50 55 L 17 07/09/22 04:40 54 L 14 07/09/22 04:30 55 L 13 07/09/22 04:30 89/54 L 07/09/22 04:20 56 L 16 07/09/22 04:15 55 L 14 07/09/22 04:15 85/56 L 07/09/22 04:15 85/56 L 07/09/22 04:00 55 L 13 07/09/22 04:00 88/54 L 07/09/22 03:37 90/55 L 07/09/22 03:37 69 21 07/09/22 03:30 60 14 07/09/22 03:30 77/51 L 07/09/22 03:29 79/46 L 07/09/22 03:29 59 L 22 07/09/22 03:28 57 L 16 07/09/22 03:28 73/45 L 07/09/22 03:28 73/45 L 07/09/22 03:00 57 L 13 07/09/22 02:08 102/65 07/09/22 01:16 78/50 L 07/09/22 00:48 90/50 L 07/09/22 00:43 55 L 9 L 07/09/22 00:40 83/53 L 07/09/22 00:23 58/36 L 07/09/22 00:01 62/40 L Pulse Ox O2 Del Method 07/09/22 11:27 98 Room Air 07/09/22 08:00 Room Air 07/09/22 07:00 98 Room Air 07/09/22 06:40 96 07/09/22 06:30 97 07/09/22 06:30 07/09/22 06:20 97 07/09/22 06:10 98 07/09/22 06:00 99 07/09/22 06:00 07/09/22 05:50 100 07/09/22 05:40 83 L 07/09/22 05:33 07/09/22 05:33 07/09/22 05:32 99 07/09/22 05:20 97 07/09/22 05:10 97 07/09/22 05:00 97 07/09/22 05:00 07/09/22 04:50 97 07/09/22 04:40 98 07/09/22 04:30 97 07/09/22 04:30 07/09/22 04:20 95 07/09/22 04:15 07/09/22 04:15 07/09/22 04:15 07/09/22 04:00 97 Room Air 07/09/22 04:00 07/09/22 03:37 07/09/22 03:37 97 07/09/22 03:30 99 07/09/22 03:30 07/09/22 03:29 07/09/22 03:29 96 07/09/22 03:28 97 07/09/22 03:28 07/09/22 03:28 07/09/22 03:00 98 07/09/22 02:08 07/09/22 01:16 07/09/22 00:48 07/09/22 00:43 98 Room Air 07/09/22 00:40 07/09/22 00:23 07/09/22 00:01 Laboratory Results Abnormal lab results 07/08/22 07/08/22 07/08/22 Range/Units 15:59 19:00 22:38 WBC (4.8-10.8) K/ul RBC (4.20-5.40) M/uL Hgb 10.8 L (12.0-16.0) g/dl Hct 32.3 L (37.0-47.0) % RDW Std Deviation (36.4-46.3) fL Potassium (3.5-5.1) mmol/L Chloride (98-107) mmol/L Anion Gap (3-11) Glucose (70-99(Fasting)) mg/dl POC Glucose 151 H 56 L* (70-99) mg/dl Calcium (8.5-10.1) mg/dl Crossmatch 07/08/22 07/08/22 07/09/22 Range/Units 22:39 22:59 00:36 WBC (4.8-10.8) K/ul RBC (4.20-5.40) M/uL Hgb (12.0-16.0) g/dl Hct (37.0-47.0) % RDW Std Deviation (36.4-46.3) fL Potassium (3.5-5.1) mmol/L Chloride (98-107) mmol/L Anion Gap (3-11) Glucose (70-99(Fasting)) mg/dl POC Glucose 59 L* 113 H 141 H (70-99) mg/dl Calcium (8.5-10.1) mg/dl Crossmatch 07/09/22 07/09/22 07/09/22 Range/Units 00:44 00:44 00:44 WBC (4.8-10.8) K/ul RBC 3.03 L (4.20-5.40) M/uL Hgb 9.8 L (12.0-16.0) g/dl Hct 29.8 L (37.0-47.0) % RDW Std Deviation 46.4 H (36.4-46.3) fL Potassium 3.2 L (3.5-5.1) mmol/L Chloride 111 H (98-107) mmol/L Anion Gap 2 L (3-11) Glucose 135 H (70-99(Fasting)) mg/dl POC Glucose (70-99) mg/dl Calcium 8.1 L (8.5-10.1) mg/dl Crossmatch See Detail 07/09/22 07/09/22 Range/Units 05:17 05:17 WBC 4.58 L (4.8-10.8) K/ul RBC 2.85 L (4.20-5.40) M/uL Hgb 9.3 L (12.0-16.0) g/dl Hct 28.3 L (37.0-47.0) % RDW Std Deviation 47.2 H (36.4-46.3) fL Potassium (3.5-5.1) mmol/L Chloride 114 H (98-107) mmol/L Anion Gap 2 L (3-11) Glucose (70-99(Fasting)) mg/dl POC Glucose (70-99) mg/dl Calcium 7.8 L (8.5-10.1) mg/dl Crossmatch PG Care Time/CCT Total # of Minutes Spent Total Time Spent with Patient: Total time spent is greater than 50% in coordination of care (as documented) at patient's floor/unit and/or counseling patient: Coding Level of Care Code 27199 SUB INP/OBS CARE 3/50MIN Diagnoses Abdominal pain R10.9 Dysphagia R13.10 Diabetes mellitus E11.9 Depression with anxiety F41.8 Stroke I63.9 Hypertension I10 Hyperlipemia E78.5 Hypothyroidism E03.9
[2022-07-09] MEDS: PROCHLORPERAZINE 5 MG in SYRINGE 4 ML IV PRN ×2 (12:50→20:54)
[2022-07-09] MEDS: ASPIRIN 81 MG ECTAB PO SCH (12:50)
[2022-07-09] MEDS: ATORVASTATIN 40 MG TAB PO SCH (19:51)
[2022-07-09] MEDS ORDERED: QUEtiapine FUMARATE 300 MG TABLET PO SCH (23:00)
[2022-07-10] MEDS: MoRPHine SULFATE 2 MG/ML CARP IV PRN ×2 (03:42→08:43)
[2022-07-10] MEDS: LEVOTHYROXINE SODIUM 150 MCG TABLET PO SCH (06:02)
[2022-07-10 07:52] LABS: Basophils # (auto) 0.02 K/uL (0-0.2); Basophils % (auto) 0.4 %; Eosinophils # (auto) 0.25 K/uL (0-0.50); Hematocrit (blood only) 31.9 % (37.0-47.0); Hemoglobin 10.5 g/dl (12.0-16.0); Immature Granulocytes # (auto) 0.02 K/uL (0.01-0.20); Immature Granulocytes % (auto) 0.4 %; Lymphocytes # (auto) 1.91 K/uL (1.2-3.4); Lymphocytes % (auto) 38.5 %; Mean Corpuscular Hemoglobin 32.1 pg (25.0-34.0); Mean Corpuscular Hgb Conc 32.9 g/dL (32.0-36.0); Mean Corpuscular Volume 97.6 fL (80.0-100.0); Mean Platelet Volume 10.5 fL (9.4-12.4); Monocytes # (auto) 0.28 K/uL (0.11-0.59); Monocytes % (auto) 5.6 %; Neutrophils # (auto) 2.48 K/uL (1.40-6.50); Neutrophils % (auto) 50.1 %; Platelet Count 187 K/uL (130-400); RDW Coefficient of Variation 12.5 % (11.5-14.5); RDW Standard Deviation 44.9 fL (36.4-46.3); Red Blood Count 3.27 M/uL (4.20-5.40); White Blood Count 4.96 K/ul (4.8-10.8)
[2022-07-10 08:15] LABS: BUN Creatinine Ratio 13.8 (10-20); Calcium 8.4 mg/dl (8.5-10.1); Creatinine Clr Calc Pharmacy 41.3 ml/min; Est GFR (African American) 75.4 ml/min
[2022-07-10] MEDS: ASPIRIN 81 MG ECTAB PO SCH (08:16)
[2022-07-10] MEDS: DULoxetine HCL 60 MG CAP PO SCH (08:17)
[2022-07-10] MEDS: FLUTICASONE PROPIONATE NA SPR 16 GM BTL SCH (08:17)
[2022-07-10] MEDS: GABAPENTIN 300 MG CAP PO SCH (08:17)
[2022-07-10] MEDS: FLUTICASONE/VILANTEROL 100/25MCG 14 PUFFS/INHALER INH SCH (08:17)
[2022-07-10] MEDS: buPROPion XL 300 MG TABCR PO SCH (08:17)
[2022-07-10] MEDS: NICOTINE 14 MG/24 HR PATCH TD SCH (08:18)
[2022-07-10] MEDS: PANTOprazole 40 MG in SYRINGE 0 ML IV SCH (08:43)
--- NOTE | 2022-07-10 11:23 | Discharge Summary ---
Date of Service July 10, 2022 Admission HPI Per Admitting Provider Charmaine Tompkins is a pleasant 62-year-old female with history of diabetes, hypertension, hyperlipidemia, COPD bipolar disorder and pyloric stricture presenting with ongoing abdominal pain, nausea and vomiting. Patient with history of pyloric stricture. she has had multiple EGDs with esophageal dilation in the past. She previously followed with GI in [place] and more recently has been seeing Dr. Fish. She was to have an esophageal dilation in May 2022 however, this was postponed due to an acute shoulder dislocation requiring OR reduction. Patient complains of ongoing dysphagia to solids, nausea and epigastric abdominal pain. This is associated with significant unintentional weight losscurrent weight = 42 kg, BMI = 16.4. Her symptoms have acutely worsened over the last 8 to 9 days. Patient was seen by GI yesterday, 07/06/2022 and had an EGD performed which revealed no endoscopic abnormality to explain the patient's dysphagia. The esophagus was dilated with a Savary dilator. She did have mildly severe esophagitis as well as diffuse mild inflammation characterized by erosions and erythema in the stomach. Biopsies obtained, H. pylori testing ordered. Stomach biopsy revealed gastric mucosa with mild chronic inflammation. Negative for intestinal metaplasia, dysplasia or malignancy. Negative for Helicobacter pylori organisms Esophagus biopsy revealed squamous epithelium with no diagnostic abnormality. Negative for dysplasia or malignancy. No glandular epithelium identified. Patient presents to the ER tonight with severe persistent epigastric abdominal pain as well as nausea. She reports ongoing dysphagia to solids. She has not eaten much in the last several days and is only able to tolerate soft foods such as mashed potatoes. She has been vomiting green fluid, no hematemesis. She has not had any bloody bowel movements, melena or hematochezia. No additional complaintspatient denies fever, chills, chest pain, cough, shortness of breath. In the ER she is afebrile, mildly hypertensive otherwise hemodynamically stable. No respiratory distress. Adequate oxygenation on room air. ER course: Protonix 40 mg IV Prochlorperazine Fentanyl 25 mcg IV Normal saline 500 mL x 2 Zofran 4 mg IV Morphine 4 mg IV Principal Diagnosis Intractable nausea/vomiting, Acute on chronic abdominal pain Discharge Exam Constitutional WD/WN, vitals as above Respiratory normal respiratory effort, lungs clear to auscultation Cardiovascular RRR, no murmur, no edema Gastrointestinal (Abdomen) normal bowel sounds, soft, nontender, no hepatosplenomegaly Psychiatric A+Ox3, euthymic affect Discharge Data Allergies Allergy/AdvReac Type Severity Reaction Status Date / Time No Known Allergies Allergy Verified 07/07/22 17:49 Consultations 07/07/22 19:59 ED Decision to Admit Stat 07/07/22 20:46 Consult Gastroenterology Routine Ordered Studies 07/07/22 16:39 CT abd pelvis IV con only Stat Hospital Course (1) Abdominal pain: Acute on chronic abd pain. Possibly related to gastroparesis and known pyloric stenosis surgerizaed in the past? Is on chronic percocet for pain. Was on Trulicity and now off x 3 weeks-has been permanently discontinued EGD with esophagitis nad gastritis, s/p empiric esophageal dilation -increase Nexium to bid, remain on pepcid bid tolerating regular diet dc to home with compazine prn f/u with GI as outpt and have UGI w/ SBFT as outpt as per my discussion with GI (2) Dysphagia: Chronic issue. Patient follows with GI. Had esophageal dilation performed on 07/06/2022. Continue PPI treatment. GI consultation appreciated. No repeat EGD at this time. (3) Diabetes mellitus: Well-controlled. Last hemoglobin A1c on 01/19/2022 = 6.4. Patient is on metformin 500 mg p.o. twice daily. Sliding scale coverage as needed recently stopped her Trulicity (4) Depression with anxiety: Stable. Treated with bupropion , clonazepam prn, duloxetine, Seroquel reduced her clonazepam dose to 0.5mg hs prn given hypotension with 1 mg dose here in hospital (5) Stroke: Prior CVA. No residual deficits. Continue atorvastatin 40 mg p.o. nightly and ASA (6) Hypertension: Chronic. Controlled with lisinopril and amlodipine doses held for hypotension after receiving clonazepam but can be restarted on discharge as BPs now slightly elevated (7) Hyperlipemia: Chronic. Stable. Continue atorvastatin (8) Hypothyroidism: Chronic. Stable. Last TSH = 0.952 on 06/08/2022. Continue Synthroid (9) Toxic encephalopathy: Severe protein-calorie malnutrition The medical record reflects the following clinical evidence: Clinical Indicators: Patient with BMI-16 and hx esophageal strictures reports large weight loss over past year. RD consult documents patient with severe malnutrition. Risk Factor(s): As above, hx CVA w/dysphasia Treatment: Weight, I&O, RD consult, meal supplementes PRN *Toxic encephalopathy, resolved-due to clonazepam and hypotension-dose reduced as above Plan Dispo-stable for dc to home Total Time Total Time Spent Total Time Spent (In Minutes): 35 min Discussed care with GI Discharge Plan Discharge Items Patient Disposition: Home - Self-Care Reason For Visit: ABDOMINAL PAIN Discharge Diagnosis: Abdominal pain, intractable nausea/vomiting Condition on Discharge: Good Activity: Resume your previous activity Non-emergency contact: Primary Care Provider and Public Works Technician Call non-emergency contact if: you have any medication questions, your symptoms worsen, your pain is not controlled, your pain is worsening and your pain is unusual for you Follow-up/Referrals: Jimena Cobos CRNP [Primary Care Provider] - (Follow up within 1-2 weeks.) Amanda Reynolds PA-C [Physician Senior [employer]ent Acquisition Specialist] - (Keep your previously scheduled appointment.) Diet: Low Fiber Diet Comment: small amounts at a time Addtl Attending Provider Instructions: You were admitted with abdominal pain and vomiting. This improved. You should take your antacid twice a day and can take compazine as needed for nausea. Please keep your follow up appointment with GI as planned for next week. Your iron pill was also stopped as this can cause nausea. 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 Your GI doctor can order this for you. Pending Studies at Discharge: No Stand-Alone Forms: My [facility], Smoking Cessation Medications and DC Order Prescriptions: New prochlorperazine maleate [Compazine] 5 mg tablet 5 mg PO Q8H PRN (Reason: nausea) Qty: 20 0RF Continued folic acid 1 mg tablet 1 mg PO QAM Qty: 90 3RF lisinopril 2.5 mg tablet 2.5 mg PO QAM Qty: 90 3RF metformin 500 mg tablet extended release 24 hr 500 mg PO BID Qty: 180 3RF atorvastatin 40 mg tablet 40 mg PO HS Qty: 90 3RF duloxetine 60 mg capsule,delayed release(DR/EC) 60 mg PO BID Qty: 180 1RF bupropion HCl [Wellbutrin XL] 300 mg tablet extended release 24 hr 300 mg PO QAM Qty: 90 3RF quetiapine [Seroquel] 300 mg tablet 300 mg PO HS Qty: 90 3RF amlodipine 5 mg tablet 5 mg PO QAM Qty: 90 3RF levothyroxine 150 mcg tablet 150 mcg PO QAM oxycodone-acetaminophen 5-325 mg tablet 1 tab PO TID PRN (Reason: pain) Qty: 90 0RF gabapentin 300 mg capsule 300 mg PO TID 90 Days Qty: 270 3RF ondansetron 4 mg tablet,disintegrating 4 mg PO Q6H PRN (Reason: nausea and vomiting) Qty: 60 1RF albuterol sulfate 90 mcg/actuation aerosol powdr breath activated 1 inh inhalation QID PRN (Reason: shortness of breath or wheezing) Qty: 1 2RF ipratropium-albuterol 0.5 mg-3 mg(2.5 mg base)/3 mL solution for nebulization 3 ml inhalation QID PRN (Reason: wheezing) Qty: 90 3RF (DME) AeroEclipse II Nebulizer [facility] [place] See Rx Instructions .ROUTE .MEDSUPPLY Qty: 1 0RF Rx Instructions: As directed aspirin [Ecotrin Low Strength] 81 mg Tablet,Delayed Release (Dr/Ec) 81 mg PO QAM Qty: 81 0RF estradiol 0.01 % (0.1 mg/gram) cream 1 g vaginal UD Rx Instructions: 1 g vaginal twice weekly; 2 days per week vaginally. mecobalamin (vitamin B12) 5,000 mcg Tablet,Chewable 5,000 mcg PO QAM famotidine 20 mg tablet 20 mg PO BID fluticasone propionate [Flonase Allergy Relief] 50 mcg/actuation spray,suspension 2 spray intranasal QAM Rx Instructions: administer into each nostril fluticasone furoate-vilanterol [Breo Ellipta] 100-25 mcg/dose blister with device 1 inh inhalation QAM Changed esomeprazole magnesium 40 mg capsule,delayed release(DR/EC) 40 mg PO BID Qty: 60 0RF clonazepam 1 mg tablet 0.5 mg PO HS PRN (Reason: insomnia) Qty: 30 2RF Discontinued promethazine 25 mg tablet 25 mg PO Q6H PRN (Reason: nausea and vomiting) Qty: 20 0RF ferrous sulfate 325 mg (65 mg iron) tablet 325 mg PO QAM Discharge Orders: Discharge Order (Routine); Ordered 07/10/22 Ordered By: Vanessa Santiago Admission Data Admit Date/Time: 07/07/22 20:46 Attending Provider: Vanessa Santiago Admit Provider: Lana Chavez Primary Care Provider: Jimena Cobos Other Providers: Lana Chavez ; Javi Jensen Coding Level of Care Code HOSP INP/OBS DISCH >30 MIN Diagnoses Abdominal pain R10.9 Dysphagia R13.10 Diabetes mellitus E11.9 Depression with anxiety F41.8 Stroke I63.9 Hypertension I10 Hyperlipemia E78.5 Hypothyroidism E03.9 Toxic encephalopathy G92.9
[2022-07-10] MEDS ORDERED: oxyCODONE/ACETAMINOPHEN 5mg/325mg TAB PO PRN (12:15)
[2022-07-10] MEDS: PROCHLORPERAZINE 5 MG in SYRINGE 4 ML IV PRN (12:29)
[2022-07-10] MEDS ORDERED: QUEtiapine FUMARATE 300 MG TABLET PO SCH (21:00)
== END 2022-07-10 13:24 | disposition home or self-care (01) | DRG 380 ==
LOC: ED 16:12 → SUATTDRO 20:46 → 2N 20:46 → 1E 07-09 02:40 → 2S 07-09 18:47

== ENCOUNTER 2022-10-06 14:18 | Observation (INO) ==
[2022-10-06] MEDS ORDERED: SODIUM CHLORIDE 0.9% 1000ML 500 ML IV ONE (15:06)
[2022-10-06] MEDS ORDERED: PROCHLORPERAZINE 1 ML IV ONE (15:06)
[2022-10-06] MEDS ORDERED: MoRPHine SULFATE 10 MG/ML CARP/VIAL IV STA (15:06)
[2022-10-06] MEDS ORDERED: PANTOprazole 40 MG in SYRINGE 0 ML IV ONE (15:08)
[2022-10-06] MEDS ORDERED: SODIUM CHLORIDE 0.9% 1000ML 1,000 ML IV SCH (15:15)
--- NOTE | 2022-10-06 15:23 | Emergency Department Note ---
Impression & Plan Generalized abdominal pain, Nausea & vomiting, Elevated troponin, Compression fracture of L3 vertebra, Cholelithiasis ED Provider Note INFORMANT: Patient and ED PROVIDER(S): Les Stevens MD CHIEF COMPLAINT: Abdominal pain PLAN: Disposition: Admitted Condition: Good Outpatient prescription management: none Referral: None MEDICAL DECISION MAKING: Patient presented because of nausea and vomiting. She was concerned about history of stomach ulcers. She had been using NSAIDs due to her back pain as well as prednisone. She had an IV established. She was hydrated. She was treated with Compazine and morphine. She requested Compazine. She had an ECG that was significant for bradycardia and a single T wave inversion in V2 which was new from prior. No ST elevation. She had a mild anemia on CBC without leukocytosis. Potassium was minimally low at 3.4. LFTs and lipase were unremarkable. Patient's cardiac troponin did come back significantly elevated. On reassessment she was feeling better. On further questioning the patient denied any recent chest pain or shortness of breath symptoms. Currently she is pain-free. She is pending CT imaging. Further management in the hospital will be necessary and the patient was in agreement. Consultation was made with Dr. Colt Vo of the [facility] service. Patient was evaluated in the ER for further management. After admission the patient's CT imaging did reveal the presence of cholelithiasis as well as a subacute compression fracture of the L3 vertebrae. This would likely explain the patient's ongoing back pain that she has had for several weeks. I did discuss this with the admitting service. Discussed with international tax manager After review of the information above and other included data, I feel the patient requires further management in the hospital. Triage Nursing notes reviewed and agree them. Vital Signs: reviewed and remarkable for bradycardia and hypertension Prior /Outside records reviewed: none Differential diagnosis: Peptic ulcer disease, pancreatitis, gastritis appendicitis, ovarian cyst, ovarian pathology, diverticulitis, UTI, obstruction, mesenteric ischemia, aortic pathology, inflammatory bowel disease, renal colic, biliary pathology, hernia, volvulus, constipation, as well as other pathologies. Diagnostics, as interpreted by me: ECG: Twelve-lead ECG reveals sinus bradycardia 51 bpm. T wave inversion in V2. No ST elevation. No PVCs. When compared to 07/09/2022 the T wave inversion in V 2 is new. Cardiac Monitoring: Cardiac monitoring ordered by me: The patient was placed on continuous cardiac monitoring and observed. It revealed a sinus bradycardia at 44 bpm. Medical decision rules: none Imaging studies: CT scan of the abdomen pelvis as noted below. No obstruction. Abnormal appearing gallbladder HPI: The patient is a 62year old female who presents to the Emergency Room with complaints of generalized abdominal pain. This started early this morning and is persistent. The patient also notes the following associated symptoms, nausea and vomiting. The patient has found no relieving factors. Current pain is rated as 8/10. Patient concerned because he has a history of ulcers. Patient notes feels similar to prior also visit. Patient notes using some NSAIDs recently because she did have some back spasms after lifting her mother. She did see her primary office and was placed on muscle relaxers as well as prednisone. She was also taking Percocet. Patient feels the back is gotten a lot better. Pt denies LOC, headache, fevers, chills, diaphoresis, visual changes, neck pain, chest pain, breathing difficulties, melena, hematochezia, urinary symptoms, numbness, weakness, lymphadenopathy, rash, or other complaints. PAST MEDICAL HISTORY: See Below, COPD, peptic ulcer disease, hypertension, stroke PAST SURGICAL HISTORY: See Below, SOCIAL HISTORY: See Below, smoker HOME MEDICATIONS: See Below ALLERGIES: See Below VITALS: See Below PHYSICAL EXAMINATION: GENERAL: Awake, alert, uncomfortable-appearing, in no distress HENT: Normocephalic, atraumatic. Oropharynx unremarkable. EYES: Normal conjunctiva. Sclera non-icteric. NECK: Inspection normal. Non-tender. Supple. No nuchal rigidity. FROM. No masses. RESPIRATORY: Clear to auscultation. No wheezes. No rales. Normal respiratory effort. CARDIAC: Normal rate. Normal rhythm. No murmurs. No rubs. Extremities warm and well perfused. Pulses equal. No JVD. GI: Soft, non-distended. General tenderness to palpation. No rebound or guarding. No masses. RECTAL: Deferred. MUSCULOSKELETAL: Atraumatic. Chest examination reveals no tenderness. The back is symmetrical on inspection without obvious abnormality. Mild lumbar paraspinal muscle tenderness to palpation. There is no CVA tenderness to palpation. No joint edema. LOWER EXTREMITIES: Calves are equal size bilaterally and non-tender. No edema. No discoloration. NEURO: Normal sensorium. No sensory or motor deficits noted. SKIN: No rash or jaundice noted. Past Med/Surg History Medical History Acromial fracture Anterior dislocation of left shoulder Bipolar depression COPD (chronic obstructive pulmonary disease) Depression with anxiety Diabetes mellitus NIDDM Dysphagia Fall from slip, trip, or stumble History of esophageal dilatation multiple times History of recent fall inpatient 06/07/22 [facility]-dislocated shoulder lt. History of reduction of closed dislocation [place] 06/07/22 - left shoulder (admitted to [facility] for ortho consult) Hyperlipemia Hypertension Hypothyroidism Mild acid reflux Neuropathy of foot Pyloric stenosis Stomach ulcer Stroke (~03/2019) had a speech deficit, but pt states it has improved--unknown cause, follows with Dr. Brown Tobacco abuse currently smokes 10-15 cigarettes a day Unintended weight loss per pt, lost > 30 lbs x 1 year Surgical History H/O colposcopy with cervical biopsy 2019, neg, low grade pap History of benign breast biopsy History of bronchoscopy History of colonoscopy History of D&C x2 History of esophagogastroduodenoscopy (EGD) multiple--last 01/31/21 @ [facility] History of repair of pyloric stenosis multiple for pyloric stenosis--started in infancy through 2019 History of wisdom tooth extraction Family History Mother Anxiety Breast cancer Hypertension Gallbladder disease Brother Alcohol abuse Renal cell cancer Kidney disease Cancer Hypertension Family/Other No problems noted. Father Heart disease Lung disease Hypertension Myocardial infarction Other No family history of adverse response to anesthesia Denies family history of Ovarian cancer Prostate cancer Crohn's disease Lung cancer Colorectal cancer Ulcerative colitis Social History Smoking Status: Current every day smoker Tobacco Type: Cigarettes Age Started Using Tobacco: 26; packs per day: 0.5; Cigarettes Per Day: 10; Second Hand Exposure: No; Do You Dip or Chew Tobacco: No; Tobacco Cessation Education Requested by Patient: No Hx Alcohol Use: No Hx Substance Use: No Preferred Language: [place] Communication Ability: Effective Communication Ability Comment: s/s intermittent communication impairment. Plant Taxonomist Required: No Beliefs That Will Affect Care: None marital status: Current Living Situation: Family Current Living Situation Comment: / Mother current occupational status: retired Other Information That Helps Us Care for You: No Feels Safe at Home: Yes Safety Concerns: Feels Safe At This Time Childhood Exposure to Second-Hand Smoke: Yes Diet: diabetic and low carbohydrate caffeine: Yes Dental Care, Regularly: Yes Physical Activity Frequency: 5-6 Times per Week Seatbelt Use: always Sunscreen Use: Yes Assistive Devices: None Allergies Allergies Allergy/AdvReac Type Severity Reaction Status Date / Time No Known Allergies Allergy Verified 10/06/22 17:56 Home Meds Home Medications Medication Instructions Recorded Confirmed fluticasone propionate 50 2 spray intranasal QAM 01/25/21 10/06/22 mcg/actuation nasal spray,suspension (Flonase Allergy Relief) estradiol 0.01% (0.1 mg/gram) 1 g vaginal WK 06/22/21 10/06/22 vaginal cream levothyroxine 150 mcg tablet 150 mcg PO QAM 06/08/22 10/06/22 ibuprofen 200 mg tablet 400 mg PO Q6H PRN Pain 10/06/22 10/06/22 Previous Rx's Medication Instructions Recorded aspirin 81 mg tablet,delayed 81 mg PO QAM #81 tabs 03/25/19 release (Ecotrin Low Strength) ipratropium 0.5 mg-albuterol 3 mg 3 ml inhalation QID PRN wheezing 02/18/20 (2.5 mg base)/3 mL nebulization #90 mL soln nebulizers (AeroEclipse II #1 ea 02/18/20 Nebulizer) albuterol sulfate 90 mcg/actuation 1 inh inhalation QID PRN shortness 02/26/20 breath activated powder inhaler of breath or wheezing #1 ea atorvastatin 40 mg tablet 40 mg PO HS #90 tabs 10/03/21 metformin 500 mg tablet,extended 500 mg PO BID #180 tabs 10/03/21 release 24 hr ondansetron 4 mg disintegrating 4 mg PO Q6H PRN nausea and 06/06/22 tablet vomiting #60 tabs esomeprazole magnesium 40 mg 40 mg PO DAILY #90 caps 09/27/22 capsule,delayed release famotidine 20 mg tablet 20 mg PO DAILY #180 tabs 09/27/22 quetiapine 300 mg tablet (Seroquel) 150 mg PO HS #90 tabs 09/27/22 cyclobenzaprine 10 mg tablet 10 mg PO TID #30 tabs 10/04/22 oxycodone-acetaminophen 5 mg-325 1 tab PO QID PRN pain #97 tabs 10/04/22 mg tablet prednisone 20 mg tablet 40 mg PO DAILY #10 tabs 10/04/22 Results & Data (ED) Vital Signs Vital Signs - 24 hr 10/06/22 14:22 10/06/22 15:28 10/06/22 15:28 Temperature 37.1 C Temperature Source Temporal Artery Scan Pulse Rate 57 L Pulse Rate [Right Apical] 48 L Pulse Rate from SpO2 Sensor Respiratory Rate 18 17 Respiratory Effort / Characteristics Non-Labored Spontaneous Respiratory Depth Normal Respiratory Pattern Regular Blood Pressure 176/73 H Blood Pressure [Left Arm] 186/79 H Blood Pressure Mean 107 Blood Pressure Mean [Left Arm] 114 Blood Pressure Position Sitting Pulse Oximetry 96 98 98 Oxygen Delivery Method Room Air Room Air Room Air Sepsis Recent Fever Within 48 Hours No Sepsis New/Unexplained Change in Mental Status No Sepsis Action Taken by Nursing No Action Required 10/06/22 15:31 10/06/22 16:00 10/06/22 17:00 Temperature Temperature Source Pulse Rate 45 L 43 L 43 L Pulse Rate [Right Apical] Pulse Rate from SpO2 Sensor 45 L 44 L Respiratory Rate 20 14 Respiratory Effort / Characteristics Respiratory Depth Respiratory Pattern Blood Pressure 192/91 H 163/71 H Blood Pressure [Left Arm] Blood Pressure Mean 124 101 Blood Pressure Mean [Left Arm] Blood Pressure Position Pulse Oximetry 93 93 Oxygen Delivery Method Room Air Room Air Sepsis Recent Fever Within 48 Hours Sepsis New/Unexplained Change in Mental Status Sepsis Action Taken by Nursing Laboratory Data 10/06/22 15:37 10/06/22 15:37 Lab Results 10/06/22 10/06/22 10/06/22 Range/Units 15:37 15:37 15:39 WBC 6.94 (4.8-10.8) K/ul RBC 3.72 L (4.20-5.40) M/uL Hgb 11.8 L (12.0-16.0) g/dl Hct 36.0 L (37.0-47.0) % MCV 96.8 (80.0-100.0) fL MCH 31.7 (25.0-34.0) pg MCHC 32.8 (32.0-36.0) g/dL RDW Std Deviation 46.5 H (36.4-46.3) fL RDW Coeff of Liz 13.1 (11.5-14.5) % Plt Count 241 (130-400) K/uL MPV 10.1 (9.4-12.4) fL Immature Gran % (Auto) 0.7 % Neut % (Auto) 70.7 % Lymph % (Auto) 20.9 % [place] % (Auto) 7.3 % Eos % (Auto) 0.1 % Baso % (Auto) 0.3 % Neut # (Auto) 4.90 (1.40-6.50) K/uL Lymph # (Auto) 1.45 (1.2-3.4) K/uL [place] # (Auto) 0.51 (0.11-0.59) K/uL Eos # (Auto) 0.01 (0-0.50) K/uL Baso # (Auto) 0.02 (0-0.2) K/uL Immature Gran # (Auto) 0.05 (0.01-0.20) K/uL PT (9.0-12.0) Seconds INR (0.9-1.1) APTT (21.0-31.0) Seconds PTT Ratio Sodium 141 (136-145) mmol/L Potassium 3.4 L (3.5-5.1) mmol/L Chloride 107 (98-107) mmol/L Carbon Dioxide 27 (21-32) mmol/L Anion Gap 7 (3-11) BUN 15 (6-23) mg/dl Creatinine 0.83 (0.6-1.2) mg/dl Est Cr Clr Drug Dosing 50.9 ml/min Est GFR ( Amer) 87.6 ml/min Est GFR (Non-Af Amer) 75.6 ml/min BUN/Creatinine Ratio 18.1 (10-20) Glucose 116 H (70-99(Fasting)) mg/dl Calcium 9.3 (8.6-10.3) mg/dl Total Bilirubin 0.3 (0.2-1.0) mg/dl AST 12 L (13-39) U/L ALT 9 (7-52) U/L Alkaline Phosphatase 87 (34-104) U/L Troponin I High Sens 176.0 H* (0-14) pg/ml Total Protein 6.6 (6.0-8.3) gm/dl Albumin 4.4 (3.4-5.0) gm/dl Globulin 2.2 L (2.5-4.0) gm/dl Albumin/Globulin Ratio 2.0 (0.9-2) Lipase 4 L (11-82) U/L SARS-CoV-2, RNA, NAAT NEGATIVE (NEGATIVE) 10/06/22 Range/Units 17:20 WBC (4.8-10.8) K/ul RBC (4.20-5.40) M/uL Hgb (12.0-16.0) g/dl Hct (37.0-47.0) % MCV (80.0-100.0) fL MCH (25.0-34.0) pg MCHC (32.0-36.0) g/dL RDW Std Deviation (36.4-46.3) fL RDW Coeff of Liz (11.5-14.5) % Plt Count (130-400) K/uL MPV (9.4-12.4) fL Immature Gran % (Auto) % Neut % (Auto) % Lymph % (Auto) % [place] % (Auto) % Eos % (Auto) % Baso % (Auto) % Neut # (Auto) (1.40-6.50) K/uL Lymph # (Auto) (1.2-3.4) K/uL [place] # (Auto) (0.11-0.59) K/uL Eos # (Auto) (0-0.50) K/uL Baso # (Auto) (0-0.2) K/uL Immature Gran # (Auto) (0.01-0.20) K/uL PT 10.9 (9.0-12.0) Seconds INR 1.0 (0.9-1.1) APTT 27.0 (21.0-31.0) Seconds PTT Ratio 1.0 Sodium (136-145) mmol/L Potassium (3.5-5.1) mmol/L Chloride (98-107) mmol/L Carbon Dioxide (21-32) mmol/L Anion Gap (3-11) BUN (6-23) mg/dl Creatinine (0.6-1.2) mg/dl Est Cr Clr Drug Dosing ml/min Est GFR ( Amer) ml/min Est GFR (Non-Af Amer) ml/min BUN/Creatinine Ratio (10-20) Glucose (70-99(Fasting)) mg/dl Calcium (8.6-10.3) mg/dl Total Bilirubin (0.2-1.0) mg/dl AST (13-39) U/L ALT (7-52) U/L Alkaline Phosphatase (34-104) U/L Troponin I High Sens (0-14) pg/ml Total Protein (6.0-8.3) gm/dl Albumin (3.4-5.0) gm/dl Globulin (2.5-4.0) gm/dl Albumin/Globulin Ratio (0.9-2) Lipase (11-82) U/L SARS-CoV-2, RNA, NAAT (NEGATIVE) Administered Medications Discontinued Medications Prochlorperazine (Compazine) 1 mls @ 1 mls/min IV ONE ONE Stop: 10/06/22 15:07 Last Admin: 10/06/22 15:30 Dose: 1 mls/min Documented By: PARUL Sodium Chloride (Nss 1000ml) 500 mls @ 999 mls/hr IV .Q31M ONE Stop: 10/06/22 15:36 Last Infusion: 10/06/22 16:24 Dose: 0 mls/hr Documented By: Admin: 10/06/22 15:30 Dose: 999 mls/hr Documented By: PARUL Sodium Chloride (Nss 1000ml) 1,000 mls @ 125 mls/hr IV .Q8H KVNG Stop: 11/05/22 15:14 Last Infusion: 10/06/22 20:02 Dose: 0 mls/hr Documented By: Admin: 10/06/22 16:29 Dose: 125 mls/hr Documented By: PARUL Pantoprazole Sodium 40 mg/ (Syringe) 10 mls @ 5 mls/min IV NOW ONE Stop: 10/06/22 15:09 Last Admin: 10/06/22 15:47 Dose: 5 mls/min Documented By: PARUL Famotidine 20 mg/ Syringe 5 mls @ 2.5 mls/min IV ONE STA Stop: 10/06/22 18:01 Last Admin: 10/06/22 20:25 Dose: Not Given Documented By: BRYANNA Ioversol (Optiray 320 100ml) 86 ml IV ONCE ONE Stop: 10/06/22 18:19 Last Admin: 10/06/22 18:19 Dose: 86 ml Documented By: ANA Morphine Sulfate (Morphine Sulfate 10 Mg/Ml Carp/Vial) 6 mg IV NOW STA Stop: 10/06/22 15:07 Last Admin: 10/06/22 15:30 Dose: 6 mg Documented By: PARUL Imaging Data Radiologist's Impression: Abdomen/Pelvis CT 10/06/22 15:08 CT abd pelvis oral and IV con CLINICAL HISTORY: abd pain, vomiting TECHNIQUE: Helical axial images of the abdomen and pelvis were obtained and displayed. Automated dose lowering techniques and/or adjustment according to patient size were utilized for this exam. This exam was performed with intravenous contrast. CT DOSE: 357.06 mGy.cm COMPARISON: Comparison is made to CT abdomen pelvis 07/07/2022 FINDINGS: Lower chest: No acute abnormality. Liver: Unremarkable. No focal lesions are seen. Gallbladder and biliary tree: Pericholecystic fluid is seen. The gallbladder wall measures approximately 3 mm. Prominence of the common bile duct which measures 9 mm. Pancreas: Cystic-appearing lesion in the pancreas is less conspicuous on today's exam. Spleen: Unremarkable. Adrenals: Unremarkable. Kidneys and ureters: Unremarkable. Bladder: Unremarkable. Reproductive organs: Unremarkable. Bowel: Prominent duodenal diverticulum is again seen. Lymph nodes Retroperitoneal: Unremarkable. Pelvic: Unremarkable. Mesenteric: Unremarkable. Peritoneum: Mild ascites is seen most prominently in the right upper quadrant. Vessels: Atherosclerotic calcifications are seen. Abdominal wall: Unremarkable. Bones: Degenerative changes in the visualized spine. There is increased compression deformity of L3 which appears subacute. IMPRESSION: 1. Prominent gallbladder wall and pericholecystic fluid along with common bile duct dilation is suggestive of cholelithiasis versus choledocholithiasis. 2. Subacute appearing fracture of L3, new from prior exam. Correlation with point tenderness is recommended. 3. Additional findings as above ACT 112: Negative or not required by law. Electronically signed by: Chapin Morrow M.D. 10/06/2022 7:40 PM Discharge Plan Visit Data Chief Complaint: Abdominal Pain Stated Complaint: ULCERS IN STOMACH ED Provider: Les Stevens Discharge Problem: Generalized abdominal pain, Nausea & vomiting, Elevated troponin, Compression fracture of L3 vertebra, Cholelithiasis Patient Disposition: Admitted As Inpatient Discharge Instructions Interventions: ED Discharge Assessment Last Done: 10/06/22 19:34
[2022-10-06 16:00] LABS: Basophils # (auto) 0.02 K/uL (0-0.2); Basophils % (auto) 0.3 %; Eosinophils # (auto) 0.01 K/uL (0-0.50); Eosinophils % (auto) 0.1 %; Hemoglobin 11.8 g/dl (12.0-16.0); Immature Granulocytes # (auto) 0.05 K/uL (0.01-0.20); Immature Granulocytes % (auto) 0.7 %; Lymphocytes # (auto) 1.45 K/uL (1.2-3.4); Lymphocytes % (auto) 20.9 %; Mean Corpuscular Hemoglobin 31.7 pg (25.0-34.0); Mean Corpuscular Hgb Conc 32.8 g/dL (32.0-36.0); Mean Corpuscular Volume 96.8 fL (80.0-100.0); Mean Platelet Volume 10.1 fL (9.4-12.4); Monocytes # (auto) 0.51 K/uL (0.11-0.59); Monocytes % (auto) 7.3 %; Neutrophils % (auto) 70.7 %; Platelet Count 241 K/uL (130-400); RDW Coefficient of Variation 13.1 % (11.5-14.5); RDW Standard Deviation 46.5 fL (36.4-46.3); Red Blood Count 3.72 M/uL (4.20-5.40); White Blood Count 6.94 K/ul (4.8-10.8)
[2022-10-06 16:15] LABS: Albumin Level 4.4 gm/dl (3.4-5.0); BUN Creatinine Ratio 18.1 (10-20); Bilirubin,Total 0.3 mg/dl (0.2-1.0); Calcium 9.3 mg/dl (8.6-10.3); Creatinine Clr Calc Pharmacy 50.9 ml/min; Est GFR (African American) 87.6 ml/min; Est GFR (Non-African American) 75.6 ml/min; Globulin 2.2 gm/dl (2.5-4.0); Potassium 3.4 mmol/L (3.5-5.1); Total Protein 6.6 gm/dl (6.0-8.3)
--- NOTE | 2022-10-06 17:18 | History & Physical Report ---
Date of Service October 06, 2022 Assessment & Plan (1) Epigastric pain: Plan: Suspect worsening gastritis/esophagitis due to prednisone/NSAID use. Stop prednisone/NSAIDs. Switch esomeprazole to pantoprazole 40mg BID Increase famotidine 20mg IV BID Add Carafate 1g PO ACHS CT A/P pending at time of admission (2) Nausea & vomiting: Plan: Secondary to gastritis as above Ondansetron 4mg IV PRN (3) Elevated troponin: Plan: No chest pain or shortness of breath to suggest ACS however she has significant risk factors and bradycardia appears new. Continue to trend overnight, if significant change will consider aspirin, low dose heparin drip. TTE tomorrow to assess for wall motion abnormalities. No beta-donna due to bradycardia. (4) Diabetes mellitus: Plan: HbA1C 6.2 [08/01/22], no need to repeat. Hold metformin due to IV contrast. Novolog: --Goal BSG Range: Low 110 mg/dL, High 140 mg/dL --Correction Factor: 45 mg/dL/unit No carb ratio --BSGs ACHS if eating, q6h if npo (5) Hypothyroidism: Plan: TSH WNL in July Continue levothyroxine (6) Hyperlipemia: Plan: Continue atorvastatin Plan VTE Prophyalxis - deferred pending repeat troponin Diet - heart healthy, T2DM Disposition - observation to PCU Admission and Anticipated Discharge Date Admission Date: October 06, 2022 History of Present Illness Chief Complaint: Epigastric pain, nausea and vomiting Primary Care Provider: MALINI Beck is a 62 year old female who presented to the ER with nausea, vomiting and abdominal pain. She reports this is similar to when she was recently hospitalized in June with gastritis/esophagitis and possible gastroparesis. She improved with conservative measures. Current epigastric pain constant after starting 2 days ago, no radiation, current severity 8/10. She reports usually having nausea and vomiting with these symptoms and it is no different on this occasion with vomiting bile-like substance. No hematemesis. No change in bowel habit. No melena or hematochezia. She reports recently having back pain after picking up her mother who had fallen. She had been taking ibuprofen 400mg PO BID for this and recently prescribed prednisone 2 days ago which has now resolved the pain. In the ER her high sensitivity troponin was elevated. She has significant risk factors including smoking, diabetes, hypertension and prior stroke. She denies any prior heart attack and no exertional chest pain or shortness of breath. Her epigastric pain is reproducible on palpation and very associated with eating and nausea/vomiting. Allergies Allergy/AdvReac Type Severity Reaction Status Date / Time No Known Allergies Allergy Verified 10/06/22 17:56 Home Medications Medication Instructions Recorded Confirmed Type aspirin 81 mg tablet,delayed 81 mg PO QAM #81 tabs 03/25/19 10/06/22 Rx release (Ecotrin Low Strength) ipratropium 0.5 mg-albuterol 3 mg 3 ml inhalation QID PRN wheezing 02/18/20 10/06/22 Rx (2.5 mg base)/3 mL nebulization #90 mL soln nebulizers (AeroEclipse II #1 ea 02/18/20 10/06/22 Rx Nebulizer) albuterol sulfate 90 mcg/actuation 1 inh inhalation QID PRN shortness 02/26/20 10/06/22 Rx breath activated powder inhaler of breath or wheezing #1 ea fluticasone propionate 50 2 spray intranasal QAM 01/25/21 10/06/22 History mcg/actuation nasal spray,suspension (Flonase Allergy Relief) estradiol 0.01% (0.1 mg/gram) 1 g vaginal WK 06/22/21 10/06/22 History vaginal cream atorvastatin 40 mg tablet 40 mg PO HS #90 tabs 10/03/21 10/06/22 Rx metformin 500 mg tablet,extended 500 mg PO BID #180 tabs 10/03/21 10/06/22 Rx release 24 hr ondansetron 4 mg disintegrating 4 mg PO Q6H PRN nausea and 06/06/22 10/06/22 Rx tablet vomiting #60 tabs levothyroxine 150 mcg tablet 150 mcg PO QAM 06/08/22 10/06/22 History esomeprazole magnesium 40 mg 40 mg PO DAILY #90 caps 09/27/22 10/06/22 Rx capsule,delayed release famotidine 20 mg tablet 20 mg PO DAILY #180 tabs 09/27/22 10/06/22 Rx quetiapine 300 mg tablet (Seroquel) 150 mg PO HS #90 tabs 09/27/22 10/06/22 Rx cyclobenzaprine 10 mg tablet 10 mg PO TID #30 tabs 10/04/22 10/06/22 Rx oxycodone-acetaminophen 5 mg-325 1 tab PO QID PRN pain #97 tabs 10/04/22 10/06/22 Rx mg tablet prednisone 20 mg tablet 40 mg PO DAILY #10 tabs 10/04/22 10/06/22 Rx ibuprofen 200 mg tablet 400 mg PO Q6H PRN Pain 10/06/22 10/06/22 History Past Med/Surg History Medical History Acromial fracture Anterior dislocation of left shoulder Bipolar depression COPD (chronic obstructive pulmonary disease) Depression with anxiety Diabetes mellitus NIDDM Dysphagia Fall from slip, trip, or stumble History of esophageal dilatation multiple times History of recent fall inpatient 06/07/22 [facility]-dislocated shoulder lt. History of reduction of closed dislocation ID 06/07/22 - left shoulder (admitted to [facility] for ortho consult) Hyperlipemia Hypertension Hypothyroidism Mild acid reflux Neuropathy of foot Pyloric stenosis Stomach ulcer Stroke (~03/2019) had a speech deficit, but pt states it has improved--unknown cause, follows with Dr. Brown Tobacco abuse currently smokes 10-15 cigarettes a day Unintended weight loss per pt, lost > 30 lbs x 1 year Surgical History H/O colposcopy with cervical biopsy 2020, neg, low grade pap History of benign breast biopsy History of bronchoscopy History of colonoscopy History of D&C x2 History of esophagogastroduodenoscopy (EGD) multiple--last 01/31/21 @ [facility] History of repair of pyloric stenosis multiple for pyloric stenosis--started in infancy through 2019 History of wisdom tooth extraction Family History Mother Anxiety Breast cancer Hypertension Gallbladder disease Brother Alcohol abuse Renal cell cancer Kidney disease Cancer Hypertension Family/Other No problems noted. Father Heart disease Lung disease Hypertension Myocardial infarction Other No family history of adverse response to anesthesia Denies family history of Ovarian cancer Prostate cancer Crohn's disease Lung cancer Colorectal cancer Ulcerative colitis Social History Smoking Status: Current every day smoker Tobacco Type: Cigarettes Age Started Using Tobacco: 26; packs per day: 0.5; Cigarettes Per Day: 10; Second Hand Exposure: No; Do You Dip or Chew Tobacco: No; Tobacco Cessation Education Requested by Patient: No Hx Alcohol Use: No Hx Substance Use: No Preferred Language: Mongolian Communication Ability: Effective Communication Ability Comment: s/s intermittent communication impairment. Meat Boner Required: No Beliefs That Will Affect Care: None marital status: Current Living Situation: Family Current Living Situation Comment: / Mother current occupational status: retired Other Information That Helps Us Care for You: No Feels Safe at Home: Yes Safety Concerns: Feels Safe At This Time Childhood Exposure to Second-Hand Smoke: Yes Diet: diabetic and low carbohydrate caffeine: Yes Dental Care, Regularly: Yes Physical Activity Frequency: 5-6 Times per Week Seatbelt Use: always Sunscreen Use: Yes Assistive Devices: None Review of Systems Review of Systems: All systems reviewed & are unremarkable except as noted in HPI & below Physical Exam Constitutional: WD/WN, vitals as above Eyes: PERRL, conjunctivae normal, anicteric sclerae ENMT: external ear and nose normal, oropharynx normal Neck: trachea midline, no thyromegaly Respiratory: normal respiratory effort, lungs clear to auscultation Cardiovascular: Rate/Rhythm: regular rhythm and + bradycardic Heart Sounds: no murmur Extremities: normal capillary refill; no calf tenderness and no pedal edema Gastrointestinal (Abdomen): Inspection/Auscultation: abdomen normal to inspection; abdomen not distended Percussion/Palpation: + abdomen tender (epigastric, without rebound tenderness), + guarding and abdomen soft; abdomen not rigid Musculoskeletal: no cyanosis or clubbing, extremities motor strength 5/5 Skin: no rashes, warm and dry Neurologic: moves all extremities and awake; not confused Psychiatric: A+Ox3, euthymic affect Genitourinary: no CVA tenderness Results & Data Results & Data Vital Signs (Past 12 Hours) Vital Signs Temp Pulse Pulse Resp BP BP Pulse Ox 10/06/22 17:00 43 L 14 163/71 H 93 10/06/22 16:00 43 L 20 192/91 H 93 10/06/22 15:31 45 L 05/26/23 15:28 98 10/06/22 15:28 48 L 17 186/79 H 98 10/06/22 14:22 37.1 C 57 L 18 176/73 H 96 O2 Del Method 10/06/22 17:00 Room Air 10/06/22 16:00 Room Air 10/06/22 15:31 10/06/22 15:28 Room Air 10/06/22 15:28 Room Air 10/06/22 14:22 Room Air Laboratory Results Abnormal lab results 10/06/22 10/06/22 Range/Units 15:37 15:37 RBC 3.72 L (4.20-5.40) M/uL Hgb 11.8 L (12.0-16.0) g/dl Hct 36.0 L (37.0-47.0) % RDW Std Deviation 46.5 H (36.4-46.3) fL Potassium 3.4 L (3.5-5.1) mmol/L Glucose 116 H (70-99(Fasting)) mg/dl AST 12 L (13-39) U/L Troponin I High Sens 176.0 H* (0-14) pg/ml Globulin 2.2 L (2.5-4.0) gm/dl Lipase 4 L (11-82) U/L Diagnostic Findings None Medications Administered ER Medications Given: Compazine 5mg IV Morphine 6mg IV NSS 500ml bolus Pantoprazole 40mg IV NSS @125ml/hr ECG Rate (beats per minute): 51 Rhythm: normal sinus Findings: no acute ischemic change Comparison ECG Date: from (Jul 09, 2022) Change: the following changes noted (minimal criteria for anterior infarct now present) Code Status & VTE Plan Code Status Full VTE Prophylaxis Plan VTE Prophylaxis will be ordered: Yes PG Care Time/CCT Total # of Minutes Spent Total Time Spent with Patient: Total time spent is greater than 50% in coordination of care (as documented) at patient's floor/unit and/or counseling patient: Coding Level of Care Code 90707 INT INP/OBS CARE 3/75MIN Diagnoses Epigastric pain R10.13 Nausea & vomiting R11.2 Elevated troponin R77.8 Diabetes mellitus E11.9 Hypothyroidism E03.9 Hyperlipemia E78.5
[2022-10-06] MEDS ORDERED: FAMOTIDINE 20 MG in SYRINGE 3 ML IV STA (18:00)
[2022-10-06 18:03] LABS: Prothrombin Time 10.9 Seconds (9.0-12.0)
[2022-10-06] MEDS ORDERED: OPTIRAY 320 100ml IV ONE (18:18)
--- NOTE | 2022-10-06 19:42 | CT Scan Report ---
CT abd pelvis oral and IV con CLINICAL HISTORY: abd pain, vomiting TECHNIQUE: Helical axial images of the abdomen and pelvis were obtained and displayed. Automated dose lowering techniques and/or adjustment according to patient size were utilized for this exam. This e xam was performed with intravenous contrast. CT DOSE: 357.06 mGy.cm COMPARISON: Comparison is made to CT abdomen pelvis 07/07/2022 FINDINGS: Lower chest: No acute abnormality. Liver: Unremarkable. No focal lesions are seen. Gallbladder and biliary tree: Pericholecystic fluid is seen. The gallbladder wall measures approximat gregorio 3 mm. Prominence of the common bile duct which measures 9 mm. Pancreas: Cystic-appearing lesion in the pancreas is less conspicuous on today's exam. Spleen: Unremarkable. Adrenals: Unremarkable. Kidneys and ureters: Unremarkable. Bladder: Unremarkable. Reproductive organs: Unremarkable. Bowel: Prominent duodenal diverticulum is again seen. Lymph nodes Retroperitoneal: Unremarkable. Pelvic: Unremarkable. Mesenteric: Unremarkable. Peritoneum: Mild ascites is seen most prominently in the right upper quadrant. Vessels: Atherosclerotic calcifications are seen. Abdominal wall: Unremarkable. Bones: Degenerative changes in the visualized spine. There is increased compression deformity of L3 w hich appears subacute. IMPRESSION: 1. Prominent gallbladder wall and pericholecystic fluid along with common bile duct dilation is sugg estive of cholelithiasis versus choledocholithiasis. 2. Subacute appearing fracture of L3, new from prior exam. Correlation with point tenderness is harsh mmended. 3. Additional findings as above ACT 112: Negative or not required by law. Electronically signed by: Chapin Morrow M.D. 10/06/2022 7:40 PM
[2022-10-06] MEDS ORDERED: CARBOHYDRATES FOR HYPOGLYCEMIA PO PRN (19:47)
[2022-10-06] MEDS ORDERED: GLUCOSE 40% GEL 15 GM TUBE PO PRN (19:47)
[2022-10-06] MEDS ORDERED: ONDANSETRON INJ 2 MG/ML 2 ML VIAL IV PRN (19:47)
[2022-10-06] MEDS ORDERED: GLUCOSE 10 TAB/TUBE PO PRN (19:47)
[2022-10-06] MEDS ORDERED: DEXTROSE 50% 50 ML SYRINGE IV PRN (19:47)
[2022-10-06] MEDS ORDERED: GLUCAGON FOR INJ 1 MG VIAL SQ PRN (19:47)
[2022-10-06 20:42] LABS: Appearance Urine Cloudy (Clear); Bacteria Urine Automated Negative (Negative); Bilirubin Urine Negative (Negative); Blood Urine 1+ (Negative); Color Urine Yellow; Epithelial Cell Urine Auto 0-5 /lpf (0-5); Glucose Urine UA Negative (Negative); Ketones Urine Negative (Negative); Leukocyte Esterase Urine 3+ (Negative); Nitrite Urine Negative (Negative); Protein Urine Trace (Negative); RBC Urine Automated 0-4 /hpf (0-4); Specific Gravity Urine 1.029 (1.000-1.030); Urobilinogen Urine Negative (Negative); WBC Urine Automated >30 /hpf (0-5)
[2022-10-06] MEDS: INSULIN ASPART PER UNIT CHARGE SC SCH (22:06)
[2022-10-06] MEDS: ATORVASTATIN 40 MG TAB PO SCH (22:13)
[2022-10-06] MEDS: SUCRALFATE 1 GM TAB PO SCH (22:13)
[2022-10-06] MEDS: QUEtiapine FUMARATE 25 MG TABLET PO SCH ×2 (22:13→22:19)
[2022-10-06] MEDS: FAMOTIDINE 20 MG in SYRINGE 3 ML IV SCH (22:14)
[2022-10-06] MEDS ORDERED: ASPIRIN 81 MG CHEW PO STA (22:17)
[2022-10-06] MEDS: PANTOprazole 40 MG in SYRINGE 0 ML IV SCH (22:24)
[2022-10-06] MEDS ORDERED: POTASSIUM CHLORIDE CRTAB 20 MEQ TABCR PO STA (22:28)
--- NOTE | 2022-10-06 22:36 | Ultrasound Report ---
Exam(s): US LIVER EXAM: US Abdomen Limited CLINICAL HISTORY: Reason for exam: ?cholecystitis on CT, RUQ pain present. TECHNIQUE: Real-time ultrasound of the abdomen with image documentation. COMPARISON: No relevant prior studies available. FINDINGS: Liver: Fatty infiltration of liver. Free fluid: Gallbladder is contracted but within normal limits. Trace perihepatic volume of abdominal and pelvic ascites. Trace amount of rashaad- cholecystic fluid likely secondary above-mentioned perihepatic volume of abdominal and pelvic ascites. IMPRESSION: 1. Gallbladder is contracted but within normal limits. Trace perihepatic volume of abdominal and pelvic ascites. 2. Trace amount of rashaad-cholecystic fluid likely secondary above- mentioned perihepatic volume of abdominal and pelvic ascites. Electronically signed by: Castillo Moise MD 10/06/22 22:36 PM
[2022-10-06] MEDS ORDERED: HEPARIN SODIUM/DEXTROSE 25,000 UNITS/500 ML BAG IV SCH (22:45)
[2022-10-06] MEDS ORDERED: HEPARIN SOD (PORCINE) 1000 UNIT/ML IV ONE ×2 (22:46→23:00)
[2022-10-06] MEDS: Heparin IV Adult Wt-Based Low-Dose WITH Bolus Protocol IV SCH ×2 (23:24→23:27)
[2022-10-07 00:29] LABS: Hematocrit (blood only) 32.7 % (37.0-47.0); Hemoglobin 10.9 g/dl (12.0-16.0); Mean Corpuscular Hemoglobin 32.2 pg (25.0-34.0); Mean Corpuscular Hgb Conc 33.3 g/dL (32.0-36.0); Mean Corpuscular Volume 96.5 fL (80.0-100.0); Mean Platelet Volume 9.6 fL (9.4-12.4); Platelet Count 211 K/uL (130-400); RDW Coefficient of Variation 13.1 % (11.5-14.5); RDW Standard Deviation 46.3 fL (36.4-46.3); Red Blood Count 3.39 M/uL (4.20-5.40); White Blood Count 7.08 K/ul (4.8-10.8)
[2022-10-07] MEDS: LEVOTHYROXINE SODIUM 150 MCG TABLET PO SCH (06:11)
[2022-10-07 06:41] LABS: Hematocrit (blood only) 32.5 % (37.0-47.0); Hemoglobin 10.9 g/dl (12.0-16.0); Mean Corpuscular Hemoglobin 31.9 pg (25.0-34.0); Mean Corpuscular Hgb Conc 33.5 g/dL (32.0-36.0); Mean Platelet Volume 10.4 fL (9.4-12.4); Platelet Count 226 K/uL (130-400); RDW Coefficient of Variation 12.9 % (11.5-14.5); RDW Standard Deviation 44.6 fL (36.4-46.3); Red Blood Count 3.42 M/uL (4.20-5.40); White Blood Count 6.18 K/ul (4.8-10.8)
[2022-10-07 07:05] LABS: Partial Thromboplastin Ratio 1.2; Partial Thromboplastin Time 34.7 Seconds (21.0-31.0)
[2022-10-07 07:09] LABS: Chol HDL Ratio 3.5 (0-5)
[2022-10-07] MEDS ORDERED: HEPARIN SOD (PORCINE) 1000 UNIT/ML IV ONE (07:09)
[2022-10-07 07:21] LABS: Troponin I High Sensitivity 121.4 pg/ml (0-14)
[2022-10-07] MEDS ORDERED: HEPARIN IV BOLUS 2,000 UNITS in SYRINGE 0 ML IV ONE (07:30)
--- NOTE | 2022-10-07 08:41 | Hospitalist Progress Note ---
Date of Service October 07, 2022 Assessment & Plan (1) Epigastric pain: Plan: Suspect worsening gastritis/esophagitis due to prednisone/NSAID use., does have cholelitihasis without changes in LFT, no clinical corroboration to suggest active gallbladder disease Stop prednisone/NSAIDs. Treat epigastric pain such as gastritis at this time Switch esomeprazole to pantoprazole 40mg BID Increase famotidine 20mg IV BID Add Carafate 1g PO ACHS (2) Elevated troponin: Plan: No chest pain or shortness of breath , elevated troponin likely demand ischemia from illness no regional wall motion of the maladies or reduction in cardiac function echocardiography. Would warrant outpatient follow-up however Initially heparinize for concern of NSTEMI NSTEMI was ruled out heparin is discontinued one dose aspirin 324 on admission (3) Diabetes mellitus: Plan: HbA1C 6.2 [08/01/22], no need to repeat. Hold metformin due to IV contrast. Novolog: --Goal BSG Range: Low 110 mg/dL, High 140 mg/dL --Correction Factor: 45 mg/dL/unit No carb ratio --BSGs ACHS if eating, q6h if npo (4) Hypothyroidism: Plan: chronic and stable TSH WNL in July Continue levothyroxine (5) Compression fracture of L3 vertebra: Plan: New from previous evaluation we will attempt multimodal pain control, patient has had some good improvement Plan VTE Prophyalxis - deferred pending repeat troponin Diet - heart healthy, T2DM Admission and Anticipated Discharge Date Admission Date: October 06, 2022 Subjective This patient's had resolution of her epigastric pain, her back pain is better controlled and she is able to move about the room without much distress. We discussed any cardiac related symptoms other than the epigastric discomfort and she has had none. Her echocardiogram did not show any regional wall motion abnormalities, did reduction in ejection fraction or significant valvular heart disease and subsequently her heparin is discontinued Physical Exam Physical Exam: Cardiac exam is regular without murmurs Her lungs are clear without wheezes or crackles Her lower lumbar spine is point tender in the appropriate location for her acute L3 compression fraction Her abdomen is without discomfort to corroborate cholestatic disease she does have changes on her imaging of cholelithiasis Results & Data Results & Data Vital Signs (Past 12 Hours) Vital Signs Temp Pulse Pulse Resp BP Pulse Ox O2 Del Method 05/27/23 08:00 98.6 F 45 L 18 120/55 L 95 Room Air 10/07/22 02:51 98.2 F 43 L 20 172/76 H 91 Room Air 10/06/22 23:00 48 L 10/06/22 22:41 98.6 F 41 L 18 161/63 H 91 Room Air Laboratory Results Reviewed CBC Reviewed PRP Reviewed troponin trend Personally discussed echocardiographic results with Dr. Jiménez pattern hand on- call PG Care Time/CCT Total # of Minutes Spent Total Time Spent with Patient: Total time spent is greater than 50% in coordination of care (as documented) at patient's floor/unit and/or counseling patient: Coding Level of Care Code 58541 SUB INP/OBS CARE 2/35MIN Diagnoses Epigastric pain R10.13 Elevated troponin R77.8 Diabetes mellitus E11.9 Hypothyroidism E03.9 Compression fracture of L3 vertebra S32.030A
[2022-10-07] MEDS ORDERED: MoRPHine SULFATE 2 MG/ML CARP IV PRN (08:45)
[2022-10-07] MEDS: INSULIN ASPART PER UNIT CHARGE SC SCH ×4 (09:25→20:03)
[2022-10-07] MEDS: MoRPHine SULFATE 4 MG/ML 1 ML CARP\\VIAL IV PRN (09:31)
[2022-10-07] MEDS: FAMOTIDINE 20 MG in SYRINGE 3 ML IV SCH ×2 (09:31→19:54)
[2022-10-07] MEDS: LIDOCAINE 5% 1 PATCH TD SCH (09:35)
[2022-10-07] MEDS: ACETAMINOPHEN 500 MG TAB PO SCH ×3 (09:36→19:52)
[2022-10-07] MEDS: PANTOprazole 40 MG in SYRINGE 0 ML IV SCH ×2 (09:36→19:52)
--- NOTE | 2022-10-07 10:29 | Electrocardiogram Report ---
Test Reason : Blood Pressure : / mmHG Vent. Rate : 051 BPM Atrial Rate : 051 BPM P-R Int : 156 ms QRS Dur : 098 ms QT Int : 444 ms P-R-T Axes : 047 067 068 degrees QTc Int : 409 ms Sinus bradycardia Otherwise normal ECG When compared with ECG of 09-JUL-2022 01:26, No significant change was found Confirmed by Ryan Jiménez ([id number]) on 10/07/2022 10:28:58 AM Referred By: REFERRED SELF Confirmed By:Ryna Jiménez
--- NOTE | 2022-10-07 10:44 | Electrocardiogram Report ---
Test Reason : Blood Pressure : / mmHG Vent. Rate : 042 BPM Atrial Rate : 042 BPM P-R Int : 170 ms QRS Dur : 096 ms QT Int : 484 ms P-R-T Axes : 049 063 075 degrees QTc Int : 404 ms Marked sinus bradycardia Abnormal ECG When compared with ECG of 06-OCT-2022 15:46, (unconfirmed) No significant change was found Confirmed by Ryan Jiménez ([id number]) on 10/07/2022 10:43:55 AM Referred By: REFERRED SELF Confirmed By:Ryan Jiménez
[2022-10-07] MEDS: SUCRALFATE 1 GM TAB PO SCH ×4 (11:39→19:52)
[2022-10-07] MEDS: ASPIRIN 81 MG ECTAB PO SCH (11:39)
[2022-10-07 12:40] LABS: Hematocrit (blood only) 34.1 % (37.0-47.0); Hemoglobin 11.3 g/dl (12.0-16.0); Mean Corpuscular Hemoglobin 32.1 pg (25.0-34.0); Mean Corpuscular Hgb Conc 33.1 g/dL (32.0-36.0); Mean Corpuscular Volume 96.9 fL (80.0-100.0); Mean Platelet Volume 9.7 fL (9.4-12.4); Platelet Count 221 K/uL (130-400); RDW Coefficient of Variation 12.9 % (11.5-14.5); RDW Standard Deviation 45.4 fL (36.4-46.3); Red Blood Count 3.52 M/uL (4.20-5.40); White Blood Count 6.47 K/ul (4.8-10.8)
[2022-10-07 13:19] LABS: Partial Thromboplastin Ratio 1.7
[2022-10-07 13:48] LABS: Partial Thromboplastin Time 47.3 Seconds (21.0-31.0)
[2022-10-07] MEDS: oxyCODONE HCL IR 5 MG TAB (IMMEDIATE RELEASE) PO PRN ×2 (14:12→20:03)
[2022-10-07] MEDS: QUEtiapine FUMARATE 25 MG TABLET PO SCH (19:52)
[2022-10-07] MEDS: ATORVASTATIN 40 MG TAB PO SCH (19:52)
[2022-10-08] MEDS: LEVOTHYROXINE SODIUM 150 MCG TABLET PO SCH (06:05)
[2022-10-08] MEDS: PANTOprazole 40 MG in SYRINGE 0 ML IV SCH (08:38)
[2022-10-08] MEDS: INSULIN ASPART PER UNIT CHARGE SC SCH ×2 (08:38→12:40)
[2022-10-08] MEDS: FAMOTIDINE 20 MG in SYRINGE 3 ML IV SCH (08:38)
[2022-10-08] MEDS: MoRPHine SULFATE 4 MG/ML 1 ML CARP\\VIAL IV PRN (08:38)
[2022-10-08] MEDS: SUCRALFATE 1 GM TAB PO SCH ×2 (08:39→12:39)
[2022-10-08] MEDS: ACETAMINOPHEN 500 MG TAB PO SCH (08:39)
[2022-10-08] MEDS: LIDOCAINE 5% 1 PATCH TD SCH (08:39)
[2022-10-08] MEDS: ASPIRIN 81 MG ECTAB PO SCH (08:39)
[2022-10-08] MEDS ORDERED: CALCITONIN SALMON NA 200 IU/AC 3.7 ML BTL ONE (10:31)
[2022-10-08] MEDS: oxyCODONE HCL IR 5 MG TAB (IMMEDIATE RELEASE) PO PRN (12:39)
--- NOTE | 2022-10-08 13:21 | Discharge Summary ---
Date of Service October 08, 2022 Admission HPI Per Admitting Provider Charmaine Tompkins is a 62 year old female who presented to the ER with nausea, vomiting and abdominal pain. She reports this is similar to when she was recently hospitalized in June with gastritis/esophagitis and possible gastroparesis. She improved with conservative measures. Current epigastric pain constant after starting 2 days ago, no radiation, current severity 8/10. She reports usually having nausea and vomiting with these symptoms and it is no different on this occasion with vomiting bile-like substance. No hematemesis. No change in bowel habit. No melena or hematochezia. She reports recently having back pain after picking up her mother who had fallen. She had been taking ibuprofen 400mg PO BID for this and recently prescribed prednisone 2 days ago which has now resolved the pain. In the ER her high sensitivity troponin was elevated. She has significant risk factors including smoking, diabetes, hypertension and prior stroke. She denies any prior heart attack and no exertional chest pain or shortness of breath. Her epigastric pain is reproducible on palpation and very associated with eating and nausea/vomiting. Principal Diagnosis Lumbar compression fracture L3 Gastritis induced by medication Spurious elevation of troponin no acute coronary syndrome suspected Discharge Exam pt has no epigastric pain on exam cardiac is regular lungs are clear Discharge Data Allergies Allergy/AdvReac Type Severity Reaction Status Date / Time No Known Allergies Allergy Verified 10/06/22 17:56 Consultations 10/06/22 17:20 ED Decision to Admit Stat Ordered Studies Abdomen/Pelvis CT 10/06/22 15:08 CT abd pelvis oral and IV con CLINICAL HISTORY: abd pain, vomiting TECHNIQUE: Helical axial images of the abdomen and pelvis were obtained and displayed. Automated dose lowering techniques and/or adjustment according to patient size were utilized for this exam. This exam was performed with intravenous contrast. CT DOSE: 357.06 mGy.cm COMPARISON: Comparison is made to CT abdomen pelvis 07/07/2022 FINDINGS: Lower chest: No acute abnormality. Liver: Unremarkable. No focal lesions are seen. Gallbladder and biliary tree: Pericholecystic fluid is seen. The gallbladder wall measures approximately 3 mm. Prominence of the common bile duct which m easures 9 mm. Pancreas: Cystic-appearing lesion in the pancreas is less conspicuous on today's exam. Spleen: Unremarkable. Adrenals: Unremarkable. Kidneys and ureters: Unremarkable. Bladder: Unremarkable. Reproductive organs: Unremarkable. Bowel: Prominent duodenal diverticulum is again seen. Lymph nodes Retroperitoneal: Unremarkable. Pelvic: Unremarkable. Mesenteric: Unremarkable. Peritoneum: Mild ascites is seen most prominently in the right upper quadrant. Vessels: Atherosclerotic calcifications are seen. Abdominal wall: Unremarkable. Bones: Degenerative changes in the visualized spine. There is increased compression deformity of L3 which appears subacute. IMPRESSION: 1. Prominent gallbladder wall and pericholecystic fluid along with common bile duct dilation is suggestive of cholelithiasis versus choledocholithiasis. 2. Subacute appearing fracture of L3, new from prior exam. Correlation with point tenderness is recommended. 3. Additional findings as above Electronically signed by: Chapin Morrow M.D. 10/06/2022 7:40 PM Liver Ultrasound 10/06/22 20:46 Exam(s): US LIVER EXAM: US Abdomen Limited CLINICAL HISTORY: Reason for exam: ?cholecystitis on CT, RUQ pain present. TECHNIQUE: Real-time ultrasound of the abdomen with image documentation. COMPARISON: No relevant prior studies available. FINDINGS: Liver: Fatty infiltration of liver. Free fluid: Gallbladder is contracted but within normal limits. Trace perihepatic volume of abdominal and pelvic ascites. Trace amount of rashaad- cholecystic fluid likely secondary above-mentioned perihepatic volume of abdominal and pelvic ascites. IMPRESSION: 1. Gallbladder is contracted but within normal limits. Trace perihepatic volume of abdominal and pelvic ascites. 2. Trace amount of rashaad-cholecystic fluid likely secondary above- mentioned perihepatic volume of abdominal and pelvic ascites. Electronically signed by: Castillo Moise MD 10/06/22 22:36 PM Hospital Course (1) Epigastric pain: Suspect worsening gastritis/esophagitis due to prednisone/NSAID use., does have cholelitihasis without changes in LFT, no clinical corroboration to suggest active gallbladder disease Stop prednisone/NSAIDs. Treat epigastric pain such as gastritis at this time esomeprazole & famotidine 20mg BID (2) Elevated troponin: No chest pain or shortness of breath , elevated troponin likely demand ischemia from illness no regional wall motion of the maladies or reduction in cardiac function echocardiography. Initially heparinized for concern of NSTEMI NSTEMI was ruled out heparin is discontinued one dose aspirin 324 on admission (3) Diabetes mellitus: HbA1C 6.2 [08/01/22], no need to repeat. resume metformin 10/09/22 (4) Hypothyroidism: chronic and stable TSH WNL in July Continue levothyroxine (5) Compression fracture of L3 vertebra: New from previous evaluation we will attempt multimodal pain control, patient has had some good improvement Total Time Total Time Spent Total Time Spent (In Minutes): It required greater than 30 minutes to prepare this patient for discharge Discharge Plan Discharge Items Patient Disposition: Home - Self-Care Reason For Visit: GASTRITIS, ELEVATION TROPONIN Discharge Diagnosis: Lumbar compression fracture L3 Gastritis induced by medication Spurious elevation of troponin no acute coronary syndrome suspected Activity: Per Instructions section Non-emergency contact: Primary Care Provider Call non-emergency contact if: your symptoms worsen Follow-up/Referrals: Jimena Cobos CRNP [Primary Care Provider] - Diet: Regular Addtl Attending Provider Instructions: you have a compression fracture of your 3rd lumbar vertebrae, this is a broken bone and will heal over time. A lumbar compression fracture tends to hurt more when you move positions from lying to sitting or sitting to standing. However it is important you keep moving. You will not create increased injury to yourself but the pain should be treated by medications Typically we use multiple medications to attack your pain this will include scheduled Tylenol and he will be on calcium nasal spray lidocaine patches and opiate pain control We do believe that nonsteroidal medication such as ibuprofen or naproxen/Aleve which typically could help pain may have made her stomach irritated and recommend you avoid these medications Additionally we would recommend to avoid the prednisone that was prescribed for you for some reason Because of your stomach irritation we are prescribing a short duration of medications to help heal your stomach and improve your symptoms With every patient and we recommend you follow-up with a primary care provider in the outside chance that your pain does not improve over time you may be referred to a orthopedic spine surgeon and there are additional procedures that can be attempted to improve your pain On admission there was some minor elevation of the blood work meant to alert us if you have any heart conditions however trending the medication over time did not reveal any upward rise subsequently believe that the initial blood work was a overtly sensitive response and not indicative of you having unstable coronary disease Pending Studies at Discharge: No Stand-Alone Forms: My [facility], Smoking Cessation Medications and DC Order Prescriptions: New lidocaine 5 % Adhesive Patch,Medicated 1 patch transdermal QAM Qty: 15 0RF calcitonin (salmon) 200 unit/actuation spray,non-aerosol 1 spray intranasal DAILY Qty: 3.7 0RF oxycodone-acetaminophen [Percocet] 5-325 mg tablet 2 tab PO Q6H PRN (Reason: pain) Qty: 40 0RF Continued metformin 500 mg tablet extended release 24 hr 500 mg PO BID Qty: 180 3RF atorvastatin 40 mg tablet 40 mg PO HS Qty: 90 3RF levothyroxine 150 mcg tablet 150 mcg PO QAM ondansetron 4 mg tablet,disintegrating 4 mg PO Q6H PRN (Reason: nausea and vomiting) Qty: 60 1RF quetiapine [Seroquel] 300 mg tablet 150 mg PO HS Qty: 90 3RF albuterol sulfate 90 mcg/actuation aerosol powdr breath activated 1 inh inhalation QID PRN (Reason: shortness of breath or wheezing) Qty: 1 2RF cyclobenzaprine 10 mg tablet 10 mg PO TID Qty: 30 0RF ipratropium-albuterol 0.5 mg-3 mg(2.5 mg base)/3 mL solution for nebulization 3 ml inhalation QID PRN (Reason: wheezing) Qty: 90 3RF aspirin [Ecotrin Low Strength] 81 mg Tablet,Delayed Release (Dr/Ec) 81 mg PO QAM Qty: 81 0RF estradiol 0.01 % (0.1 mg/gram) cream 1 g vaginal WK Rx Instructions: THURSDAYS. fluticasone propionate [Flonase Allergy Relief] 50 mcg/actuation spray,suspension 2 spray intranasal QAM Rx Instructions: administer into each nostril Changed oxycodone-acetaminophen 5-325 mg tablet 2 tab PO QID PRN (Reason: pain) Qty: 40 0RF famotidine 20 mg tablet 20 mg PO BID Qty: 180 3RF esomeprazole magnesium 40 mg capsule,delayed release(DR/EC) 40 mg PO BID Qty: 90 0RF Discontinued prednisone 20 mg tablet 40 mg PO DAILY Qty: 10 0RF Rx Instructions: STARTED 10/04/22 FOR 5 DAYS ibuprofen 200 mg Tablet 400 mg PO Q6H PRN (Reason: Pain) No Action (DME) AeroEclipse II Nebulizer Misc See Rx Instructions .ROUTE .MEDSUPPLY Qty: 1 0RF Rx Instructions: As directed Discharge Orders: Discharge Order (Routine); Ordered 10/08/22 Ordered By: Zachary Jackson Admission Data Admit Date/Time: 10/06/22 17:33 Attending Provider: Zachary Jackson Admit Provider: Colt Vo Primary Care Provider: Jimena Cobos Other Providers: Colt Vo Coding Level of Care Code 63646 INP/OBS DISCH >30 MIN Diagnoses Epigastric pain R10.13 Elevated troponin R77.8 Diabetes mellitus E11.9 Hypothyroidism E03.9 Compression fracture of L3 vertebra S32.030A
== END 2022-10-08 14:12 | disposition home or self-care (01) ==
LOC: ED 14:18 → 2E 14:18 → SUATTDRO 17:33 → 2E 19:34

== ENCOUNTER 2023-10-23 16:52 | Observation (INO) ==
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
[2023-10-23] MEDS: SODIUM CHLORIDE 0.9% 500 ML IV SCH (17:11)
--- NOTE | 2023-10-23 17:19 | XRay Report ---
XR chest 1V portable CLINICAL HISTORY: weakness TECHNIQUE: Single frontal radiograph of the chest was obtained. Comparison: Comparison is made to chest radiograph 02/18/2020 FINDINGS: No lines and tubes are seen. Calcified aortic knob is seen. The lungs are clear. No evidence of pleur al effusion or pneumothorax. Subluxation of the left shoulder joint is unchanged. IMPRESSION: No acute chest disease. ACT 112: Negative or not required by law. Electronically signed by: Chapin Morrow M.D. 10/23/2023 5:18 PM
[2023-10-23 17:43] LABS: Basophils # (auto) 0.03 K/uL (0.00-0.20); Basophils % (auto) 0.6 %; Eosinophils # (auto) 0.04 K/uL (0.00-0.50); Eosinophils % (auto) 0.8 %; Hematocrit (blood only) 38.3 % (37.0-47.0); Hemoglobin 12.7 g/dl (12.0-16.0); Immature Granulocytes # (auto) 0.02 K/uL (0.01-0.20); Immature Granulocytes % (auto) 0.4 %; Lymphocytes # (auto) 1.21 K/uL (1.20-3.40); Lymphocytes % (auto) 24.2 %; Mean Corpuscular Hemoglobin 30.2 pg (25.0-34.0); Mean Corpuscular Hgb Conc 33.2 g/dL (32.0-36.0); Mean Platelet Volume 10.4 fL (9.4-12.4); Monocytes # (auto) 0.39 K/uL (0.11-0.59); Monocytes % (auto) 7.8 %; Neutrophils % (auto) 66.2 %; Platelet Count 257 K/uL (130-400); RDW Coefficient of Variation 13.7 % (11.5-14.5); RDW Standard Deviation 45.3 fL (36.4-46.3); Red Blood Count 4.21 M/uL (4.20-5.40); White Blood Count 4.99 K/ul (4.8-10.8)
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
--- NOTE | 2023-10-23 17:55 | CT Scan Report ---
CT head/brain wo con CLINICAL HISTORY: confusion Technique: Contiguous axial CT images of the head were acquired from the base of the skull to the lai abdias without intravenous contrast administration. Images were viewed in brain, subdural and bone [facility] . Automated dose lowering techniques and/or adjustment according to patient size were utilized for this exam. Comparison: Comparison is made to CT head 06/07/2022 Findings: Exam is limited by patient motion. Focal encephalomalacia in left frontal lobe is again seen. Imaged portions of the paranasal sinuses and mastoid air cells are clear. The orbits appear normal. There are no acute fractures of the calvaria or scalp swelling. Impression: No acute intracranial hemorrhage, no evidence of acute territorial infarction or other acute intracra nial disease process. ACT 112: Negative or not required by law. Electronically signed by: Chapin Morrow M.D. 10/23/2023 5:53 PM
[2023-10-23 17:57] LABS: Alanine Aminotransferase 14 U/L (7-52); Albumin Globulin Ratio 1.9 (0.9-2); Albumin Level 4.7 gm/dl (3.4-5.0); Alkaline Phosphatase 77 U/L (34-104); Anion Gap 9 (3-11); Aspartate Aminotransferase 17 U/L (13-39); BUN Creatinine Ratio 16.7 (10-20); Bilirubin,Total 0.4 mg/dl (0.2-1.0); Blood Urea Nitrogen 16 mg/dl (6-23); Calcium 9.9 mg/dl (8.6-10.3); Carbon Dioxide 24 mmol/L (21-32); Chloride 111 mmol/L (98-107); Est GFR (African American) 72.9 ml/min; Est GFR (Non-African American) 62.9 ml/min; Globulin 2.5 gm/dl (2.5-4.0); Glucose 97 mg/dl (70-99(Fasting)); Magnesium 1.9 mg/dl (1.7-2.4); Potassium 4.2 mmol/L (3.5-5.1); Sodium 144 mmol/L (136-145); Total Protein 7.2 gm/dl (6.0-8.3)
[2023-10-23 18:02] LABS: Troponin I High Sensitivity 3.6 pg/ml (0-14)
[2023-10-23 18:12] LABS: Thyroid Stimulating Hormone 0.529 uIu/ml (0.300-4.500)
[2023-10-23 18:48] LABS: Appearance Urine Clear (Clear); Bilirubin Urine Negative (Negative); Blood Urine Negative (Negative); Color Urine Yellow; Glucose Urine UA Negative (Negative); Ketones Urine Trace (Negative); Leukocyte Esterase Urine Negative (Negative); Nitrite Urine Negative (Negative); Protein Urine Negative (Negative); Specific Gravity Urine 1.014 (1.000-1.030); Urobilinogen Urine Negative (Negative); pH Urine 5.5 (4.5-7.5)
[2023-10-23 19:33] LABS: Amphetamines+Metham, Urine Neg (Neg); Barbiturates, Urine Neg (Neg); Benzodiazepine, Urine Neg (Neg); Cocaine, Urine Neg (Neg); Fentanyl, Urine Neg (Neg); MDMA (Ecstacy), Urine Pos (Neg); Marijuana, Urine Neg (Neg); Methadone, Urine Neg (Neg); Opiate, Urine Neg (Neg); Phencyclidine, Urine Neg (Neg)
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
[2023-10-23] MEDS: SODIUM CHLORIDE 0.9% 500 ML IV ONE (20:54)
[2023-10-23] MEDS ORDERED: NICOTINE 14 MG/24 HR PATCH TD PRN (23:43)
[2023-10-23] MEDS ORDERED: ALUMINUM/MAGNESIUM SUSP 30 ML UDC PO PRN (23:43)
[2023-10-23] MEDS ORDERED: POLYETHYLENE (MIRALAX) 17 GM PACK PO PRN (23:43)
[2023-10-23] MEDS ORDERED: ACETAMINOPHEN 325 MG TAB PO PRN (23:43)
[2023-10-23] MEDS ORDERED: MAGNESIUM HYDROXIDE SUSP 30 ML UDC PO PRN (23:43)
[2023-10-24] MEDS: ATORVASTATIN 40 MG TAB PO SCH (00:01)
--- NOTE | 2023-10-24 00:27 | Magnetic Resonance Report ---
Exam(s): MRI HEAD Without Contrast EXAM: MR Head Without Intravenous Contrast CLINICAL HISTORY: Reason for exam: stroke r/o. TECHNIQUE: Magnetic resonance images of the head/brain without intravenous contrast in multiple planes. COMPARISON: CT head from October 23, 2023 and June 07, 2022 FINDINGS: Brain: There is a an approximately 3 cm area of encephalomalacia in the left frontal lobe with surrounding gliosis consistent with old infarct. This is unchanged. There is mild periventricular white matter T2 hyperintensity consistent with small vessel disease. No areas of diffusion restriction are seen to indicate acute stroke. No hemorrhage. Ventricles: Unremarkable. No ventriculomegaly. Bones/joints: Unremarkable. No acute fracture. Sinuses: Unremarkable as visualized. No acute sinusitis. Mastoid air cells: Unremarkable as visualized. No mastoid effusion. Orbits: Unremarkable as visualized. IMPRESSION: There is a an approximately 3 cm area of encephalomalacia in the left frontal lobe with surrounding gliosis consistent with old infarct. This is unchanged. There is mild periventricular white matter T2 hyperintensity consistent with small vessel disease. No areas of diffusion restriction are seen to indicate acute stroke. Electronically signed by: Aron Chavez MD 10/24/23 00:27 AM
[2023-10-24 04:40] LABS: Albumin Globulin Ratio 1.9 (0.9-2); Albumin Level 4.5 gm/dl (3.4-5.0); BUN Creatinine Ratio 16.9 (10-20); Basophils # (auto) 0.03 K/uL (0.00-0.20); Basophils % (auto) 0.7 %; Bilirubin,Total 0.6 mg/dl (0.2-1.0); Calcium 9.3 mg/dl (8.6-10.3); Eosinophils # (auto) 0.05 K/uL (0.00-0.50); Eosinophils % (auto) 1.1 %; Est GFR (African American) 95.2 ml/min; Est GFR (Non-African American) 82.2 ml/min; Globulin 2.4 gm/dl (2.5-4.0); Immature Granulocytes # (auto) 0.02 K/uL (0.01-0.20); Immature Granulocytes % (auto) 0.5 %; Lymphocytes % (auto) 36.7 %; Mean Corpuscular Hemoglobin 29.8 pg (25.0-34.0); Mean Corpuscular Hgb Conc 32.5 g/dL (32.0-36.0); Mean Corpuscular Volume 91.7 fL (80.0-100.0); Monocytes # (auto) 0.37 K/uL (0.11-0.59); Monocytes % (auto) 8.5 %; Neutrophils # (auto) 2.29 K/uL (1.40-6.50); Neutrophils % (auto) 52.5 %; Platelet Count 246 K/uL (130-400); Potassium 3.1 mmol/L (3.5-5.1); RDW Coefficient of Variation 13.5 % (11.5-14.5); RDW Standard Deviation 45.7 fL (36.4-46.3); Red Blood Count 4.36 M/uL (4.20-5.40); Total Protein 6.9 gm/dl (6.0-8.3); White Blood Count 4.36 K/ul (4.8-10.8)
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
--- NOTE | 2023-10-24 09:49 | Electrocardiogram Report ---
Test Reason : Blood Pressure : / mmHG Vent. Rate : 071 BPM Atrial Rate : 071 BPM P-R Int : 190 ms QRS Dur : 098 ms QT Int : 396 ms P-R-T Axes : 075 062 071 degrees QTc Int : 430 ms Normal sinus rhythm Normal ECG When compared with ECG of 07-OCT-2022 06:06, Vent. rate has increased BY 29 BPM Confirmed by Earnest Piedra ([id number]) on 10/24/2023 9:49:02 AM Referred By: REFERRED SELF Confirmed By:Nixon Piedra
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
--- NOTE | 2023-10-24 19:24 | Billing Data ---
Date of Service October 24, 2023 Coding Level of Care Code 97898 INT INP/OBS CARE
== END 2023-10-24 14:13 | disposition home or self-care (01) ==
LOC: ED 16:52 → EDINP 16:52 → SUATTDRO 21:39 → 1E 23:43